=== PATIENT | male | born 1940 | race Caucasian/White ===

== ENCOUNTER 2024-02-26 14:30 | Outpatient (RCR) | payer MEDICARE, SELFPAY ==
[2024-02-19 14:12] VITALS: BP 154/60; PULSE 63; RESP 16; TEMP 35.9; BMI 28.4
--- NOTE | 2024-02-19 17:47 | PCM.WC.HP ---
History of Present Illness Date of Service: 02/19/24 Chief Complaint: LLE wounds History of Wound: Mr. Paola Boyer is an 83 y/o male who presents to the wound healing center today with left lower extremity wounds. He was referred by Nuvia Brooks. He is accompanied to his appointment today by his . He relays that he has been dealing with these left lower extremity wounds recurrently over the past few years. They will become very close to healing and then subsequently open back up. His reports that all really started with a lot of swelling and redness in his lower legs which progressively worsened to weeping before developing these focal wounds. He has been treated to this point at [facility] with Unna boots and all of the surrounding skin has much improved in appearance however the wounds remain. He has not had any prior venous imaging to his knowledge and no venous interventions. No history of peripheral arterial disease or arterial interventions. He is not diabetic. He is not currently smoking, he quit in 1964. He presents today in an automated wheelchair. His insurance unfortunately has a very high co-pay for debridements which will be kept in mind throughout his treatment. [facility] Home Medications cholecalciferol (vitamin D3) 50 mcg (2,000 unit) capsule 50 mcg PO DAILY 02/19/24 [History Last Taken Unknown] esomeprazole magnesium 20 mg capsule,delayed release (Nexium) 20 mg PO DAILY PRN GERD 02/19/24 [History Last Taken Unknown] ezetimibe 10 mg tablet (Zetia) 10 mg PO DAILY 02/19/24 [History Last Taken Unknown] furosemide 20 mg tablet (Lasix) 20 mg PO DAILY 02/19/24 [History Last Taken Unknown] hydrochlorothiazide 25 mg tablet 25 mg PO TID 02/19/24 [History Last Taken Unknown] hydrocodone-acetaminophen 5-325mg 5mg-325mg 1 tab PO DAILY PRN pain 02/19/24 [History Last Taken Unknown] losartan 100 mg tablet (Cozaar) 100 mg PO BID 02/19/24 [History Last Taken Unknown] Allergy/AdvReac Type Severity Reaction Status Date / Time No Known Allergies Allergy Verified 02/19/24 14:10 Social History Smoking Status: Former smoker Vital Signs Vital Signs Vital Signs: 02/19/24 14:12 Temperature 96.6 F L Temperature Source Temporal Pulse Rate 63 Respiratory Rate 16 Blood Pressure 154/60 H Blood Pressure Mean 91 Blood Pressure Source Monitor Blood Pressure Position Sitting Blood Pressure Location Right Arm Oxygen Delivery Method Room Air Weight Weight: 198 lb Body Mass Index (BMI) 28.4 Physical Exam Const alert, oriented x3 and no apparent distress General Appearance: cooperative and comfortable HEENT normocephalic, head/scalp atraumatic, hearing grossly normal bilaterally, external ears normal and external nose normal Eyes PERRL and EOMs intact bilaterally General Eye: normal appearance of both eyes Neck General: normal visual inspection and trachea midline Resp normal respiratory effort, normal air movement, no retractions and no use of accessory muscles Effort and Inspection: able to speak in complete sentences; Negative for labored, stridor or audible wheezes Cardio regular rate and regular rhythm Extremity Extremity Narrative: 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 Mild 1+ edema on exam today. No apparent bulging varicosities. No weeping or skin breakdown except for wounds as noted below. Easily palpable pedal pulses. Skin Wounds: wounds noted Wound Narrative: There are 2 ulcerations to the left lower leg. The inferolateral ulceration measures 1.3 x 1.7 x 0.4 cm with a granular and fibrinous base. The posterior ulceration measures 1 x 0.6 x 0.2 cm also with a granular and fibrinous base. No signs of infection. Neuro oriented x3, CN's II-XII intact bilaterally and moves all extremities Speech: speech normal Debridement Note Debridement Note Wound debrided: Left lateral lower leg Laterality: Left No debridement was completed: No debridement was completed today Post-Debridement Measurements and Additional Note: Post-Debridement Measurements/Treatment - Nurse 1 - General Ulcer Assessment Start: 02/19/24 14:07 Freq: Status: Active Protocol: WC.LOWEXT Activity Type Activity Date Activity User E-sign Co-sign Detail Recorded Client Recorded Date Recorded By Document 02/19/24 14:12 [facility] Desktop 02/19/24 14:31 [facility] 02/19/24 14:12 - Today's Visit Information Type of service Initial Visit Arrival Mode Wheelchair Transfer Assistance None Accompanied by Patient Identification Verified (Name & Yes ) Patient Requires Transmission-Based No Precautions Height and Weight Height 5 ft 10 in Weight 198 lb Weight in Pounds 198.0 lbs Weight Measurement Method Estimated by Patient Body Mass Index (BMI) 28.4 BMI Classification Overweight BSA - Maria Elena 2.08 Vital Signs Temperature (97.8 F-99.1 F) 96.6 F L Temperature Source Temporal Pulse Rate (60-100) 63 Pulse Location Monitor Respiratory Rate (12-18) 16 Respiratory rate source Observation Oxygen Delivery Method Room Air Blood Pressure (90/60-120/80) 154/60 H Blood Pressure Mean 91 Source Monitor Position Sitting Blood Pressure Location Right Arm History Since Last Visit- (Skip if this is Patient's initial visit) Left Footwear Regular Shoe Right Footwear Regular Shoe Pain Scale: 0-10 Numeric Is Patient Pain Free? Yes Lower Extremity Assessment/ Foot Assessment/ Toe Nail Assessment Right -Posterior Tibial Palpable No -Posterior Tibial Doppler Inaudible -Dorsalis Pedis Palpable No -Dorsalis Pedis Doppler Inaudible -Extremity Color Hyperpigmented -Hair Growth on Legs No -Hair Growth on Toes No -Temperature of Extremity Cool -Other Deformity No -Prior Foot Ulcer No -Charcot Joint No -Prior Amputation No -Thick Yes -Discolored Yes -Deformed No -Improper Length & Hygeine No Left -Posterior Tibial Palpable No -Posterior Tibial Doppler Inaudible -Dorsalis Pedis Palpable No -Dorsalis Pedis Doppler Monophasic -Extremity Color Hyperpigmented -Hair Growth on Legs No -Hair Growth on Toes No -Temperature of Extremity Cool -Other Deformity No -Prior Foot Ulcer No -Charcot Joint No -Prior Amputation No -Thick Yes -Discolored Yes -Deformed No -Improper Length & Hygeine No Communication Assessment Preferred 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 Required No Able to Read Yes Able to Write Yes Communication Tools None Right Hearing Abillity Normal Left Hearing Abillity Normal Visual Assistive Devices Glasses Teaching Assessment Preferences Verbal,Written, Audio/Visual, Demonstration Barriers to Learning None Readiness To Learn Excellent Willingness to Engage in Self Management High Activies Readiness to Engage in Self Management High Activities Anxiety Level Calm Cooperation Cooperative Perception Coherent Interest in Health Problem Asks Questions Education Importance Acknowledges Need Does Patient Smoke tobacco or other No substances Smoking Status Former smoker Is Patient Diabetic No Functional Assessment Recent Decline in Ability to Perform Denies Any Declines 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 Cultural/Christian Needs that may affect No Treatment Plan Teaching: Wound Center *Wound/Skin Impairment -Person Taught Patient, Significant Other -Teaching Method Discussion -Response to teaching Verbalize understanding Skin Care -Person Taught Patient, Significant Other -Teaching Method Discussion -Response to teaching Verbalize understanding *Welcome to the Wound Center -Person Taught Patient, Significant Other -Teaching Method Discussion -Response to teaching Verbalize understanding Welcome to the Wound Care Center English SORIANO - Nurse 1 - General Ulcer Measurement Start: 02/19/24 14:07 Freq: Status: Active Protocol: Activity Type Activity Date Activity User E-sign Co-sign Detail Recorded Client Recorded Date Recorded By Document 02/19/24 14:12 [facility] Desktop 02/19/24 14:31 [facility] 02/19/24 14:12 Wound Center Nurse 1 #2- L LOWER POST LE -Combined with other wound No -Current Size (cm) - Length 0.3 -Current Size (cm) - Width 0.5 -Current Size (cm) - Depth 0.1 -Total Square Cm 0.15 -Date of Last Picture (Recall this 02/19/24 field) -Photo Taken Yes -Tunneling No -Undermining/Tunneling No -Circular Undermining No -Exudate Amt Medium -Exudate Type Serosanguineous -Wound Margin Distinct, Outline Attached -Granulation Amt Small (1-33%) -Granulation Quality Red -Slough/Fibrin Yes -Necrosis Amt Large (67-100%) -Necrotic Tissue Type Adherent Slough -Texture (Darling-wound Skin Appearance) Assessed, Scarring -Moisture (Darling-wound Skin Appearance) Assessed -Color (Darling-wound Skin Appearance) Assessed -Temperature (Darling-wound Skin No Abnormality Appearance) (Pt Warm) -Tenderness on Palpation (Darling-wound No Skin Appearance) -Ulcer Cleansing Soap and Water -Foul Odor after Cleansing No -Anesthetic Used 4% Lidocaine Solution #1- L LAT LE -Combined with other wound No -Current Size (cm) - Length 1.1 -Current Size (cm) - Width 1.8 -Current Size (cm) - Depth 0.3 -Total Square Cm 1.98 -Date of Last Picture (Recall this 02/19/24 field) -Photo Taken Yes -Epithelialization None Present -Tunneling No -Undermining/Tunneling No -Circular Undermining No -Exudate Amt Medium -Exudate Type Serosanguineous -Wound Margin Distinct, Outline Attached -Granulation Amt Small (1-33%) -Granulation Quality Red -Slough/Fibrin Yes -Necrosis Amt Medium (34-66%) -Necrotic Tissue Type Adherent Slough -Texture (Darling-wound Skin Appearance) Assessed, Scarring -Moisture (Darling-wound Skin Appearance) Assessed -Color (Darling-wound Skin Appearance) Assessed -Temperature (Darling-wound Skin No Abnormality Appearance) (Pt Warm) -Tenderness on Palpation (Darling-wound No Skin Appearance) -Ulcer Cleansing Soap and Water -Foul Odor after Cleansing No -Anesthetic Used 4% Lidocaine Solution Lower Limb Edema Present Yes Right Calf (cm) 44 Right Ankle (cm) 24.5 Left Calf (cm) 46.5 Left Ankle (cm) 24.7 CHRISTIE - Nurse 2 - General Ulcer CM Notes Start: 02/19/24 14:07 Freq: Status: Active Protocol: Activity Type Activity Date Activity User E-sign Co-sign Detail Recorded Client Recorded Date Recorded By Document 02/19/24 15:06 Desktop 02/19/24 15:16 GM 02/19/24 15:06 Wound Center Nurse 2 #2- L LOWER POST LE -Time 15:11 -Correct Patient Yes -Correct Side, Site, Position Yes -Post Debridement (cm) - Length 1 -Post Debridement (cm) - Width 0.6 -Post Debridement (cm) - Depth 0.2 -Total Square (Post) (cm) 0.6 -Wound/Ulcer Outcome Not Healed -Ulcer Cleansing Rinsed/ Irrigated with Saline -Foul Odor after Cleansing No -Bioengineered Tissue No -Bleeding Controlled with NA #1- L LAT LE -Time 15:12 -Correct Patient Yes -Correct Side, Site, Position Yes -Post Debridement (cm) - Length 1.3 -Post Debridement (cm) - Width 1.7 -Post Debridement (cm) - Depth 0.4 -Total Square (Post) (cm) 2.21 -Wound/Ulcer Outcome Not Healed -Foul Odor after Cleansing No Pain Scale: 0-10 Numeric Is Patient Pain Free? Yes CHRISTIE - Nurse 3 - General Ulcer D/C NN Start: 02/19/24 14:07 Freq: Status: Active Protocol: Activity Type Activity Date Activity User E-sign Co-sign Detail Recorded Client Recorded Date Recorded By Document 02/19/24 15:32 KW Desktop 02/19/24 16:00 KW 02/19/24 15:32 Wound Care Center Nurse 3 #2- L LOWER POST LE -Primary Dressing Applied Aquacel AG 4x4 -Primary Dressing Covered/Secured with Dry Gauze & Roll Gauze, Secured with Tape -Aquacel AG 4x4 1 #1- L LAT LE -Primary Dressing Applied Optilok 6.5x10 -Optilok 6.5x10 1 Left -Tubular Bandage Double Layer -Size of Tubigrip Used Size E -Size E ($) 2 Pain Scale: 0-10 Numeric Is Patient Pain Free? 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 They are instructed to apply nickel thick layer of Santyl to each ulceration. Will apply Aquacel over this and then cover with a superabsorbent dressing or dry gauze wrap. Dressings are to be changed daily or more often as needed to keep clean and dry. With dressing changes, wash the area with antibacterial soap and water and pat to dry. Given daily dressing changes, will switch from Unna boots to medium strength double Tubigrip's for compression. The appearance of the wounds and lower legs is consistent with venous insufficiency. Will obtain a reflux study to further evaluate. Given the recurrent and chronic nature of his wounds, if reflux is identified he may benefit from venous ablation and/or evaluation for central venous compression. He may also ultimately benefit from pneumatic compression devices. There are no signs and symptoms of infection on exam today. He is instructed to elevate his legs at all resting times, preferably at or above the level of the heart. He is advised to perform ankle flexion exercises. We will continue to apply Eucerin cream or other moisturizing lotion to the rest of the lower legs to support skin integrity. He will return to the wound healing center in 1 week. They are advised to contact us if they do not receive their wound care supplies in a timely fashion.
--- NOTE | 2024-02-23 13:39 | WC ---
3.21.24 LT LAT LE
[2024-02-26 14:33] VITALS: BP 154/67; PULSE 64; RESP 16; TEMP 36.1; BMI 28.4
--- NOTE | 2024-02-26 17:20 | PCM.WC.PN ---
History of Present Illness Date of Service: 02/26/24 Chief Complaint: LLE wounds History of Wound: Mr. Paola Boyer is an 83 y/o male who presents to the wound healing center today with left lower extremity wounds. He was referred by Nuvia Brooks. He is accompanied to his appointment today by his . He relays that he has been dealing with these left lower extremity wounds recurrently over the past few years. They will become very close to healing and then subsequently open back up. His reports that all really started with a lot of swelling and redness in his lower legs which progressively worsened to weeping before developing these focal wounds. He has been treated to this point at [facility] with Unna boots and all of the surrounding skin has much improved in appearance however the wounds remain. He has not had any prior venous imaging to his knowledge and no venous interventions. No history of peripheral arterial disease or arterial interventions. He is not diabetic. He is not currently smoking, he quit in 1964. He presents today in an automated wheelchair. His insurance unfortunately has a very high co-pay for debridements which will be kept in mind throughout his treatment. Subjective Subjective He has had increased redness and pain at the inferior wound. No N/V, F/C. He was able to obtain the Santyl. They have been performing dressing changes as instructed. Doing well with the Tubigrips for compression. Objective Data Objective Data Vital Signs: Vital Signs Temp Pulse Resp BP O2 Del Method 96.9 F L 64 16 154/67 H Room Air 02/26/24 14:33 02/26/24 14:33 02/26/24 14:33 02/26/24 14:33 02/26/24 14:33 Oxygen Delivery Method Room Air Weight: 198 lb Body Mass Index (BMI) 28.4 Charges/Coding Visit Charges Office Visits / Consults: 16448 OV L3 Est 20min Procedures Integumentary 111xxx-113xx: 15488 Faviola subq tissue 20 sq cm/< Physical Exam Const alert, oriented x3 and no apparent distress General Appearance: cooperative and comfortable HEENT normocephalic, head/scalp atraumatic, hearing grossly normal bilaterally, external ears normal and external nose normal Eyes General Eye: normal appearance of both eyes Resp normal respiratory effort Effort and Inspection: able to speak in complete sentences; Negative for labored, stridor or audible wheezes Extremity Extremity Narrative: 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 Mild 1+ edema on exam today. No apparent bulging varicosities. No weeping or skin breakdown except for wounds as noted below. Easily palpable pedal pulses. Skin Wounds: wounds noted Wound Narrative: There are 2 ulcerations to the left lower leg. The inferolateral ulceration measures 1.1 x 1.8 x 0.4 cm with a granular and fibrinous base. The posterior ulceration measures 0.9 x 0.5 x 0.1 cm also with a granular and fibrinous base. No signs of infection. Neuro oriented x3, CN's II-XII intact bilaterally and moves all extremities Speech: speech normal Debridement Note Debridement Note Wound debrided: Left lateral lower leg Laterality: Left No debridement was completed: No debridement was completed today Post-Debridement Measurements and Additional Note: Post-Debridement Measurements/Treatment - Nurse 1 - General Ulcer Assessment Start: 02/19/24 14:07 Freq: Status: Active Protocol: DUSTIN Activity Type Activity Date Activity User E-sign Co-sign Detail Recorded Client Recorded Date Recorded By Document 02/19/24 14:12 [employer] Desktop 02/19/24 14:31 [employer] Document 02/26/24 14:33 [employer] Desktop 02/26/24 14:49 [employer] 02/19/24 02/26/24 14:12 14:33 - Today's Visit Information Type of service Initial Visit Follow-up Visit (Physician/DEDICATED [employer]IVER ) Arrival Mode Wheelchair Wheelchair Transfer Assistance None Other Transfer Assist (Other) 2 Accompanied by Patient Identification Verified (Name & Yes Yes ) Patient Requires Transmission-Based No No Precautions Height and Weight Height 5 ft 10 in Weight 198 lb Weight in Pounds 198.0 lbs Weight Measurement Method Estimated by Patient Body Mass Index (BMI) 28.4 28.4 BMI Classification Overweight Overweight BSA - Maria Elena 2.08 Vital Signs Temperature (97.8 F-99.1 F) 96.6 F L 96.9 F L Temperature Source Temporal Temporal Pulse Rate (60-100) 63 64 Pulse Location Monitor Monitor Respiratory Rate (12-18) 16 16 Respiratory rate source Observation Observation Oxygen Delivery Method Room Air Room Air Blood Pressure (90/60-120/80) 154/60 H 154/67 H Blood Pressure Mean (mm Hg) 91 96 Source Monitor Monitor Position Sitting Sitting Blood Pressure Location Right Arm Right Arm History Since Last Visit- (Skip if this is Patient's initial visit) Have you changed medications since your No last visit? Any new allergies or adverse reactions No Had a fall/change in ADL's that may No increase risk of falls Signs or symptoms of abuse and/or No neglect since last visit Have you been in the hospital since your No last visit? Has dressing in place as prescribed Yes Has compression in place as prescribed Yes Has offloadiing in place as prescribed N/A Experienced any changes in pain level or No management Left Footwear Regular Shoe Regular Shoe Right Footwear Regular Shoe Regular Shoe Pain Scale: 0-10 Numeric Is Patient Pain Free? Yes Yes Lower Extremity Assessment/ Foot Assessment/ Toe Nail Assessment Right -Posterior Tibial Palpable No -Posterior Tibial Doppler Inaudible -Dorsalis Pedis Palpable No -Dorsalis Pedis Doppler Inaudible -Extremity Color Hyperpigmented -Hair Growth on Legs No -Hair Growth on Toes No -Temperature of Extremity Cool -Other Deformity No -Prior Foot Ulcer No -Charcot Joint No -Prior Amputation No -Thick Yes -Discolored Yes -Deformed No -Improper Length & Hygeine No Left -Posterior Tibial Palpable No -Posterior Tibial Doppler Inaudible -Dorsalis Pedis Palpable No -Dorsalis Pedis Doppler Monophasic -Extremity Color Hyperpigmented -Hair Growth on Legs No -Hair Growth on Toes No -Temperature of Extremity Cool -Other Deformity No -Prior Foot Ulcer No -Charcot Joint No -Prior Amputation No -Thick Yes -Discolored Yes -Deformed No -Improper Length & Hygeine No Communication Assessment Preferred language [place] [employer] Required No Able to Read Yes Able to Write Yes Communication Tools None Right Hearing Abillity Normal Left Hearing Abillity Normal Visual Assistive Devices Glasses Teaching Assessment Preferences Verbal,Written, Audio/Visual, Demonstration Barriers to Learning None Readiness To Learn Excellent Willingness to Engage in Self Management High Activies Readiness to Engage in Self Management High Activities Anxiety Level Calm Cooperation Cooperative Perception Coherent Interest in Health Problem Asks Questions Education Importance Acknowledges Need Does Patient Smoke tobacco or other No substances Smoking Status Former smoker Is Patient Diabetic No Functional Assessment Recent Decline in Ability to Perform Denies Any Declines Culture/Mandaen/Supply Chain Generalist Cultural/Mandaen Needs that may affect No Treatment Plan Teaching: Wound Center *Wound/Skin Impairment -Person Taught Patient, Significant Other -Teaching Method Discussion -Response to teaching Verbalize understanding Skin Care -Person Taught Patient, Significant Other -Teaching Method Discussion -Response to teaching Verbalize understanding *Welcome to the Wound Center -Person Taught Patient, Significant Other -Teaching Method Discussion -Response to teaching Verbalize understanding Welcome to the Wound Care Center English SORIANO - Nurse 1 - General Ulcer Measurement Start: 02/19/24 14:07 Freq: Status: Active Protocol: Activity Type Activity Date Activity User E-sign Co-sign Detail Recorded Client Recorded Date Recorded By Document 02/19/24 14:12 [facility] Desktop 02/19/24 14:31 [facility] Document 02/26/24 14:33 BM Desktop 02/26/24 14:49 F 02/19/24 02/26/24 14:12 14:33 Wound Center Nurse 1 #2- L LOWER POST LE -Combined with other wound No No -Current Size (cm) - Length 0.3 1 -Current Size (cm) - Width 0.5 0.7 -Current Size (cm) - Depth 0.1 0.2 -Total Square Cm 0.15 0.7 -Date of Last Picture (Recall this 02/19/24 02/26/24 field) -Photo Taken Yes Yes -Epithelialization None Present -Tunneling No No -Undermining/Tunneling No No -Circular Undermining No No -Exudate Amt Medium Medium -Exudate Type Serosanguineous Serosanguineous -Wound Margin Distinct, Distinct, Outline Outline Attached Attached -Granulation Amt Small (1-33%) Medium (34-66%) -Granulation Quality Red Red -Slough/Fibrin Yes Yes -Necrosis Amt Large (67-100%) Medium (34-66%) -Necrotic Tissue Type Adherent Slough Adherent Slough -Texture (Darling-wound Skin Appearance) Assessed, Assessed, Scarring Scarring -Moisture (Darling-wound Skin Appearance) Assessed Assessed, Maceration -Color (Darling-wound Skin Appearance) Assessed Erythema -Temperature (Darling-wound Skin No Abnormality No Abnormality Appearance) (Pt Warm) (Pt Warm) -Tenderness on Palpation (Darling-wound No No Skin Appearance) -Ulcer Cleansing Soap and Water Soap and Water -Foul Odor after Cleansing No No -Anesthetic Used 4% Lidocaine 5% Lidocaine Solution Gel #1- L LAT LE -Combined with other wound No No -Current Size (cm) - Length 1.1 1 -Current Size (cm) - Width 1.8 1.8 -Current Size (cm) - Depth 0.3 0.3 -Total Square Cm 1.98 1.8 -Date of Last Picture (Recall this 02/19/24 02/26/24 field) -Photo Taken Yes Yes -Epithelialization None Present None Present -Tunneling No No -Undermining/Tunneling No No -Circular Undermining No No -Exudate Amt Medium Medium -Exudate Type Serosanguineous Serosanguineous -Wound Margin Distinct, Distinct, Outline Outline Attached Attached -Granulation Amt Small (1-33%) None Present (0 %) -Granulation Quality Red -Slough/Fibrin Yes Yes -Necrosis Amt Medium (34-66%) Large (67-100%) -Necrotic Tissue Type Adherent Slough Adherent Slough -Texture (Darling-wound Skin Appearance) Assessed, Assessed Scarring -Moisture (Darling-wound Skin Appearance) Assessed Assessed, Maceration -Color (Darling-wound Skin Appearance) Assessed Assessed, Erythema -Temperature (Darling-wound Skin No Abnormality No Abnormality Appearance) (Pt Warm) (Pt Warm) -Tenderness on Palpation (Darling-wound No No Skin Appearance) -Ulcer Cleansing Soap and Water Soap and Water -Foul Odor after Cleansing No No -Anesthetic Used 4% Lidocaine 5% Lidocaine Solution Gel Lower Limb Edema Present Yes Yes Right Calf (cm) 44 Right Ankle (cm) 24.5 Left Calf (cm) 46.5 42 Left Ankle (cm) 24.7 25.2 WC - Nurse 2 - General Ulcer CM Notes Start: 02/19/24 14:07 Freq: Status: Active Protocol: Activity Type Activity Date Activity User E-sign Co-sign Detail Recorded Client Recorded Date Recorded By Document 02/19/24 15:06 GM Desktop 02/19/24 15:16 GM Document 02/26/24 15:40 Desktop 02/26/24 15:48 GM 02/19/24 02/26/24 15:06 15:40 Wound Center Nurse 2 #2- L LOWER POST LE -Time 15:11 15:41 -Correct Patient Yes Yes -Correct Side, Site, Position Yes Yes -Type of Procedure Debridement -Clinical Debridement Subcutaneous -Tissue Removed Subcutaneous -Post Debridement (cm) - Length 1 0.9 -Post Debridement (cm) - Width 0.6 0.5 -Post Debridement (cm) - Depth 0.2 0.1 -Total Square (Post) (cm) 0.6 0.45 -Area of Debridement (cm) - Length 0.9 -Area of Debridement (cm) - Width 0.5 -Total Square (Area) (cm) 0.45 -Tunneling No -Undermining/Tunneling No -Circular Undermining No -Wound/Ulcer Outcome Not Healed -Ulcer Cleansing Rinsed/ Rinsed/ Irrigated with Irrigated with Saline Saline -Foul Odor after Cleansing No Yes, Due to Product Use -Bioengineered Tissue No No -Bleeding Controlled with NA Pressure -Treatment Response Procedure Tolerated Well -Debridement - Subq, 20sq cm No #1- L LAT LE -Time 15:12 15:41 -Correct Patient Yes Yes -Correct Side, Site, Position Yes Yes -Correct Procedure Yes -Procedure Performed Yes -Type of Procedure Debridement -Clinical Debridement Subcutaneous -Tissue Removed Subcutaneous -Post Debridement (cm) - Length 1.3 1.1 -Post Debridement (cm) - Width 1.7 1.8 -Post Debridement (cm) - Depth 0.4 0.4 -Total Square (Post) (cm) 2.21 1.98 -Area of Debridement (cm) - Length 1.1 -Area of Debridement (cm) - Width 1.8 -Total Square (Area) (cm) 1.98 -Tunneling No -Undermining/Tunneling No -Circular Undermining No -Wound/Ulcer Outcome Not Healed Not Healed -Ulcer Cleansing Rinsed/ Irrigated with Saline -Foul Odor after Cleansing No No -Bleeding Controlled with Pressure -Treatment Response Procedure Tolerated Well -Debridement - Subq, 1st 20sq cm Yes Pain Scale: 0-10 Numeric Is Patient Pain Free? Yes Yes WC - Nurse 3 - General Ulcer D/C NN Start: 02/19/24 14:07 Freq: Status: Active Protocol: Activity Type Activity Date Activity User E-sign Co-sign Detail Recorded Client Recorded Date Recorded By Document 02/19/24 15:32 KW Desktop 02/19/24 16:00 KW Document 02/26/24 15:58 CP Desktop 02/26/24 16:07 CP 02/19/24 02/26/24 15:32 15:58 Wound Care Center Nurse 3 #2- L LOWER POST LE -Ulcer Cleansing Rinsed/ Irrigated with Saline -Foul Odor after Cleansing No -Primary Dressing Applied Aquacel AG 4x4 Aquacel AG 4x4 -Other Dressing santyl -Primary Dressing Covered/Secured with Dry Gauze & Dry Gauze & Roll Gauze, Roll Gauze, Secured with Secured with Tape Tape -Aquacel AG 4x4 1 1 -Optilok 6.5x10 1 #1- L LAT LE -Ulcer Cleansing Rinsed/ Irrigated with Saline -Foul Odor after Cleansing No -Primary Dressing Applied Optilok 6.5x10 -Primary Dressing Covered/Secured with Dry Gauze & Roll Gauze, Secured with Tape -Other Covering santyl and aquacel ag applied -Optilok 6.5x10 1 Left -Tubular Bandage Double Layer -Size of Tubigrip Used Size E -Size D ($) 2 -Size E ($) 2 Treatment Response Procedure Tolerated Well Pain Scale: 0-10 Numeric Is Patient Pain Free? Yes Yes WC - Visit Discharge Discharge Condition Stable Stable Ambulatory Status Wheelchair Wheelchair Transportation Private Auto Private Auto Medication Reconcilliation completed & No No provided to patient/care provider Clinical Summary of Care Provided Yes Yes Notes: pt uses a scooter Additional Wound Wound debrided: Left posterior lower leg Laterality: Left Type of Debridement: Excisional debridement Anesthesia Used: 5% Lidocaine Gel Depth: Down to and including healthy tissue Percentage of wound debrided: 100 Instrument Used: 5mm curette Severity: Limited To Skin Breakdown Bleeding Controlled with: Pressure Patient tolerated procedure: Patient tolerated procedure well Assessment/Plan Assessment/Plan (1) 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 They are instructed to apply nickel thick layer of Santyl to each ulceration. Will apply Aquacel over this and then cover with a superabsorbent dressing or dry gauze wrap. Dressings are to be changed daily or more often as needed to keep clean and dry. With dressing changes, wash the area with antibacterial soap and water and pat to dry. Continue Tubigrips for compression. He is scheduled for venous reflux study next . Due to increased redness and pain, wound cultures were obtained today. Will start empiric therapy with doxycycline and adjust as needed per C&S. He is instructed to elevate his legs at all resting times, preferably at or above the level of the heart. He is advised to perform ankle flexion exercises. We will continue to apply Eucerin cream or other moisturizing lotion to the rest of the lower legs to support skin integrity. He will return to the wound healing center in 1 week.
--- NOTE | 2024-03-05 11:31 | WC ---
3.28.24 LT LAT LEG
== END 2024-02-29 23:59 | disposition home or self-care (01) ==
LOC: WC 14:30
PROVIDERS: PCP Family Medicine; Referring Provider Dermatology; Visit Provider Physician Assistant
DX: L97.922 Non-pressure chronic ulcer of unspecified part of left lower leg with fat layer exposed (principal); Z87.891 Personal history of nicotine dependence; R60.0 Localized edema; M79.3 Panniculitis, unspecified
CPT/HCPCS: 11042; 87070; 87075; 87077; 87186; 87205; 99203; G0463

== ENCOUNTER 2024-03-25 14:30 | Outpatient (RCR) | payer MEDICARE, SELFPAY ==
[2024-03-01 00:31] VITALS: BP 154/67; PULSE 64; RESP 16; TEMP 36.1; BMI 28.4
--- NOTE | 2024-03-04 13:03 | VDLE_ITS ---
Reason For Study: LLE Wound RIGHT LEFT CFV is compressible, spontaneous, phasic, CFV is compressible, spontaneous, phasic, competent and demonstrates normal competent, and demonstrates normal augmentation. augmentation. FV is compressible, spontaneous, phasic, FV is compressible, spontaneous, phasic, competent and demonstrates normal competent and demonstrates normal augmentation. augmentation. POP V is compressible, spontaneous, phasic, POP V is compressible, spontaneous, phasic, competent and demonstrates normal competent and demonstrates normal augmentation. augmentation. T/P Trunk is compressible. T/P Trunk is compressible. PTV is compressible. PTV is compressible. RT PerV is compressible. LT PerV is compressible. SFJ is competent and measures 0.74 cm. SFJ is competent and measures 0.60 cm. GSV proximal thigh measures 0.34 x 0.37 cm. GSV proximal thigh measures 0.25 x 0.27 cm. GSV at knee measures 0.22 x 0.28 cm. GSV at knee measures 0.25 x 0.28 cm. GSV above knee is competent. GSV above knee is competent. GSV below knee is INCOMPETENT for greater GSV below knee is INCOMPETENT for greater than 0.5 seconds. than 0.5 seconds. SSV proximal calf is competent and measures SSV proximal calf is competent and measures 0.20 x 0.22 cm. 0.21 x 0.23 cm. Procedure This is a venous duplex using B-mode, color flow and spectral Doppler. Exam performed in department. The exam was diagnostic. VL/Venous Duplex US - Alfredo Extrem Interpretation Summary Deep veins of the bilateral lower extremities are patent and compressible segme ntally. There is no evidence of bilateral lower extremity deep vein thrombosis. The bilateral great saphenous veins appear patent and compressible segmentally. Positive for relfux in the right great saphenous vein below the knee. Positive for relfux in the left great saphenous vein below the knee. Ordering Physician: Swetha Dahl Referring Physician: Reid Fontanez Performed By: Cody Funes RVT
[2024-03-11 14:27] VITALS: BP 146/60; PULSE 77; RESP 18; TEMP 36.7; BMI 28.4
--- NOTE | 2024-03-11 17:09 | PCM.WC.PN ---
History of Present Illness Date of Service: 03/11/24 Chief Complaint: LLE wounds History of Wound: Mr. Paola Boyer is an 83 y/o male who presents to the wound healing center today with left lower extremity wounds. He was referred by Nuvia Brooks. He is accompanied to his appointment today by his . He relays that he has been dealing with these left lower extremity wounds recurrently over the past few years. They will become very close to healing and then subsequently open back up. His reports that all really started with a lot of swelling and redness in his lower legs which progressively worsened to weeping before developing these focal wounds. He has been treated to this point at [facility] with Unna boots and all of the surrounding skin has much improved in appearance however the wounds remain. He has not had any prior venous imaging to his knowledge and no venous interventions. No history of peripheral arterial disease or arterial interventions. He is not diabetic. He is not currently smoking, he quit in 1964. He presents today in an automated wheelchair. His insurance unfortunately has a very high co-pay for debridements which will be kept in mind throughout his treatment. Subjective Subjective Patient is doing well overall. He has been taking doxycycline as prescribed without issue. His has noticed the wounds seem to be decreasing in size. He does still have a significant amount of erythema in the L calf/angel and around the wound, some of this is reportedly chronic. There is still increased warmth around the inferior wound. He denies any N/V, F/C, increased drainage from the wounds. Objective Data Objective Data Vital Signs: Vital Signs Temp Pulse Resp BP O2 Del Method 98.0 F 77 18 146/60 H Room Air 03/11/24 14:27 03/11/24 14:27 03/11/24 14:27 03/11/24 14:27 03/11/24 14:27 Oxygen Delivery Method Room Air Weight: 198 lb Body Mass Index (BMI) 28.4 Charges/Coding Visit Charges Office Visits / Consults: 92587 OV L3 Est 20min Physical Exam Const alert, oriented x3 and no apparent distress General Appearance: cooperative and comfortable HEENT normocephalic, head/scalp atraumatic, hearing grossly normal bilaterally, external ears normal and external nose normal Eyes General Eye: normal appearance of both eyes Resp normal respiratory effort Effort and Inspection: able to speak in complete sentences; Negative for labored, stridor or audible wheezes Extremity Extremity Narrative: 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 Mild 1+ edema on exam today. No apparent bulging varicosities. No weeping or skin breakdown except for wounds as noted below. Easily palpable pedal pulses. Skin Wounds: wounds noted Wound Narrative: There are 2 ulcerations to the left lower leg. The inferolateral ulceration measures 1.1 x 1.8 x 0.4 cm with a granular and fibrinous base. There some warmth and erythema around this wound. The posterior ulceration measures 0.9 x 0.5 x 0.1 cm also with a granular and fibrinous base. Neuro oriented x3, CN's II-XII intact bilaterally and moves all extremities Speech: speech normal Debridement Note Debridement Note Wound debrided: Left lateral lower leg Laterality: Left No debridement was completed: No debridement was completed today Post-Debridement Measurements and Additional Note: Post-Debridement Measurements/Treatment - Nurse 1 - General Ulcer Assessment Start: 03/11/24 14:27 Freq: Status: Active Protocol: DUSTIN Activity Type Activity Date Activity User E-sign Co-sign Detail Recorded Client Recorded Date Recorded By Document 03/11/24 14:27 KW Desktop 03/11/24 14:45 KW 03/11/24 14:27 - Today's Visit Information Type of service Follow-up Visit (Physician/TUGGER OPERATOR ) Arrival Mode Other Arrival Mode (Other) scooter Transfer Assistance Transfer Board Transfer Assist (Other) Accompanied by Patient Identification Verified (Name & Yes ) Height and Weight Body Mass Index (BMI) 28.4 BMI Classification Overweight Vital Signs Temperature (97.8 F-99.1 F) 98.0 F Temperature Source Temporal Pulse Rate (60-100) 77 Pulse Location Monitor Respiratory Rate (12-18) 18 Respiratory rate source Observation Oxygen Delivery Method Room Air Blood Pressure (90/60-120/80) 146/60 H Blood Pressure Mean (mm Hg) 88 Source Monitor Position Right Lateral Blood Pressure Location Left Arm History Since Last Visit- (Skip if this is Patient's initial visit) Have you changed medications since your No last visit? Any new allergies or adverse reactions No Had a fall/change in ADL's that may No increase risk of falls Signs or symptoms of abuse and/or No neglect since last visit Have you been in the hospital since your No last visit? Has dressing in place as prescribed Yes Has compression in place as prescribed Yes Has offloadiing in place as prescribed N/A Experienced any changes in pain level or No management Left Footwear Regular Shoe Right Footwear Regular Shoe Pain Scale: 0-10 Numeric Is Patient Pain Free? Yes WC - Nurse 1 - General Ulcer Measurement Start: 03/11/24 14:27 Freq: Status: Active Protocol: Activity Type Activity Date Activity User E-sign Co-sign Detail Recorded Client Recorded Date Recorded By Document 03/11/24 14:27 KW Desktop 03/11/24 14:45 KW 03/11/24 14:27 Wound Center Nurse 1 #2- L LOWER POST LE -Current Size (cm) - Length 0.4 -Current Size (cm) - Width 0.3 -Current Size (cm) - Depth 0.1 -Total Square Cm 0.12 -Tunneling No -Undermining/Tunneling No -Circular Undermining No -Exudate Amt Medium -Exudate Type Serosanguineous -Wound Margin Distinct, Outline Attached -Granulation Amt Small (1-33%) -Granulation Quality Clover -Necrosis Amt Large (67-100%) -Necrotic Tissue Type Adherent Slough -Texture (Darling-wound Skin Appearance) Assessed -Moisture (Darling-wound Skin Appearance) Assessed -Color (Darling-wound Skin Appearance) Assessed -Temperature (Darling-wound Skin No Abnormality Appearance) (Pt Warm) -Tenderness on Palpation (Darling-wound No Skin Appearance) -Ulcer Cleansing Rinsed/ Irrigated with Saline -Foul Odor after Cleansing No -Anesthetic Used 5% Lidocaine Gel #1- L LAT LE -Current Size (cm) - Length 1 -Current Size (cm) - Width 1.9 -Current Size (cm) - Depth 0.2 -Total Square Cm 1.9 -Epithelialization None Present -Tunneling No -Undermining/Tunneling No -Circular Undermining No -Exudate Amt Medium -Exudate Type Serosanguineous -Wound Margin Distinct, Outline Attached -Granulation Amt Large (67-100%) -Granulation Quality Red -Necrosis Amt Small (1-33%) -Necrotic Tissue Type Adherent Slough -Texture (Darling-wound Skin Appearance) Assessed, Scarring -Moisture (Darling-wound Skin Appearance) Assessed -Color (Darling-wound Skin Appearance) Assessed, Erythema -Temperature (Darling-wound Skin No Abnormality Appearance) (Pt Warm) -Ulcer Cleansing Rinsed/ Irrigated with Saline -Foul Odor after Cleansing No -Anesthetic Used 5% Lidocaine Gel Left Calf (cm) 43 Left Ankle (cm) 26.5 WC - Nurse 2 - General Ulcer CM Notes Start: 03/11/24 14:27 Freq: Status: Active Protocol: Activity Type Activity Date Activity User E-sign Co-sign Detail Recorded Client Recorded Date Recorded By Document 03/11/24 15:08 Desktop 03/11/24 15:14 03/11/24 15:08 Wound Center Nurse 2 #2- L LOWER POST LE -Time 15:08 -Correct Patient Yes -Correct Side, Site, Position Yes -Procedure Performed No -Post Debridement (cm) - Length 10.3 -Post Debridement (cm) - Width 0.3 -Post Debridement (cm) - Depth 0.1 -Total Square (Post) (cm) 3.09 -Wound/Ulcer Outcome Not Healed -Ulcer Cleansing Not Cleansed #1- L LAT LE -Time 15:08 -Correct Patient Yes -Correct Side, Site, Position Yes -Procedure Performed No -Post Debridement (cm) - Length 1.0 -Post Debridement (cm) - Width 1.1 -Post Debridement (cm) - Depth 0.5 -Total Square (Post) (cm) 1.10 Pain Scale: 0-10 Numeric Is Patient Pain Free? Yes - Nurse 3 - General Ulcer D/C NN Start: 03/11/24 14:27 Freq: Status: Active Protocol: Activity Type Activity Date Activity User E-sign Co-sign Detail Recorded Client Recorded Date Recorded By Document 03/11/24 15:25 DL Desktop 03/11/24 15:28 DL 03/11/24 15:25 Wound Care Center Nurse 3 #2- L LOWER POST LE -Foul Odor after Cleansing No -Other Dressing santyl -Other Covering bandaid #1- L LAT LE -Ulcer Cleansing Rinsed/ Irrigated with Saline -Foul Odor after Cleansing No -Primary Dressing Applied Optilok 6.5x10 -Other Dressing aquacel ag -Primary Dressing Covered/Secured with Dry Gauze & Roll Gauze, Secured with Tape -Optilok 6.5x10 1 ines -Other double tubi D Treatment Response Procedure Tolerated Well Pain Scale: 0-10 Numeric Is Patient Pain Free? 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 Will plan to continue to utilize Santyl for chemical debridement. They are instructed to apply nickel thick layer of Santyl to each ulceration. Will apply Aquacel over this and then cover with a superabsorbent dressing or dry gauze wrap. Dressings are to be changed daily or more often as needed to keep clean and dry. With dressing changes, wash the area with antibacterial soap and water and pat to dry. Continue Tubigrips for compression. 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 However, he still has lingering redness and warmth so will switch to Bactrim x 10 additional days. He is instructed to elevate his legs at all resting times, preferably at or above the level of the heart. He is advised to perform ankle flexion exercises. We will continue to apply Eucerin cream or other moisturizing lotion to the rest of the lower legs to support skin integrity. He will return to the wound healing center in 1 week.
[2024-03-18 14:35] VITALS: BP 118/66; PULSE 95; RESP 16; TEMP 36.6; BMI 28.4
--- NOTE | 2024-03-18 16:45 | PCM.WC.PN ---
History of Present Illness Date of Service: 03/18/24 Chief Complaint: LLE wounds History of Wound: Mr. Paola Boyer is an 83 y/o male who presents to the wound healing center today with left lower extremity wounds. He was referred by Nuvia Brooks. He is accompanied to his appointment today by his . He relays that he has been dealing with these left lower extremity wounds recurrently over the past few years. They will become very close to healing and then subsequently open back up. His reports that all really started with a lot of swelling and redness in his lower legs which progressively worsened to weeping before developing these focal wounds. He has been treated to this point at [facility] with Unna boots and all of the surrounding skin has much improved in appearance however the wounds remain. He has not had any prior venous imaging to his knowledge and no venous interventions. No history of peripheral arterial disease or arterial interventions. He is not diabetic. He is not currently smoking, he quit in 1964. He presents today in an automated wheelchair. His insurance unfortunately has a very high co-pay for debridements which will be kept in mind throughout his treatment. Subjective Subjective He is tolerating the Bactrim without adverse effects. He and his feel that his leg is looking less erythematous and it is less painful at baseline. His feels that the wounds are improving in size. Objective Data Objective Data Vital Signs: Vital Signs Temp Pulse Resp BP O2 Del Method 97.8 F 95 16 118/66 Room Air 03/18/24 14:35 03/18/24 14:35 03/18/24 14:35 03/18/24 14:35 03/18/24 14:35 Oxygen Delivery Method Room Air Weight: 198 lb Body Mass Index (BMI) 28.4 Charges/Coding Procedures Integumentary 111xxx-113xx: 16724 Faviola subq tissue 20 sq cm/< Physical Exam Const alert, oriented x3 and no apparent distress General Appearance: cooperative and comfortable HEENT normocephalic, head/scalp atraumatic, hearing grossly normal bilaterally, external ears normal and external nose normal Eyes General Eye: normal appearance of both eyes Resp normal respiratory effort Effort and Inspection: able to speak in complete sentences; Negative for labored, stridor or audible wheezes Extremity Extremity Narrative: 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 Mild 1+ edema on exam today. No apparent bulging varicosities. No weeping or skin breakdown except for wounds as noted below. Easily palpable pedal pulses. Skin Wounds: wounds noted Wound Narrative: There are 2 ulcerations to the left lower leg. The inferolateral ulceration measures 0.7 x 1.5 x 0.5 cm with a granular and fibrinous base. The posterior ulceration measures 1.0 x 0.7 but is now very superficial. Neuro oriented x3, CN's II-XII intact bilaterally and moves all extremities Speech: speech normal Debridement Note Debridement Note Wound debrided: Left lateral lower leg Laterality: Left No debridement was completed: No debridement was completed today Post-Debridement Measurements and Additional Note: Post-Debridement Measurements/Treatment WC - Nurse 1 - General Ulcer Assessment Start: 03/11/24 14:27 Freq: Status: Active Protocol: [email or web address] Activity Type Activity Date Activity User E-sign Co-sign Detail Recorded Client Recorded Date Recorded By Document 03/11/24 14:27 [email or web address] 03/11/24 14:45 [employer] Document 03/18/24 14:35 [employer] Desktop 03/18/24 14:47 [employer] 03/11/24 03/18/24 14:27 14:35 - Today's Visit Information Type of service Follow-up Visit Follow-up Visit (Physician/OFFICE SERVICES ASSISTANT (Physician/OFFICE SERVICES ASSISTANT ) ) Arrival Mode Other Wheelchair Arrival Mode (Other) scooter Transfer Assistance Transfer Board None Transfer Assist (Other) Accompanied by Patient Identification Verified (Name & Yes Yes ) Patient Requires Transmission-Based No Precautions Height and Weight Body Mass Index (BMI) 28.4 28.4 BMI Classification Overweight Overweight Vital Signs Temperature (97.8 F-99.1 F) 98.0 F 97.8 F Temperature Source Temporal Temporal Pulse Rate (60-100) 77 95 Pulse Location Monitor Monitor Respiratory Rate (12-18) 18 16 Respiratory rate source Observation Observation Oxygen Delivery Method Room Air Room Air Blood Pressure (90/60-120/80) 146/60 H 118/66 Blood Pressure Mean (mm Hg) 88 83 Source Monitor Monitor Position Right Lateral Sitting Blood Pressure Location Left Arm Left Forearm History Since Last Visit- (Skip if this is Patient's initial visit) Have you changed medications since your No No last visit? Any new allergies or adverse reactions No No Had a fall/change in ADL's that may No No increase risk of falls Signs or symptoms of abuse and/or No No neglect since last visit Have you been in the hospital since your No No last visit? Has dressing in place as prescribed Yes Yes Has compression in place as prescribed Yes Yes Has offloadiing in place as prescribed N/A N/A Experienced any changes in pain level or No No management Left Footwear Regular Shoe Regular Shoe Right Footwear Regular Shoe Regular Shoe Pain Scale: 0-10 Numeric Is Patient Pain Free? Yes Yes WC - Nurse 1 - General Ulcer Measurement Start: 03/11/24 14:27 Freq: Status: Active Protocol: Activity Type Activity Date Activity User E-sign Co-sign Detail Recorded Client Recorded Date Recorded By Document 03/11/24 14:27 KW Desktop 03/11/24 14:45 KW Document 03/18/24 14:35 BMF Desktop 03/18/24 14:47 BMF 03/11/24 03/18/24 14:27 14:35 Wound Center Nurse 1 #2- L LOWER POST LE -Combined with other wound No -Current Size (cm) - Length 0.4 1.2 -Current Size (cm) - Width 0.3 0.2 -Current Size (cm) - Depth 0.1 0.1 -Total Square Cm 0.12 0.24 -Epithelialization None Present -Tunneling No No -Undermining/Tunneling No No -Circular Undermining No No -Exudate Amt Medium Medium -Exudate Type Serosanguineous Serosanguineous -Wound Margin Distinct, Thickened Outline Attached -Granulation Amt Small (1-33%) Small (1-33%) -Granulation Quality White Signal White Signal -Slough/Fibrin Yes -Necrosis Amt Large (67-100%) Large (67-100%) -Necrotic Tissue Type Adherent Slough Adherent Slough -Texture (Darling-wound Skin Appearance) Assessed Assessed, Scarring -Moisture (Darling-wound Skin Appearance) Assessed Assessed,Dry/ Scaly -Color (Darling-wound Skin Appearance) Assessed Assessed -Temperature (Darling-wound Skin No Abnormality No Abnormality Appearance) (Pt Warm) (Pt Warm) -Tenderness on Palpation (Darling-wound No No Skin Appearance) -Ulcer Cleansing Rinsed/ Rinsed/ Irrigated with Irrigated with Saline Saline -Foul Odor after Cleansing No No -Anesthetic Used 5% Lidocaine 5% Lidocaine Gel Gel #1- L LAT LE -Combined with other wound No -Current Size (cm) - Length 1 0.8 -Current Size (cm) - Width 1.9 1.4 -Current Size (cm) - Depth 0.2 0.3 -Total Square Cm 1.9 1.12 -Epithelialization None Present Small 1-33% -Tunneling No No -Undermining/Tunneling No No -Circular Undermining No No -Exudate Amt Medium Medium -Exudate Type Serosanguineous Serosanguineous -Wound Margin Distinct, Flat & Intact Outline Attached -Granulation Amt Large (67-100%) Large (67-100%) -Granulation Quality Red Red -Slough/Fibrin Yes -Necrosis Amt Small (1-33%) Small (1-33%) -Necrotic Tissue Type Adherent Slough Adherent Slough -Texture (Darling-wound Skin Appearance) Assessed, Assessed, Scarring Scarring -Moisture (Darling-wound Skin Appearance) Assessed Assessed,Dry/ Scaly -Color (Darling-wound Skin Appearance) Assessed, Assessed Erythema -Temperature (Darling-wound Skin No Abnormality No Abnormality Appearance) (Pt Warm) (Pt Warm) -Tenderness on Palpation (Darling-wound No Skin Appearance) -Ulcer Cleansing Rinsed/ Rinsed/ Irrigated with Irrigated with Saline Saline -Foul Odor after Cleansing No No -Anesthetic Used 5% Lidocaine 5% Lidocaine Gel Gel Lower Limb Edema Present Yes Left Calf (cm) 43 41 Left Ankle (cm) 26.5 25.6 WC - Nurse 2 - General Ulcer CM Notes Start: 03/11/24 14:27 Freq: Status: Active Protocol: Activity Type Activity Date Activity User E-sign Co-sign Detail Recorded Client Recorded Date Recorded By Document 03/11/24 15:08 Desktop 03/11/24 15:14 Document 03/18/24 14:53 Desktop 03/18/24 15:06 03/11/24 03/18/24 15:08 14:53 Wound Center Nurse 2 #2- L LOWER POST LE -Time 15:08 14:55 -Correct Patient Yes Yes -Correct Side, Site, Position Yes Yes -Correct Procedure No -Procedure Performed No -Post Debridement (cm) - Length 10.3 1.0 -Post Debridement (cm) - Width 0.3 0.7 -Post Debridement (cm) - Depth 0.1 0.1 -Total Square (Post) (cm) 3.09 0.70 -Tunneling No -Undermining/Tunneling No -Circular Undermining No -Wound/Ulcer Outcome Not Healed Not Healed -Ulcer Cleansing Not Cleansed Rinsed/ Irrigated with Saline -Foul Odor after Cleansing No -Bioengineered Tissue No -Bleeding Controlled with NA #1- L LAT LE -Time 15:08 14:55 -Correct Patient Yes Yes -Correct Side, Site, Position Yes Yes -Correct Procedure Yes -Procedure Performed No Yes -Type of Procedure Debridement -Clinical Debridement Subcutaneous -Tissue Removed Subcutaneous -Post Debridement (cm) - Length 1.0 0.7 -Post Debridement (cm) - Width 1.1 1.5 -Post Debridement (cm) - Depth 0.5 0.6 -Total Square (Post) (cm) 1.10 1.05 -Area of Debridement (cm) - Length 0.7 -Area of Debridement (cm) - Width 1.5 -Total Square (Area) (cm) 1.05 -Tunneling No -Undermining/Tunneling No -Circular Undermining No -Wound/Ulcer Outcome Not Healed -Ulcer Cleansing Rinsed/ Irrigated with Saline -Foul Odor after Cleansing No -Bleeding Controlled with Pressure -Treatment Response Procedure Tolerated Well -Debridement - Subq, 1st 20sq cm Yes Pain Scale: 0-10 Numeric Is Patient Pain Free? Yes Yes WC - Nurse 3 - General Ulcer D/C NN Start: 03/11/24 14:27 Freq: Status: Active Protocol: Activity Type Activity Date Activity User E-sign Co-sign Detail Recorded Client Recorded Date Recorded By Document 03/11/24 15:25 DL Desktop 03/11/24 15:28 DL Document 03/18/24 15:18 BM Desktop 03/18/24 15:19 BMF 03/11/24 03/18/24 15:25 15:18 Wound Care Center Nurse 3 #2- L LOWER POST LE -Ulcer Cleansing Rinsed/ Irrigated with Saline -Foul Odor after Cleansing No No -Primary Dressing Applied Aquacel AG 4x4, Mepilex Border -Other Dressing santyl -Other Covering bandaid -Aquacel AG 4x4 1 -Mepilex Border 1 #1- L LAT LE -Ulcer Cleansing Rinsed/ Rinsed/ Irrigated with Irrigated with Saline Saline -Foul Odor after Cleansing No No -Primary Dressing Applied Optilok 6.5x10 Mepilex Border -Other Dressing aquacel ag santyl -Primary Dressing Covered/Secured with Dry Gauze & Roll Gauze, Secured with Tape -Mepilex Border 1 -Optilok 6.5x10 1 ines -Tubular Bandage Double Layer -Size of Tubigrip Used Size D -Size D ($) 2 -Other double tubi D Treatment Response Procedure Procedure Tolerated Well Tolerated Well Pain Scale: 0-10 Numeric Is Patient Pain Free? 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 Will plan to continue to utilize Santyl for chemical debridement for the left inferolateral wound. Apply nickel-thick layer of Santyl to the wound bed and cover with a foam border or dry gauze dressing. For the posterior wound, will apply Aquacel Ag followed by dry gauze or foam-border dressing. Both dressings are to be changed daily or more often as needed to keep clean and dry. With dressing changes, wash the area with antibacterial soap and water and pat to dry. Continue Tubigrips for compression. 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 Will schedule him in the vascular office to meet with Dr. Charlton regarding potential ablation. Wound culture grew MRSA which was susceptible to doxycycline. However, he still has lingering redness and warmth so will switch to Bactrim x 10 additional days. He is instructed to elevate his legs at all resting times, preferably at or above the level of the heart. He is advised to perform ankle flexion exercises. We will continue to apply Eucerin cream or other moisturizing lotion to the rest of the lower legs to support skin integrity. He will return to the wound healing center in 1 week.
[2024-03-25 14:59] VITALS: BP 128/53; PULSE 67; RESP 18; TEMP 36; BMI 28.4
--- NOTE | 2024-03-25 16:01 | WC ---
MEASURE RLE FOR CIRCAID- CALF 43.5, ANKLE 24.8, LENGTH 44 MEASURE LLE FOR CIRCAID CALF 44.1, RAVI 25.5, LENGTH 43
--- NOTE | 2024-03-25 16:23 | PCM.WC.PN ---
History of Present Illness Date of Service: 03/25/24 Chief Complaint: LLE wounds History of Wound: Mr. Paola Boyer is an 83 y/o male who presents to the wound healing center today with left lower extremity wounds. He was referred by Nuvia Brooks. He is accompanied to his appointment today by his . He relays that he has been dealing with these left lower extremity wounds recurrently over the past few years. They will become very close to healing and then subsequently open back up. His reports that all really started with a lot of swelling and redness in his lower legs which progressively worsened to weeping before developing these focal wounds. He has been treated to this point at [facility] with Unna boots and all of the surrounding skin has much improved in appearance however the wounds remain. He has not had any prior venous imaging to his knowledge and no venous interventions. No history of peripheral arterial disease or arterial interventions. He is not diabetic. He is not currently smoking, he quit in 1964. He presents today in an automated wheelchair. His insurance unfortunately has a very high co-pay for debridements which will be kept in mind throughout his treatment. Subjective Subjective He is doing well this week. reports dressing changes have been going well, she has noted improvement in the size of both the L lateral leg wounds. There is a new small superficially open area on the L anterior angel noted on exam today. Objective Data Objective Data Vital Signs: Vital Signs Temp Pulse Resp BP O2 Del Method 96.8 F L 67 18 128/53 H Room Air 03/25/24 14:59 03/25/24 14:59 03/25/24 14:59 03/25/24 14:59 03/25/24 14:59 Oxygen Delivery Method Room Air Weight: 198 lb Body Mass Index (BMI) 28.4 Charges/Coding Visit Charges Office Visits / Consults: 70163 OV L3 Est 20min Physical Exam Const alert, oriented x3 and no apparent distress General Appearance: cooperative and comfortable HEENT normocephalic, head/scalp atraumatic, hearing grossly normal bilaterally, external ears normal and external nose normal Eyes General Eye: normal appearance of both eyes Resp normal respiratory effort Effort and Inspection: able to speak in complete sentences; Negative for labored, stridor or audible wheezes Extremity Extremity Narrative: 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 Mild 1+ edema on exam today. No apparent bulging varicosities. No weeping or skin breakdown except for wounds as noted below. Easily palpable pedal pulses. Skin Wounds: wounds noted Wound Narrative: There are now 3 ulcerations to the left lower leg. The inferolateral ulceration has a granular and fibrinous base. The posterior ulceration remains very superficial. There is a new ulceration to the L anterior calf which is superficial in nature with no significant slough and measures 0.5 x 0.7 x 0.1 cm. Neuro oriented x3, CN's II-XII intact bilaterally and moves all extremities Speech: speech normal Debridement Note Debridement Note Wound debrided: Left lateral lower leg Laterality: Left No debridement was completed: No debridement was completed today Post-Debridement Measurements and Additional Note: Post-Debridement Measurements/Treatment - Nurse 1 - General Ulcer Assessment Start: 03/11/24 14:27 Freq: Status: Active Protocol: WC.[email or web address] Activity Type Activity Date Activity User E-sign Co-sign Detail Recorded Client Recorded Date Recorded By Document 03/11/24 14:27 KW Desktop 03/11/24 14:45 KW Document 03/18/24 14:35 BMF Desktop 03/18/24 14:47 BMF Document 03/25/24 14:59 KW Desktop 03/25/24 15:06 KW 03/11/24 03/18/24 03/25/24 14:27 14:35 14:59 - Today's Visit Information Type of service Follow-up Visit Follow-up Visit Follow-up Visit (Physician/INSOLE AND OUTSOLE SPLITTER (Physician/INSOLE AND OUTSOLE SPLITTER (Physician/INSOLE AND OUTSOLE SPLITTER ) ) ) Arrival Mode Other Wheelchair Other Arrival Mode (Other) scooter POWER SCOOTER Transfer Assistance Transfer Board None Transfer Assist (Other) Accompanied by Patient Identification Verified (Name & Yes Yes Yes ) Patient Requires Transmission-Based No Precautions Height and Weight Body Mass Index (BMI) 28.4 28.4 28.4 BMI Classification Overweight Overweight Overweight Vital Signs Temperature (97.8 F-99.1 F) 98.0 F 97.8 F 96.8 F L Temperature Source Temporal Temporal Temporal Pulse Rate (60-100) 77 95 67 Pulse Location Monitor Monitor Monitor Respiratory Rate (12-18) 18 16 18 Respiratory rate source Observation Observation Observation Oxygen Delivery Method Room Air Room Air Room Air Blood Pressure (90/60-120/80) 146/60 H 118/66 128/53 H Blood Pressure Mean (mm Hg) 88 83 78 Source Monitor Monitor Monitor Position Right Lateral Sitting Sitting Blood Pressure Location Left Arm Left Forearm Left Arm History Since Last Visit- (Skip if this is Patient's initial visit) Have you changed medications since your No No No last visit? Any new allergies or adverse reactions No No No Had a fall/change in ADL's that may No No No increase risk of falls Signs or symptoms of abuse and/or No No No neglect since last visit Have you been in the hospital since your No No No last visit? Has dressing in place as prescribed Yes Yes Yes Has compression in place as prescribed Yes Yes Yes Has offloadiing in place as prescribed N/A N/A N/A Experienced any changes in pain level or No No No management Left Footwear Regular Shoe Regular Shoe Regular Shoe Right Footwear Regular Shoe Regular Shoe Regular Shoe Pain Scale: 0-10 Numeric Is Patient Pain Free? Yes Yes Yes WC - Nurse 1 - General Ulcer Measurement Start: 03/11/24 14:27 Freq: Status: Active Protocol: Activity Type Activity Date Activity User E-sign Co-sign Detail Recorded Client Recorded Date Recorded By Document 03/11/24 14:27 KW Desktop 03/11/24 14:45 KW Document 03/18/24 14:35 [facility] Desktop 03/18/24 14:47 BMF Document 03/25/24 14:59 KW Desktop 03/25/24 15:06 KW 03/11/24 03/18/24 03/25/24 14:27 14:35 14:59 Wound Center Nurse 1 #2- L LOWER POST LE -Combined with other wound No -Current Size (cm) - Length 0.4 1.2 1.4 -Current Size (cm) - Width 0.3 0.2 1.9 -Current Size (cm) - Depth 0.1 0.1 0.1 -Total Square Cm 0.12 0.24 2.66 -Epithelialization None Present -Tunneling No No -Undermining/Tunneling No No -Circular Undermining No No -Exudate Amt Medium Medium -Exudate Type Serosanguineous Serosanguineous -Wound Margin Distinct, Thickened Outline Attached -Granulation Amt Small (1-33%) Small (1-33%) Large (67-100%) -Granulation Quality [place] Red -Slough/Fibrin Yes -Necrosis Amt Large (67-100%) Large (67-100%) -Necrotic Tissue Type Adherent Slough Adherent Slough -Texture (Darling-wound Skin Appearance) Assessed Assessed, Assessed Scarring -Moisture (Darling-wound Skin Appearance) Assessed Assessed,Dry/ Assessed,Dry/ Scaly Scaly -Color (Darling-wound Skin Appearance) Assessed Assessed Assessed -Temperature (Darling-wound Skin No Abnormality No Abnormality No Abnormality Appearance) (Pt Warm) (Pt Warm) (Pt Warm) -Tenderness on Palpation (Darling-wound No No No Skin Appearance) -Ulcer Cleansing Rinsed/ Rinsed/ Rinsed/ Irrigated with Irrigated with Irrigated with Saline Saline Saline -Foul Odor after Cleansing No No -Anesthetic Used 5% Lidocaine 5% Lidocaine Gel Gel #1- L LAT LE -Combined with other wound No -Current Size (cm) - Length 1 0.8 1.4 -Current Size (cm) - Width 1.9 1.4 2.5 -Current Size (cm) - Depth 0.2 0.3 0.4 -Total Square Cm 1.9 1.12 3.50 -Epithelialization None Present Small 1-33% -Tunneling No No -Undermining/Tunneling No No -Circular Undermining No No -Exudate Amt Medium Medium Small -Exudate Type Serosanguineous Serosanguineous Serosanguineous -Wound Margin Distinct, Flat & Intact Outline Attached -Granulation Amt Large (67-100%) Large (67-100%) Medium (34-66%) -Granulation Quality Red Red [place] -Slough/Fibrin Yes -Necrosis Amt Small (1-33%) Small (1-33%) Medium (34-66%) -Necrotic Tissue Type Adherent Slough Adherent Slough Adherent Slough -Texture (Darling-wound Skin Appearance) Assessed, Assessed, Assessed Scarring Scarring -Moisture (Darling-wound Skin Appearance) Assessed Assessed,Dry/ Assessed,Dry/ Scaly Scaly -Color (Darling-wound Skin Appearance) Assessed, Assessed Assessed Erythema -Temperature (Darling-wound Skin No Abnormality No Abnormality No Abnormality Appearance) (Pt Warm) (Pt Warm) (Pt Warm) -Tenderness on Palpation (Darling-wound No No Skin Appearance) -Ulcer Cleansing Rinsed/ Rinsed/ Rinsed/ Irrigated with Irrigated with Irrigated with Saline Saline Saline -Foul Odor after Cleansing No No No -Anesthetic Used 5% Lidocaine 5% Lidocaine Gel Gel Lower Limb Edema Present Yes Left Calf (cm) 43 41 Left Ankle (cm) 26.5 25.6 WC - Nurse 2 - General Ulcer CM Notes Start: 03/11/24 14:27 Freq: Status: Active Protocol: Activity Type Activity Date Activity User E-sign Co-sign Detail Recorded Client Recorded Date Recorded By Document 03/11/24 15:08 GM Desktop 03/11/24 15:14 GM Document 03/18/24 14:53 GM Desktop 03/18/24 15:06 GM Document 03/25/24 15:34 [employer] Desktop 03/25/24 15:45 GM 03/11/24 03/18/24 03/25/24 15:08 14:53 15:34 Wound Center Nurse 2 #3 Anterior ankle/angel -Time 15:44 -Correct Patient Yes -Correct Side, Site, Position Yes -Post Debridement (cm) - Length 0.5 -Post Debridement (cm) - Width 0.7 -Post Debridement (cm) - Depth 0.1 -Total Square (Post) (cm) 0.35 -Tunneling No -Undermining/Tunneling No -Circular Undermining No -Wound/Ulcer Outcome Not Healed #2- L LOWER POST LE -Time 15: 14:55 15:42 -Correct Patient Yes Yes Yes -Correct Side, Site, Position Yes Yes Yes -Correct Procedure No No -Procedure Performed No No -Post Debridement (cm) - Length 10.3 1.0 1.5 -Post Debridement (cm) - Width 0.3 0.7 1.9 -Post Debridement (cm) - Depth 0.1 0.1 0.1 -Total Square (Post) (cm) 3.09 0.70 2.85 -Tunneling No -Undermining/Tunneling No -Circular Undermining No -Wound/Ulcer Outcome Not Healed Not Healed Not Healed -Ulcer Cleansing Not Cleansed Rinsed/ Irrigated with Saline -Foul Odor after Cleansing No -Bioengineered Tissue No -Bleeding Controlled with NA #1- L LAT LE -Time 15: 14:55 15:43 -Correct Patient Yes Yes Yes -Correct Side, Site, Position Yes Yes Yes -Correct Procedure Yes No -Procedure Performed No Yes No -Type of Procedure Debridement -Clinical Debridement Subcutaneous -Tissue Removed Subcutaneous -Post Debridement (cm) - Length 1.0 0.7 1.4 -Post Debridement (cm) - Width 1.1 1.5 2.0 -Post Debridement (cm) - Depth 0.5 0.6 0.5 -Total Square (Post) (cm) 1.10 1.05 2.80 -Area of Debridement (cm) - Length 0.7 -Area of Debridement (cm) - Width 1.5 -Total Square (Area) (cm) 1.05 -Tunneling No -Undermining/Tunneling No -Circular Undermining No -Wound/Ulcer Outcome Not Healed -Ulcer Cleansing Rinsed/ Irrigated with Saline -Foul Odor after Cleansing No -Bleeding Controlled with Pressure -Treatment Response Procedure Tolerated Well -Debridement - Subq, 1st 20sq cm Yes Pain Scale: 0-10 Numeric Is Patient Pain Free? Yes Yes Yes - Nurse 3 - General Ulcer D/C NN Start: 03/11/24 14:27 Freq: Status: Active Protocol: Activity Type Activity Date Activity User E-sign Co-sign Detail Recorded Client Recorded Date Recorded By Document 03/11/24 15:25 DL Desktop 03/11/24 15:28 DL Document 03/18/24 15:18 [facility] Desktop 03/18/24 15:19 BM Document 03/25/24 15:59 [facility] Desktop 03/25/24 16:00 [facility] 03/11/24 03/18/24 03/25/24 15:25 15:18 15:59 Wound Care Center Nurse 3 #3 Anterior ankle/angel -Ulcer Cleansing Rinsed/ Irrigated with Saline -Foul Odor after Cleansing No -Primary Dressing Applied Aquacel AG 4x4, Mepilex Border, NonAdherent Contact Layer -Aquacel AG 4x4 1 -Mepilex Border 1 #2- L LOWER POST LE -Ulcer Cleansing Rinsed/ Rinsed/ Irrigated with Irrigated with Saline Saline -Foul Odor after Cleansing No No No -Primary Dressing Applied Aquacel AG 4x4, Aquacel AG 4x4, Mepilex Border Mepilex Border, NonAdherent Contact Layer -Other Dressing santyl -Other Covering bandaid -Aquacel AG 4x4 1 0 -Mepilex Border 1 1 #1- L LAT LE -Ulcer Cleansing Rinsed/ Rinsed/ Rinsed/ Irrigated with Irrigated with Irrigated with Saline Saline Saline -Foul Odor after Cleansing No No No -Primary Dressing Applied Optilok 6.5x10 Mepilex Border Mepilex Border -Other Dressing aquacel ag santyl HYDROGEL -Primary Dressing Covered/Secured with Dry Gauze & Roll Gauze, Secured with Tape -Mepilex Border 1 0 -Optilok 6.5x10 1 Left -Tubular Bandage Double Layer -Size of Tubigrip Used Size D -Size D ($) 2 ines -Tubular Bandage Double Layer -Size of Tubigrip Used Size D -Size D ($) 2 -Other double tubi D Treatment Response Procedure Procedure Procedure Tolerated Well Tolerated Well Tolerated Well Pain Scale: 0-10 Numeric Is Patient Pain Free? Yes Yes Yes WC - Visit Discharge Discharge Condition Stable Stable Stable Ambulatory Status Wheelchair Wheelchair Wheelchair Transportation Private Auto Private Auto Private Auto Accompanied by family Additional Wound Wound debrided: Left posterior lower leg Laterality: Left Assessment/Plan Assessment/Plan (1) Chronic ulcer of left lower extremity with fat layer exposed: CODE(S): L97.922 - Non-pressure chronic ulcer of unspecified part of left lower leg with fat layer exposed (2) Lipodermatosclerosis of both lower extremities: CODE(S): M79.3 - Panniculitis, unspecified (3) Bilateral lower extremity edema: CODE(S): R60.0 - Localized edema PLAN: Plan Will plan to continue to utilize Santyl for chemical debridement for the left inferolateral wound. Apply nickel-thick layer of Santyl to the wound bed and cover with a foam border or dry gauze dressing. For the posterior wound, will apply Aquacel Ag followed by dry gauze or foam-border dressing. Both dressings are to be changed daily or more often as needed to keep clean and dry. With dressing changes, wash the area with antibacterial soap and water and pat to dry. Continue Tubigrips for compression. 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 Will schedule him in the vascular office to meet with Dr. Charlton regarding potential ablation. Wound culture grew MRSA which was susceptible to doxycycline. However, he still has lingering redness and warmth so will switch to Bactrim x 10 additional days. He is instructed to elevate his legs at all resting times, preferably at or above the level of the heart. He is advised to perform ankle flexion exercises. We will continue to apply Eucerin cream or other moisturizing lotion to the rest of the lower legs to support skin integrity. He will return to the wound healing center in 1 week.
== END 2024-03-30 23:59 ==
LOC: WC 14:30
PROVIDERS: PCP Family Medicine; Referring Provider Dermatology; Visit Provider Physician Assistant
DX: L97.822 Non-pressure chronic ulcer of other part of left lower leg with fat layer exposed (principal); R60.0 Localized edema; M79.3 Panniculitis, unspecified; Z87.891 Personal history of nicotine dependence
CPT/HCPCS: 11042; 93970; 99213; G0463

== ENCOUNTER 2024-04-29 14:45 | Outpatient (RCR) | payer MEDICARE, SELFPAY ==
[2024-03-31 00:44] VITALS: BP 128/53; PULSE 67; RESP 18; TEMP 36; BMI 28.4
[2024-04-01 14:39] VITALS: BP 145/57; PULSE 62; RESP 18; TEMP 36; BMI 28.4
--- NOTE | 2024-04-02 08:13 | PN.PCM_ITS ---
History of Present Illness Date of Service: 04/01/24 Chief Complaint: LLE wounds History of Wound: Mr. Paola Boyer is an 83 y/o male who presents to the wound healing center today with left lower extremity wounds. He was referred by Nuvia Brooks. He is accompanied to his appointment today by his . He relays that he has been dealing with these left lower extremity wounds recurrently over the past few years. They will become very close to healing and then subsequently open back up. His reports that all really started with a lot of swelling and redness in his lower legs which progressively worsened to weeping before developing these focal wounds. He has been treated to this point at [facility] with Unna boots and all of the surrounding skin has much improved in appearance however the wounds remain. He has not had any prior venous imaging to his knowledge and no venous interventions. No history of peripheral arterial disease or arterial interventions. He is not diabetic. He is not currently smoking, he quit in 1964. He presents today in an automated wheelchair. His insurance unfortunately has a very high co-pay for debridements which will be kept in mind throughout his treatment. Subjective Subjective The lateral LLE wounds seem to be improving per patient's . Unfortunately, he has a new wound to the anterior LLE which was revealed when some dry skin peeled away. He has been wearing tubigrips consistently. No new signs/symptoms of infection. He does have an appointment to see Dr. Charlton soon. Objective Data Objective Data Vital Signs: Vital Signs Temp Pulse Resp BP O2 Del Method 96.8 F L 62 18 145/57 H Room Air 04/01/24 14:39 04/01/24 14:39 04/01/24 14:39 04/01/24 14:39 04/01/24 14:39 Oxygen Delivery Method Room Air Weight: 198 lb Body Mass Index (BMI) 28.4 Charges/Coding Visit Charges Office Visits / Consults: 87205 OV L3 Est 20min Physical Exam Const alert, oriented x3 and no apparent distress General Appearance: cooperative and comfortable HEENT normocephalic, head/scalp atraumatic, hearing grossly normal bilaterally, exter nal ears normal and external nose normal Eyes General Eye: normal appearance of both eyes Resp normal respiratory effort Effort and Inspection: able to speak in complete sentences; Negative for labored, stridor or audible wheezes Extremity Extremity Narrative: 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 Mild 1+ edema on exam today. No apparent bulging varicosities. No weeping or skin breakdown except for wounds as noted below. Easily palpable pedal pulses. Skin Wounds: wounds noted Wound Narrative: There are now 3 ulcerations to the left lower leg. The inferolateral ulceration has a granular and fibrinous base. The posterior ulceration remains very superficial. There is a new ulceration to the L anterior calf which is superficial in nature with no significant slough and is significantly enlarged from last week. 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 of service 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 ) Arrival Mode Other Arrival Mode (Other) SCOOTER Accompanied by Patient Identification Verified (Name & Yes ) Height and Weight Body Mass Index (BMI) 28.4 BMI Classification Overweight Vital Signs Temperature (97.8 F-99.1 F) 96.8 F L Temperature Source Temporal Pulse Rate (60-100) 62 Pulse Location Monitor Respiratory Rate (12-18) 18 Respiratory rate source Observation Oxygen Delivery Method Room Air Blood Pressure (90/60-120/80) 145/57 H Blood Pressure Mean (mm Hg) 86 Source Monitor Position Sitting Blood Pressure Location Left Arm History Since Last Visit- (Skip if this is Patient's initial visit) Have you changed medications since your No last visit? Any new allergies or adverse reactions No Had a fall/change in ADL's that may No increase risk of falls Signs or symptoms of abuse and/or No neglect since last visit Have you been in the hospital since your No last visit? Has dressing in place as prescribed Yes Has compression in place as prescribed Yes Has offloadiing in place as prescribed N/A Experienced any changes in pain level or No management Left Footwear Regular Shoe Right Footwear Regular Shoe Pain Scale: 0-10 Numeric Is Patient Pain Free? Yes WC - Nurse 1 - General Ulcer Measurement Start: 04/01/24 14:39 Freq: Status: Active Protocol: Activity Type Activity Date Activity User E-sign Co-sign Detail Recorded Client Recorded Date Recorded By Document 04/01/24 14:39 KW Desktop 04/01/24 14:45 KW 04/01/24 14:39 Wound Center Nurse 1 #3 LT MED ANGEL -Current Size (cm) - Length 3.3 -Current Size (cm) - Width 2.8 -Current Size (cm) - Depth 0.1 -Total Square Cm 9.24 -Exudate Amt Medium -Exudate Type Serosanguineous -Wound Margin Distinct, Outline Attached -Granulation Amt Large (67-100%) -Granulation Quality Red -Moisture (Darling-wound Skin Appearance) Maceration -Color (Darling-wound Skin Appearance) Assessed, Erythema -Temperature (Darling-wound Skin No Abnormality Appearance) (Pt Warm) -Tenderness on Palpation (Darling-wound No Skin Appearance) -Ulcer Cleansing Rinsed/ Irrigated with Saline -Anesthetic Used 5% Lidocaine Gel #2- L LOWER POST LE -Current Size (cm) - Length 1.5 -Current Size (cm) - Width 1.8 -Current Size (cm) - Depth 0.1 -Total Square Cm 2.70 -Granulation Amt Large (67-100%) -Granulation Quality Red -Texture (Darling-wound Skin Appearance) Assessed -Moisture (Darling-wound Skin Appearance) Assessed -Color (Darling-wound Skin Appearance) Assessed -Temperature (Darling-wound Skin No Abnormality Appearance) (Pt Warm) -Tenderness on Palpation (Darling-wound No Skin Appearance) -Ulcer Cleansing Rinsed/ Irrigated with Saline -Foul Odor after Cleansing No -Anesthetic Used 5% Lidocaine Gel #1- L LAT LE -Current Size (cm) - Length 2 -Current Size (cm) - Width 2.2 -Current Size (cm) - Depth 0.4 -Total Square Cm 4.4 -Exudate Amt Medium -Exudate Type Serosanguineous -Wound Margin Distinct, Outline Attached -Granulation Amt Large (67-100%) -Granulation Quality Red -Texture (Darling-wound Skin Appearance) Assessed -Moisture (Darling-wound Skin Appearance) Assessed, Maceration -Color (Darling-wound Skin Appearance) Assessed -Temperature (Darling-wound Skin No Abnormality Appearance) (Pt Warm) -Ulcer Cleansing Rinsed/ Irrigated with Saline -Foul Odor after Cleansing No -Anesthetic Used 5% Lidocaine Gel Left Calf (cm) 45 Left Ankle (cm) 27.1 WC - Nurse 2 - General Ulcer CM Notes Start: 04/01/24 14:39 Freq: Status: Active Protocol: Activity Type Activity Date Activity User E-sign Co-sign Detail Recorded Client Recorded Date Recorded By Document 04/01/24 15:22 Desktop 04/01/24 15:27 04/01/24 15:22 Wound Center Nurse 2 #4 Left medial leg -Time 15:26 -Correct Patient Yes -Correct Side, Site, Position Yes -Post Debridement (cm) - Length 0.3 -Post Debridement (cm) - Width 0.5 -Post Debridement (cm) - Depth 0.1 -Total Square (Post) (cm) 0.15 -Tunneling No -Undermining/Tunneling No -Circular Undermining No -Wound/Ulcer Outcome Not Healed -Ulcer Cleansing Rinsed/ Irrigated with Saline #3 LT MED ANGEL -Time 15:23 -Correct Patient Yes -Correct Side, Site, Position Yes -Post Debridement (cm) - Length 2.5 -Post Debridement (cm) - Width 3.0 -Post Debridement (cm) - Depth 0.1 -Total Square (Post) (cm) 7.50 -Tunneling No -Undermining/Tunneling No -Circular Undermining No -Wound/Ulcer Outcome Not Healed #2- L LOWER POST LE -Time 15:23 -Correct Patient Yes -Correct Side, Site, Position Yes -Post Debridement (cm) - Length 1.5 -Post Debridement (cm) - Width 1.9 -Post Debridement (cm) - Depth 0.1 -Total Square (Post) (cm) 2.85 -Tunneling No -Undermining/Tunneling No -Circular Undermining No -Wound/Ulcer Outcome Not Healed -Ulcer Cleansing Rinsed/ Irrigated with Saline -Foul Odor after Cleansing No #1- L LAT LE -Time 15:25 -Correct Patient Yes -Correct Side, Site, Position Yes -Post Debridement (cm) - Length 1.0 -Post Debridement (cm) - Width 1.5 -Post Debridement (cm) - Depth 0.5 -Total Square (Post) (cm) 1.50 -Tunneling No -Undermining/Tunneling No -Circular Undermining No -Wound/Ulcer Outcome Not Healed Pain Scale: 0-10 Numeric Is Patient Pain Free? Yes - Nurse 3 - General Ulcer D/C NN Start: 04/01/24 14:39 Freq: Status: Active Protocol: Activity Type Activity Date Activity User E-sign Co-sign Detail Recorded Client Recorded Date Recorded By Document 04/01/24 15:35 KW Desktop 04/01/24 15:39 KW 04/01/24 15:35 Wound Care Center Nurse 3 #4 Left medial leg -Primary Dressing Applied Fibracol Plus 4x4,Mepilex Border -Other Dressing OWN SANTYL -Fibracol Plus 4x4 1 -Mepilex Border 1 #3 LT MED ANGEL -Primary Dressing Applied Mepilex Border -Mepilex Border 1 #2- L LOWER POST LE -Primary Dressing Applied Mepilex Border -Mepilex Border 1 #1- L LAT LE -Primary Dressing Applied Fibracol Plus 4x4,Mepilex Border -Fibracol Plus 4x4 1 -Mepilex Border 1 Left -Tubular Bandage Double Layer -Size of Tubigrip Used Size D -Size D ($) 2 Pain Scale: 0-10 Numeric Is Patient Pain Free? 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 Apply nickel-thick layer of Santyl to the wound bed and cover with a foam border or dry gauze dressing. For the posterior and anterior angel wounds, will apply Fibracol followed by dry gauze or foam-border dressing. Both dressings are to be changed daily or more often as needed to keep clean and dry. With dressing changes, wash the area with antibacterial soap and water and pat to dry. Continue Tubigrips for compression. 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 He is schedule to see Dr. Charlton soon. He is instructed to elevate his legs at all resting times, preferably at or above the level of the heart. He is advised to perform ankle flexion exercises. We will continue to apply Eucerin cream or other moisturizing lotion to the rest of the lower legs to support skin integrity. He will return to the wound healing center in 1 week.
[2024-04-15 14:29] VITALS: BP 149/74; PULSE 66; RESP 16; TEMP 36.6; BMI 28.4
--- NOTE | 2024-04-15 16:58 | PCM.WC.PN ---
History of Present Illness Date of Service: 04/15/24 Chief Complaint: LLE wounds History of Wound: Mr. Paola Boyer is an 83 y/o male who presents to the wound healing center today with left lower extremity wounds. He was referred by Nuvia Brooks. He is accompanied to his appointment today by his . He relays that he has been dealing with these left lower extremity wounds recurrently over the past few years. They will become very close to healing and then subsequently open back up. His reports that all really started with a lot of swelling and redness in his lower legs which progressively worsened to weeping before developing these focal wounds. He has been treated to this point at [facility] with Unna boots and all of the surrounding skin has much improved in appearance however the wounds remain. He has not had any prior venous imaging to his knowledge and no venous interventions. No history of peripheral arterial disease or arterial interventions. He is not diabetic. He is not currently smoking, he quit in 1964. He presents today in an automated wheelchair. His insurance unfortunately has a very high co-pay for debridements which will be kept in mind throughout his treatment. Subjective Subjective He feels that his wounds have been improving overall. He shares that unfortunately, his had to be admitted to the hospital here following a syncopal episode and then transferred to [place] for pacemaker placement. Fortunately, he reports she seems to be doing well and will hopefully be home soon. She is the one who performs his wound care so his dressings have not been changed in the last couple of days. Since his last visit here, he did have an appointment with Dr. Charlton. Venous ablation was recommended and he is scheduled for this in May. Objective Data Objective Data Vital Signs: Vital Signs Temp Pulse Resp BP O2 Del Method 97.9 F 66 16 149/74 H Room Air 04/15/24 14:29 04/15/24 14:29 04/15/24 14:29 04/15/24 14:29 04/15/24 14:29 Oxygen Delivery Method Room Air Weight: 198 lb Body Mass Index (BMI) 28.4 Charges/Coding Visit Charges Office Visits / Consults: [id number] OV L3 Est 20min Physical Exam Const alert, oriented x3 and no apparent distress General Appearance: cooperative and comfortable HEENT normocephalic, head/scalp atraumatic, hearing grossly normal bilaterally, external ears normal and external nose normal Eyes General Eye: normal appearance of both eyes Resp normal respiratory effort Effort and Inspection: able to speak in complete sentences; Negative for labored, stridor or audible wheezes Extremity Extremity Narrative: 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 Mild 1+ edema on exam today. No apparent bulging varicosities. No weeping or skin breakdown except for wounds as noted below. Easily palpable pedal pulses. Skin Wounds: wounds noted Wound Narrative: There are now 4 ulcerations to the left lower leg. The inferolateral ulceration has a granular and fibrinous base and depth of approximately 0.3cm, this portion appears to be decreasing in size; however, around this wound there is now very superficial skin breakdown forming a cluster so overall size is increased this week. The posterior ulceration remains very superficial but now with increased size.. The ulceration to the L anterior calf is superficial in nature with no significant slough and is improved in size from last week. There is also a small, superficial ulceration to the L medial angel near the ankle with pink base and no significant slough. Neuro oriented x3, CN's II-XII intact bilaterally and moves all extremities Speech: speech normal Debridement Note Debridement Note No debridement was completed: No debridement was completed today Post-Debridement Measurements and Additional Note: Post-Debridement Measurements/Treatment - Nurse 1 - General Ulcer Assessment Start: 04/01/24 14:39 Freq: Status: Active Protocol: .LOWEXT Activity Type Activity Date Activity User E-sign Co-sign Detail Recorded Client Recorded Date Recorded By Document 04/01/24 14:39 KW Desktop 04/01/24 14:45 KW Document 04/15/24 14:29 BM [id number] 04/15/24 14:38 BMF 04/01/24 04/15/24 14:39 14:29 - Today's Visit Information Type of service Follow-up Visit Follow-up Visit (Physician/FARM SPECIALIST (Physician/FARM SPECIALIST ) ) Arrival Mode Other Wheelchair Arrival Mode (Other) SCOOTER Transfer Assistance None Accompanied by Patient Identification Verified (Name & Yes Yes ) Patient Requires Transmission-Based No Precautions Height and Weight Body Mass Index (BMI) 28.4 28.4 BMI Classification Overweight Overweight Vital Signs Temperature (97.8 F-99.1 F) 96.8 F L 97.9 F Temperature Source Temporal Temporal Pulse Rate (60-100) 62 66 Pulse Location Monitor Monitor Respiratory Rate (12-18) 18 16 Respiratory rate source Observation Observation Oxygen Delivery Method Room Air Room Air Blood Pressure (90/60-120/80) 145/57 H 149/74 H Blood Pressure Mean (mm Hg) 86 99 Source Monitor Monitor Position Sitting Sitting Blood Pressure Location Left Arm Right Arm History Since Last Visit- (Skip if this is Patient's initial visit) Have you changed medications since your No No last visit? Any new allergies or adverse reactions No No Had a fall/change in ADL's that may No No increase risk of falls Signs or symptoms of abuse and/or No No neglect since last visit Have you been in the hospital since your No No last visit? Has dressing in place as prescribed Yes Yes Has compression in place as prescribed Yes Yes Has offloadiing in place as prescribed N/A N/A Experienced any changes in pain level or No No management Left Footwear Regular Shoe Regular Shoe Right Footwear Regular Shoe Regular Shoe Pain Scale: 0-10 Numeric Is Patient Pain Free? Yes Yes WC - Nurse 1 - General Ulcer Measurement Start: 04/01/24 14:39 Freq: Status: Active Protocol: Activity Type Activity Date Activity User E-sign Co-sign Detail Recorded Client Recorded Date Recorded By Document 04/01/24 14:39 KW Desktop 04/01/24 14:45 KW Document 04/15/24 14:29 [facility] [id number] 04/15/24 14:38 BMF 04/01/24 04/15/24 14:39 14:29 Wound Center Nurse 1 #4 Left medial leg -Current Size (cm) - Length 0.1 -Current Size (cm) - Width 0.1 -Current Size (cm) - Depth 0.1 -Total Square Cm 0.01 -Wound Margin Distinct, Outline Attached -Texture (Darling-wound Skin Appearance) Assessed -Moisture (Darling-wound Skin Appearance) Assessed -Color (Darling-wound Skin Appearance) Assessed -Anesthetic Used 5% Lidocaine Gel -Wound Comment(s) SCABBED #3 LT MED ANGEL -Current Size (cm) - Length 3.3 1.2 -Current Size (cm) - Width 2.8 1.1 -Current Size (cm) - Depth 0.1 0.1 -Total Square Cm 9.24 1.32 -Exudate Amt Medium Small -Exudate Type Serosanguineous Serosanguineous -Wound Margin Distinct, Distinct, Outline Outline Attached Attached -Granulation Amt Large (67-100%) Large (67-100%) -Granulation Quality Red Red -Texture (Darling-wound Skin Appearance) Assessed -Moisture (Darling-wound Skin Appearance) Maceration Assessed -Color (Darling-wound Skin Appearance) Assessed, Assessed Erythema -Temperature (Darling-wound Skin No Abnormality No Abnormality Appearance) (Pt Warm) (Pt Warm) -Tenderness on Palpation (Darling-wound No No Skin Appearance) -Ulcer Cleansing Rinsed/ Rinsed/ Irrigated with Irrigated with Saline Saline -Foul Odor after Cleansing No -Anesthetic Used 5% Lidocaine 5% Lidocaine Gel Gel #2- L LOWER POST LE -Current Size (cm) - Length 1.5 2 -Current Size (cm) - Width 1.8 4 -Current Size (cm) - Depth 0.1 0.1 -Total Square Cm 2.70 8 -Exudate Amt Small -Exudate Type Serosanguineous -Wound Margin Distinct, Outline Attached -Granulation Amt Large (67-100%) Large (67-100%) -Granulation Quality Red Red -Texture (Darling-wound Skin Appearance) Assessed -Moisture (Darling-wound Skin Appearance) Assessed -Color (Darling-wound Skin Appearance) Assessed -Temperature (Darling-wound Skin No Abnormality Appearance) (Pt Warm) -Tenderness on Palpation (Darling-wound No Skin Appearance) -Ulcer Cleansing Rinsed/ Irrigated with Saline -Foul Odor after Cleansing No -Anesthetic Used 5% Lidocaine 5% Lidocaine Gel Gel #1- L LAT LE -Current Size (cm) - Length 2 0.6 -Current Size (cm) - Width 2.2 1.2 -Current Size (cm) - Depth 0.4 0.3 -Total Square Cm 4.4 0.72 -Exudate Amt Medium -Exudate Type Serosanguineous -Wound Margin Distinct, Outline Attached -Granulation Amt Large (67-100%) -Granulation Quality Red -Texture (Darling-wound Skin Appearance) Assessed Assessed -Moisture (Darling-wound Skin Appearance) Assessed, Assessed, Maceration Maceration -Color (Darling-wound Skin Appearance) Assessed Assessed, Erythema -Temperature (Darling-wound Skin No Abnormality Appearance) (Pt Warm) -Tenderness on Palpation (Darling-wound No Skin Appearance) -Ulcer Cleansing Rinsed/ Rinsed/ Irrigated with Irrigated with Saline Saline -Foul Odor after Cleansing No -Anesthetic Used 5% Lidocaine 5% Lidocaine Gel Gel Left Calf (cm) 45 45 Left Ankle (cm) 27.1 25.2 WC - Nurse 2 - General Ulcer CM Notes Start: 04/01/24 14:39 Freq: Status: Active Protocol: Activity Type Activity Date Activity User E-sign Co-sign Detail Recorded Client Recorded Date Recorded By Document 04/01/24 15:22 Desktop 04/01/24 15:27 GM Document 04/15/24 15:21 [id number] 04/15/24 15:28 04/01/24 04/15/24 15:22 15:21 Wound Center Nurse 2 #4 Left medial leg -Time 15: 15:25 -Correct Patient Yes Yes -Correct Side, Site, Position Yes Yes -Post Debridement (cm) - Length 0.3 -Post Debridement (cm) - Width 0.5 -Post Debridement (cm) - Depth 0.1 -Total Square (Post) (cm) 0.15 -Tunneling No -Undermining/Tunneling No -Circular Undermining No -Wound/Ulcer Outcome Not Healed Not Healed -Ulcer Cleansing Rinsed/ Irrigated with Saline -Wound Comment(s) 1.0 x 0.5 x 0.1 #3 LT MED ANGEL -Time 15:23 15:26 -Correct Patient Yes Yes -Correct Side, Site, Position Yes Yes -Post Debridement (cm) - Length 2.5 -Post Debridement (cm) - Width 3.0 -Post Debridement (cm) - Depth 0.1 -Total Square (Post) (cm) 7.50 -Tunneling No -Undermining/Tunneling No -Circular Undermining No -Wound/Ulcer Outcome Not Healed Not Healed -Wound Comment(s) 1.6x0.9x0.1 #2- L LOWER POST LE -Time 15:23 15:27 -Correct Patient Yes Yes -Correct Side, Site, Position Yes Yes -Post Debridement (cm) - Length 1.5 -Post Debridement (cm) - Width 1.9 -Post Debridement (cm) - Depth 0.1 -Total Square (Post) (cm) 2.85 -Tunneling No -Undermining/Tunneling No -Circular Undermining No -Wound/Ulcer Outcome Not Healed Not Healed -Ulcer Cleansing Rinsed/ Irrigated with Saline -Foul Odor after Cleansing No -Wound Comment(s) 2.5x2.9x0.1 #1- L LAT LE -Time 15:25 15:27 -Correct Patient Yes Yes -Correct Side, Site, Position Yes Yes -Post Debridement (cm) - Length 1.0 -Post Debridement (cm) - Width 1.5 -Post Debridement (cm) - Depth 0.5 -Total Square (Post) (cm) 1.50 -Tunneling No -Undermining/Tunneling No -Circular Undermining No -Wound/Ulcer Outcome Not Healed Not Healed -Wound Comment(s) 3.6 x 3.4 x 0.3 Pain Scale: 0-10 Numeric Is Patient Pain Free? Yes Yes WC - Nurse 3 - General Ulcer D/C NN Start: 04/01/24 14:39 Freq: Status: Active Protocol: Activity Type Activity Date Activity User E-sign Co-sign Detail Recorded Client Recorded Date Recorded By Document 04/01/24 15:35 KW Desktop 04/01/24 15:39 KW Document 04/15/24 15:34 KW [id number] 04/15/24 15:36 KW 04/01/24 04/15/24 15:35 15:34 Wound Care Center Nurse 3 #4 Left medial leg -Primary Dressing Applied Fibracol Plus Fibracol Plus 4x4,Mepilex 4x4 Border -Other Dressing OWN SANTYL -Primary Dressing Covered/Secured with Dry Gauze & Roll Gauze, Secured with Tape -Fibracol Plus 4x4 1 1 -Mepilex Border 1 #3 LT MED ANGEL -Primary Dressing Applied Mepilex Border -Primary Dressing Covered/Secured with Dry Gauze -Mepilex Border 1 #2- L LOWER POST LE -Primary Dressing Applied Mepilex Border -Primary Dressing Covered/Secured with Dry Gauze -Mepilex Border 1 #1- L LAT LE -Primary Dressing Applied Fibracol Plus Fibracol Plus 4x4,Mepilex 4x4 Border -Primary Dressing Covered/Secured with Dry Gauze -Fibracol Plus 4x4 1 1 -Mepilex Border 1 Left -Tubular Bandage Double Layer Single Layer -Size of Tubigrip Used Size D Size D -Size D ($) 2 1 -Other [facility] Pain Scale: 0-10 Numeric Is Patient Pain Free? 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 Today, will apply Fibracol to all wound beds followed by dry dressing with ABD and Kerlix. Change dressings daily or more often as needed if they become soaked/soiled. With dressing changes, wash the area with antibacterial soap and water and pat to dry. Given his 's recent hospitalization, he may have difficulty keeping up with the wound care on his own. He is instructed to let us know if this is the case so we can arrange nurse visits or potentially [facility]. Continue Tubigrips for compression. He is scheduled for venous ablation in May. He is instructed to elevate his legs at all resting times, preferably at or above the level of the heart. He is advised to perform ankle flexion exercises. We will continue to apply Eucerin cream or other moisturizing lotion to the rest of the lower legs to support skin integrity. He will return to the wound healing center in 1 week.
[2024-04-22 14:58] VITALS: BP 137/80; PULSE 69; RESP 18; TEMP 35.9; BMI 28.4
--- NOTE | 2024-04-22 16:52 | PN.PCM_ITS ---
History of Present Illness Date of Service: 04/22/24 Chief Complaint: LLE wounds History of Wound: Mr. Paola Boyer is an 83 y/o male who presents to the wound healing center today with left lower extremity wounds. He was referred by Nuvia Brooks. He is accompanied to his appointment today by his . He relays that he has been dealing with these left lower extremity wounds recurrently over the past few years. They will become very close to healing and then subsequently open back up. His reports that all really started with a lot of swelling and redness in his lower legs which progressively worsened to weeping before developing these focal wounds. He has been treated to this point at [facility] with Unna boots and all of the surrounding skin has much improved in appearance however the wounds remain. He has not had any prior venous imaging to his knowledge and no venous interventions. No history of peripheral arterial disease or arterial interventions. He is not diabetic. He is not currently smoking, he quit in 1964. He presents today in an automated wheelchair. His insurance unfortunately has a very high co-pay for debridements which will be kept in mind throughout his treatment. Darian Guevara presents today to the wound center accompanied by his . She is doing much better following a medical event last week which I was very pleased to hear. She has been able to continue to assist with his dressing changes which is also great. They report no signs/symptoms concerning for infection. His feels that they continue to improve. His medial/anterior wounds appear ep ithelialized this week. Objective Data Objective Data Vital Signs: Vital Signs Temp Pulse Resp BP O2 Del Method 96.7 F L 69 18 137/80 H Room Air 04/22/24 14:58 04/22/24 14:58 04/22/24 14:58 04/22/24 14:58 04/22/24 14:58 Oxygen Delivery Method Room Air Weight: 198 lb Body Mass Index (BMI) 28.4 Charges/Coding Visit Charges Office Visits / Consults: 96585 OV L3 Est 20min Physical Exam Const alert, oriented x3 and no apparent distress General Appearance: cooperative and comfortable HEENT normocephalic, head/scalp atraumatic, hearing grossly normal bilaterally, external ears normal and external nose normal Eyes General Eye: normal appearance of both eyes Resp normal respiratory effort Effort and Inspection: able to speak in complete sentences; Negative for labored, stridor or audible wheezes Extremity Extremity Narrative: Bilateral 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 Mild 1+ edema on exam today. No apparent bulging varicosities. No weeping or skin breakdown except for wounds as noted below. Easily palpable pedal pulses. Skin Wounds: wounds noted Wound Narrative: There are now 4 ulcerations to the left lower leg. The inferolateral ulceration has a granular and fibrinous base and depth of approximately 0.3cm, this portion appears to be decreasing in size; however, around this wound there is now very superficial skin breakdown forming a cluster so overall size remains increased. The posterior ulceration remains very superficial and stable in size. The anterior/medial ulcerations are epithelialized this week. Neuro oriented x3, CN's II-XII intact bilaterally and moves all extremities Speech: speech normal Debridement Note Debridement Note No debridement was completed: No debridement was completed today Post-Debridement Measurements and Additional Note: Post-Debridement Measurements/Treatment - Nurse 1 - General Ulcer Assessment Start: 04/01/24 14:39 Freq: Status: Active Protocol: [email or web address] Activity Type Activity Date Activity User E-sign Co-sign Detail Recorded Client Recorded Date Recorded By Document 04/01/24 14:39 KW Desktop 04/01/24 14:45 KW Document 04/15/24 14:29 [facility] [id number] 04/15/24 14:38 BM Document 04/22/24 14:58 KW wound center 04/22/24 15:06 KW 04/01/24 04/15/24 04/22/24 14:39 14:29 14:58 - Today's Visit Information Type of service Follow-up Visit Follow-up Visit Follow-up Visit (Physician/RN ADMISSION (Physician/RN ADMISSION (Physician/RN ADMISSION ) ) ) Arrival Mode Other Wheelchair Other Arrival Mode (Other) SCOOTER SCOOTER Transfer Assistance None Accompanied by Patient Identification Verified (Name & Yes Yes Yes ) Patient Requires Transmission-Based No Precautions Height and Weight Body Mass Index (BMI) 28.4 28.4 28.4 BMI Classification Overweight Overweight Overweight Vital Signs Temperature (97.8 F-99.1 F) 96.8 F L 97.9 F 96.7 F L Temperature Source Temporal Temporal Temporal Pulse Rate (60-100) 62 66 69 Pulse Location Monitor Monitor Monitor Respiratory Rate (12-18) 18 16 18 Respiratory rate source Observation Observation Observation Oxygen Delivery Method Room Air Room Air Room Air Blood Pressure (90/60-120/80) 145/57 H 149/74 H 137/80 H Blood Pressure Mean (mm Hg) 86 99 99 Source Monitor Monitor Monitor Position Sitting Sitting Semi-Fowlers Blood Pressure Location Left Arm Right Arm Left Arm History Since Last Visit- (Skip if this is Patient's initial visit) Have you changed medications since your No No No last visit? Any new allergies or adverse reactions No No No Had a fall/change in ADL's that may No No No increase risk of falls Signs or symptoms of abuse and/or No No No neglect since last visit Have you been in the hospital since your No No No last visit? Has dressing in place as prescribed Yes Yes Yes Has compression in place as prescribed Yes Yes Yes Has offloadiing in place as prescribed N/A N/A N/A Experienced any changes in pain level or No No No management Left Footwear Regular Shoe Regular Shoe Regular Shoe Right Footwear Regular Shoe Regular Shoe Regular Shoe Pain Scale: 0-10 Numeric Is Patient Pain Free? Yes Yes Yes WC - Nurse 1 - General Ulcer Measurement Start: 04/01/24 14:39 Freq: Status: Active Protocol: Activity Type Activity Date Activity User E-sign Co-sign Detail Recorded Client Recorded Date Recorded By Document 04/01/24 14:39 KW Desktop 04/01/24 14:45 KW Document 04/15/24 14:29 [facility] [id number] 04/15/24 14:38 [facility] Document 04/22/24 14:58 KW wound center 04/22/24 15:06 KW 04/01/24 04/15/24 04/22/24 14:39 14:29 14:58 Wound Center Nurse 1 #4 Left medial leg -Current Size (cm) - Length 0.1 0.1 -Current Size (cm) - Width 0.1 0.1 -Current Size (cm) - Depth 0.1 0.1 -Total Square Cm 0.01 0.01 -Wound Margin Distinct, Outline Attached -Texture (Darling-wound Skin Appearance) Assessed Assessed -Moisture (Darlign-wound Skin Appearance) Assessed Assessed,Dry/ Scaly -Color (Darling-wound Skin Appearance) Assessed Assessed -Ulcer Cleansing Rinsed/ Irrigated with Saline -Anesthetic Used 5% Lidocaine Gel -Wound Comment(s) SCABBED #3 LT MED LO -Current Size (cm) - Length 3.3 1.2 0.1 -Current Size (cm) - Width 2.8 1.1 0.1 -Current Size (cm) - Depth 0.1 0.1 0.1 -Total Square Cm 9.24 1.32 0.01 -Exudate Amt Medium Small -Exudate Type Serosanguineous Serosanguineous -Wound Margin Distinct, Distinct, Outline Outline Attached Attached -Granulation Amt Large (67-100%) Large (67-100%) -Granulation Quality Red Red -Texture (Darling-wound Skin Appearance) Assessed Assessed -Moisture (Darling-wound Skin Appearance) Maceration Assessed Assessed,Dry/ Scaly -Color (Darling-wound Skin Appearance) Assessed, Assessed Assessed Erythema -Temperature (Darling-wound Skin No Abnormality No Abnormality Appearance) (Pt Warm) (Pt Warm) -Tenderness on Palpation (Darling-wound No No Skin Appearance) -Ulcer Cleansing Rinsed/ Rinsed/ Irrigated with Irrigated with Saline Saline -Foul Odor after Cleansing No -Anesthetic Used 5% Lidocaine 5% Lidocaine Gel Gel #2- L LOWER POST LE -Current Size (cm) - Length 1.5 2 2.4 -Current Size (cm) - Width 1.8 4 3.1 -Current Size (cm) - Depth 0.1 0.1 -Total Square Cm 2.70 8 7.44 -Exudate Amt Small Medium -Exudate Type Serosanguineous Serosanguineous -Wound Margin Distinct, Distinct, Outline Outline Attached Attached -Granulation Amt Large (67-100%) Large (67-100%) Medium (34-66%) -Granulation Quality Red Red Red -Necrosis Amt Medium (34-66%) -Necrotic Tissue Type Adherent Slough -Texture (Darling-wound Skin Appearance) Assessed Assessed -Moisture (Darling-wound Skin Appearance) Assessed Assessed -Color (Darling-wound Skin Appearance) Assessed Assessed, Erythema -Temperature (Darling-wound Skin No Abnormality No Abnormality Appearance) (Pt Warm) (Pt Warm) -Tenderness on Palpation (Darling-wound No No Skin Appearance) -Ulcer Cleansing Rinsed/ Rinsed/ Irrigated with Irrigated with Saline Saline -Foul Odor after Cleansing No No -Anesthetic Used 5% Lidocaine 5% Lidocaine 5% Lidocaine Gel Gel Gel #1- L LAT LE -Current Size (cm) - Length 2 0.6 4.2 -Current Size (cm) - Width 2.2 1.2 3.5 -Current Size (cm) - Depth 0.4 0.3 0.4 -Total Square Cm 4.4 0.72 14.70 -Exudate Amt Medium Medium -Exudate Type Serosanguineous Serosanguineous -Wound Margin Distinct, Distinct, Outline Outline Attached Attached -Granulation Amt Large (67-100%) Medium (34-66%) -Granulation Quality Red Red -Necrosis Amt Medium (34-66%) -Necrotic Tissue Type Adherent Slough -Texture (Darling-wound Skin Appearance) Assessed Assessed Assessed -Moisture (Darling-wound Skin Appearance) Assessed, Assessed, Assessed Maceration Maceration -Color (Darling-wound Skin Appearance) Assessed Assessed, Assessed, Erythema Erythema -Temperature (Darling-wound Skin No Abnormality No Abnormality Appearance) (Pt Warm) (Pt Warm) -Tenderness on Palpation (Darling-wound No No Skin Appearance) -Ulcer Cleansing Rinsed/ Rinsed/ Rinsed/ Irrigated with Irrigated with Irrigated with Saline Saline Saline -Foul Odor after Cleansing No -Anesthetic Used 5% Lidocaine 5% Lidocaine 5% Lidocaine Gel Gel Gel Left Calf (cm) 45 45 44.5 Left Ankle (cm) 27.1 25.2 25.6 WC - Nurse 2 - General Ulcer CM Notes Start: 04/01/24 14:39 Freq: Status: Active Protocol: Activity Type Activity Date Activity User E-sign Co-sign Detail Recorded Client Recorded Date Recorded By Document 04/01/24 15:22 Desktop 04/01/24 15:27 Document 04/15/24 15:21 [id number] 04/15/24 15:28 Document 04/22/24 15:56 wound center 04/22/24 16:02 04/01/24 04/15/24 04/22/24 15:22 15:21 15:56 Wound Center Nurse 2 #4 Left medial leg -Time 15:26 15:25 16:00 -Correct Patient Yes Yes Yes -Correct Side, Site, Position Yes Yes Yes -Post Debridement (cm) - Length 0.3 -Post Debridement (cm) - Width 0.5 -Post Debridement (cm) - Depth 0.1 -Total Square (Post) (cm) 0.15 -Tunneling No -Undermining/Tunneling No -Circular Undermining No -Wound/Ulcer Outcome Not Healed Not Healed Healed- Epithelialized -Ulcer Cleansing Rinsed/ Irrigated with Saline -Wound Comment(s) 1.0 x 0.5 x 0.1 #3 LT MED LO -Time : 15: 16:01 -Correct Patient Yes Yes Yes -Correct Side, Site, Position Yes Yes Yes -Post Debridement (cm) - Length 2.5 -Post Debridement (cm) - Width 3.0 -Post Debridement (cm) - Depth 0.1 -Total Square (Post) (cm) 7.50 -Tunneling No -Undermining/Tunneling No -Circular Undermining No -Wound/Ulcer Outcome Not Healed Not Healed Healed- Epithelialized -Wound Comment(s) 1.6x0.9x0.1 #2- L LOWER POST LE -Time 15: 16:01 -Correct Patient Yes Yes Yes -Correct Side, Site, Position Yes Yes Yes -Post Debridement (cm) - Length 1.5 -Post Debridement (cm) - Width 1.9 -Post Debridement (cm) - Depth 0.1 -Total Square (Post) (cm) 2.85 -Tunneling No -Undermining/Tunneling No -Circular Undermining No -Wound/Ulcer Outcome Not Healed Not Healed Not Healed -Ulcer Cleansing Rinsed/ Irrigated with Saline -Foul Odor after Cleansing No -Wound Comment(s) 2.5x2.9x0.1 3.0 3.2 0.1 #1- L LAT LE -Time 15: 16:01 -Correct Patient Yes Yes Yes -Correct Side, Site, Position Yes Yes Yes -Correct Procedure Yes -Post Debridement (cm) - Length 1.0 -Post Debridement (cm) - Width 1.5 -Post Debridement (cm) - Depth 0.5 -Total Square (Post) (cm) 1.50 -Tunneling No -Undermining/Tunneling No -Circular Undermining No -Wound/Ulcer Outcome Not Healed Not Healed Not Healed -Debridement - Subq, 1st 20sq cm No -Wound Comment(s) 3.6 x 3.4 x 0.3 4.4 3.4 0.4 Pain Scale: 0-10 Numeric Is Patient Pain Free? Yes Yes Yes WC - Nurse 3 - General Ulcer D/C NN Start: 04/01/24 14:39 Freq: Status: Active Protocol: Activity Type Activity Date Activity User E-sign Co-sign Detail Recorded Client Recorded Date Recorded By Document 04/01/24 15:35 KW Desktop 04/01/24 15:39 KW Document 04/15/24 15:34 KW [id number] 04/15/24 15:36 KW Document 04/22/24 16:09 BMF 1606-2-10 04/22/24 16:11 BMF Edit Result 04/22/24 16:09 BMF (1) 1606-2-10 04/22/24 16:13 BMF (1) #2- L LOWER POST LE - Primary Dressing Applied => Fibracol Plus 4x4 - Fibracol Plus 4x4 => 1 04/01/24 04/15/24 04/22/24 15:35 15:34 16:09 Wound Care Center Nurse 3 #4 Left medial leg -Primary Dressing Applied Fibracol Plus Fibracol Plus 4x4,Mepilex 4x4 Border -Other Dressing OWN SANTYL -Primary Dressing Covered/Secured with Dry Gauze & Roll Gauze, Secured with Tape -Fibracol Plus 4x4 1 1 -Mepilex Border 1 #3 LT MED LO -Primary Dressing Applied Mepilex Border -Primary Dressing Covered/Secured with Dry Gauze -Mepilex Border 1 #2- L LOWER POST LE -Ulcer Cleansing Rinsed/ Irrigated with Saline -Foul Odor after Cleansing No -Primary Dressing Applied Mepilex Border Fibracol Plus 4x4 -Other Dressing FIBRACOL -Primary Dressing Covered/Secured with Dry Gauze Dry Gauze & Roll Gauze, Secured with Tape -Other Covering ABD; DRSG PER KW SASH ASSEMBLER -Fibracol Plus 4x4 1 -Mepilex Border 1 #1- L LAT LE -Ulcer Cleansing Rinsed/ Irrigated with Saline -Foul Odor after Cleansing No -Primary Dressing Applied Fibracol Plus Fibracol Plus 4x4,Mepilex 4x4 Border -Other Dressing FIBRACOL -Primary Dressing Covered/Secured with Dry Gauze Dry Gauze & Roll Gauze, Secured with Tape -Other Covering DRSG PER KW SASH ASSEMBLER -Fibracol Plus 4x4 1 1 -Mepilex Border 1 BLE -Tubular Bandage Single Layer -Size of Tubigrip Used Size D -Size D ($) 2 -Other NEW HCS BRAND Left -Tubular Bandage Double Layer Single Layer -Size of Tubigrip Used Size D Size D -Size D ($) 2 1 -Other hcs Treatment Response Procedure Tolerated Well Pain Scale: 0-10 Numeric Is Patient Pain Free? 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 Change dressings twice daily or more often as needed if they become soaked/soiled. With dressing changes, wash the area with antibacterial soap and water and pat to dry. Continue Tubigrips for compression. He is instructed to elevate his legs at all resting times, preferably at or above the level of the heart. He is advised to perform ankle flexion exercises. We will continue to apply Eucerin cream or other moisturizing lotion to the rest of the lower legs to support skin integrity. He is scheduled for venous ablation in May. He will return to the wound healing center in 1 week.
[2024-04-29 14:57] VITALS: BP 147/66; PULSE 62; RESP 16; TEMP 35.9; BMI 28.4
--- NOTE | 2024-04-29 17:03 | PCM.WC.PN ---
History of Present Illness Date of Service: 04/29/24 Chief Complaint: LLE wounds History of Wound: Mr. Paola Boyer is an 83 y/o male who presents to the wound healing center today with left lower extremity wounds. He was referred by Nuvia Brooks. He is accompanied to his appointment today by his . He relays that he has been dealing with these left lower extremity wounds recurrently over the past few years. They will become very close to healing and then subsequently open back up. His reports that all really started with a lot of swelling and redness in his lower legs which progressively worsened to weeping before developing these focal wounds. He has been treated to this point at [facility] with Unna boots and all of the surrounding skin has much improved in appearance however the wounds remain. He has not had any prior venous imaging to his knowledge and no venous interventions. No history of peripheral arterial disease or arterial interventions. He is not diabetic. He is not currently smoking, he quit in 1964. He presents today in an automated wheelchair. His insurance unfortunately has a very high co-pay for debridements which will be kept in mind throughout his treatment. Subjective Subjective His has been having trouble applying the tubigrips for compression with her own recent surgery and restrictions. The wounds are now primarily very superficial skin breakdown. Objective Data Objective Data Vital Signs: Vital Signs Temp Pulse Resp BP O2 Del Method 96.7 F L 62 16 147/66 H Room Air 04/29/24 14:57 04/29/24 14:57 04/29/24 14:57 04/29/24 14:57 04/29/24 14:57 Oxygen Delivery Method Room Air Weight: 198 lb Body Mass Index (BMI) 28.4 Charges/Coding Visit Charges Office Visits / Consults: 64500 OV L3 Est 20min Physical Exam Const alert, oriented x3 and no apparent distress General Appearance: cooperative and comfortable HEENT normocephalic, head/scalp atraumatic, hearing grossly normal bilaterally, external ears normal and external nose normal Eyes General Eye: normal appearance of both eyes Resp normal respiratory effort Effort and Inspection: able to speak in complete sentences; Negative for labored, stridor or audible wheezes Extremity Extremity Narrative: 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 Mild 1+ edema on exam today. No apparent bulging varicosities. No weeping or skin breakdown except for wounds as noted below. Easily palpable pedal pulses. Skin Wounds: wounds noted Wound Narrative: At present, there are two remaining open areas on the RLE. The inferolateral ulceration has a granular and fibrinous base and depth of approximately 0.3cm, this portion appears to be decreasing in size; however, around this wound there is very superficial skin breakdown forming a cluster so overall size remains increased. The posterior ulceration remains very superficial and stable in size. Neuro oriented x3, CN's II-XII intact bilaterally and moves all extremities Speech: speech normal Debridement Note Debridement Note No debridement was completed: No debridement was completed today Post-Debridement Measurements and Additional Note: Post-Debridement Measurements/Treatment - Nurse 1 - General Ulcer Assessment Start: 04/01/24 14:39 Freq: Status: Active Protocol: [email or web address] Activity Type Activity Date Activity User E-sign Co-sign Detail Recorded Client Recorded Date Recorded By Document 04/01/24 14:39 KW Desktop 04/01/24 14:45 KW Document 04/15/24 14:29 BMF [id number] 04/15/24 14:38 BMF Document 04/22/24 14:58 KW wound center 04/22/24 15:06 KW Document 04/29/24 14:57 KW wound center 04/29/24 15:11 KW 04/01/24 04/15/24 04/22/24 14:39 14:29 14:58 - Today's Visit Information Type of service Follow-up Visit Follow-up Visit Follow-up Visit (Physician/STARTING SHEET TANK OPERATOR (Physician/STARTING SHEET TANK OPERATOR (Physician/STARTING SHEET TANK OPERATOR ) ) ) Arrival Mode Other Wheelchair Other Arrival Mode (Other) SCOOTER SCOOTER Transfer Assistance None Accompanied by Patient Identification Verified (Name & Yes Yes Yes ) Patient Requires Transmission-Based No Precautions Height and Weight Body Mass Index (BMI) 28.4 28.4 28.4 BMI Classification Overweight Overweight Overweight Vital Signs Temperature (97.8 F-99.1 F) 96.8 F L 97.9 F 96.7 F L Temperature Source Temporal Temporal Temporal Pulse Rate (60-100) 62 66 69 Pulse Location Monitor Monitor Monitor Respiratory Rate (12-18) 18 16 18 Respiratory rate source Observation Observation Observation Oxygen Delivery Method Room Air Room Air Room Air Blood Pressure (90/60-120/80) 145/57 H 149/74 H 137/80 H Blood Pressure Mean (mm Hg) 86 99 99 Source Monitor Monitor Monitor Position Sitting Sitting Semi-Fowlers Blood Pressure Location Left Arm Right Arm Left Arm History Since Last Visit- (Skip if this is Patient's initial visit) Have you changed medications since your No No No last visit? Any new allergies or adverse reactions No No No Had a fall/change in ADL's that may No No No increase risk of falls Signs or symptoms of abuse and/or No No No neglect since last visit Have you been in the hospital since your No No No last visit? Has dressing in place as prescribed Yes Yes Yes Has compression in place as prescribed Yes Yes Yes Has offloadiing in place as prescribed N/A N/A N/A Experienced any changes in pain level or No No No management Left Footwear Regular Shoe Regular Shoe Regular Shoe Right Footwear Regular Shoe Regular Shoe Regular Shoe Pain Scale: 0-10 Numeric Is Patient Pain Free? Yes Yes Yes 04/29/24 14:57 WC - Today's Visit Information Type of service Follow-up Visit (Physician/STARTING SHEET TANK OPERATOR ) Arrival Mode Other Arrival Mode (Other) SCOOTER Transfer Assistance Accompanied by Patient Identification Verified (Name & Yes ) Patient Requires Transmission-Based Precautions Height and Weight Body Mass Index (BMI) 28.4 BMI Classification Overweight Vital Signs Temperature (97.8 F-99.1 F) 96.7 F L Temperature Source Temporal Pulse Rate (60-100) 62 Pulse Location Monitor Respiratory Rate (12-18) 16 Respiratory rate source Observation Oxygen Delivery Method Room Air Blood Pressure (90/60-120/80) 147/66 H Blood Pressure Mean (mm Hg) 93 Source Monitor Position Sitting Blood Pressure Location Left Arm History Since Last Visit- (Skip if this is Patient's initial visit) Have you changed medications since your No last visit? Any new allergies or adverse reactions No Had a fall/change in ADL's that may No increase risk of falls Signs or symptoms of abuse and/or No neglect since last visit Have you been in the hospital since your No last visit? Has dressing in place as prescribed Yes Has compression in place as prescribed Yes Has offloadiing in place as prescribed Yes Experienced any changes in pain level or No management Left Footwear Regular Shoe Right Footwear Regular Shoe Pain Scale: 0-10 Numeric Is Patient Pain Free? Yes WC - Nurse 1 - General Ulcer Measurement Start: 04/01/24 14:39 Freq: Status: Active Protocol: Activity Type Activity Date Activity User E-sign Co-sign Detail Recorded Client Recorded Date Recorded By Document 04/01/24 14:39 KW Desktop 04/01/24 14:45 KW Document 04/15/24 14:29 BMF [email or web address] 04/15/24 14:38 BMF Document 04/22/24 14:58 KW wound center 04/22/24 15:06 KW Document 04/29/24 14:57 KW wound center 04/29/24 15:11 KW 04/01/24 04/15/24 04/22/24 14:39 14:29 14:58 Wound Center Nurse 1 #4 Left medial leg -Current Size (cm) - Length 0.1 0.1 -Current Size (cm) - Width 0.1 0.1 -Current Size (cm) - Depth 0.1 0.1 -Total Square Cm 0.01 0.01 -Wound Margin Distinct, Outline Attached -Texture (Darling-wound Skin Appearance) Assessed Assessed -Moisture (Darling-wound Skin Appearance) Assessed Assessed,Dry/ Scaly -Color (Darling-wound Skin Appearance) Assessed Assessed -Ulcer Cleansing Rinsed/ Irrigated with Saline -Anesthetic Used 5% Lidocaine Gel -Wound Comment(s) SCABBED #3 LT MED LO -Current Size (cm) - Length 3.3 1.2 0.1 -Current Size (cm) - Width 2.8 1.1 0.1 -Current Size (cm) - Depth 0.1 0.1 0.1 -Total Square Cm 9.24 1.32 0.01 -Exudate Amt Medium Small -Exudate Type Serosanguineous Serosanguineous -Wound Margin Distinct, Distinct, Outline Outline Attached Attached -Granulation Amt Large (67-100%) Large (67-100%) -Granulation Quality Red Red -Texture (Darling-wound Skin Appearance) Assessed Assessed -Moisture (Darling-wound Skin Appearance) Maceration Assessed Assessed,Dry/ Scaly -Color (Darling-wound Skin Appearance) Assessed, Assessed Assessed Erythema -Temperature (Darling-wound Skin No Abnormality No Abnormality Appearance) (Pt Warm) (Pt Warm) -Tenderness on Palpation (Darling-wound No No Skin Appearance) -Ulcer Cleansing Rinsed/ Rinsed/ Irrigated with Irrigated with Saline Saline -Foul Odor after Cleansing No -Anesthetic Used 5% Lidocaine 5% Lidocaine Gel Gel #2- L LOWER POST LE -Current Size (cm) - Length 1.5 2 2.4 -Current Size (cm) - Width 1.8 4 3.1 -Current Size (cm) - Depth 0.1 0.1 -Total Square Cm 2.70 8 7.44 -Exudate Amt Small Medium -Exudate Type Serosanguineous Serosanguineous -Wound Margin Distinct, Distinct, Outline Outline Attached Attached -Granulation Amt Large (67-100%) Large (67-100%) Medium (34-66%) -Granulation Quality Red Red Red -Necrosis Amt Medium (34-66%) -Necrotic Tissue Type Adherent Slough -Texture (Darling-wound Skin Appearance) Assessed Assessed -Moisture (Darling-wound Skin Appearance) Assessed Assessed -Color (Darling-wound Skin Appearance) Assessed Assessed, Erythema -Temperature (Darling-wound Skin No Abnormality No Abnormality Appearance) (Pt Warm) (Pt Warm) -Tenderness on Palpation (Darling-wound No No Skin Appearance) -Ulcer Cleansing Rinsed/ Rinsed/ Irrigated with Irrigated with Saline Saline -Foul Odor after Cleansing No No -Anesthetic Used 5% Lidocaine 5% Lidocaine 5% Lidocaine Gel Gel Gel #1- L LAT LE -Current Size (cm) - Length 2 0.6 4.2 -Current Size (cm) - Width 2.2 1.2 3.5 -Current Size (cm) - Depth 0.4 0.3 0.4 -Total Square Cm 4.4 0.72 14.70 -Exudate Amt Medium Medium -Exudate Type Serosanguineous Serosanguineous -Wound Margin Distinct, Distinct, Outline Outline Attached Attached -Granulation Amt Large (67-100%) Medium (34-66%) -Granulation Quality Red Red -Necrosis Amt Medium (34-66%) -Necrotic Tissue Type Adherent Slough -Texture (Darling-wound Skin Appearance) Assessed Assessed Assessed -Moisture (Darling-wound Skin Appearance) Assessed, Assessed, Assessed Maceration Maceration -Color (Darling-wound Skin Appearance) Assessed Assessed, Assessed, Erythema Erythema -Temperature (Darling-wound Skin No Abnormality No Abnormality Appearance) (Pt Warm) (Pt Warm) -Tenderness on Palpation (Darling-wound No No Skin Appearance) -Ulcer Cleansing Rinsed/ Rinsed/ Rinsed/ Irrigated with Irrigated with Irrigated with Saline Saline Saline -Foul Odor after Cleansing No -Anesthetic Used 5% Lidocaine 5% Lidocaine 5% Lidocaine Gel Gel Gel Left Calf (cm) 45 45 44.5 Left Ankle (cm) 27.1 25.2 25.6 04/29/24 14:57 Wound Center Nurse 1 #4 Left medial leg -Current Size (cm) - Length -Current Size (cm) - Width -Current Size (cm) - Depth -Total Square Cm -Wound Margin -Texture (Darling-wound Skin Appearance) -Moisture (Darling-wound Skin Appearance) -Color (Darling-wound Skin Appearance) -Ulcer Cleansing -Anesthetic Used -Wound Comment(s) #3 LT MED LO -Current Size (cm) - Length -Current Size (cm) - Width -Current Size (cm) - Depth -Total Square Cm -Exudate Amt -Exudate Type -Wound Margin -Granulation Amt -Granulation Quality -Texture (Darling-wound Skin Appearance) -Moisture (Darling-wound Skin Appearance) -Color (Darling-wound Skin Appearance) -Temperature (Darling-wound Skin Appearance) -Tenderness on Palpation (Darling-wound Skin Appearance) -Ulcer Cleansing -Foul Odor after Cleansing -Anesthetic Used #2- L LOWER POST LE -Current Size (cm) - Length 4.2 -Current Size (cm) - Width 4 -Current Size (cm) - Depth 0.3 -Total Square Cm 16.8 -Exudate Amt Medium -Exudate Type Serosanguineous -Wound Margin Distinct, Outline Attached -Granulation Amt Large (67-100%) -Granulation Quality Red -Necrosis Amt Small (1-33%) -Necrotic Tissue Type Adherent Slough -Texture (Darling-wound Skin Appearance) Assessed -Moisture (Darling-wound Skin Appearance) Assessed -Color (Darling-wound Skin Appearance) Assessed, Erythema -Temperature (Darling-wound Skin No Abnormality Appearance) (Pt Warm) -Tenderness on Palpation (Darling-wound Skin Appearance) -Ulcer Cleansing Soap and Water -Foul Odor after Cleansing No -Anesthetic Used 5% Lidocaine Gel #1- L LAT LE -Current Size (cm) - Length 3.3 -Current Size (cm) - Width 3.3 -Current Size (cm) - Depth 0.1 -Total Square Cm 10.89 -Exudate Amt Medium -Exudate Type Serosanguineous -Wound Margin Distinct, Outline Attached -Granulation Amt Large (67-100%) -Granulation Quality Red -Necrosis Amt Small (1-33%) -Necrotic Tissue Type Adherent Slough -Texture (Darling-wound Skin Appearance) Assessed -Moisture (Darling-wound Skin Appearance) Assessed -Color (Darling-wound Skin Appearance) Assessed, Erythema -Temperature (Darling-wound Skin No Abnormality Appearance) (Pt Warm) -Tenderness on Palpation (Darling-wound No Skin Appearance) -Ulcer Cleansing Soap and Water -Foul Odor after Cleansing No -Anesthetic Used 5% Lidocaine Gel Left Calf (cm) 41 Left Ankle (cm) 26 WC - Nurse 2 - General Ulcer CM Notes Start: 04/01/24 14:39 Freq: Status: Active Protocol: Activity Type Activity Date Activity User E-sign Co-sign Detail Recorded Client Recorded Date Recorded By Document 04/01/24 15:22 Desktop 04/01/24 15:27 Document 04/15/24 15:21 [id number] 04/15/24 15:28 Document 04/22/24 15:56 wound center 04/22/24 16:02 Document 04/29/24 15:22 [facility] 04/29/24 15:28 04/01/24 04/15/24 04/22/24 15:22 15:21 15:56 Wound Center Nurse 2 #4 Left medial leg -Time 15:26 15:25 16:00 -Correct Patient Yes Yes Yes -Correct Side, Site, Position Yes Yes Yes -Post Debridement (cm) - Length 0.3 -Post Debridement (cm) - Width 0.5 -Post Debridement (cm) - Depth 0.1 -Total Square (Post) (cm) 0.15 -Tunneling No -Undermining/Tunneling No -Circular Undermining No -Wound/Ulcer Outcome Not Healed Not Healed Healed- Epithelialized -Ulcer Cleansing Rinsed/ Irrigated with Saline -Wound Comment(s) 1.0 x 0.5 x 0.1 #3 LT MED LO -Time 15:23 15:26 16:01 -Correct Patient Yes Yes Yes -Correct Side, Site, Position Yes Yes Yes -Post Debridement (cm) - Length 2.5 -Post Debridement (cm) - Width 3.0 -Post Debridement (cm) - Depth 0.1 -Total Square (Post) (cm) 7.50 -Tunneling No -Undermining/Tunneling No -Circular Undermining No -Wound/Ulcer Outcome Not Healed Not Healed Healed- Epithelialized -Wound Comment(s) 1.6x0.9x0.1 #2- L LOWER POST LE -Time 15: 15: 16:01 -Correct Patient Yes Yes Yes -Correct Side, Site, Position Yes Yes Yes -Post Debridement (cm) - Length 1.5 -Post Debridement (cm) - Width 1.9 -Post Debridement (cm) - Depth 0.1 -Total Square (Post) (cm) 2.85 -Tunneling No -Undermining/Tunneling No -Circular Undermining No -Wound/Ulcer Outcome Not Healed Not Healed Not Healed -Ulcer Cleansing Rinsed/ Irrigated with Saline -Foul Odor after Cleansing No -Wound Comment(s) 2.5x2.9x0.1 3.0 3.2 0.1 #1- L LAT LE -Time : 15: 16:01 -Correct Patient Yes Yes Yes -Correct Side, Site, Position Yes Yes Yes -Correct Procedure Yes -Post Debridement (cm) - Length 1.0 -Post Debridement (cm) - Width 1.5 -Post Debridement (cm) - Depth 0.5 -Total Square (Post) (cm) 1.50 -Tunneling No -Undermining/Tunneling No -Circular Undermining No -Wound/Ulcer Outcome Not Healed Not Healed Not Healed -Debridement - Subq, 1st 20sq cm No -Wound Comment(s) 3.6 x 3.4 x 0.3 4.4 3.4 0.4 Pain Scale: 0-10 Numeric Is Patient Pain Free? Yes Yes Yes 04/29/24 15:22 Wound Center Nurse 2 #4 Left medial leg -Time -Correct Patient -Correct Side, Site, Position -Post Debridement (cm) - Length -Post Debridement (cm) - Width -Post Debridement (cm) - Depth -Total Square (Post) (cm) -Tunneling -Undermining/Tunneling -Circular Undermining -Wound/Ulcer Outcome -Ulcer Cleansing -Wound Comment(s) #3 LT MED LO -Time -Correct Patient -Correct Side, Site, Position -Post Debridement (cm) - Length -Post Debridement (cm) - Width -Post Debridement (cm) - Depth -Total Square (Post) (cm) -Tunneling -Undermining/Tunneling -Circular Undermining -Wound/Ulcer Outcome -Wound Comment(s) #2- L LOWER POST LE -Time 15:27 -Correct Patient Yes -Correct Side, Site, Position Yes -Post Debridement (cm) - Length -Post Debridement (cm) - Width -Post Debridement (cm) - Depth -Total Square (Post) (cm) -Tunneling -Undermining/Tunneling -Circular Undermining -Wound/Ulcer Outcome -Ulcer Cleansing -Foul Odor after Cleansing -Wound Comment(s) 3.9x3.6x0.1 #1- L LAT LE -Time 15:27 -Correct Patient Yes -Correct Side, Site, Position Yes -Correct Procedure -Post Debridement (cm) - Length -Post Debridement (cm) - Width -Post Debridement (cm) - Depth -Total Square (Post) (cm) -Tunneling -Undermining/Tunneling -Circular Undermining -Wound/Ulcer Outcome Not Healed -Debridement - Subq, 1st 20sq cm -Wound Comment(s) 4.5x4.0x0.3 Pain Scale: 0-10 Numeric Is Patient Pain Free? Yes WC - Nurse 3 - General Ulcer D/C NN Start: 04/01/24 14:39 Freq: Status: Active Protocol: Activity Type Activity Date Activity User E-sign Co-sign Detail Recorded Client Recorded Date Recorded By Document 04/01/24 15:35 KW Desktop 04/01/24 15:39 KW Document 04/15/24 15:34 KW [id number] 04/15/24 15:36 KW Document 04/22/24 16:09 BMF 1606-2-10 04/22/24 16:11 BMF Edit Result 04/22/24 16:09 BMF (1) 1606-2-10 04/22/24 16:13 BMF Document 04/29/24 15:34 KW wound center 04/29/24 15:37 KW (1) #2- L LOWER POST LE - Primary Dressing Applied => Fibracol Plus 4x4 - Fibracol Plus 4x4 => 1 04/01/24 04/15/2424 15:35 15:34 16:09 Wound Care Center Nurse 3 #4 Left medial leg -Primary Dressing Applied Fibracol Plus Fibracol Plus 4x4,Mepilex 4x4 Border -Other Dressing OWN SANTYL -Primary Dressing Covered/Secured with Dry Gauze & Roll Gauze, Secured with Tape -Fibracol Plus 4x4 1 1 -Mepilex Border 1 #3 LT MED LO -Primary Dressing Applied Mepilex Border -Primary Dressing Covered/Secured with Dry Gauze -Mepilex Border 1 #2- L LOWER POST LE -Ulcer Cleansing Rinsed/ Irrigated with Saline -Foul Odor after Cleansing No -Primary Dressing Applied Mepilex Border Fibracol Plus 4x4 -Other Dressing FIBRACOL -Primary Dressing Covered/Secured with Dry Gauze Dry Gauze & Roll Gauze, Secured with Tape -Other Covering ABD; DRSG PER KW OPTO MECHANICAL TECHNICIAN -Fibracol Plus 4x4 1 -Mepilex Border 1 -Optilok 6.5x10 #1- L LAT LE -Ulcer Cleansing Rinsed/ Irrigated with Saline -Foul Odor after Cleansing No -Primary Dressing Applied Fibracol Plus Fibracol Plus 4x4,Mepilex 4x4 Border -Other Dressing FIBRACOL -Primary Dressing Covered/Secured with Dry Gauze Dry Gauze & Roll Gauze, Secured with Tape -Other Covering DRSG PER KW OPTO MECHANICAL TECHNICIAN -Fibracol Plus 4x4 1 1 -Mepilex Border 1 -Optilok 6.5x10 BLE -Tubular Bandage Single Layer -Size of Tubigrip Used Size D -Size D ($) 2 -Other NEW HCS BRAND Left -Multi-Layered Wrap Application -Tubular Bandage Double Layer Single Layer -Size of Tubigrip Used Size D Size D -Size D ($) 2 1 -Other hcs Treatment Response Procedure Tolerated Well Pain Scale: 0-10 Numeric Is Patient Pain Free? Yes Yes Yes WC - Visit Discharge Discharge Condition Stable Stable Stable Ambulatory Status Wheelchair Wheelchair Transportation Private Auto Private Auto Private Auto Accompanied by Medication Reconcilliation completed & No No provided to patient/care provider Clinical Summary of Care Provided Yes Yes Notes: 04/29/24 15:34 Wound Care Center Nurse 3 #4 Left medial leg -Primary Dressing Applied -Other Dressing -Primary Dressing Covered/Secured with -Fibracol Plus 4x4 -Mepilex Border #3 LT MED LO -Primary Dressing Applied -Primary Dressing Covered/Secured with -Mepilex Border #2- L LOWER POST LE -Ulcer Cleansing -Foul Odor after Cleansing No -Primary Dressing Applied Optilok 6.5x10 -Other Dressing fibracol -Primary Dressing Covered/Secured with -Other Covering -Fibracol Plus 4x4 -Mepilex Border -Optilok 6.5x10 1 #1- L LAT LE -Ulcer Cleansing -Foul Odor after Cleansing -Primary Dressing Applied Optilok 6.5x10 -Other Dressing fibracol -Primary Dressing Covered/Secured with -Other Covering -Fibracol Plus 4x4 -Mepilex Border -Optilok 6.5x10 1 BLE -Tubular Bandage -Size of Tubigrip Used -Size D ($) -Other Left -Multi-Layered Wrap Application Multi-Layer Comp - Left ($) -Tubular Bandage -Size of Tubigrip Used -Size D ($) -Other Treatment Response Procedure Tolerated Well Pain Scale: 0-10 Numeric Is Patient Pain Free? 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 Will plan to try to leave in place all week, if it becomes soaked through or gets soiled they can return for a nurse visit or simply apply fibracol and dry dressings as prior until next appt with me in 1 week. If the Unna boot is remove, try to apply tubigrips for compression if able to do so safely. He is instructed to elevate his legs at all resting times, preferably at or above the level of the heart. He is advised to perform ankle flexion exercises. We will continue to apply Eucerin cream or other moisturizing lotion to the rest of the lower legs to support skin integrity. He is scheduled for venous ablation in May. He will return to the wound healing center in 1 week.
== END 2024-04-30 23:59 | disposition home or self-care (01) ==
LOC: WC 14:45
PROVIDERS: PCP Family Medicine; Referring Provider Dermatology; Visit Provider Physician Assistant
DX: L97.922 Non-pressure chronic ulcer of unspecified part of left lower leg with fat layer exposed (principal); M79.3 Panniculitis, unspecified; R60.0 Localized edema; Z87.891 Personal history of nicotine dependence
CPT/HCPCS: 29581; 99213; G0463

== ENCOUNTER 2024-05-27 14:45 | Outpatient (RCR) | payer MEDICARE, SELFPAY ==
[2024-05-01 01:03] VITALS: BP 128/53; PULSE 67; RESP 18; TEMP 36; BMI 28.4
[2024-05-06 14:40] VITALS: BP 160/66; PULSE 54; RESP 18; TEMP 36.5; BMI 28.4
--- NOTE | 2024-05-06 18:00 | PCM.WC.PN ---
History of Present Illness Date of Service: 05/06/24 Chief Complaint: LLE wounds History of Wound: Mr. Paola Boyer is an 83 y/o male who presents to the wound healing center today with left lower extremity wounds. He was referred by Nuvia Brooks. He is accompanied to his appointment today by his . He relays that he has been dealing with these left lower extremity wounds recurrently over the past few years. They will become very close to healing and then subsequently open back up. His reports that all really started with a lot of swelling and redness in his lower legs which progressively worsened to weeping before developing these focal wounds. He has been treated to this point at [facility] with Unna boots and all of the surrounding skin has much improved in appearance however the wounds remain. He has not had any prior venous imaging to his knowledge and no venous interventions. No history of peripheral arterial disease or arterial interventions. He is not diabetic. He is not currently smoking, he quit in 1964. He presents today in an automated wheelchair. His insurance unfortunately has a very high co-pay for debridements which will be kept in mind throughout his treatment. Subjective Subjective We did 3M wraps last week. While his edema is under good control with this, the superficial skin breakdown has unfortunately enlarged. They did not notice drainage soaking through the bandages. No surrounding erythema. There is weeping from these areas. No signs/symptoms of infection. Objective Data Objective Data Vital Signs: Vital Signs Temp Pulse Resp BP O2 Del Method 97.7 F L 54 L 18 160/66 H Room Air 05/06/24 14:40 05/06/24 14:40 05/06/24 14:40 05/06/24 14:40 05/06/24 14:40 Oxygen Delivery Method Room Air Weight: 198 lb Body Mass Index (BMI) 28.4 Charges/Coding Visit Charges Office Visits / Consults: 98725 OV L3 Est 20min Physical Exam Const alert, oriented x3 and no apparent distress General Appearance: cooperative and comfortable HEENT normocephalic, head/scalp atraumatic, hearing grossly normal bilaterally, external ears normal and external nose normal Eyes General Eye: normal appearance of both eyes Resp normal respiratory effort Effort and Inspection: able to speak in complete sentences; Negative for labored, stridor or audible wheezes Extremity Extremity Narrative: 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 Trace edema on exam today. No apparent bulging varicosities. No weeping or skin breakdown except for wounds as noted below. Easily palpable pedal pulses. Skin Wounds: wounds noted Wound Narrative: At present, there are two remaining open areas on the RLE. The inferolateral ulceration has a granular and fibrinous base and depth of approximately 0.3cm, this portion continues to decrease in size; however, around this wound there is very superficial skin breakdown which is enlarged this week. The posterior ulceration remains very superficial and has enlarged this week. There is weeping noted from both of these areas. Neuro oriented x3, CN's II-XII intact bilaterally and moves all extremities Speech: speech normal Debridement Note Debridement Note No debridement was completed: No debridement was completed today Post-Debridement Measurements and Additional Note: Post-Debridement Measurements/Treatment WC - Nurse 1 - General Ulcer Assessment Start: 05/06/24 14:40 Freq: Status: Active Protocol: .RAY Activity Type Activity Date Activity User E-sign Co-sign Detail Recorded Client Recorded Date Recorded By Document 05/06/24 14:40 wound center 05/06/24 14:53 KW 05/06/24 14:40 - Today's Visit Information Type of service Follow-up Visit (Physician/UTILITIES GROUND WORKER ) Arrival Mode Other Arrival Mode (Other) SCOOTER Accompanied by Patient Identification Verified (Name & Yes ) Height and Weight Body Mass Index (BMI) 28.4 BMI Classification Overweight Vital Signs Temperature (97.8 F-99.1 F) 97.7 F L Temperature Source Temporal Pulse Rate (60-100) 54 L Pulse Location Monitor Respiratory Rate (12-18) 18 Respiratory rate source Observation Oxygen Delivery Method Room Air Blood Pressure (90/60-120/80) 160/66 H Blood Pressure Mean (mm Hg) 97 Source Monitor Position Sitting Blood Pressure Location Left Forearm History Since Last Visit- (Skip if this is Patient's initial visit) Have you changed medications since your No last visit? Any new allergies or adverse reactions No Had a fall/change in ADL's that may No increase risk of falls Signs or symptoms of abuse and/or No neglect since last visit Have you been in the hospital since your No last visit? Has dressing in place as prescribed Yes Has compression in place as prescribed Yes Has offloadiing in place as prescribed N/A Experienced any changes in pain level or No management Left Footwear Regular Shoe Right Footwear Regular Shoe Pain Scale: 0-10 Numeric Is Patient Pain Free? Yes WC - Nurse 1 - General Ulcer Measurement Start: 05/06/24 14:40 Freq: Status: Active Protocol: Activity Type Activity Date Activity User E-sign Co-sign Detail Recorded Client Recorded Date Recorded By Document 05/06/24 14:40 wound center 05/06/24 14:53 05/06/24 14:40 Wound Center Nurse 1 #2- L LOWER POST LE -Current Size (cm) - Length 6 -Current Size (cm) - Width 4.5 -Current Size (cm) - Depth 0.2 -Total Square Cm 27.0 -Exudate Amt Medium -Exudate Type Serosanguineous -Wound Margin Distinct, Outline Attached -Granulation Amt Large (67-100%) -Granulation Quality Red -Necrosis Amt Small (1-33%) -Necrotic Tissue Type Adherent Slough -Texture (Darling-wound Skin Appearance) Assessed -Moisture (Darling-wound Skin Appearance) Assessed -Color (Darling-wound Skin Appearance) Assessed, Erythema -Temperature (Darling-wound Skin No Abnormality Appearance) (Pt Warm) -Tenderness on Palpation (Darling-wound No Skin Appearance) -Ulcer Cleansing Soap and Water -Foul Odor after Cleansing No -Anesthetic Used 5% Lidocaine Gel #1- L LAT LE -Current Size (cm) - Length 4 -Current Size (cm) - Width 4 -Current Size (cm) - Depth 0.1 -Total Square Cm 16 -Exudate Amt Medium -Exudate Type Serosanguineous -Wound Margin Distinct, Outline Attached -Granulation Amt Large (67-100%) -Granulation Quality Red -Texture (Darling-wound Skin Appearance) Assessed -Moisture (Darling-wound Skin Appearance) Assessed -Color (Darling-wound Skin Appearance) Assessed -Temperature (Darling-wound Skin No Abnormality Appearance) (Pt Warm) -Tenderness on Palpation (Darling-wound No Skin Appearance) -Ulcer Cleansing Soap and Water -Foul Odor after Cleansing No -Anesthetic Used 5% Lidocaine Gel Left Calf (cm) 40 Left Ankle (cm) 25.3 CHRISTIE - Nurse 3 - General Ulcer D/C NN Start: 05/06/24 14:40 Freq: Status: Active Protocol: Activity Type Activity Date Activity User E-sign Co-sign Detail Recorded Client Recorded Date Recorded By Document 05/06/24 15:42 KW wound center 05/06/24 15:43 05/06/24 15:42 Wound Care Center Nurse 3 #2- L LOWER POST LE -Primary Dressing Applied Aquacel Extra -Primary Dressing Covered/Secured with Dry Gauze -Aquacel Extra 1 #1- L LAT LE -Primary Dressing Covered/Secured with Dry Gauze Left -Multi-Layered Wrap Application Unna Boot - Left ($) Pain Scale: 0-10 Numeric Is Patient Pain Free? 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 Will plan for him to come in shelter through the week to have the dressings changed. As his is still recovering, she is unable to manage daily or twice daily dressing changes so I do think this is still the best option at this time. He is instructed to elevate his legs at all resting times, preferably at or above the level of the heart. He is advised to perform ankle flexion exercises. We will continue to apply Eucerin cream or other moisturizing lotion to the rest of the lower legs to support skin integrity. He is scheduled for venous ablation in May. He will return to the wound healing center in 1 week.
[2024-05-11 15:47] VITALS: BP 155/75; PULSE 58; RESP 18; TEMP 36.1; BMI 28.4
[2024-05-13 14:44] VITALS: BP 137/51; PULSE 68; RESP 18; TEMP 36.3; BMI 28.4
--- NOTE | 2024-05-14 16:39 | PCM.WC.PN ---
History of Present Illness Date of Service: 05/13/24 Chief Complaint: LLE wounds History of Wound: Mr. Paola Boyer is an 83 y/o male who presents to the wound healing center today with left lower extremity wounds. He was referred by Nuvia Brooks. He is accompanied to his appointment today by his . He relays that he has been dealing with these left lower extremity wounds recurrently over the past few years. They will become very close to healing and then subsequently open back up. His reports that all really started with a lot of swelling and redness in his lower legs which progressively worsened to weeping before developing these focal wounds. He has been treated to this point at [facility] with Unna boots and all of the surrounding skin has much improved in appearance however the wounds remain. He has not had any prior venous imaging to his knowledge and no venous interventions. No history of peripheral arterial disease or arterial interventions. He is not diabetic. He is not currently smoking, he quit in 1964. He presents today in an automated wheelchair. His insurance unfortunately has a very high co-pay for debridements which will be kept in mind throughout his treatment. Subjective Subjective We did Unna boots this past week. He has tolerated them well. They did not notice drainage soaking through the boots between changes. The initial deeper wound is significantly smaller, but the superficial cluster around it remains stable in size. However, no worsening this week. He denies any increasing redness, swelling, discomfort. He denies any N/V, F/C. Objective Data Objective Data Vital Signs: Vital Signs Temp Pulse Resp BP O2 Del Method 97.4 F L 68 18 137/51 H Room Air 05/13/24 14:44 05/13/24 14:44 05/13/24 14:44 05/13/24 14:44 05/13/24 14:44 Oxygen Delivery Method Room Air Weight: 198 lb Body Mass Index (BMI) 28.4 Charges/Coding Visit Charges Office Visits / Consults: 99246 OV L3 Est 20min Physical Exam Const alert, oriented x3 and no apparent distress General Appearance: cooperative and comfortable HEENT normocephalic, head/scalp atraumatic, hearing grossly normal bilaterally, external ears normal and external nose normal Eyes General Eye: normal appearance of both eyes Resp normal respiratory effort Effort and Inspection: able to speak in complete sentences; Negative for labored, stridor or audible wheezes Extremity Extremity Narrative: 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 Trace edema on exam today. No apparent bulging varicosities. No weeping or skin breakdown except for wounds as noted below. Easily palpable pedal pulses. Skin Wounds: wounds noted Wound Narrative: At present, there are two remaining open areas on the RLE. The inferolateral ulceration has a granular and fibrinous base and depth of approximately 0.3cm, this portion continues to decrease in size; however, around this wound there is very superficial skin breakdown which is stable in size this week. The posterior ulceration remains very superficial limited to skin breakdown and is stable in size this week this week. There is weeping noted from both of these areas. Neuro oriented x3, CN's II-XII intact bilaterally and moves all extremities Speech: speech normal Debridement Note Debridement Note No debridement was completed: No debridement was completed today Post-Debridement Measurements and Additional Note: Post-Debridement Measurements/Treatment - Nurse 1 - General Ulcer Assessment Start: 05/06/24 14:40 Freq: Status: Active Protocol: [email or web address] Activity Type Activity Date Activity User E-sign Co-sign Detail Recorded Client Recorded Date Recorded By Document 05/06/24 14:40 KW wound center 05/06/24 14:53 KW Document 05/11/24 15:47 RB wound 05/11/24 15:49 RB Document 05/13/24 14:44 KW g 05/13/24 14:50 KW 05/06/24 05/11/24 05/13/24 14:40 15:47 14:44 - Today's Visit Information Type of service Follow-up Visit Nurse-only Follow-up Visit (Physician/PAINTER AND BODY WORK Visit (Physician/PAINTER AND BODY WORK ) ) Arrival Mode Other Wheelchair Other Arrival Mode (Other) SCOOTER scooter Transfer Assistance None Accompanied by Patient Identification Verified (Name & Yes Yes Yes ) Patient Requires Transmission-Based No Precautions Height and Weight Body Mass Index (BMI) 28.4 28.4 28.4 BMI Classification Overweight Overweight Overweight Vital Signs Temperature (97.8 F-99.1 F) 97.7 F L 96.9 F L 97.4 F L Temperature Source Temporal Temporal Temporal Pulse Rate (60-100) 54 L 58 L 68 Pulse Location Monitor Monitor Monitor Respiratory Rate (12-18) 18 18 18 Respiratory rate source Observation Observation Observation Oxygen Delivery Method Room Air Room Air Blood Pressure (90/60-120/80) 160/66 H 155/75 H 137/51 H Blood Pressure Mean (mm Hg) 97 101 79 Source Monitor Monitor Monitor Position Sitting Sitting Sitting Blood Pressure Location Left Forearm Left Arm Left Arm History Since Last Visit- (Skip if this is Patient's initial visit) Have you changed medications since your No No No last visit? Any new allergies or adverse reactions No No No Had a fall/change in ADL's that may No No No increase risk of falls Signs or symptoms of abuse and/or No No No neglect since last visit Have you been in the hospital since your No No No last visit? Has dressing in place as prescribed Yes Yes Yes Has compression in place as prescribed Yes Yes Yes Has offloadiing in place as prescribed N/A No N/A Experienced any changes in pain level or No No No management Left Footwear Regular Shoe Regular Shoe Right Footwear Regular Shoe Regular Shoe Pain Scale: 0-10 Numeric Is Patient Pain Free? Yes Yes Yes WC - Nurse 1 - General Ulcer Measurement Start: 05/06/24 14:40 Freq: Status: Active Protocol: Activity Type Activity Date Activity User E-sign Co-sign Detail Recorded Client Recorded Date Recorded By Document 05/06/24 14:40 KW wound center 05/06/24 14:53 KW Document 05/11/24 15:47 RB wound 05/11/24 15:49 RB Document 05/13/24 14:44 KW g 05/13/24 14:50 KW 05/06/24 05/11/24 05/13/24 14:40 15:47 14:44 Wound Center Nurse 1 #2- L LOWER POST LE -Current Size (cm) - Length 6 4.2 -Current Size (cm) - Width 4.5 4.9 -Current Size (cm) - Depth 0.2 0.1 -Total Square Cm 27.0 20.58 -Exudate Amt Medium Small -Exudate Type Serosanguineous Serosanguineous -Wound Margin Distinct, Distinct, Outline Outline Attached Attached -Granulation Amt Large (67-100%) Large (67-100%) -Granulation Quality Red Red -Necrosis Amt Small (1-33%) Small (1-33%) -Necrotic Tissue Type Adherent Slough Adherent Slough -Texture (Darling-wound Skin Appearance) Assessed Assessed -Moisture (Darling-wound Skin Appearance) Assessed Assessed -Color (Darling-wound Skin Appearance) Assessed, Assessed Erythema -Temperature (Darling-wound Skin No Abnormality Appearance) (Pt Warm) -Tenderness on Palpation (Darling-wound No Skin Appearance) -Ulcer Cleansing Soap and Water Soap and Water -Foul Odor after Cleansing No -Anesthetic Used 5% Lidocaine 5% Lidocaine Gel Gel #1- L LAT LE -Current Size (cm) - Length 4 6 -Current Size (cm) - Width 4 5 -Current Size (cm) - Depth 0.1 0.2 -Total Square Cm 16 30 -Exudate Amt Medium Small -Exudate Type Serosanguineous Serosanguineous -Wound Margin Distinct, Distinct, Outline Outline Attached Attached -Granulation Amt Large (67-100%) Large (67-100%) -Granulation Quality Red Red -Necrosis Amt Medium (34-66%) -Necrotic Tissue Type Adherent Slough -Texture (Darling-wound Skin Appearance) Assessed Assessed -Moisture (Darling-wound Skin Appearance) Assessed Assessed -Color (Darling-wound Skin Appearance) Assessed Assessed -Temperature (Darling-wound Skin No Abnormality Appearance) (Pt Warm) -Tenderness on Palpation (Darling-wound No Skin Appearance) -Ulcer Cleansing Soap and Water Soap and Water -Foul Odor after Cleansing No No -Anesthetic Used 5% Lidocaine 5% Lidocaine Gel Gel Lower Limb Edema Present Yes Left Calf (cm) 40 41.2 42.1 Left Ankle (cm) 25.3 25 25.7 WC - Nurse 2 - General Ulcer CM Notes Start: 05/06/24 14:40 Freq: Status: Active Protocol: Activity Type Activity Date Activity User E-sign Co-sign Detail Recorded Client Recorded Date Recorded By Document 05/13/24 15:15 GM 05/13/24 15:18 GM 05/13/24 15:15 Wound Center Nurse 2 #2- L LOWER POST LE -Time 15:15 -Correct Patient Yes -Correct Side, Site, Position Yes -Wound/Ulcer Outcome Not Healed -Wound Comment(s) no debridement 5.4 x 4.2 x 0.1 cm #1- L LAT LE -Time 15:17 -Correct Patient Yes -Correct Side, Site, Position Yes -Wound/Ulcer Outcome Not Healed -Wound Comment(s) No debridement measurements 6.5 x 4.6 x 0.1 with a deepest part 0.3 x 0.4 x 0.3 Pain Scale: 0-10 Numeric Is Patient Pain Free? Yes - Nurse 3 - General Ulcer D/C NN Start: 05/06/24 14:40 Freq: Status: Active Protocol: Activity Type Activity Date Activity User E-sign Co-sign Detail Recorded Client Recorded Date Recorded By Document 05/06/24 15:42 KW wound center 05/06/24 15:43 KW Document 05/11/24 15:47 RB wound 05/11/24 15:49 RB Document 05/13/24 15:25 [facility] 05/13/24 15:28 BMF 05/06/24 05/11/24 05/13/24 15:42 15:47 15:25 Wound Care Center Nurse 3 #2- L LOWER POST LE -Ulcer Cleansing Rinsed/ Irrigated with Saline -Foul Odor after Cleansing No -Primary Dressing Applied Aquacel Extra Aquacel Extra Aquacel Extra -Other Dressing ABD DRSG PER KW PEG DRIVER -Primary Dressing Covered/Secured with Dry Gauze -Aquacel Extra 1 1 0 #1- L LAT LE -Ulcer Cleansing Rinsed/ Irrigated with Saline -Foul Odor after Cleansing No -Primary Dressing Applied Aquacel Extra -Other Dressing aqua extra DRSG PER KW PEG DRIVER -Primary Dressing Covered/Secured with Dry Gauze -Aquacel Extra 1 Left -Multi-Layered Wrap Application Unna Boot - Unna Boot - Unna Boot - Left ($) Left ($) Left ($) Treatment Response Procedure Procedure Tolerated Well Tolerated Well Vital Signs Temperature (97.8 F-99.1 F) 96.9 F L Temperature Source Temporal Pulse Rate (60-100) 58 L Pulse Location Monitor Respiratory Rate (12-18) 18 Respiratory rate source Observation Blood Pressure (90/60-120/80) 155/75 H Blood Pressure Mean (mm Hg) 101 Source Monitor Position Sitting Blood Pressure Location Left Arm Pain Scale: 0-10 Numeric Is Patient Pain Free? 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 Will plan for him to come in care home through the week to have the dressings changed. As his is still recovering, she is unable to manage daily or twice daily dressing changes so I do think this is still the best option at this time. He is instructed to elevate his legs at all resting times, preferably at or above the level of the heart. He is advised to perform ankle flexion exercises. He is scheduled for venous ablation in May. He will return to the wound healing center in 1 week.
[2024-05-17 14:04] VITALS: BP 114/53; PULSE 59; RESP 18; TEMP 36.2; BMI 28.4
[2024-05-20 14:50] VITALS: BP 120/72; PULSE 97; RESP 16; TEMP 35.6; BMI 28.4
--- NOTE | 2024-05-20 15:41 | PN.PCM_ITS ---
History of Present Illness Date of Service: 05/20/24 Chief Complaint: LLE wounds History of Wound: Mr. Paola Boyer is an 83 y/o male who presents to the wound healing center today with left lower extremity wounds. He was referred by Nuvia Brooks. He is accompanied to his appointment today by his . He relays that he has been dealing with these left lower extremity wounds recurrently over the past few years. They will become very close to healing and then subsequently open back up. His reports that all really started with a lot of swelling and redness in his lower legs which progressively worsened to weeping before developing these focal wounds. He has been treated to this point at [facility] with Unna boots and all of the surrounding skin has much improved in appearance however the wounds remain. He has not had any prior venous imaging to his knowledge and no venous interventions. No history of peripheral arterial disease or arterial interventions. He is not diabetic. He is not currently smoking, he quit in 1964. He presents today in an automated wheelchair. His insurance unfortunately has a very high co-pay for debridements which will be kept in mind throughout his treatment. Subjective Subjective Patient is feeling well this week. Still doing well with Unna boots as far as keeping them clean and dry. No new concerns. Objective Data Objective Data Vital Signs: Vital Signs Temp Pulse Resp BP O2 Del Method 96.1 F L 97 16 120/72 Room Air 05/20/24 14:50 05/20/24 14:50 05/20/24 14:50 05/20/24 14:50 05/20/24 14:50 Oxygen Delivery Method Room Air Weight: 198 lb Body Mass Index (BMI) 28.4 Charges/Coding Visit Charges Office Visits / Consults: 34175 OV L3 Est 20min Physical Exam Const alert, oriented x3 and no apparent distress General Appearance: cooperative and comfortable HEENT normocephalic, head/scalp atraumatic, hearing grossly normal bilaterally, external ears normal and external nose normal Eyes General Eye: normal appearance of both eyes Resp normal respiratory effort Effort and Inspection: able to speak in complete sentences; Negative for labored, stridor or audible wheezes Extremity Extremity Narrative: 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 Trace edema on exam today. No apparent bulging varicosities. No weeping or skin breakdown except for wounds as noted below. Easily palpable pedal pulses. Skin Wounds: wounds noted Wound Narrative: At present, there are two remaining open areas on the RLE which have coalesced into a cluster which is very superficial with associated weeping. At the inferolateral aspect there is a deeper area to 0.3cm which has been improving in size and depth. Neuro oriented x3, CN's II-XII intact bilaterally and moves all extremities Speech: speech normal Debridement Note Debridement Note No debridement was completed: No debridement was completed today Post-Debridement Measurements and Additional Note: Post-Debridement Measurements/Treatment - Nurse 1 - General Ulcer Assessment Start: 05/06/24 14:40 Freq: Status: Active Protocol: .[employer] Activity Type Activity Date Activity User E-sign Co-sign Detail Recorded Client Recorded Date Recorded By Document 05/06/24 14:40 KW wound center 05/06/24 14:53 KW Document 05/11/24 15:47 RB wound 05/11/24 15:49 RB Document 05/13/24 14:44 KW g 05/13/24 14:50 KW Document 05/17/24 14:04 DL [email or web address] 05/17/24 14:17 DL Document 05/20/24 14:50 BMF 05/20/24 15:04 BMF 05/06/24 05/11/24 05/13/24 14:40 15:47 14:44 - Today's Visit Information Type of service Follow-up Visit Nurse-only Follow-up Visit (Physician/AIRCRAFT ELECTRONICS TECHNICAL OFFICER Visit (Physician/AIRCRAFT ELECTRONICS TECHNICAL OFFICER ) ) Arrival Mode Other Wheelchair Other Arrival Mode (Other) SCOOTER scooter Transfer Assistance None Accompanied by Patient Identification Verified (Name & Yes Yes Yes ) Patient Requires Transmission-Based No Precautions Height and Weight Body Mass Index (BMI) 28.4 28.4 28.4 BMI Classification Overweight Overweight Overweight Vital Signs Temperature (97.8 F-99.1 F) 97.7 F L 96.9 F L 97.4 F L Temperature Source Temporal Temporal Temporal Pulse Rate (60-100) 54 L 58 L 68 Pulse Location Monitor Monitor Monitor Respiratory Rate (12-18) 18 18 18 Respiratory rate source Observation Observation Observation Oxygen Delivery Method Room Air Room Air Blood Pressure (90/60-120/80) 160/66 H 155/75 H 137/51 H Blood Pressure Mean (mm Hg) 97 101 79 Source Monitor Monitor Monitor Position Sitting Sitting Sitting Blood Pressure Location Left Forearm Left Arm Left Arm History Since Last Visit- (Skip if this is Patient's initial visit) Have you changed medications since your No No No last visit? Any new allergies or adverse reactions No No No Had a fall/change in ADL's that may No No No increase risk of falls Signs or symptoms of abuse and/or No No No neglect since last visit Have you been in the hospital since your No No No last visit? Has dressing in place as prescribed Yes Yes Yes Has compression in place as prescribed Yes Yes Yes Has offloadiing in place as prescribed N/A No N/A Experienced any changes in pain level or No No No management Left Footwear Regular Shoe Regular Shoe Right Footwear Regular Shoe Regular Shoe Pain Scale: 0-10 Numeric Is Patient Pain Free? Yes Yes Yes 05/17/24 05/20/24 14:04 14:50 WC - Today's Visit Information Type of service Nurse-only Follow-up Visit Visit (Physician/AIRCRAFT ELECTRONICS TECHNICAL OFFICER ) Arrival Mode Wheelchair Wheelchair Arrival Mode (Other) Transfer Assistance None None Accompanied by Patient Identification Verified (Name & Yes Yes ) Patient Requires Transmission-Based No No Precautions Height and Weight Body Mass Index (BMI) 28.4 28.4 BMI Classification Overweight Overweight Vital Signs Temperature (97.8 F-99.1 F) 97.2 F L 96.1 F L Temperature Source Temporal Temporal Pulse Rate (60-100) 59 L 97 Pulse Location Monitor Monitor Respiratory Rate (12-18) 18 16 Respiratory rate source Observation Observation Oxygen Delivery Method Room Air Blood Pressure (90/60-120/80) 114/53 L 120/72 Blood Pressure Mean (mm Hg) 73 88 Source Monitor Monitor Position Sitting Blood Pressure Location Left Arm History Since Last Visit- (Skip if this is Patient's initial visit) Have you changed medications since your No No last visit? Any new allergies or adverse reactions No No Had a fall/change in ADL's that may No No increase risk of falls Signs or symptoms of abuse and/or No No neglect since last visit Have you been in the hospital since your No No last visit? Has dressing in place as prescribed Yes Yes Has compression in place as prescribed Yes Yes Has offloadiing in place as prescribed Yes N/A Experienced any changes in pain level or No No management Left Footwear Regular Shoe Regular Shoe Right Footwear Regular Shoe Regular Shoe Pain Scale: 0-10 Numeric Is Patient Pain Free? Yes Yes WC - Nurse 1 - General Ulcer Measurement Start: 05/06/24 14:40 Freq: Status: Active Protocol: Activity Type Activity Date Activity User E-sign Co-sign Detail Recorded Client Recorded Date Recorded By Document 05/06/24 14:40 KW wound center 05/06/24 14:53 KW Document 05/11/24 15:47 RB wound 05/11/24 15:49 RB Document 05/13/24 14:44 KW g 05/13/24 14:50 KW Document 05/20/24 14:50 BM 05/20/24 15:04 BMF 05/06/24 05/11/24 05/13/24 14:40 15:47 14:44 Wound Center Nurse 1 #2- L LOWER POST LE -Combined with other wound -Combined with (Name of Wound-Exactly as it is documented) -Current Size (cm) - Length 6 4.2 -Current Size (cm) - Width 4.5 4.9 -Current Size (cm) - Depth 0.2 0.1 -Total Square Cm 27.0 20.58 -Exudate Amt Medium Small -Exudate Type Serosanguineous Serosanguineous -Wound Margin Distinct, Distinct, Outline Outline Attached Attached -Granulation Amt Large (67-100%) Large (67-100%) -Granulation Quality Red Red -Necrosis Amt Small (1-33%) Small (1-33%) -Necrotic Tissue Type Adherent Slough Adherent Slough -Texture (Darling-wound Skin Appearance) Assessed Assessed -Moisture (Darling-wound Skin Appearance) Assessed Assessed -Color (Darling-wound Skin Appearance) Assessed, Assessed Erythema -Temperature (Darling-wound Skin No Abnormality Appearance) (Pt Warm) -Tenderness on Palpation (Darilng-wound No Skin Appearance) -Ulcer Cleansing Soap and Water Soap and Water -Foul Odor after Cleansing No -Anesthetic Used 5% Lidocaine 5% Lidocaine Gel Gel #1- L LAT LE/ POST -Combined with other wound -Combined with (Name of Wound-Exactly as it is documented) -Current Size (cm) - Length 4 6 -Current Size (cm) - Width 4 5 -Current Size (cm) - Depth 0.1 0.2 -Total Square Cm 16 30 -Photo Taken -Exudate Amt Medium Small -Exudate Type Serosanguineous Serosanguineous -Wound Margin Distinct, Distinct, Outline Outline Attached Attached -Granulation Amt Large (67-100%) Large (67-100%) -Granulation Quality Red Red -Necrosis Amt Medium (34-66%) -Necrotic Tissue Type Adherent Slough -Structure Exposed -Texture (Darling-wound Skin Appearance) Assessed Assessed -Moisture (Darling-wound Skin Appearance) Assessed Assessed -Color (Darling-wound Skin Appearance) Assessed Assessed -Temperature (Darling-wound Skin No Abnormality Appearance) (Pt Warm) -Tenderness on Palpation (Darling-wound No Skin Appearance) -Ulcer Cleansing Soap and Water Soap and Water -Foul Odor after Cleansing No No -Anesthetic Used 5% Lidocaine 5% Lidocaine Gel Gel Lower Limb Edema Present Yes Left Calf (cm) 40 41.2 42.1 Left Ankle (cm) 25.3 25 25.7 05/20/24 14:50 Wound Center Nurse 1 #2- L LOWER POST LE -Combined with other wound Yes -Combined with (Name of Wound-Exactly #1 l LAT LE as it is documented) -Current Size (cm) - Length -Current Size (cm) - Width -Current Size (cm) - Depth -Total Square Cm -Exudate Amt -Exudate Type -Wound Margin -Granulation Amt -Granulation Quality -Necrosis Amt -Necrotic Tissue Type -Texture (Darling-wound Skin Appearance) -Moisture (Darling-wound Skin Appearance) -Color (Darling-wound Skin Appearance) -Temperature (Darling-wound Skin Appearance) -Tenderness on Palpation (Darling-wound Skin Appearance) -Ulcer Cleansing -Foul Odor after Cleansing -Anesthetic Used #1- L LAT LE/ POST -Combined with other wound Yes -Combined with (Name of Wound-Exactly #2 as it is documented) -Current Size (cm) - Length 12 -Current Size (cm) - Width 6.5 -Current Size (cm) - Depth 0.4 -Total Square Cm 78.0 -Photo Taken Yes -Exudate Amt Medium -Exudate Type Serosanguineous -Wound Margin Distinct, Outline Attached -Granulation Amt Large (67-100%) -Granulation Quality Red -Necrosis Amt Small (1-33%) -Necrotic Tissue Type Adherent Slough -Structure Exposed N/A -Texture (Darling-wound Skin Appearance) Scarring -Moisture (Darling-wound Skin Appearance) Maceration -Color (Darling-wound Skin Appearance) Erythema, Hemosiderin Staining -Temperature (Darling-wound Skin No Abnormality Appearance) (Pt Warm) -Tenderness on Palpation (Darling-wound No Skin Appearance) -Ulcer Cleansing Soap and Water -Foul Odor after Cleansing No -Anesthetic Used 4% Lidocaine Solution Lower Limb Edema Present Left Calf (cm) 42.1 Left Ankle (cm) 25.5 WC - Nurse 2 - General Ulcer CM Notes Start: 05/06/24 14:40 Freq: Status: Active Protocol: Activity Type Activity Date Activity User E-sign Co-sign Detail Recorded Client Recorded Date Recorded By Document 05/13/24 15:15 GM 05/13/24 15:18 Document 05/20/24 15:20 [facility] 05/20/24 15:22 05/13/24 05/20/24 15:15 15:20 Wound Center Nurse 2 #2- L LOWER POST LE -Time 15:15 -Correct Patient Yes -Correct Side, Site, Position Yes -Wound/Ulcer Outcome Not Healed -Wound Comment(s) no debridement 5.4 x 4.2 x 0.1 cm #1- L LAT LE/ POST -Time 15:17 -Correct Patient Yes -Correct Side, Site, Position Yes -Wound/Ulcer Outcome Not Healed -Wound Comment(s) No debridement measurements 6.5 x 4.6 x 0.1 with a deepest part 0.3 x 0.4 x 0.3 #5 Left lower leg cluster -Time 15:21 -Correct Patient Yes -Correct Side, Site, Position Yes -Wound/Ulcer Outcome Not Healed -Wound Comment(s) measures 11x6. 5x 0.3 - in the center Pain Scale: 0-10 Numeric Is Patient Pain Free? Yes Yes - Nurse 3 - General Ulcer D/C NN Start: 05/06/24 14:40 Freq: Status: Active Protocol: Activity Type Activity Date Activity User E-sign Co-sign Detail Recorded Client Recorded Date Recorded By Document 05/06/24 15:42 KW wound center 05/06/24 15:43 KW Document 05/11/24 15:47 RB wound 05/11/24 15:49 RB Document 05/13/24 15:25 [facility] 05/13/24 15:28 BMF Document 05/17/24 14:04 DL [email or web address] 05/17/24 14:17 DL Document 05/20/24 15:36 KW ; 05/20/24 15:38 KW 05/06/24 05/11/24 05/13/24 15:42 15:47 15:25 Wound Care Center Nurse 3 #2- L LOWER POST LE -Ulcer Cleansing Rinsed/ Irrigated with Saline -Foul Odor after Cleansing No -Primary Dressing Applied Aquacel Extra Aquacel Extra Aquacel Extra -Other Dressing ABD DRSG PER KW ADMINISTRATIVE SUPPORT SPECIALIST -Primary Dressing Covered/Secured with Dry Gauze -Aquacel Extra 1 1 0 #1- L LAT LE/ POST -Ulcer Cleansing Rinsed/ Irrigated with Saline -Foul Odor after Cleansing No -Primary Dressing Applied Aquacel Extra -Other Dressing aqua extra DRSG PER KW ADMINISTRATIVE SUPPORT SPECIALIST -Primary Dressing Covered/Secured with Dry Gauze -Aquacel Extra 1 #5 Left lower leg cluster -Ulcer Cleansing -Primary Dressing Applied -Other Dressing -Primary Dressing Covered/Secured with -Optilok 6.5x10 Right -Tubular Bandage -Size of Tubigrip Used -Size D ($) Left -Multi-Layered Wrap Application Unna Boot - Unna Boot - Unna Boot - Left ($) Left ($) Left ($) Treatment Response Procedure Procedure Tolerated Well Tolerated Well Vital Signs Temperature (97.8 F-99.1 F) 96.9 F L Temperature Source Temporal Pulse Rate (60-100) 58 L Pulse Location Monitor Respiratory Rate (12-18) 18 Respiratory rate source Observation Blood Pressure (90/60-120/80) 155/75 H Blood Pressure Mean (mm Hg) 101 Source Monitor Position Sitting Blood Pressure Location Left Arm Pain Scale: 0-10 Numeric Is Patient Pain Free? Yes Yes Yes WC - Visit Discharge Discharge Condition Stable Stable Stable Ambulatory Status Wheelchair Wheelchair Transportation Private Auto Private Auto Private Auto Accompanied by Medication Reconcilliation completed & No No provided to patient/care provider Clinical Summary of Care Provided Yes Yes 05/17/24 05/20/24 14:04 15:36 Wound Care Center Nurse 3 #2- L LOWER POST LE -Ulcer Cleansing Soap and Water -Foul Odor after Cleansing -Primary Dressing Applied Aquacel Extra -Other Dressing -Primary Dressing Covered/Secured with -Aquacel Extra 1 #1- L LAT LE/ POST -Ulcer Cleansing Soap and Water -Foul Odor after Cleansing No -Primary Dressing Applied Aquacel Extra -Other Dressing -Primary Dressing Covered/Secured with -Aquacel Extra 0 #5 Left lower leg cluster -Ulcer Cleansing Rinsed/ Irrigated with Saline -Primary Dressing Applied Optilok 6.5x10 -Other Dressing PT OWN AQUACEL EXTRA AND CREAM -Primary Dressing Covered/Secured with Dry Gauze & Roll Gauze, Secured with Tape -Optilok 6.5x10 1 Right -Tubular Bandage Double Layer -Size of Tubigrip Used Size D -Size D ($) 2 Left -Multi-Layered Wrap Application Unna Boot - Unna Boot - Left ($) Left ($) Treatment Response Procedure Tolerated Well Vital Signs Temperature (97.8 F-99.1 F) 97.2 F L Temperature Source Temporal Pulse Rate (60-100) 59 L Pulse Location Monitor Respiratory Rate (12-18) 18 Respiratory rate source Observation Blood Pressure (90/60-120/80) 114/53 L Blood Pressure Mean (mm Hg) 73 Source Monitor Position Blood Pressure Location Pain Scale: 0-10 Numeric Is Patient Pain Free? 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 Will plan for him to come in long term through the week to have the dressings changed. Tubigrip for compress of the RLE. He is instructed to elevate his legs at all resting times, preferably at or above the level of the heart. He is advised to perform ankle flexion exercises. He is scheduled for venous ablation in May. He will return to the wound healing center in 1 week.
--- NOTE | 2024-05-24 10:32 | WC ---
PHOTO 05/20/2024 LEFT LATERAL LE
[2024-05-24 14:23] VITALS: BP 137/58; PULSE 94; RESP 18; TEMP 36.8; BMI 28.4
[2024-05-27 15:10] VITALS: BP 120/60; PULSE 66; RESP 18; TEMP 36.2; BMI 28.4
--- NOTE | 2024-05-27 16:30 | PN.PCM_ITS ---
History of Present Illness Date of Service: 05/27/24 Chief Complaint: LLE wounds History of Wound: Mr. Paola Boyer is an 83 y/o male who presents to the wound healing center today with left lower extremity wounds. He was referred by Nuvia Brooks. He is accompanied to his appointment today by his . He relays that he has been dealing with these left lower extremity wounds recurrently over the past few years. They will become very close to healing and then subsequently open back up. His reports that all really started with a lot of swelling and redness in his lower legs which progressively worsened to weeping before developing these focal wounds. He has been treated to this point at [facility] with Unna boots and all of the surrounding skin has much improved in appearance however the wounds remain. He has not had any prior venous imaging to his knowledge and no venous interventions. No history of peripheral arterial disease or arterial interventions. He is not diabetic. He is not currently smoking, he quit in 1964. He presents today in an automated wheelchair. His insurance unfortunately has a very high co-pay for debridements which will be kept in mind throughout his treatment. Subjective Subjective Patient returns to wound care center accompanied by his . He has been doing well over this past week. They do not have any new concerns regarding the wound. He denies any new N/V, F/C, new or worsened drainage or foul odor from the wound site. He continues to tolerate Unna boots well and is keeping it clean and dry throughout the week. Objective Data Objective Data Vital Signs: Vital Signs Temp Pulse Resp BP O2 Del Method 97.2 F L 66 18 120/60 Room Air 05/27/24 15:10 05/27/24 15:10 05/27/24 15:10 05/27/24 15:10 05/24/24 14:23 Oxygen Delivery Method Room Air Weight: 198 lb Body Mass Index (BMI) 28.4 Charges/Coding Visit Charges Office Visits / Consults: 57700 OV L3 Est 20min Physical Exam Const alert, oriented x3 and no apparent distress General Appearance: cooperative and comfortable HEENT normocephalic, head/scalp atraumatic, hearing grossly normal bilaterally, external ears normal and external nose normal Eyes General Eye: normal appearance of both eyes Resp normal respiratory effort Effort and Inspection: able to speak in complete sentences; Negative for labored, stridor or audible wheezes Extremity Extremity Narrative: 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 Trace edema on exam today. No apparent bulging varicosities. No weeping or skin breakdown except for wounds as noted below. Easily palpable pedal pulses. Skin Wounds: wounds noted Wound Narrative: At present, there are two remaining open areas on the RLE which have coalesced into a cluster which is very superficial with associated weeping and stable in size this week. At the inferolateral aspect there has been a deeper area which is significantly decreased in size and with depth improved to 0.2 cm. Neuro oriented x3, CN's II-XII intact bilaterally and moves all extremities Speech: speech normal Debridement Note Debridement Note No debridement was completed: No debridement was completed today Post-Debridement Measurements and Additional Note: Post-Debridement Measurements/Treatment - Nurse 1 - General Ulcer Assessment Start: 05/06/24 14:40 Freq: Status: Active Protocol: [facility] Activity Type Activity Date Activity User E-sign Co-sign Detail Recorded Client Recorded Date Recorded By Document 05/06/24 14:40 KW wound center 05/06/24 14:53 KW Document 05/11/24 15:47 RB wound 05/11/24 15:49 RB Document 05/13/24 14:44 KW g 05/13/24 14:50 KW Document 05/17/24 14:04 DL [email or web address] 05/17/24 14:17 DL Document 05/20/24 14:50 [facility] 05/20/24 15:04 BMF Document 05/24/24 14:23 KW k 05/24/24 14:43 KW Document 05/27/24 15:10 DL [email or web address] 05/27/24 15:21 DL 05/06/24 05/11/24 05/13/24 14:40 15:47 14:44 - Today's Visit Information Type of service Follow-up Visit Nurse-only Follow-up Visit (Physician/ESCORT CAR DRIVER Visit (Physician/ESCORT CAR DRIVER ) ) Arrival Mode Other Wheelchair Other Arrival Mode (Other) SCOOTER scooter Transfer Assistance None Accompanied by Patient Identification Verified (Name & Yes Yes Yes ) Patient Requires Transmission-Based No Precautions Height and Weight Body Mass Index (BMI) 28.4 28.4 28.4 BMI Classification Overweight Overweight Overweight Vital Signs Temperature (97.8 F-99.1 F) 97.7 F L 96.9 F L 97.4 F L Temperature Source Temporal Temporal Temporal Pulse Rate (60-100) 54 L 58 L 68 Pulse Location Monitor Monitor Monitor Respiratory Rate (12-18) 18 18 18 Respiratory rate source Observation Observation Observation Oxygen Delivery Method Room Air Room Air Blood Pressure (90/60-120/80) 160/66 H 155/75 H 137/51 H Blood Pressure Mean (mm Hg) 97 101 79 Source Monitor Monitor Monitor Position Sitting Sitting Sitting Blood Pressure Location Left Forearm Left Arm Left Arm History Since Last Visit- (Skip if this is Patient's initial visit) Have you changed medications since your No No No last visit? Any new allergies or adverse reactions No No No Had a fall/change in ADL's that may No No No increase risk of falls Signs or symptoms of abuse and/or No No No neglect since last visit Have you been in the hospital since your No No No last visit? Has dressing in place as prescribed Yes Yes Yes Has compression in place as prescribed Yes Yes Yes Has offloadiing in place as prescribed N/A No N/A Experienced any changes in pain level or No No No management Left Footwear Regular Shoe Regular Shoe Right Footwear Regular Shoe Regular Shoe Pain Scale: 0-10 Numeric Is Patient Pain Free? Yes Yes Yes 05/17/24 05/20/24 05/24/24 14:04 14:50 14:23 WC - Today's Visit Information Type of service Nurse-only Follow-up Visit Nurse-only Visit (Physician/ESCORT CAR DRIVER Visit ) Arrival Mode Wheelchair Wheelchair Other Arrival Mode (Other) SCOOTER Transfer Assistance None None Accompanied by Patient Identification Verified (Name & Yes Yes Yes ) Patient Requires Transmission-Based No No Precautions Height and Weight Body Mass Index (BMI) 28.4 28.4 28.4 BMI Classification Overweight Overweight Overweight Vital Signs Temperature (97.8 F-99.1 F) 97.2 F L 96.1 F L 98.3 F Temperature Source Temporal Temporal Temporal Pulse Rate (60-100) 59 L 97 94 Pulse Location Monitor Monitor Monitor Respiratory Rate (12-18) 18 16 18 Respiratory rate source Observation Observation Observation Oxygen Delivery Method Room Air Room Air Blood Pressure (90/60-120/80) 114/53 L 120/72 137/58 H Blood Pressure Mean (mm Hg) 73 88 84 Source Monitor Monitor Monitor Position Sitting Sitting Blood Pressure Location Left Arm Left Arm History Since Last Visit- (Skip if this is Patient's initial visit) Have you changed medications since your No No No last visit? Any new allergies or adverse reactions No No No Had a fall/change in ADL's that may No No No increase risk of falls Signs or symptoms of abuse and/or No No No neglect since last visit Have you been in the hospital since your No No No last visit? Has dressing in place as prescribed Yes Yes Yes Has compression in place as prescribed Yes Yes Yes Has offloadiing in place as prescribed Yes N/A N/A Experienced any changes in pain level or No No No management Left Footwear Regular Shoe Regular Shoe Regular Shoe Right Footwear Regular Shoe Regular Shoe Regular Shoe Pain Scale: 0-10 Numeric Is Patient Pain Free? Yes Yes Yes 05/27/24 15:10 WC - Today's Visit Information Type of service Follow-up Visit (Physician/ESCORT CAR DRIVER ) Arrival Mode Wheelchair Arrival Mode (Other) Transfer Assistance None Accompanied by Patient Identification Verified (Name & Yes ) Patient Requires Transmission-Based No Precautions Height and Weight Body Mass Index (BMI) 28.4 BMI Classification Overweight Vital Signs Temperature (97.8 F-99.1 F) 97.2 F L Temperature Source Temporal Pulse Rate (60-100) 66 Pulse Location Monitor Respiratory Rate (12-18) 18 Respiratory rate source Observation Oxygen Delivery Method Blood Pressure (90/60-120/80) 120/60 Blood Pressure Mean (mm Hg) 80 Source Monitor Position Blood Pressure Location History Since Last Visit- (Skip if this is Patient's initial visit) Have you changed medications since your No last visit? Any new allergies or adverse reactions No Had a fall/change in ADL's that may No increase risk of falls Signs or symptoms of abuse and/or No neglect since last visit Have you been in the hospital since your No last visit? Has dressing in place as prescribed Yes Has compression in place as prescribed Yes Has offloadiing in place as prescribed N/A Experienced any changes in pain level or No management Left Footwear Right Footwear Pain Scale: 0-10 Numeric Is Patient Pain Free? Yes - Nurse 1 - General Ulcer Measurement Start: 05/06/24 14:40 Freq: Status: Active Protocol: Activity Type Activity Date Activity User E-sign Co-sign Detail Recorded Client Recorded Date Recorded By Document 05/06/24 14:40 KW wound center 05/06/24 14:53 KW Document 05/11/24 15:47 RB wound 05/11/24 15:49 RB Document 05/13/24 14:44 KW g 05/13/24 14:50 KW Document 05/20/24 14:50 [facility] 05/20/24 15:04 BMF Document 05/27/24 15:10 DL [email or web address] 05/27/24 15:21 DL 05/06/24 05/11/24 05/13/24 14:40 15:47 14:44 Wound Center Nurse 1 #2- L LOWER POST LE -Combined with other wound -Combined with (Name of Wound-Exactly as it is documented) -Current Size (cm) - Length 6 4.2 -Current Size (cm) - Width 4.5 4.9 -Current Size (cm) - Depth 0.2 0.1 -Total Square Cm 27.0 20.58 -Exudate Amt Medium Small -Exudate Type Serosanguineous Serosanguineous -Wound Margin Distinct, Distinct, Outline Outline Attached Attached -Granulation Amt Large (67-100%) Large (67-100%) -Granulation Quality Red Red -Necrosis Amt Small (1-33%) Small (1-33%) -Necrotic Tissue Type Adherent Slough Adherent Slough -Texture (Dalring-wound Skin Appearance) Assessed Assessed -Moisture (Darling-wound Skin Appearance) Assessed Assessed -Color (Darling-wound Skin Appearance) Assessed, Assessed Erythema -Temperature (Darling-wound Skin No Abnormality Appearance) (Pt Warm) -Tenderness on Palpation (Darling-wound No Skin Appearance) -Ulcer Cleansing Soap and Water Soap and Water -Foul Odor after Cleansing No -Anesthetic Used 5% Lidocaine 5% Lidocaine Gel Gel #1- L LAT LE/ POST -Combined with other wound -Combined with (Name of Wound-Exactly as it is documented) -Current Size (cm) - Length 4 6 -Current Size (cm) - Width 4 5 -Current Size (cm) - Depth 0.1 0.2 -Total Square Cm 16 30 -Photo Taken -Exudate Amt Medium Small -Exudate Type Serosanguineous Serosanguineous -Wound Margin Distinct, Distinct, Outline Outline Attached Attached -Granulation Amt Large (67-100%) Large (67-100%) -Granulation Quality Red Red -Necrosis Amt Medium (34-66%) -Necrotic Tissue Type Adherent Slough -Structure Exposed -Texture (Darling-wound Skin Appearance) Assessed Assessed -Moisture (Darling-wound Skin Appearance) Assessed Assessed -Color (Darling-wound Skin Appearance) Assessed Assessed -Temperature (Darling-wound Skin No Abnormality Appearance) (Pt Warm) -Tenderness on Palpation (Darling-wound No Skin Appearance) -Ulcer Cleansing Soap and Water Soap and Water -Foul Odor after Cleansing No No -Anesthetic Used 5% Lidocaine 5% Lidocaine Gel Gel #5 Left lower leg cluster -Current Size (cm) - Length -Current Size (cm) - Width -Current Size (cm) - Depth -Total Square Cm -Exudate Amt -Exudate Type -Wound Margin -Granulation Amt -Granulation Quality -Necrosis Amt -Necrotic Tissue Type -Structure Exposed -Texture (Darling-wound Skin Appearance) -Moisture (Darling-wound Skin Appearance) -Color (Darling-wound Skin Appearance) -Temperature (Darling-wound Skin Appearance) -Ulcer Cleansing -Foul Odor after Cleansing -Anesthetic Used Lower Limb Edema Present Yes Left Calf (cm) 40 41.2 42.1 Left Ankle (cm) 25.3 25 25.7 05/20/24 05/27/24 14:50 15:10 Wound Center Nurse 1 #2- L LOWER POST LE -Combined with other wound Yes -Combined with (Name of Wound-Exactly #1 l LAT LE as it is documented) -Current Size (cm) - Length -Current Size (cm) - Width -Current Size (cm) - Depth -Total Square Cm -Exudate Amt -Exudate Type -Wound Margin -Granulation Amt -Granulation Quality -Necrosis Amt -Necrotic Tissue Type -Texture (Darling-wound Skin Appearance) -Moisture (Darling-wound Skin Appearance) -Color (Darling-wound Skin Appearance) -Temperature (Darling-wound Skin Appearance) -Tenderness on Palpation (Darling-wound Skin Appearance) -Ulcer Cleansing -Foul Odor after Cleansing -Anesthetic Used #1- L LAT LE/ POST -Combined with other wound Yes -Combined with (Name of Wound-Exactly #2 as it is documented) -Current Size (cm) - Length 12 -Current Size (cm) - Width 6.5 -Current Size (cm) - Depth 0.4 -Total Square Cm 78.0 -Photo Taken Yes -Exudate Amt Medium -Exudate Type Serosanguineous -Wound Margin Distinct, Outline Attached -Granulation Amt Large (67-100%) -Granulation Quality Red -Necrosis Amt Small (1-33%) -Necrotic Tissue Type Adherent Slough -Structure Exposed N/A -Texture (Darling-wound Skin Appearance) Scarring -Moisture (Darling-wound Skin Appearance) Maceration -Color (Darling-wound Skin Appearance) Erythema, Hemosiderin Staining -Temperature (Darling-wound Skin No Abnormality Appearance) (Pt Warm) -Tenderness on Palpation (Darling-wound No Skin Appearance) -Ulcer Cleansing Soap and Water -Foul Odor after Cleansing No -Anesthetic Used 4% Lidocaine Solution #5 Left lower leg cluster -Current Size (cm) - Length 11 -Current Size (cm) - Width 5 -Current Size (cm) - Depth 0.2 -Total Square Cm 55 -Exudate Amt Small -Exudate Type Serosanguineous -Wound Margin Distinct, Outline Attached -Granulation Amt Large (67-100%) -Granulation Quality Red -Necrosis Amt Small (1-33%) -Necrotic Tissue Type Adherent Slough -Structure Exposed N/A -Texture (Darling-wound Skin Appearance) Scarring -Moisture (Darling-wound Skin Appearance) Dry/Scaly -Color (Darling-wound Skin Appearance) Hemosiderin Staining -Temperature (Darling-wound Skin No Abnormality Appearance) (Pt Warm) -Ulcer Cleansing Soap and Water -Foul Odor after Cleansing No -Anesthetic Used 5% Lidocaine Gel Lower Limb Edema Present Left Calf (cm) 42.1 42.5 Left Ankle (cm) 25.5 25 WC - Nurse 2 - General Ulcer CM Notes Start: 05/06/24 14:40 Freq: Status: Active Protocol: Activity Type Activity Date Activity User E-sign Co-sign Detail Recorded Client Recorded Date Recorded By Document 05/13/24 15:15 GM 05/13/24 15:18 GM Document 05/20/24 15:20 GM 05/20/24 15:22 GM Document 05/27/24 15:25 GM wc 05/27/24 15:32 GM 05/13/24 05/20/24 05/27/24 15:15 15:20 15:25 Wound Center Nurse 2 #2- L LOWER POST LE -Time 15:15 -Correct Patient Yes -Correct Side, Site, Position Yes -Wound/Ulcer Outcome Not Healed -Wound Comment(s) no debridement 5.4 x 4.2 x 0.1 cm #1- L LAT LE/ POST -Time 15:17 -Correct Patient Yes -Correct Side, Site, Position Yes -Wound/Ulcer Outcome Not Healed -Wound Comment(s) No debridement measurements 6.5 x 4.6 x 0.1 with a deepest part 0.3 x 0.4 x 0.3 #5 Left lower leg cluster -Time 15:21 15:31 -Correct Patient Yes Yes -Correct Side, Site, Position Yes Yes -Wound/Ulcer Outcome Not Healed Not Healed -Wound Comment(s) measures 11x6. measures 5x 13.5 x 5.2 x 0. 0.3 - in the 2 cm center Pain Scale: 0-10 Numeric Is Patient Pain Free? Yes Yes Yes - Nurse 3 - General Ulcer D/C NN Start: 05/06/24 14:40 Freq: Status: Active Protocol: Activity Type Activity Date Activity User E-sign Co-sign Detail Recorded Client Recorded Date Recorded By Document 05/06/24 15:42 KW wound center 05/06/24 15:43 KW Document 05/11/24 15:47 RB wound 05/11/24 15:49 RB Document 05/13/24 15:25 [facility] 05/13/24 15:28 [facility] Document 05/17/24 14:04 DL [email or web address] 05/17/24 14:17 DL Document 05/20/24 15:36 KW ; 05/20/24 15:38 KW Document 05/24/24 14:23 KW k 05/24/24 14:43 KW Document 05/27/24 15:47 KW l 05/27/24 15:49 KW 05/06/24 05/11/24 05/13/24 15:42 15:47 15:25 Wound Care Center Nurse 3 #2- L LOWER POST LE -Ulcer Cleansing Rinsed/ Irrigated with Saline -Foul Odor after Cleansing No -Primary Dressing Applied Aquacel Extra Aquacel Extra Aquacel Extra -Other Dressing ABD DRSG PER KW [employer] PROJECT MANAGER -Primary Dressing Covered/Secured with Dry Gauze -Aquacel Extra 1 1 0 #1- L LAT LE/ POST -Ulcer Cleansing Rinsed/ Irrigated with Saline -Foul Odor after Cleansing No -Primary Dressing Applied Aquacel Extra -Other Dressing aqua extra DRSG PER KW TECHNOLOGY PROJECT MANAGER -Primary Dressing Covered/Secured with Dry Gauze -Aquacel Extra 1 #5 Left lower leg cluster -Ulcer Cleansing -Primary Dressing Applied -Other Dressing -Primary Dressing Covered/Secured with -Aquacel Extra -Optilok 6.5x10 -Optilok 8x12 Right -Tubular Bandage -Size of Tubigrip Used -Size D ($) Left -Multi-Layered Wrap Application Unna Boot - Unna Boot - Unna Boot - Left ($) Left ($) Left ($) Treatment Response Procedure Procedure Tolerated Well Tolerated Well Vital Signs Temperature (97.8 F-99.1 F) 96.9 F L Temperature Source Temporal Pulse Rate (60-100) 58 L Pulse Location Monitor Respiratory Rate (12-18) 18 Respiratory rate source Observation Oxygen Delivery Method Blood Pressure (90/60-120/80) 155/75 H Blood Pressure Mean (mm Hg) 101 Source Monitor Position Sitting Blood Pressure Location Left Arm Pain Scale: 0-10 Numeric Is Patient Pain Free? Yes Yes Yes WC - Visit Discharge Discharge Condition Stable Stable Stable Ambulatory Status Wheelchair Wheelchair Transportation Private Auto Private Auto Private Auto Accompanied by Medication Reconcilliation completed & No No provided to patient/care provider Clinical Summary of Care Provided Yes Yes 05/17/24 05/20/24 05/24/24 14:04 15:36 14:23 Wound Care Center Nurse 3 #2- L LOWER POST LE -Ulcer Cleansing Soap and Water -Foul Odor after Cleansing -Primary Dressing Applied Aquacel Extra -Other Dressing -Primary Dressing Covered/Secured with -Aquacel Extra 1 #1- L LAT LE/ POST -Ulcer Cleansing Soap and Water -Foul Odor after Cleansing No -Primary Dressing Applied Aquacel Extra -Other Dressing -Primary Dressing Covered/Secured with -Aquacel Extra 0 #5 Left lower leg cluster -Ulcer Cleansing Rinsed/ Irrigated with Saline -Primary Dressing Applied Optilok 6.5x10 Aquacel Extra, Optilok 6.5x10 -Other Dressing PT OWN AQUACEL CREAM EXTRA AND CREAM -Primary Dressing Covered/Secured with Dry Gauze & Dry Gauze & Roll Gauze, Roll Gauze, Secured with Secured with Tape Tape -Aquacel Extra 1 -Optilok 6.5x10 1 1 -Optilok 8x12 Right -Tubular Bandage Double Layer -Size of Tubigrip Used Size D -Size D ($) 2 Left -Multi-Layered Wrap Application Unna Boot - Unna Boot - Unna Boot - Left ($) Left ($) Left ($) Treatment Response Procedure Tolerated Well Vital Signs Temperature (97.8 F-99.1 F) 97.2 F L 98.3 F Temperature Source Temporal Temporal Pulse Rate (60-100) 59 L 94 Pulse Location Monitor Monitor Respiratory Rate (12-18) 18 18 Respiratory rate source Observation Observation Oxygen Delivery Method Room Air Blood Pressure (90/60-120/80) 114/53 L 137/58 H Blood Pressure Mean (mm Hg) 73 84 Source Monitor Monitor Position Sitting Blood Pressure Location Left Arm Pain Scale: 0-10 Numeric Is Patient Pain Free? Yes Yes Yes WC - Visit Discharge Discharge Condition Stable Stable Stable Ambulatory Status Wheelchair Transportation Private Auto Private Auto Private Auto Accompanied by Medication Reconcilliation completed & No No provided to patient/care provider Clinical Summary of Care Provided Yes Yes 05/27/24 15:47 Wound Care Center Nurse 3 #2- L LOWER POST LE -Ulcer Cleansing -Foul Odor after Cleansing -Primary Dressing Applied -Other Dressing -Primary Dressing Covered/Secured with -Aquacel Extra #1- L LAT LE/ POST -Ulcer Cleansing -Foul Odor after Cleansing -Primary Dressing Applied -Other Dressing -Primary Dressing Covered/Secured with -Aquacel Extra #5 Left lower leg cluster -Ulcer Cleansing -Primary Dressing Applied Aquacel Extra, Optilok 8x12 -Other Dressing -Primary Dressing Covered/Secured with Dry Gauze & Roll Gauze, Secured with Tape -Aquacel Extra 1 -Optilok 6.5x10 -Optilok 8x12 1 Right -Tubular Bandage -Size of Tubigrip Used -Size D ($) Left -Multi-Layered Wrap Application Multi-Layer Comp - Left ($) Treatment Response Vital Signs Temperature (97.8 F-99.1 F) Temperature Source Pulse Rate (60-100) Pulse Location Respiratory Rate (12-18) Respiratory rate source Oxygen Delivery Method Blood Pressure (90/60-120/80) Blood Pressure Mean (mm Hg) Source Position Blood Pressure Location Pain Scale: 0-10 Numeric Is Patient Pain Free? 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 High strength tubigrip for compression of the RLE. He is instructed to elevate his legs at all resting times, preferably at or above the level of the heart. He is advised to perform ankle flexion exercises. He has upcoming LLE venous ablation on 06/10. With upcoming holiday next 06/03 and then he venous ablation on 06/10, I will see him back on 06/17. In the meantime, he will return for 2 nurse visits per week for dressing changes. He will call or return sooner as needed.
== END 2024-05-30 23:59 | disposition home or self-care (01) ==
LOC: WC 14:45
PROVIDERS: PCP Family Medicine; Referring Provider Dermatology; Visit Provider Physician Assistant
DX: L97.822 Non-pressure chronic ulcer of other part of left lower leg with fat layer exposed (principal); R60.0 Localized edema; M79.3 Panniculitis, unspecified
CPT/HCPCS: 29580; 29581; 99213; G0463

== ENCOUNTER 2024-06-10 11:37 | Day surgery (SDC) | payer MEDICARE, SELFPAY ==
[2024-06-10 12:22] LABS: Hematocrit 38.7 % (40-54); Hemoglobin 12.5 g/dL (13.0-16.5); Mean Corp Hgb Conc 32.3 g/dL (32-36); Mean Corpuscular Hgb 28.3 pg (27.0-32.0); Mean Corpuscular Volume 87.6 fL (80-94); Platelet Count 224 K/mm3 (150-450); RBC Distribution Width CV 14.4 % (11.6-14.6); RBC Distribution Width SD 45.9 fl (35.1-43.9); Red Blood Count 4.42 M/mm3 (4.6-6.2); White Blood Count 10.8 K/mm3 (4.4-11.0)
[2024-06-10 12:34] LABS: Anion Gap 6 (5-15); BUN 16 mg/dL (7-18); BUN/Creat Ratio 36.7 RATIO (10-20); Calcium,Total 9.8 mg/dL (8.5-10.1); Chloride 106 mmol/L (98-107); Creatinine, Serum 0.44 mg/dL (0.70-1.30); EST Glomerular Filtration Rate 198 mL/min (>60); Est Glom Filt Rate - Afr Amer 240 mL/min (>60); Glucose 113 mg/dL (74-106); Potassium 3.8 mmol/L (3.5-5.1); Sodium Level 139 mmol/L (136-145)
--- NOTE | 2024-06-10 15:43 | PCM.OPRPT ---
Report of Operation Date of Procedure: 06/10/24 Pre-Operative Diagnosis: Venous insufficiency with ulceration of the distal calf Post-Operative Diagnosis: Same Surgery/Procedure Performed:: Chemical ablation of the left great saphenous vein from the ankle to knee Surgeon: Harish Charlton Type of Anesthesia: Local and Sedation,Conscious Description of Procedure: HPI: Patient is an 83-year-old male with venous insufficiency left lower extremity with refractory skin ulcerations that have not resolved with adequate local care and compression. He had venous duplex studies which revealed reflux in the great saphenous vein below the knee. Given the location he is felt appropriate for chemical ablation. Description of procedure: Upon obtaining form consent and verification correct patient procedure site patient taken to the [facility] where he was positioned prepped and draped in you sterile fashion. Timeout was performed, sedation administered Versed and fentanyl. Great saphenous vein was assessed with ultrasound and found to be patent and continuous from ankle to saphenofemoral junction. The valves from knee to saphenofemoral junction were confirmed to be intact with no significant reflux, and there was in fact significant reflux in the below the knee great saphenous vein. Skin overlying the great saphenous vein at the medial malleolus was anesthetized 1% lidocaine the vessel accessed in retrograde fashion under ultrasound guidance with a micropuncture needle and wire. This exchanged for the 7 [place] ablation sheath which was advanced without difficulty. Through the ablation sheath the starter wire was advanced under ultrasound guidance traversing the great saphenous vein to the [id number] segment. Next the glue delivery guide was advanced over the wire and positioned at the knee. The glue delivery catheter was then primed per interventional radiology tech's instructions and advanced via the guide and positioned at the superior aspect of the intended treatment zone. Glue adhesive was then infused along the great saphenous vein per interventional radiology tech's instruction down to just above the access site. The glue delivery guide and catheter then withdrawn followed by the sheath removal and manual pressure until hemostasis was obtained. Dry sterile dressing was then applied followed by compression wrap to above the knee. Patient was then taken recovery room with anticipated discharge home.
== END 2024-06-10 15:16 | disposition home or self-care (01) ==
PROVIDERS: PCP Family Medicine; Referring Provider Surgery Trauma Surgery; Visit Provider Surgery Trauma Surgery
DX: L97.222 Non-pressure chronic ulcer of left calf with fat layer exposed (principal); L97.919 Non-pressure chronic ulcer of unspecified part of right lower leg with unspecified severity; M79.3 Panniculitis, unspecified; R60.0 Localized edema; Z87.891 Personal history of nicotine dependence; I87.2 Venous insufficiency (chronic) (peripheral)
CPT/HCPCS: 36415; 36482; 80048; 85027; 99152; 99153; C1894

== ENCOUNTER 2024-06-14 13:05 | Outpatient (CLI) | payer MEDICARE, SELFPAY ==
--- NOTE | 2024-06-14 13:08 | VDLE_ITS ---
Reason For Study: HX LT GSV Ablation RIGHT LEFT CFV is compressible, spontaneous, phasic, LT GSV is DILATED and NONCOMPRESSIBLE with competent and demonstrates normal intraluminal echoes from ankle to mid thigh. augmentation. Finding is consistent with recent chemical Procedure ablation procedure. Mid to prox thigh appears This is a venous duplex using B-mode, color patent and compressible. flow and spectral Doppler. CFV is compressible, spontaneous, phasic, Exam performed in department. competent, and demonstrates normal The exam was diagnostic. augmentation. FV is compressible, spontaneous, phasic, competent and demonstrates normal augmentation. POP V is compressible, spontaneous, phasic, competent and demonstrates normal augmentation. T/P Trunk is compressible. PTV is compressible. LT PerV is compressible. VL/Venous Duplex US, Unilateral Interpretation Summary Left great saphenous vein occluded from ankle to mid thigh consistent with rece nt ablation. Deep veins of the left lower extremity are patent and compressible segmentally. There is no evidence of left lower extremity deep vein thrombosis. Ordering Physician: Swetha Dahl Referring Physician: Fernie Hoang Performed By: Cody Funes, RVT
== END 2024-06-14 23:59 | disposition home or self-care (01) ==
LOC: CVS 13:06
PROVIDERS: PCP Family Medicine; Referring Provider Physician Assistant; Visit Provider Physician Assistant
DX: I87.2 Venous insufficiency (chronic) (peripheral) (principal); L98.499 Non-pressure chronic ulcer of skin of other sites with unspecified severity; M79.89 Other specified soft tissue disorders
CPT/HCPCS: 93971

== ENCOUNTER 2024-06-24 14:30 | Outpatient (RCR) | payer MEDICARE, SELFPAY ==
[2024-05-31 00:36] VITALS: BP 128/53; PULSE 67; RESP 18; TEMP 36; BMI 28.4
[2024-06-09 08:22] VITALS: BMI 28.3
[2024-06-17 14:54] VITALS: BP 132/68; PULSE 68; RESP 14; TEMP 36.8; BMI 28.3
--- NOTE | 2024-06-17 18:31 | PN.PCM_ITS ---
History of Present Illness Date of Service: 06/17/24 Chief Complaint: LLE wounds History of Wound: Mr. Paola Boyer is an 83 y/o male who presents to the wound healing center today with left lower extremity wounds. He was referred by Nuvia Brooks. He is accompanied to his appointment today by his . He relays that he has been dealing with these left lower extremity wounds recurrently over the past few years. They will become very close to healing and then subsequently open back up. His reports that all really started with a lot of swelling and redness in his lower legs which progressively worsened to weeping before developing these focal wounds. He has been treated to this point at [facility] with Unna boots and all of the surrounding skin has much improved in appearance however the wounds remain. He has not had any prior venous imaging to his knowledge and no venous interventions. No history of peripheral arterial disease or arterial interventions. He is not diabetic. He is not currently smoking, he quit in 1964. He presents today in an automated wheelchair. His insurance unfortunately has a very high co-pay for debridements which will be kept in mind throughout his treatment. Subjective Subjective Patient returns to wound care center accompanied by his . They do not have any new concerns regarding the wound. He denies any new N/V, F/C, new or worsened drainage or foul odor from the wound site. He had LLE venous ablation last week. Objective Data Objective Data Vital Signs: Vital Signs Temp Pulse Resp BP 98.2 F 68 14 132/68 H 06/17/24 14:54 06/17/24 14:54 06/17/24 14:54 06/17/24 14:54 Weight: 198 lb Body Mass Index (BMI) 28.3 Physical Exam Const alert, oriented x3 and no apparent distress General Appearance: cooperative and comfortable HEENT normocephalic, head/scalp atraumatic, hearing grossly normal bilaterally, external ears normal and external nose normal Eyes General Eye: normal appearance of both eyes Resp normal respiratory effort Effort and Inspection: able to speak in complete sentences; Negative for labored, stridor or audible wheezes Extremity Extremity Narrative: 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 Trace edema on exam today. No apparent bulging varicosities. No weeping or skin breakdown except for wounds as noted below. Easily palpable pedal pulses. Skin Wounds: wounds noted Wound Narrative: L posterior calf wound cluster is very superficial, limited to skin breakdown. There is significant adherent dried drainage. There is no surrounding erythema, warmth, focal edema. He also had a small superficial skin tear on the L anterior angel. Neuro oriented x3, CN's II-XII intact bilaterally and moves all extremities Speech: speech normal Debridement Note Debridement Note Wound debrided: L posterior calf Laterality: Left Type of Debridement: Selective debridement Depth: - (limited to skin breakdown) Percentage of wound debrided: 80 Instrument Used: - (forceps and scissors) Tissue Removed: Adherent drainage, large loosely adhere dried skin flakes Severity: Limited To Skin Breakdown Amount of bleeding with debridement: None Patient tolerated procedure: Patient tolerated procedure well Post-Debridement Measurements and Additional Note: Post-Debridement Measurements/Treatment WC - Nurse 1 - General Ulcer Assessment Start: 06/17/24 14:54 Freq: Status: Active Protocol: [email or web address] Activity Type Activity Date Activity User E-sign Co-sign Detail Recorded Client Recorded Date Recorded By Document 06/17/24 14:54 ML [email or web address] 06/17/24 14:56 ML 06/17/24 14:54 WC - Today's Visit Information Type of service Follow-up Visit (Physician/[employer] ASSEMBLER ) Arrival Mode Wheelchair Patient Identification Verified (Name & Yes ) Patient Requires Transmission-Based No Precautions Height and Weight Body Mass Index (BMI) 28.3 BMI Classification Overweight Vital Signs Temperature (97.8 F-99.1 F) 98.2 F Temperature Source Temporal Pulse Rate (60-100) 68 Pulse Location Monitor Respiratory Rate (12-18) 14 Respiratory rate source Ausculation Blood Pressure (90/60-120/80) 132/68 H Blood Pressure Mean (mm Hg) 89 Source Monitor Position Sitting Blood Pressure Location Left Arm History Since Last Visit- (Skip if this is Patient's initial visit) Have you changed medications since your No last visit? Any new allergies or adverse reactions No Had a fall/change in ADL's that may No increase risk of falls Have you been in the hospital since your No last visit? Has dressing in place as prescribed Yes Has compression in place as prescribed Yes Has offloadiing in place as prescribed N/A Experienced any changes in pain level or No management Left Footwear Regular Shoe Right Footwear Regular Shoe Pain Scale: 0-10 Numeric Is Patient Pain Free? Yes - Nurse 1 - General Ulcer Measurement Start: 06/17/24 14:54 Freq: Status: Active Protocol: Activity Type Activity Date Activity User E-sign Co-sign Detail Recorded Client Recorded Date Recorded By Document 06/17/24 14:54 ML [email or web address] 06/17/24 14:56 ML 06/17/24 14:54 Wound Center Nurse 1 #5 Left lower leg cluster -Current Size (cm) - Length 15 -Current Size (cm) - Width 6 -Current Size (cm) - Depth 0.2 -Total Square Cm 90 -Exudate Amt Medium -Exudate Type Serosanguineous -Wound Margin Distinct, Outline Attached -Granulation Amt Medium (34-66%) -Slough/Fibrin Yes -Necrosis Amt Medium (34-66%) -Temperature (Darling-wound Skin No Abnormality Appearance) (Pt Warm) -Tenderness on Palpation (Darling-wound No Skin Appearance) -Ulcer Cleansing Soap and Water -Foul Odor after Cleansing No -Anesthetic Used 5% Lidocaine Gel - Nurse 2 - General Ulcer CM Notes Start: 06/17/24 14:54 Freq: Status: Active Protocol: Activity Type Activity Date Activity User E-sign Co-sign Detail Recorded Client Recorded Date Recorded By Document 06/17/24 15:19 GM 06/17/24 15:23 GM 06/17/24 15:19 Wound Center Nurse 2 #6 Left Anterior -Time 15:22 -Correct Patient Yes -Correct Side, Site, Position Yes -Wound/Ulcer Outcome Not Healed -Wound Comment(s) measures 1.0 x 0.6 x 0.1 #5 Left lower leg cluster -Time 15:20 -Correct Patient Yes -Correct Side, Site, Position Yes -Correct Procedure Yes -Procedure Performed Yes -Type of Procedure Debridement -Clinical Debridement Epidermis / Dermis -Tissue Removed Epidermis -Post Debridement (cm) - Length 9.0 -Post Debridement (cm) - Width 5.0 -Post Debridement (cm) - Depth 0.1 -Total Square (Post) (cm) 45.00 -Area of Debridement (cm) - Length 9.0 -Area of Debridement (cm) - Width 5.0 -Total Square (Area) (cm) 45.00 -Tunneling No -Undermining/Tunneling No -Circular Undermining No -Wound/Ulcer Outcome Not Healed -Ulcer Cleansing Rinsed/ Irrigated with Saline -Foul Odor after Cleansing No -Bioengineered Tissue No -Bleeding Controlled with Pressure -Treatment Response Procedure Tolerated Well -Debridement - Open, 1st 20sq cm Yes -Debridement, Open, ea addt'l 20sq cm 2 or part thereof Pain Scale: 0-10 Numeric Is Patient Pain Free? Yes WC - Nurse 3 - General Ulcer D/C NN Start: 06/17/24 14:54 Freq: Status: Active Protocol: Activity Type Activity Date Activity User E-sign Co-sign Detail Recorded Client Recorded Date Recorded By Document 06/17/24 15:31 KW f 06/17/24 15:38 KW 06/17/24 15:31 Wound Care Center Nurse 3 #6 Left Anterior -Primary Dressing Applied Aquacel Extra, Optilok 8x12 -Primary Dressing Covered/Secured with Dry Gauze -Aquacel Extra 1 -Optilok 8x12 1 Left -Multi-Layered Wrap Application Unna Boot - Left ($) Pain Scale: 0-10 Numeric Is Patient Pain Free? 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 He now has [facility] so his dressings will be changed twice weekly by [facility] and once weekly at his appointment here. High strength tubigrip for compression of the RLE. He is instructed to elevate his legs at all resting times, preferably at or above the level of the heart. He is advised to perform ankle flexion exercises. He is s/p successful LLE saphenous vein ablation. He will return in 1 week or sooner as needed.
--- NOTE | 2024-06-18 11:41 | WC ---
PHOTO 06/17/24 ALLAN
--- NOTE | 2024-06-18 11:42 | WC ---
PHOTO 06/17/24 ELIS LEMUS
[2024-06-24 14:42] VITALS: BP 120/54; PULSE 60; RESP 16; TEMP 36.3; BMI 28.3
--- NOTE | 2024-06-24 16:26 | PCM.WC.PN ---
History of Present Illness Date of Service: 06/24/24 Chief Complaint: LLE wounds History of Wound: Mr. Paola Boyer is an 83 y/o male who presents to the wound healing center today with left lower extremity wounds. He was referred by Nuvia Brooks. He is accompanied to his appointment today by his . He relays that he has been dealing with these left lower extremity wounds recurrently over the past few years. They will become very close to healing and then subsequently open back up. His reports that all really started with a lot of swelling and redness in his lower legs which progressively worsened to weeping before developing these focal wounds. He has been treated to this point at [facility] with Unna boots and all of the surrounding skin has much improved in appearance however the wounds remain. He has not had any prior venous imaging to his knowledge and no venous interventions. No history of peripheral arterial disease or arterial interventions. He is not diabetic. He is not currently smoking, he quit in 1964. He presents today in an automated wheelchair. His insurance unfortunately has a very high co-pay for debridements which will be kept in mind throughout his treatment. Subjective Subjective He is doing well this week. They have no concerns or complaints today. Objective Data Objective Data Vital Signs: Vital Signs Temp Pulse Resp BP O2 Del Method 97.3 F L 60 16 120/54 L Room Air 06/24/24 14:42 06/24/24 14:42 06/24/24 14:42 06/24/24 14:42 06/24/24 14:42 Oxygen Delivery Method Room Air Weight: 198 lb Body Mass Index (BMI) 28.3 Charges/Coding Visit Charges Office Visits / Consults: 14925 OV L3 Est 20min Physical Exam Const alert, oriented x3 and no apparent distress General Appearance: cooperative and comfortable HEENT normocephalic, head/scalp atraumatic, hearing grossly normal bilaterally, external ears normal and external nose normal Eyes General Eye: normal appearance of both eyes Resp normal respiratory effort Effort and Inspection: able to speak in complete sentences; Negative for labored, stridor or audible wheezes Extremity Extremity Narrative: 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 Trace edema on exam today. No apparent bulging varicosities. No weeping or skin breakdown except for wounds as noted below. Easily palpable pedal pulses. Skin Wounds: wounds noted Wound Narrative: L posterior calf wound cluster is very superficial, limited to skin breakdown. No significant slough or dried drainage this week. There is no surrounding erythema, warmth, focal edema. Small superficial skin tear on the L anterior calf is healed this week. Neuro oriented x3, CN's II-XII intact bilaterally and moves all extremities Speech: speech normal Debridement Note Debridement Note No debridement was completed: No debridement was completed today Post-Debridement Measurements and Additional Note: Post-Debridement Measurements/Treatment - Nurse 1 - General Ulcer Assessment Start: 06/17/24 14:54 Freq: Status: Active Protocol: [email or web address] Activity Type Activity Date Activity User E-sign Co-sign Detail Recorded Client Recorded Date Recorded By Document 06/17/24 14:54 ML 10..25.7 06/17/24 14:56 ML Document 06/24/24 14:42 CP 06/24/24 15:06 CP 06/17/24 06/24/24 14:54 14:42 - Today's Visit Information Type of service Follow-up Visit Follow-up Visit (Physician/MOBILE BATTERY TECHNICIAN (Physician/MOBILE BATTERY TECHNICIAN ) ) Arrival Mode Wheelchair Wheelchair Patient Identification Verified (Name & Yes Yes ) Patient Requires Transmission-Based No No Precautions Height and Weight Body Mass Index (BMI) 28.3 28.3 BMI Classification Overweight Overweight Vital Signs Temperature (97.8 F-99.1 F) 98.2 F 97.3 F L Temperature Source Temporal Temporal Pulse Rate (60-100) 68 60 Pulse Location Monitor Monitor Respiratory Rate (12-18) 14 16 Respiratory rate source Ausculation Observation Oxygen Delivery Method Room Air Blood Pressure (90/60-120/80) 132/68 H 120/54 L Blood Pressure Mean (mm Hg) 89 76 Source Monitor Monitor Position Sitting Sitting Blood Pressure Location Left Arm Left Arm History Since Last Visit- (Skip if this is Patient's initial visit) Have you changed medications since your No No last visit? Any new allergies or adverse reactions No No Had a fall/change in ADL's that may No No increase risk of falls Signs or symptoms of abuse and/or No neglect since last visit Have you been in the hospital since your No No last visit? Has dressing in place as prescribed Yes Yes Has compression in place as prescribed Yes Yes Has offloadiing in place as prescribed N/A Experienced any changes in pain level or No management Left Footwear Regular Shoe Right Footwear Regular Shoe Pain Scale: 0-10 Numeric Is Patient Pain Free? Yes Yes WC - Nurse 1 - General Ulcer Measurement Start: 06/17/24 14:54 Freq: Status: Active Protocol: Activity Type Activity Date Activity User E-sign Co-sign Detail Recorded Client Recorded Date Recorded By Document 06/17/24 14:54 ML ...7 06/17/24 14:56 ML Document 06/24/24 14:42 CP 06/24/24 15:06 CP 06/17/24 06/24/24 14:54 14:42 Wound Center Nurse 1 #6 Left Anterior -Current Size (cm) - Length 0.5 -Current Size (cm) - Width 0.5 -Current Size (cm) - Depth 0.1 -Total Square Cm 0.25 -Date of Last Picture (Recall this 06/24/24 field) -Photo Taken Yes -Tunneling No -Undermining/Tunneling No -Exudate Type Serous -Wound Margin Flat & Intact -Granulation Amt Large (67-100%) -Granulation Quality [place] -Slough/Fibrin Yes -Necrosis Amt Medium (34-66%) -Necrotic Tissue Type Adherent Slough -Structure Exposed N/A -Texture (Darling-wound Skin Appearance) Excoriation -Moisture (Darling-wound Skin Appearance) Maceration -Color (Darling-wound Skin Appearance) Erythema -Temperature (Darling-wound Skin No Abnormality Appearance) (Pt Warm) -Tenderness on Palpation (Darling-wound No Skin Appearance) -Ulcer Cleansing Soap and Water -Foul Odor after Cleansing No -Anesthetic Used 4% Lidocaine Solution #5 Left lower leg cluster -Current Size (cm) - Length 15 13.5 -Current Size (cm) - Width 6 4.8 -Current Size (cm) - Depth 0.2 0.1 -Total Square Cm 90 64.80 -Date of Last Picture (Recall this 06/24/24 field) -Photo Taken Yes -Exudate Amt Medium Large -Exudate Type Serosanguineous Serous -Wound Margin Distinct, Indistinct, Non Outline -Visible Attached -Granulation Amt Medium (34-66%) Large (67-100%) -Granulation Quality [place] -Slough/Fibrin Yes -Necrosis Amt Medium (34-66%) Small (1-33%) -Necrotic Tissue Type Adherent Slough -Texture (Darling-wound Skin Appearance) Excoriation -Moisture (Darling-wound Skin Appearance) No Abnormality -Color (Darling-wound Skin Appearance) Rubor -Temperature (Darling-wound Skin No Abnormality No Abnormality Appearance) (Pt Warm) (Pt Warm) -Tenderness on Palpation (Darling-wound No No Skin Appearance) -Ulcer Cleansing Soap and Water Soap and Water -Foul Odor after Cleansing No -Anesthetic Used 5% Lidocaine 4% Lidocaine Gel Solution Left Calf (cm) 40 Left Ankle (cm) 25.8 WC - Nurse 2 - General Ulcer CM Notes Start: 06/17/24 14:54 Freq: Status: Active Protocol: Activity Type Activity Date Activity User E-sign Co-sign Detail Recorded Client Recorded Date Recorded By Document 06/17/24 15:19 GM 06/17/24 15:23 Document 06/24/24 15:10 [facility] [email or web address] 06/24/24 15:16 [facility] 06/17/24 06/24/24 15:19 15:10 Wound Center Nurse 2 #6 Left Anterior -Time 15:22 -Correct Patient Yes -Correct Side, Site, Position Yes -Post Debridement (cm) - Length 0 -Post Debridement (cm) - Width 0 -Post Debridement (cm) - Depth 0 -Total Square (Post) (cm) 0 -Area of Debridement (cm) - Length 0 -Area of Debridement (cm) - Width 0 -Total Square (Area) (cm) 0 -Wound/Ulcer Outcome Not Healed Healed- Epithelialized -Wound Comment(s) measures 1.0 x 0.6 x 0.1 #5 Left lower leg cluster -Time 15:20 15:12 -Correct Patient Yes -Correct Side, Site, Position Yes -Correct Procedure Yes -Procedure Performed Yes -Type of Procedure Debridement -Clinical Debridement Epidermis / Dermis -Tissue Removed Epidermis -Post Debridement (cm) - Length 9.0 11 -Post Debridement (cm) - Width 5.0 3.6 -Post Debridement (cm) - Depth 0.1 0.1 -Total Square (Post) (cm) 45.00 39.6 -Area of Debridement (cm) - Length 9.0 11 -Area of Debridement (cm) - Width 5.0 3.6 -Total Square (Area) (cm) 45.00 39.6 -Tunneling No -Undermining/Tunneling No -Circular Undermining No -Wound/Ulcer Outcome Not Healed -Ulcer Cleansing Rinsed/ Irrigated with Saline -Foul Odor after Cleansing No -Bioengineered Tissue No -Bleeding Controlled with Pressure NA -Treatment Response Procedure Tolerated Well -Debridement - Open, 1st 20sq cm Yes -Debridement, Open, ea addt'l 20sq cm 2 or part thereof Pain Scale: 0-10 Numeric Is Patient Pain Free? Yes Yes WC - Nurse 3 - General Ulcer D/C NN Start: 06/17/24 14:54 Freq: Status: Active Protocol: Activity Type Activity Date Activity User E-sign Co-sign Detail Recorded Client Recorded Date Recorded By Document 06/17/24 15:31 KW f 06/17/24 15:38 KW 06/17/24 15:31 Wound Care Center Nurse 3 #6 Left Anterior -Primary Dressing Applied Aquacel Extra, Optilok 8x12 -Primary Dressing Covered/Secured with Dry Gauze -Aquacel Extra 1 -Optilok 8x12 1 Left -Multi-Layered Wrap Application Unna Boot - Left ($) Pain Scale: 0-10 Numeric Is Patient Pain Free? 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 Continue high strength tubigrip for compression of the RLE. He is instructed to elevate his legs at all resting times, preferably at or above the level of the heart. He is advised to perform ankle flexion exercises. He is s/p successful LLE saphenous vein ablation. He will return in 1 week or sooner as needed.
--- NOTE | 2024-07-01 11:44 | WC ---
PHOTO 06/24/24
--- NOTE | 2024-07-01 11:45 | WC ---
PHOTO LEFT ANTERIOR 06/24/24
== END 2024-06-30 23:59 | disposition home or self-care (01) ==
LOC: WC 14:30
PROVIDERS: PCP Family Medicine; Referring Provider Dermatology; Visit Provider Physician Assistant
DX: L97.922 Non-pressure chronic ulcer of unspecified part of left lower leg with fat layer exposed (principal); M79.3 Panniculitis, unspecified; R60.0 Localized edema; Z87.891 Personal history of nicotine dependence
CPT/HCPCS: 29580; 97597; 97598; 99213; G0463

== ENCOUNTER 2024-07-29 14:45 | Outpatient (RCR) | payer MEDICARE, SELFPAY ==
[2024-07-01 00:44] VITALS: BP 128/53; PULSE 67; RESP 18; TEMP 36; BMI 28.4
[2024-07-01 14:46] VITALS: BP 132/84; PULSE 63; RESP 18; TEMP 35.6; BMI 28.4
--- NOTE | 2024-07-01 17:55 | PCM.WC.PN ---
History of Present Illness Date of Service: 07/01/24 Chief Complaint: LLE wounds History of Wound: Mr. Paola Boyer is an 83 y/o male who presents to the wound healing center today with left lower extremity wounds. He was referred by Nuvia Brooks. He is accompanied to his appointment today by his . He relays that he has been dealing with these left lower extremity wounds recurrently over the past few years. They will become very close to healing and then subsequently open back up. His reports that all really started with a lot of swelling and redness in his lower legs which progressively worsened to weeping before developing these focal wounds. He has been treated to this point at [facility] with Unna boots and all of the surrounding skin has much improved in appearance however the wounds remain. He has not had any prior venous imaging to his knowledge and no venous interventions. No history of peripheral arterial disease or arterial interventions. He is not diabetic. He is not currently smoking, he quit in 1964. He presents today in an automated wheelchair. His insurance unfortunately has a very high co-pay for debridements which will be kept in mind throughout his treatment. Subjective Subjective Mr. Boyer returns to the wound healing center today for follow-up of his left lower leg wound and lower extremity edema. He reports no significant changes over the past week. Continues to have home health care change dressings twice a week and as once weekly at his appointments. Objective Data Objective Data Vital Signs: Vital Signs Temp Pulse Resp BP O2 Del Method 96.0 F L 63 18 132/84 H Room Air 07/01/24 14:46 07/01/24 14:46 07/01/24 14:46 07/01/24 14:46 07/01/24 14:46 Oxygen Delivery Method Room Air Weight: 198 lb Body Mass Index (BMI) 28.4 Charges/Coding Visit Charges Office Visits / Consults: 59969 OV L3 Est 20min Physical Exam Const alert, oriented x3 and no apparent distress General Appearance: cooperative and comfortable HEENT normocephalic, head/scalp atraumatic, hearing grossly normal bilaterally, external ears normal and external nose normal Eyes General Eye: normal appearance of both eyes Resp normal respiratory effort Effort and Inspection: able to speak in complete sentences; Negative for labored, stridor or audible wheezes Extremity Extremity Narrative: 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 Trace edema on exam today. No apparent bulging varicosities. No weeping or skin breakdown except for wounds as noted below. Easily palpable pedal pulses. Skin Wounds: wounds noted Wound Narrative: L posterior calf wound cluster is very superficial, limited to skin breakdown. No significant slough or dried drainage this week. There is no surrounding erythema, warmth, focal edema. Neuro oriented x3, CN's II-XII intact bilaterally and moves all extremities Speech: speech normal Debridement Note Debridement Note No debridement was completed: No debridement was completed today Post-Debridement Measurements and Additional Note: Post-Debridement Measurements/Treatment WC - Nurse 1 - General Ulcer Assessment Start: 07/01/24 14:45 Freq: Status: Active Protocol: DUSTIN Activity Type Activity Date Activity User E-sign Co-sign Detail Recorded Client Recorded Date Recorded By Document 07/01/24 14:46 KW [facility] 07/01/24 15:05 KW 07/01/24 14:46 WC - Today's Visit Information Type of service Follow-up Visit (Physician/TC OPERATOR ) Arrival Mode Other Arrival Mode (Other) SCOOTER Accompanied by Patient Identification Verified (Name & Yes ) Height and Weight Body Mass Index (BMI) 28.4 BMI Classification Overweight Vital Signs Temperature (97.8 F-99.1 F) 96.0 F L Temperature Source Temporal Pulse Rate (60-100) 63 Pulse Location Monitor Respiratory Rate (12-18) 18 Respiratory rate source Observation Oxygen Delivery Method Room Air Blood Pressure (90/60-120/80) 132/84 H Blood Pressure Mean (mm Hg) 100 Source Monitor Position Sitting Blood Pressure Location Left Arm History Since Last Visit- (Skip if this is Patient's initial visit) Have you changed medications since your No last visit? Any new allergies or adverse reactions No Had a fall/change in ADL's that may No increase risk of falls Signs or symptoms of abuse and/or No neglect since last visit Have you been in the hospital since your No last visit? Has dressing in place as prescribed Yes Has compression in place as prescribed Yes Has offloadiing in place as prescribed N/A Experienced any changes in pain level or No management Left Footwear Regular Shoe Right Footwear Regular Shoe Pain Scale: 0-10 Numeric Is Patient Pain Free? Yes - Nurse 1 - General Ulcer Measurement Start: 07/01/24 14:45 Freq: Status: Active Protocol: Activity Type Activity Date Activity User E-sign Co-sign Detail Recorded Client Recorded Date Recorded By Document 07/01/24 14:46 KW [facility] 07/01/24 15:05 07/01/24 14:46 Wound Center Nurse 1 #5 Left lower leg cluster -Current Size (cm) - Length 9 -Current Size (cm) - Width 5.8 -Current Size (cm) - Depth 0.1 -Total Square Cm 52.2 -Date of Last Picture (Recall this 07/01/24 field) -Exudate Amt Medium -Exudate Type Serosanguineous -Wound Margin Distinct, Outline Attached -Granulation Amt Large (67-100%) -Granulation Quality Red -Texture (Darling-wound Skin Appearance) Assessed -Moisture (Darling-wound Skin Appearance) Assessed -Color (Darling-wound Skin Appearance) Assessed, Erythema -Temperature (Darling-wound Skin No Abnormality Appearance) (Pt Warm) -Tenderness on Palpation (Darling-wound No Skin Appearance) -Ulcer Cleansing Soap and Water -Foul Odor after Cleansing No -Anesthetic Used 5% Lidocaine Gel Left Calf (cm) 43.5 Left Ankle (cm) 27 WC - Nurse 2 - General Ulcer CM Notes Start: 07/01/24 14:45 Freq: Status: Active Protocol: Activity Type Activity Date Activity User E-sign Co-sign Detail Recorded Client Recorded Date Recorded By Document 07/01/24 15:18 BM [id number] 07/01/24 15:24 [facility] 07/01/24 15:18 Wound Center Nurse 2 #5 Left lower leg cluster -Time 15:18 -Post Debridement (cm) - Length 9.5 -Post Debridement (cm) - Width 5.5 -Post Debridement (cm) - Depth 0.1 -Total Square (Post) (cm) 52.25 -Area of Debridement (cm) - Length 9.5 -Area of Debridement (cm) - Width 5.5 -Total Square (Area) (cm) 52.25 -Tunneling No -Undermining/Tunneling No -Circular Undermining No -Wound/Ulcer Outcome Not Healed -Ulcer Cleansing Rinsed/ Irrigated with Saline -Foul Odor after Cleansing No -Bioengineered Tissue No -Bleeding Controlled with Pressure -Treatment Response Procedure Tolerated Well Pain Scale: 0-10 Numeric Is Patient Pain Free? Yes WC - Nurse 3 - General Ulcer D/C NN Start: 07/01/24 14:45 Freq: Status: Active Protocol: Activity Type Activity Date Activity User E-sign Co-sign Detail Recorded Client Recorded Date Recorded By Document 07/01/24 15:34 KW dhf 07/01/24 15:34 KW 07/01/24 15:34 Wound Care Center Nurse 3 Left -Multi-Layered Wrap Application Unna Boot - Left ($) Pain Scale: 0-10 Numeric Is Patient Pain Free? 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 Continue high strength tubigrip for compression of the RLE. He reports history today of prior fungal skin infection so given persistence of this wound will prescribe him clotrimazole cream to see if it makes any improvement. He is instructed to apply the cream to the area of the wound with dressing changes. I also did obtain wound cultures to see if there is any active infection contributing to wound persistence. He is instructed to elevate his legs at all resting times, preferably at or above the level of the heart. He is advised to perform ankle flexion exercises. He is s/p successful LLE saphenous vein ablation. He will return in 1 week or sooner as needed.
--- NOTE | 2024-07-02 09:57 | WC ---
PHOTO 07/01/24 ALLAN
[2024-07-08 14:53] VITALS: BP 126/64; PULSE 82; RESP 18; TEMP 36.4; BMI 28.4
--- NOTE | 2024-07-08 16:07 | PN.PCM_ITS ---
History of Present Illness Date of Service: 07/08/24 Chief Complaint: LLE wounds History of Wound: Mr. Paola Boyer is an 83 y/o male who presents to the wound healing center today with left lower extremity wounds. He was referred by Nuvia Brooks. He is accompanied to his appointment today by his . He relays that he has been dealing with these left lower extremity wounds recurrently over the past few years. They will become very close to healing and then subsequently open back up. His reports that all really started with a lot of swelling and redness in his lower legs which progressively worsened to weeping before developing these focal wounds. He has been treated to this point at [facility] with Unna boots and all of the surrounding skin has much improved in appearance however the wounds remain. He has not had any prior venous imaging to his knowledge and no venous interventions. No history of peripheral arterial disease or arterial interventions. He is not diabetic. He is not currently smoking, he quit in 1964. He presents today in an automated wheelchair. His insurance unfortunately has a very high co-pay for debridements which will be kept in mind throughout his treatment. Subjective Subjective Mr. Boyer returns to the wound healing center today for follow-up of his left lower leg wound and lower extremity edema. He reports no significant changes over the past week. Continues to have home health care change dressings twice a week and as once weekly at his appointments. Objective Data Objective Data Vital Signs: Vital Signs Temp Pulse Resp BP O2 Del Method 97.5 F L 82 18 126/64 H Room Air 07/08/24 14:53 07/08/24 14:53 07/08/24 14:53 07/08/24 14:53 07/08/24 14:53 Oxygen Delivery Method Room Air Weight: 198 lb Body Mass Index (BMI) 28.4 Lab / Micro Data Micro: Microbiology 07/01/24 15:20 Wound - Other Gram Stain - Final 07/01/24 15:20 Wound - Other Wound Culture - Final Staphylococcus cohnii urealyti Staphylococcus epidermidis Corynebacterium otitidis 07/01/24 15:20 Wound - Other Anaerobic Culture - Final No anaerobic bacteria isolated. Charges/Coding Visit Charges Office Visits / Consults: 88506 OV L3 Est 20min Physical Exam Const alert, oriented x3 and no apparent distress General Appearance: cooperative and comfortable HEENT normocephalic, head/scalp atraumatic, hearing grossly normal bilaterally, external ears normal and external nose normal Eyes General Eye: normal appearance of both eyes Resp normal respiratory effort Effort and Inspection: able to speak in complete sentences; Negative for labored , stridor or audible wheezes Extremity Extremity Narrative: Bilateral lower extremities with hemosiderin deposition and lipodermatoscleros is. Trace edema on exam today. No apparent bulging varicosities. No weeping or skin breakdown except for wounds as noted below. Easily palpable pedal pulses. Skin Wounds: wounds noted Wound Narrative: L posterior calf wound cluster is very superficial, limited to skin breakdown. No significant slough or dried drainage this week. There is no surrounding erythema, warmth, focal edema. Neuro oriented x3, CN's II-XII intact bilaterally and moves all extremities Speech: speech normal Debridement Note Debridement Note No debridement was completed: No debridement was completed today Post-Debridement Measurements and Additional Note: Post-Debridement Measurements/Treatment - Nurse 1 - General Ulcer Assessment Start: 07/01/24 14:45 Freq: Status: Active Protocol: DUSTIN Activity Type Activity Date Activity User E-sign Co-sign Detail Recorded Client Recorded Date Recorded By Document 07/01/24 14:46 KW dhf 07/01/24 15:05 KW Document 07/08/24 14:53 KW [facility] 07/08/24 15:01 KW 07/01/24 07/08/24 14:46 14:53 - Today's Visit Information Type of service Follow-up Visit Follow-up Visit (Physician/CIGARETTE CARTON SEALER (Physician/CIGARETTE CARTON SEALER ) ) Arrival Mode Other Other Arrival Mode (Other) SCOOTER SCOOTER Accompanied by Patient Identification Verified (Name & Yes Yes ) Height and Weight Body Mass Index (BMI) 28.4 28.4 BMI Classification Overweight Overweight Vital Signs Temperature (97.8 F-99.1 F) 96.0 F L 97.5 F L Temperature Source Temporal Temporal Pulse Rate (60-100) 63 82 Pulse Location Monitor Monitor Respiratory Rate (12-18) 18 18 Respiratory rate source Observation Observation Oxygen Delivery Method Room Air Room Air Blood Pressure (90/60-120/80) 132/84 H 126/64 H Blood Pressure Mean (mm Hg) 100 84 Source Monitor Monitor Position Sitting Semi-Fowlers Blood Pressure Location Left Arm Left Arm History Since Last Visit- (Skip if this is Patient's initial visit) Have you changed medications since your No No last visit? Any new allergies or adverse reactions No No Had a fall/change in ADL's that may No No increase risk of falls Signs or symptoms of abuse and/or No No neglect since last visit Have you been in the hospital since your No No last visit? Has dressing in place as prescribed Yes Yes Has compression in place as prescribed Yes Yes Has offloadiing in place as prescribed N/A N/A Experienced any changes in pain level or No No management Left Footwear Regular Shoe Regular Shoe Right Footwear Regular Shoe Regular Shoe Pain Scale: 0-10 Numeric Is Patient Pain Free? Yes Yes WC - Nurse 1 - General Ulcer Measurement Start: 07/01/24 14:45 Freq: Status: Active Protocol: Activity Type Activity Date Activity User E-sign Co-sign Detail Recorded Client Recorded Date Recorded By Document 07/01/24 14:46 KW dhf 07/01/24 15:05 KW Document 07/08/24 14:53 KW xfh 07/08/24 15:01 KW 07/01/24 07/08/24 14:46 14:53 Wound Center Nurse 1 #5 Left lower leg cluster -Current Size (cm) - Length 9 0.1 -Current Size (cm) - Width 5.8 0.1 -Current Size (cm) - Depth 0.1 0.1 -Total Square Cm 52.2 0.01 -Date of Last Picture (Recall this 07/01/24 field) -Photo Taken No -Epithelialization Medium 34-66% -Tunneling No -Undermining/Tunneling No -Exudate Amt Medium Medium -Exudate Type Serosanguineous Serous -Wound Margin Distinct, Distinct, Outline Outline Attached Attached -Granulation Amt Large (67-100%) Medium (34-66%) -Granulation Quality Red [place] -Texture (Darling-wound Skin Appearance) Assessed Assessed -Moisture (Darling-wound Skin Appearance) Assessed Assessed -Color (Darling-wound Skin Appearance) Assessed, Assessed Erythema -Temperature (Darling-wound Skin No Abnormality Appearance) (Pt Warm) -Tenderness on Palpation (Darling-wound No Skin Appearance) -Ulcer Cleansing Soap and Water Soap and Water -Foul Odor after Cleansing No No -Anesthetic Used 5% Lidocaine 5% Lidocaine Gel Gel Lower Limb Edema Present No Left Calf (cm) 43.5 41.5 Left Ankle (cm) 27 26.5 - Nurse 2 - General Ulcer CM Notes Start: 07/01/24 14:45 Freq: Status: Active Protocol: Activity Type Activity Date Activity User E-sign Co-sign Detail Recorded Client Recorded Date Recorded By Document 07/01/24 15:18 [facility] [id number] 07/01/24 15:24 [facility] Document 07/08/24 15:06 [facility] 07/08/24 15:20 07/01/24 07/08/24 15:18 15:06 Wound Center Nurse 2 #5 Left lower leg cluster -Time 15:18 15:06 -Correct Patient Yes -Correct Side, Site, Position Yes -Post Debridement (cm) - Length 9.5 -Post Debridement (cm) - Width 5.5 -Post Debridement (cm) - Depth 0.1 -Total Square (Post) (cm) 52.25 -Area of Debridement (cm) - Length 9.5 -Area of Debridement (cm) - Width 5.5 -Total Square (Area) (cm) 52.25 -Tunneling No -Undermining/Tunneling No -Circular Undermining No -Wound/Ulcer Outcome Not Healed Not Healed -Ulcer Cleansing Rinsed/ Irrigated with Saline -Foul Odor after Cleansing No -Bioengineered Tissue No -Bleeding Controlled with Pressure -Treatment Response Procedure Tolerated Well Pain Scale: 0-10 Numeric Is Patient Pain Free? Yes Yes - Nurse 3 - General Ulcer D/C NN Start: 07/01/24 14:45 Freq: Status: Active Protocol: Activity Type Activity Date Activity User E-sign Co-sign Detail Recorded Client Recorded Date Recorded By Document 07/01/24 15:34 KW dhf 07/01/24 15:34 KW Document 07/08/24 15:31 KW xfh 07/08/24 15:34 KW 07/01/24 07/08/24 15:34 15:31 Wound Care Center Nurse 3 #5 Left lower leg cluster -Ulcer Cleansing Soap and Water -Foul Odor after Cleansing No -Other Dressing CLOTRIMAZOLE CRM -Primary Dressing Covered/Secured with Dry Gauze & Roll Gauze, Secured with Tape -Other Covering abd BLE -Tubular Bandage Single Layer -Size of Tubigrip Used Size F -Size F ($) 1 Left -Multi-Layered Wrap Application Unna Boot - Left ($) Treatment Response Procedure Tolerated Well Pain Scale: 0-10 Numeric Is Patient Pain Free? Yes Yes WC - Visit Discharge Discharge Condition Stable Stable Ambulatory Status Walker Wheelchair Transportation Private Auto Private Auto Medication Reconcilliation completed & No provided to patient/care provider Clinical Summary of Care Provided Yes Facility Type Home Health Orders Sent Yes Assessment/Plan Assessment/Plan (1) Chronic ulcer of left lower extremity with fat layer exposed: CODE(S): L97.922 - Non-pressure chronic ulcer of unspecified part of left lower leg with fat layer exposed PLAN: This is a posterior L calf ulceration limited to breakdown of the skin (2) Lipodermatosclerosis of both lower extremities: CODE(S): M79.3 - Panniculitis, unspecified (3) Bilateral lower extremity edema: CODE(S): R60.0 - Localized edema PLAN: Plan For wound care: Apply clotrimazole cream, wrap with gauze/Kerlix and ABD pad, then apply Tubigrip. Will plan for C to continue to change twice weekly, us once weekly, and his will try to change the other days as well if possible. Did also learn that patient has Circaids at home, I advise that they try to apply these and if they have difficulty then bring them to the next visit so we can help show them how to apply them. His wound cultures grew a few skin contaminants. If no improvement in the wound with clotrimazole and more frequent dressing changes then will consider treating with topical antibiotic. He is instructed to elevate his legs at all resting times, preferably at or above the level of the heart. He is advised to perform ankle flexion exercises. He is s/p successful LLE saphenous vein ablation. The wound center is relocating next week so I will not have clinic. He will return Friday next week for a nurse visit for dressing changes. He will return in 2 weeks to see me.
[2024-07-22 15:13] VITALS: BMI 28.4
--- NOTE | 2024-07-22 15:47 | PN.PCM_ITS ---
History of Present Illness Date of Service: 07/22/24 Chief Complaint: LLE wounds History of Wound: Mr. Paola Boyer is an 83 y/o male who presents to the wound healing center today with left lower extremity wounds. He was referred by Nuvia Brooks. He is accompanied to his appointment today by his . He relays that he has been dealing with these left lower extremity wounds recurrently over the past few years. They will become very close to healing and then subsequently open back up. His reports that all really started with a lot of swelling and redness in his lower legs which progressively worsened to weeping before developing these focal wounds. He has been treated to this point at [facility] with Unna boots and all of the surrounding skin has much improved in appearance however the wounds remain. He has not had any prior venous imaging to his knowledge and no venous interventions. No history of peripheral arterial disease or arterial interventions. He is not diabetic. He is not currently smoking, he quit in 1964. He presents today in an automated wheelchair. His insurance unfortunately has a very high co-pay for debridements which will be kept in mind throughout his treatment. Subjective Subjective He and his feel like the wound is improving in appearance. They feel like the clotrimazole cream is helping. Objective Data Objective Data Vital Signs: Vital Signs Temp Pulse Resp BP O2 Del Method 97.5 F L 82 18 126/64 H Room Air 07/08/24 14:53 07/08/24 14:53 07/08/24 14:53 07/08/24 14:53 07/08/24 14:53 Oxygen Delivery Method Room Air Weight: 198 lb Body Mass Index (BMI) 28.4 Lab / Micro Data Micro: Microbiology 07/01/24 15:20 Wound - Other Gram Stain - Final 07/01/24 15:20 Wound - Other Wound Culture - Final Staphylococcus cohnii urealyti Staphylococcus epidermidis Corynebacterium otitidis 07/01/24 15:20 Wound - Other Anaerobic Culture - Final No anaerobic bacteria isolated. Charges/Coding Visit Charges Office Visits / Consults: 01960 OV L3 Est 20min Physical Exam Const alert, oriented x3 and no apparent distress General Appearance: cooperative and comfortable HEENT normocephalic, head/scalp atraumatic, hearing grossly normal bilaterally, external ears normal and external nose normal Eyes General Eye: normal appearance of both eyes Resp normal respiratory effort Effort and Inspection: able to speak in complete sentences; Negative for labored, stridor or audible wheezes Extremity Extremity Narrative: 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 Trace edema on exam today. No apparent bulging varicosities. No weeping or skin breakdown except for wounds as noted below. Easily palpable pedal pulses. Skin Wounds: wounds noted Wound Narrative: L posterior calf wound cluster is very superficial, limited to skin breakdown. No significant slough or dried drainage this week. There is no surrounding erythema, warmth, focal edema. Neuro oriented x3, CN's II-XII intact bilaterally and moves all extremities Speech: speech normal Debridement Note Debridement Note No debridement was completed: No debridement was completed today Post-Debridement Measurements and Additional Note: Post-Debridement Measurements/Treatment - Nurse 1 - General Ulcer Assessment Start: 07/01/24 14:45 Freq: Status: Active Protocol: .[email or web address] Activity Type Activity Date Activity User E-sign Co-sign Detail Recorded Client Recorded Date Recorded By Document 07/01/24 14:46 KW dhf 07/01/24 15:05 KW Document 07/08/24 14:53 KW xfh 07/08/24 15:01 KW Document 07/22/24 15:13 KW [id number] 07/22/24 15:18 KW 07/01/24 07/08/24 07/22/24 14:46 14:53 15:13 - Today's Visit Information Type of service Follow-up Visit Follow-up Visit Follow-up Visit (Physician/USED 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 (Physician/USED 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 (Physician/USED 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 ) ) ) Arrival Mode Other Other Other Arrival Mode (Other) SCOOTER SCOOTER scooter Accompanied by Patient Identification Verified (Name & Yes Yes Yes ) Height and Weight Body Mass Index (BMI) 28.4 28.4 28.4 BMI Classification Overweight Overweight Overweight Vital Signs Temperature (97.8 F-99.1 F) 96.0 F L 97.5 F L Temperature Source Temporal Temporal Pulse Rate (60-100) 63 82 Pulse Location Monitor Monitor Respiratory Rate (12-18) 18 18 Respiratory rate source Observation Observation Oxygen Delivery Method Room Air Room Air Blood Pressure (90/60-120/80) 132/84 H 126/64 H Blood Pressure Mean (mm Hg) 100 84 Source Monitor Monitor Position Sitting Semi-Fowlers Blood Pressure Location Left Arm Left Arm History Since Last Visit- (Skip if this is Patient's initial visit) Have you changed medications since your No No No last visit? Any new allergies or adverse reactions No No No Had a fall/change in ADL's that may No No No increase risk of falls Signs or symptoms of abuse and/or No No No neglect since last visit Have you been in the hospital since your No No No last visit? Has dressing in place as prescribed Yes Yes Yes Has compression in place as prescribed Yes Yes Yes Has offloadiing in place as prescribed N/A N/A N/A Experienced any changes in pain level or No No No management Left Footwear Regular Shoe Regular Shoe Regular Shoe Right Footwear Regular Shoe Regular Shoe Regular Shoe Pain Scale: 0-10 Numeric Is Patient Pain Free? Yes Yes Yes WC - Nurse 1 - General Ulcer Measurement Start: 07/01/24 14:45 Freq: Status: Active Protocol: Activity Type Activity Date Activity User E-sign Co-sign Detail Recorded Client Recorded Date Recorded By Document 07/01/24 14:46 KW dhf 07/01/24 15:05 KW Document 07/08/24 14:53 KW xfh 07/08/24 15:01 KW Document 07/22/24 15:13 KW [id number] 07/22/24 15:18 KW 07/01/24 07/08/24 07/22/24 14:46 14:53 15:13 Wound Center Nurse 1 #5 Left lower leg cluster -Current Size (cm) - Length 9 0.1 0.7 -Current Size (cm) - Width 5.8 0.1 0.5 -Current Size (cm) - Depth 0.1 0.1 0.3 -Total Square Cm 52.2 0.01 0.35 -Date of Last Picture (Recall this 07/01/24 field) -Photo Taken No -Epithelialization Medium 34-66% -Tunneling No -Undermining/Tunneling No -Exudate Amt Medium Medium Small -Exudate Type Serosanguineous Serous Serosanguineous -Wound Margin Distinct, Distinct, Distinct, Outline Outline Outline Attached Attached Attached -Granulation Amt Large (67-100%) Medium (34-66%) Small (1-33%) -Granulation Quality Red [place] Red -Necrosis Amt Large (67-100%) -Necrotic Tissue Type Adherent Slough -Texture (Darling-wound Skin Appearance) Assessed Assessed Assessed -Moisture (Darling-wound Skin Appearance) Assessed Assessed Assessed -Color (Darling-wound Skin Appearance) Assessed, Assessed Assessed, Erythema Erythema -Temperature (Darling-wound Skin No Abnormality No Abnormality Appearance) (Pt Warm) (Pt Warm) -Tenderness on Palpation (Darling-wound No No Skin Appearance) -Ulcer Cleansing Soap and Water Soap and Water Soap and Water -Foul Odor after Cleansing No No No -Anesthetic Used 5% Lidocaine 5% Lidocaine 5% Lidocaine Gel Gel Gel Lower Limb Edema Present No Left Calf (cm) 43.5 41.5 42 Left Ankle (cm) 27 26.5 26.5 WC - Nurse 2 - General Ulcer CM Notes Start: 07/01/24 14:45 Freq: Status: Active Protocol: Activity Type Activity Date Activity User E-sign Co-sign Detail Recorded Client Recorded Date Recorded By Document 07/01/24 15:18 [facility] [id number] 07/01/24 15:24 BM Document 07/08/24 15:06 [facility] 07/08/24 15:20 Document 07/22/24 15:20 [id number] 07/22/24 15:26 07/01/24 07/08/24 07/22/24 15:18 15:06 15:20 Wound Center Nurse 2 #5 Left lower leg cluster -Time 15:18 15:06 15:20 -Correct Patient Yes Yes -Correct Side, Site, Position Yes Yes -Post Debridement (cm) - Length 9.5 -Post Debridement (cm) - Width 5.5 -Post Debridement (cm) - Depth 0.1 -Total Square (Post) (cm) 52.25 -Area of Debridement (cm) - Length 9.5 -Area of Debridement (cm) - Width 5.5 -Total Square (Area) (cm) 52.25 -Tunneling No No -Undermining/Tunneling No No -Circular Undermining No No -Wound/Ulcer Outcome Not Healed Not Healed Not Healed -Ulcer Cleansing Rinsed/ Irrigated with Saline -Foul Odor after Cleansing No -Bioengineered Tissue No -Bleeding Controlled with Pressure -Treatment Response Procedure Tolerated Well Pain Scale: 0-10 Numeric Is Patient Pain Free? Yes Yes Yes - Nurse 3 - General Ulcer D/C NN Start: 07/01/24 14:45 Freq: Status: Active Protocol: Activity Type Activity Date Activity User E-sign Co-sign Detail Recorded Client Recorded Date Recorded By Document 07/01/24 15:34 KW dhf 07/01/24 15:34 KW Document 07/08/24 15:31 KW [facility] 07/08/24 15:34 KW Document 07/22/24 15:39 [facility] [id number] 07/22/24 15:41 BM 07/01/24 07/08/24 07/22/24 15:34 15:31 15:39 Wound Care Center Nurse 3 #5 Left lower leg cluster -Ulcer Cleansing Soap and Water -Foul Odor after Cleansing No -Other Dressing CLOTRIMAZOLE clotrimazole; CRM abd -Primary Dressing Covered/Secured with Dry Gauze & Dry Gauze & Roll Gauze, Roll Gauze, Secured with Secured with Tape Tape -Other Covering abd BLE -Tubular Bandage Single Layer Single Layer -Size of Tubigrip Used Size F Size D -Size D ($) 2 -Size F ($) 1 Left -Multi-Layered Wrap Application Unna Boot - Left ($) Treatment Response Procedure Procedure Tolerated Well Tolerated Well Pain Scale: 0-10 Numeric Is Patient Pain Free? 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 For wound care: Apply clotrimazole cream, wrap with gauze/Kerlix and ABD pad, then apply Tubigrip. Will plan for HHC to continue to change twice weekly, us once weekly, and his will try to change the other days as well if possible. Patient was supposed to bring Circaids with him so we could show them how to use them but forgot, they will try to remember to bring them next week. His wound cultures grew a few skin contaminants. If no improvement in the wound with clotrimazole and more frequent dressing changes then will consider treating with topical antibiotic. He is instructed to elevate his legs at all resting times, preferably at or above the level of the heart. He is advised to perform ankle flexion exercises. He is s/p successful LLE saphenous vein ablation. He will return to see me in 1 week, sooner as needed.
[2024-07-29 15:00] VITALS: BP 140/54; PULSE 72; RESP 16; TEMP 36.4; BMI 28.4
--- NOTE | 2024-07-29 21:43 | PCM.WC.PN ---
History of Present Illness Date of Service: 07/29/24 Chief Complaint: LLE wounds History of Wound: Mr. Paola Boyer is an 83 y/o male who presents to the wound healing center today with left lower extremity wounds. He was referred by Nuvia Brooks. He is accompanied to his appointment today by his . He relays that he has been dealing with these left lower extremity wounds recurrently over the past few years. They will become very close to healing and then subsequently open back up. His reports that all really started with a lot of swelling and redness in his lower legs which progressively worsened to weeping before developing these focal wounds. He has been treated to this point at [facility] with Unna boots and all of the surrounding skin has much improved in appearance however the wounds remain. He has not had any prior venous imaging to his knowledge and no venous interventions. No history of peripheral arterial disease or arterial interventions. He is not diabetic. He is not currently smoking, he quit in 1964. He presents today in an automated wheelchair. His insurance unfortunately has a very high co-pay for debridements which will be kept in mind throughout his treatment. Subjective Subjective L medial wound looks much improved this week. They have continued to use clotrimazole as instructed and this has seemed to help a lot. Unfortunately, he now has a cluster of wounds on his L medial lower leg without clear provocation. Objective Data Objective Data Vital Signs: Vital Signs Temp Pulse Resp BP O2 Del Method 97.5 F L 72 16 140/54 H Room Air 07/29/24 15:00 07/29/24 15:00 07/29/24 15:00 07/29/24 15:00 07/29/24 15:00 Oxygen Delivery Method Room Air Weight: 198 lb Body Mass Index (BMI) 28.4 Lab / Micro Data Micro: Microbiology 07/01/24 15:20 Wound - Other Gram Stain - Final 07/01/24 15:20 Wound - Other Wound Culture - Final Staphylococcus cohnii urealyti Staphylococcus epidermidis Corynebacterium otitidis 07/01/24 15:20 Wound - Other Anaerobic Culture - Final No anaerobic bacteria isolated. 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 Trace edema on exam today. No apparent bulging varicosities. No weeping or skin breakdown except for wounds as noted below. Easily palpable pedal pulses. Skin Wounds: wounds noted Wound Narrative: L posterior/lateral calf wound cluster is much improved, a few small superficial open areas remain. Now with L medial calf wound cluster limited to superficial skin breakdown with minimal slough. No significant surrounding erythema. Serous drainage. Neuro oriented x3, CN's II-XII intact bilaterally and moves all extremities Speech: speech normal Debridement Note Debridement Note No debridement was completed: No debridement was completed today Post-Debridement Measurements and Additional Note: Post-Debridement Measurements/Treatment - Nurse 1 - General Ulcer Assessment Start: 07/01/24 14:45 Freq: Status: Active Protocol: DUSTIN Activity Type Activity Date Activity User E-sign Co-sign Detail Recorded Client Recorded Date Recorded By Document 07/01/24 14:46 KW f 07/01/24 15:05 KW Document 07/08/24 14:53 KW [facility] 07/08/24 15:01 KW Document 07/22/24 15:13 KW [id number] 07/22/24 15:18 KW Document 07/29/24 15:00 BM [id number] 07/29/24 15:15 BM 07/01/24 07/08/24 07/22/24 14:46 14:53 15:13 - Today's Visit Information Type of service Follow-up Visit Follow-up Visit Follow-up Visit (Physician/PLANNING INTERN (Physician/PLANNING INTERN (Physician/PLANNING INTERN ) ) ) Arrival Mode Other Other Other Arrival Mode (Other) SCOOTER SCOOTER scooter Transfer Assistance Accompanied by Patient Identification Verified (Name & Yes Yes Yes ) Patient Requires Transmission-Based Precautions Height and Weight Body Mass Index (BMI) 28.4 28.4 28.4 BMI Classification Overweight Overweight Overweight Vital Signs Temperature (97.8 F-99.1 F) 96.0 F L 97.5 F L Temperature Source Temporal Temporal Pulse Rate (60-100) 63 82 Pulse Location Monitor Monitor Respiratory Rate (12-18) 18 18 Respiratory rate source Observation Observation Oxygen Delivery Method Room Air Room Air Blood Pressure (90/60-120/80) 132/84 H 126/64 H Blood Pressure Mean (mm Hg) 100 84 Source Monitor Monitor Position Sitting Semi-Fowlers Blood Pressure Location Left Arm Left Arm History Since Last Visit- (Skip if this is Patient's initial visit) Have you changed medications since your No No No last visit? Any new allergies or adverse reactions No No No Had a fall/change in ADL's that may No No No increase risk of falls Signs or symptoms of abuse and/or No No No neglect since last visit Have you been in the hospital since your No No No last visit? Has dressing in place as prescribed Yes Yes Yes Has compression in place as prescribed Yes Yes Yes Has offloadiing in place as prescribed N/A N/A N/A Experienced any changes in pain level or No No No management Left Footwear Regular Shoe Regular Shoe Regular Shoe Right Footwear Regular Shoe Regular Shoe Regular Shoe Pain Scale: 0-10 Numeric Is Patient Pain Free? Yes Yes Yes 07/29/24 15:00 WC - Today's Visit Information Type of service Follow-up Visit (Physician/PLANNING INTERN ) Arrival Mode Wheelchair Arrival Mode (Other) Transfer Assistance None Accompanied by Patient Identification Verified (Name & Yes ) Patient Requires Transmission-Based No Precautions Height and Weight Body Mass Index (BMI) 28.4 BMI Classification Overweight Vital Signs Temperature (97.8 F-99.1 F) 97.5 F L Temperature Source Temporal Pulse Rate (60-100) 72 Pulse Location Monitor Respiratory Rate (12-18) 16 Respiratory rate source Observation Oxygen Delivery Method Room Air Blood Pressure (90/60-120/80) 140/54 H Blood Pressure Mean (mm Hg) 82 Source Monitor Position Sitting Blood Pressure Location Left Arm History Since Last Visit- (Skip if this is Patient's initial visit) Have you changed medications since your No last visit? Any new allergies or adverse reactions No Had a fall/change in ADL's that may No increase risk of falls Signs or symptoms of abuse and/or No neglect since last visit Have you been in the hospital since your No last visit? Has dressing in place as prescribed Yes Has compression in place as prescribed Yes Has offloadiing in place as prescribed N/A Experienced any changes in pain level or No management Left Footwear Regular Shoe Right Footwear Regular Shoe Pain Scale: 0-10 Numeric Is Patient Pain Free? Yes WC - Nurse 1 - General Ulcer Measurement Start: 07/01/24 14:45 Freq: Status: Active Protocol: Activity Type Activity Date Activity User E-sign Co-sign Detail Recorded Client Recorded Date Recorded By Document 07/01/24 14:46 KW dhf 07/01/24 15:05 KW Document 07/08/24 14:53 KW [facility] 07/08/24 15:01 KW Document 07/22/24 15:13 KW [id number] 07/22/24 15:18 KW Document 07/29/24 15:00 BMF [id number] 07/29/24 15:15 BMF 07/01/24 07/08/24 07/22/24 14:46 14:53 15:13 Wound Center Nurse 1 #5 Left lower leg cluster -Combined with other wound -Current Size (cm) - Length 9 0.1 0.7 -Current Size (cm) - Width 5.8 0.1 0.5 -Current Size (cm) - Depth 0.1 0.1 0.3 -Total Square Cm 52.2 0.01 0.35 -Date of Last Picture (Recall this 07/01/24 field) -Photo Taken No -Epithelialization Medium 34-66% -Tunneling No -Undermining/Tunneling No -Exudate Amt Medium Medium Small -Exudate Type Serosanguineous Serous Serosanguineous -Wound Margin Distinct, Distinct, Distinct, Outline Outline Outline Attached Attached Attached -Granulation Amt Large (67-100%) Medium (34-66%) Small (1-33%) -Granulation Quality [place] Red -Necrosis Amt Large (67-100%) -Necrotic Tissue Type Adherent Slough -Texture (Darling-wound Skin Appearance) Assessed Assessed Assessed -Moisture (Darling-wound Skin Appearance) Assessed Assessed Assessed -Color (Darling-wound Skin Appearance) Assessed, Assessed Assessed, Erythema Erythema -Temperature (Darling-wound Skin No Abnormality No Abnormality Appearance) (Pt Warm) (Pt Warm) -Tenderness on Palpation (Darling-wound No No Skin Appearance) -Ulcer Cleansing Soap and Water Soap and Water Soap and Water -Foul Odor after Cleansing No No No -Anesthetic Used 5% Lidocaine 5% Lidocaine 5% Lidocaine Gel Gel Gel Lower Limb Edema Present No Left Calf (cm) 43.5 41.5 42 Left Ankle (cm) 27 26.5 26.5 07/29/24 15:00 Wound Center Nurse 1 #5 Left lower leg cluster -Combined with other wound No -Current Size (cm) - Length 0.1 -Current Size (cm) - Width 0.1 -Current Size (cm) - Depth 0.1 -Total Square Cm 0.01 -Date of Last Picture (Recall this 07/29/24 field) -Photo Taken Yes -Epithelialization Large 67-100% -Tunneling -Undermining/Tunneling -Exudate Amt -Exudate Type -Wound Margin -Granulation Amt -Granulation Quality -Necrosis Amt -Necrotic Tissue Type -Texture (Darling-wound Skin Appearance) Assessed, Scarring -Moisture (Darling-wound Skin Appearance) Assessed,Dry/ Scaly -Color (Darling-wound Skin Appearance) Assessed -Temperature (Darling-wound Skin No Abnormality Appearance) (Pt Warm) -Tenderness on Palpation (Darling-wound No Skin Appearance) -Ulcer Cleansing Soap and Water -Foul Odor after Cleansing No -Anesthetic Used Lower Limb Edema Present Left Calf (cm) 42.1 Left Ankle (cm) 26.2 - Nurse 2 - General Ulcer CM Notes Start: 07/01/24 14:45 Freq: Status: Active Protocol: Activity Type Activity Date Activity User E-sign Co-sign Detail Recorded Client Recorded Date Recorded By Document 07/01/24 15:18 [facility] [id number] 07/01/24 15:24 [facility] Document 07/08/24 15:06 [facility] 07/08/24 15:20 Document 07/22/24 15:20 [id number] 07/22/24 15:26 Document 07/29/24 15:42 [id number] 07/29/24 15:47 07/01/24 07/08/24 07/22/24 15:18 15:06 15:20 Wound Center Nurse 2 #7 L Medial leg -Time -Correct Patient -Correct Side, Site, Position -Wound/Ulcer Outcome -Wound Comment(s) #5 Left lower leg cluster -Time 15:18 15:06 15:20 -Correct Patient Yes Yes -Correct Side, Site, Position Yes Yes -Post Debridement (cm) - Length 9.5 -Post Debridement (cm) - Width 5.5 -Post Debridement (cm) - Depth 0.1 -Total Square (Post) (cm) 52.25 -Area of Debridement (cm) - Length 9.5 -Area of Debridement (cm) - Width 5.5 -Total Square (Area) (cm) 52.25 -Tunneling No No -Undermining/Tunneling No No -Circular Undermining No No -Wound/Ulcer Outcome Not Healed Not Healed Not Healed -Ulcer Cleansing Rinsed/ Irrigated with Saline -Foul Odor after Cleansing No -Bioengineered Tissue No -Bleeding Controlled with Pressure -Treatment Response Procedure Tolerated Well -Wound Comment(s) Pain Scale: 0-10 Numeric Is Patient Pain Free? Yes Yes Yes 07/29/24 15:42 Wound Center Nurse 2 #7 L Medial leg -Time 15:47 -Correct Patient Yes -Correct Side, Site, Position Yes -Wound/Ulcer Outcome Not Healed -Wound Comment(s) 15x4x0.1 #5 Left lower leg cluster -Time 15:44 -Correct Patient Yes -Correct Side, Site, Position Yes -Post Debridement (cm) - Length -Post Debridement (cm) - Width -Post Debridement (cm) - Depth -Total Square (Post) (cm) -Area of Debridement (cm) - Length -Area of Debridement (cm) - Width -Total Square (Area) (cm) -Tunneling -Undermining/Tunneling -Circular Undermining -Wound/Ulcer Outcome Not Healed -Ulcer Cleansing -Foul Odor after Cleansing -Bioengineered Tissue -Bleeding Controlled with -Treatment Response -Wound Comment(s) 4.5x3.0x0.1 Pain Scale: 0-10 Numeric Is Patient Pain Free? Yes - Nurse 3 - General Ulcer D/C NN Start: 07/01/24 14:45 Freq: Status: Active Protocol: Activity Type Activity Date Activity User E-sign Co-sign Detail Recorded Client Recorded Date Recorded By Document 07/01/24 15:34 KW f 07/01/24 15:34 KW Document 07/08/24 15:31 [facility] 07/08/24 15:34 KW Document 07/22/24 15:39 [facility] [id number] 07/22/24 15:41 BMF Document 07/29/24 16:09 [facility] [id number] 07/29/24 16:11 BM 07/01/24 07/08/24 07/22/24 15:34 15:31 15:39 Wound Care Center Nurse 3 #7 L Medial leg -Ulcer Cleansing -Foul Odor after Cleansing -Other Dressing -Primary Dressing Covered/Secured with -Other Covering -Fibracol Plus 4x4 #5 Left lower leg cluster -Ulcer Cleansing Soap and Water -Foul Odor after Cleansing No -Other Dressing CLOTRIMAZOLE clotrimazole; CRM abd -Primary Dressing Covered/Secured with Dry Gauze & Dry Gauze & Roll Gauze, Roll Gauze, Secured with Secured with Tape Tape -Other Covering abd BLE -Tubular Bandage Single Layer Single Layer -Size of Tubigrip Used Size F Size D -Size D ($) 2 -Size F ($) 1 -Other Left -Multi-Layered Wrap Application Unna Boot - Left ($) Treatment Response Procedure Procedure Tolerated Well Tolerated Well Pain Scale: 0-10 Numeric Is Patient Pain Free? Yes Yes Yes WC - Visit Discharge Discharge Condition Stable Stable Stable Ambulatory Status Walker Wheelchair Wheelchair Transportation Private Auto Private Auto Private Auto Accompanied by Medication Reconcilliation completed & No provided to patient/care provider Clinical Summary of Care Provided Yes Facility Type Home Health Orders Sent Yes 07/29/24 16:09 Wound Care Center Nurse 3 #7 L Medial leg -Ulcer Cleansing Rinsed/ Irrigated with Saline -Foul Odor after Cleansing No -Other Dressing per kw beater dumper -Primary Dressing Covered/Secured with Dry Gauze & Roll Gauze, Secured with Tape -Other Covering aquacel xtra -Fibracol Plus 4x4 0 #5 Left lower leg cluster -Ulcer Cleansing -Foul Odor after Cleansing -Other Dressing clotrimazole cream; per kw beater dumper -Primary Dressing Covered/Secured with Dry Gauze & Roll Gauze, Secured with Tape -Other Covering BLE -Tubular Bandage -Size of Tubigrip Used -Size D ($) -Size F ($) -Other pt and instructed on circaid application per kw beater dumper Left -Multi-Layered Wrap Application Treatment Response Procedure Tolerated Well Pain Scale: 0-10 Numeric Is Patient Pain Free? 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 Unfortunately, now with medial calf cluster. For wound care: Apply clotrimazole cream, wrap with gauze/Kerlix and ABD pad, then apply Tubigrip. Will plan for C to continue to change twice weekly, us once weekly, and his will try to change the other days as well if possible. He did bring the circaids with him this week. Will plan to proceed with Circaids for compression. He is instructed to elevate his legs at all resting times, preferably at or above the level of the heart. He is advised to perform ankle flexion exercises. He is s/p successful LLE saphenous vein ablation. He will return to see me in 1 week, sooner as needed.
--- NOTE | 2024-08-04 09:15 | WC ---
PHOTO 07/29/24 ALLAN SWANSON
--- NOTE | 2024-08-04 09:16 | WC ---
PHOTO 07/29/24 LLE LEG CLUSTER
== END 2024-07-31 23:59 | disposition home or self-care (01) ==
LOC: WC 14:45
PROVIDERS: PCP Family Medicine; Referring Provider Dermatology; Visit Provider Physician Assistant
DX: L97.922 Non-pressure chronic ulcer of unspecified part of left lower leg with fat layer exposed (principal); M79.3 Panniculitis, unspecified; R60.0 Localized edema; Z87.891 Personal history of nicotine dependence
CPT/HCPCS: 29580; 87070; 87075; 87077; 87186; 87205; 99213; G0463

== ENCOUNTER 2024-08-30 15:15 | Outpatient (RCR) | payer MEDICARE, SELFPAY ==
[2024-08-01 00:50] VITALS: BP 128/53; PULSE 67; RESP 18; TEMP 36; BMI 28.4
[2024-08-05 14:52] VITALS: BP 128/58; PULSE 64; RESP 18; TEMP 36.1; BMI 28.4
[2024-08-19 14:59] VITALS: BP 132/60; PULSE 64; RESP 16; TEMP 36.6; BMI 28.4
[2024-08-23 15:45] VITALS: BP 143/76; PULSE 62; RESP 18; TEMP 36.2; BMI 28.4
[2024-08-26 15:07] VITALS: BP 138/59; PULSE 64; RESP 16; TEMP 36.1; BMI 28.4
[2024-08-30 16:13] VITALS: BP 117/56; PULSE 67; RESP 18; TEMP 36.2; BMI 28.4
== END 2024-08-30 23:59 | disposition home or self-care (01) ==
LOC: WC 15:15
PROVIDERS: PCP Family Medicine; Referring Provider Dermatology; Visit Provider Physician Assistant
DX: L97.922 Non-pressure chronic ulcer of unspecified part of left lower leg with fat layer exposed (principal); M79.3 Panniculitis, unspecified; R60.0 Localized edema
CPT/HCPCS: 99213; G0463

== ENCOUNTER 2024-09-30 14:30 | Outpatient (RCR) | payer MEDICARE, SELFPAY ==
[2024-08-31 00:21] VITALS: BP 128/53; PULSE 67; RESP 18; TEMP 36; BMI 28.4
[2024-09-02 15:07] VITALS: BP 138/66; RESP 18; TEMP 35.9; BMI 28.4
--- NOTE | 2024-09-02 16:11 | PN.PCM_ITS ---
History of Present Illness Date of Service: 09/02/24 Chief Complaint: LLE wounds History of Wound: Mr. Paola Boyer is an 83 y/o male who presents to the wound healing center today with left lower extremity wounds. He was referred by Nuvia Brooks. He is accompanied to his appointment today by his . He relays that he has been dealing with these left lower extremity wounds recurrently over the past few years. They will become very close to healing and then subsequently open back up. His reports that all really started with a lot of swelling and redness in his lower legs which progressively worsened to weeping before developing these focal wounds. He has been treated to this point at [facility] with Unna boots and all of the surrounding skin has much improved in appearance however the wounds remain. He has not had any prior venous imaging to his knowledge and no venous interventions. No history of peripheral arterial disease or arterial interventions. He is not diabetic. He is not currently smoking, he quit in 1964. He presents today in an automated wheelchair. His insurance unfortunately has a very high co-pay for debridements which will be kept in mind throughout his treatment. Subjective Subjective His wounds seem to have improved this week with lotrisone, especially laterally. Medial cluster still enlarged but less erythematous. His rash seems to continue to improve. Objective Data Objective Data Vital Signs: Vital Signs Temp Pulse Resp BP O2 Del Method 96.6 F L 67 18 138/66 H Room Air 09/02/24 15:07 08/31/24 00:21 09/02/24 15:07 09/02/24 15:07 09/02/24 15:07 Oxygen Delivery Method Room Air Weight: 198 lb Body Mass Index (BMI) 28.4 Charges/Coding Visit Charges Office Visits / Consults: 16643 OV L3 Est 20min Physical Exam Const alert, oriented x3 and no apparent distress General Appearance: cooperative and comfortable HEENT normocephalic, hearing grossly normal bilaterally, external ears normal and external nose normal Eyes General Eye: normal appearance of both eyes Resp normal respiratory effort Effort and Inspection: able to speak in complete sentences; Negative for labored, stridor or audible wheezes Extremity Extremity Narrative: 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 Trace edema on exam today. No apparent bulging v aricosities. No weeping or skin breakdown except for wounds as noted below. Easily palpable pedal pulses. Skin Wounds: wounds noted Wound Narrative: L posterior/lateral calf wound cluster with much smaller area of superficial skin breakdown remaining distally, significant proximal portion is epitheli alized this week. L medial calf wound cluster limited to superficial skin breakdown with minimal slough. No significant surrounding erythema. Serous drainage. Erythematous maculopapular rash primarily around the upper half of his right lower leg stopping at the knee continues to improve. Overall skin flaking proximally is improved as well. Neuro oriented x3, CN's II-XII intact bilaterally and moves all extremities Speech: speech normal Debridement Note Debridement Note No debridement was completed: No debridement was completed today Post-Debridement Measurements and Additional Note: Post-Debridement Measurements/Treatment WC - Nurse 1 - General Ulcer Assessment Start: 09/02/24 15:07 Freq: Status: Active Protocol: WC.[email or web address] Activity Type Activity Date Activity User E-sign Co-sign Detail Recorded Client Recorded Date Recorded By Document 09/02/24 15:07 KW po' 09/02/24 15:25 KW 09/02/24 15:07 WC - Today's Visit Information Type of service Follow-up Visit (Physician/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 ) Arrival Mode Other Arrival Mode (Other) scooter Patient Identification Verified (Name & Yes ) Height and Weight Body Mass Index (BMI) 28.4 BMI Classification Overweight Vital Signs Temperature (97.8 F-99.1 F) 96.6 F L Temperature Source Temporal Pulse Location Monitor Respiratory Rate (12-18) 18 Respiratory rate source Observation Oxygen Delivery Method Room Air Blood Pressure (90/60-120/80) 138/66 H Blood Pressure Mean (mm Hg) 90 Source Monitor Position Semi-Fowlers Blood Pressure Location Left Forearm History Since Last Visit- (Skip if this is Patient's initial visit) Have you changed medications since your No last visit? Any new allergies or adverse reactions No Had a fall/change in ADL's that may No increase risk of falls Signs or symptoms of abuse and/or No neglect since last visit Have you been in the hospital since your No last visit? Has dressing in place as prescribed Yes Has compression in place as prescribed Yes Has offloadiing in place as prescribed N/A Experienced any changes in pain level or No management Left Footwear Regular Shoe Right Footwear Regular Shoe Pain Scale: 0-10 Numeric Is Patient Pain Free? Yes WC - Nurse 1 - General Ulcer Measurement Start: 09/02/24 15:07 Freq: Status: Active Protocol: Activity Type Activity Date Activity User E-sign Co-sign Detail Recorded Client Recorded Date Recorded By Document 09/02/24 15:07 KW po' 09/02/24 15:25 KW 09/02/24 15:07 Wound Center Nurse 1 #7 L Medial leg cluster -Granulation Amt Large (67-100%) -Granulation Quality Red -Texture (Darling-wound Skin Appearance) Assessed -Moisture (Darling-wound Skin Appearance) Assessed -Color (Darling-wound Skin Appearance) Assessed, Erythema -Temperature (Darling-wound Skin No Abnormality Appearance) (Pt Warm) -Tenderness on Palpation (Darling-wound No Skin Appearance) -Ulcer Cleansing Soap and Water -Foul Odor after Cleansing No #5 Left lower lateral leg cluster -Exudate Amt Medium -Exudate Type Serosanguineous -Wound Margin Distinct, Outline Attached -Granulation Amt Large (67-100%) -Granulation Quality Red -Texture (Darling-wound Skin Appearance) Assessed -Moisture (Darling-wound Skin Appearance) Assessed -Color (Darling-wound Skin Appearance) Assessed, Erythema -Temperature (Darling-wound Skin No Abnormality Appearance) (Pt Warm) -Tenderness on Palpation (Darling-wound No Skin Appearance) -Ulcer Cleansing Soap and Water CHRISTIE - Nurse 2 - General Ulcer CM Notes Start: 09/02/24 15:07 Freq: Status: Active Protocol: Activity Type Activity Date Activity User E-sign Co-sign Detail Recorded Client Recorded Date Recorded By Document 09/02/24 15:30 [id number] 09/02/24 15:33 GM 09/02/24 15:30 Wound Center Nurse 2 #7 L Medial leg cluster -Time 15:31 -Correct Patient Yes -Correct Side, Site, Position Yes -Wound/Ulcer Outcome Not Healed -Wound Comment(s) Not debrided 17 11 0.1 #5 Left lower lateral leg cluster -Time 15:31 -Correct Patient Yes -Correct Side, Site, Position Yes -Wound/Ulcer Outcome Not Healed -Wound Comment(s) Not debrided 3.0 3.0 0.1 Pain Scale: 0-10 Numeric Is Patient Pain Free? Yes CHRISTIE - Nurse 3 - General Ulcer D/C NN Start: 09/02/24 15:07 Freq: Status: Active Protocol: Activity Type Activity Date Activity User E-sign Co-sign Detail Recorded Client Recorded Date Recorded By Document 09/02/24 15:52 KW [id number] 09/02/24 15:56 KW 09/02/24 15:52 Wound Care Center Nurse 3 #7 L Medial leg cluster -Primary Dressing Applied Fibracol Plus 4x4 -Other Dressing amlactin and lotrisone topicals -Primary Dressing Covered/Secured with Dry Gauze & Roll Gauze, Secured with Tape -Fibracol Plus 4x4 1 #5 Left lower lateral leg cluster -Other Dressing amlatin and lotrisone, fibracol -Primary Dressing Covered/Secured with Dry Gauze & Roll Gauze, Secured with Tape Left -Tubular Bandage Single Layer -Size of Tubigrip Used Size E -Size E ($) 1 Pain Scale: 0-10 Numeric Is Patient Pain Free? 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 For wound care, apply Lotrisone cream to the open areas then apply Fibracol plus, wrap with gauze/Kerlix, then apply Tubigrip for compression. Will plan for [facility] to continue to change twice weekly on Tuesdays and Fridays and then will have him present here for a nurse visit on Friday and to see me on . I think that part of his rash and persistent issues having difficulty with moisture control with less frequent dressing changes, unfortunately have limited ability for increased frequency and changes. Daily antihistamine seems to have helped with the rash, continue this for now. He forgot to bring CircAid's again today, advised to please try to remember to bring these next week. His states today that he really is not very good at elevating his legs. We discussed importance of leg elevation and managing his edema therefore overall drainage. He is instructed to elevate his legs at all resting times, preferably at or above the level of the heart. He is advised to perform ankle flexion exercises. He is s/p successful LLE saphenous vein ablation. I am out next week. Will have him return for nurse visit 09/06, 09/08, 09/14. Return to see me in 2 weeks.
[2024-09-08 16:09] VITALS: BP 141/81; PULSE 59; RESP 16; TEMP 35.9; BMI 28.4
[2024-09-13 14:57] VITALS: BP 147/60; PULSE 62; RESP 18; TEMP 36.2; BMI 28.4
[2024-09-16 15:13] VITALS: BP 109/62; PULSE 64; RESP 18; TEMP 36.2; BMI 28.4
--- NOTE | 2024-09-16 18:37 | PCM.WC.PN ---
History of Present Illness Date of Service: 09/16/24 Chief Complaint: LLE wounds History of Wound: Mr. Paola Boyer is an 83 y/o male who presents to the wound healing center today with left lower extremity wounds. He was referred by Nuvia Brooks. He is accompanied to his appointment today by his . He relays that he has been dealing with these left lower extremity wounds recurrently over the past few years. They will become very close to healing and then subsequently open back up. His reports that all really started with a lot of swelling and redness in his lower legs which progressively worsened to weeping before developing these focal wounds. He has been treated to this point at [facility] with Unna boots and all of the surrounding skin has much improved in appearance however the wounds remain. He has not had any prior venous imaging to his knowledge and no venous interventions. No history of peripheral arterial disease or arterial interventions. He is not diabetic. He is not currently smoking, he quit in 1964. He presents today in an automated wheelchair. His insurance unfortunately has a very high co-pay for debridements which will be kept in mind throughout his treatment. Subjective Subjective Mr. Boyer is doing well this week overall. They feel that the wounds appear to be improving. No new concerns or complaints. Objective Data Objective Data Vital Signs: Vital Signs Temp Pulse Resp BP O2 Del Method 97.2 F L 64 18 109/62 Room Air 09/16/24 15:13 09/16/24 15:13 09/16/24 15:13 09/16/24 15:13 09/16/24 15:13 Oxygen Delivery Method Room Air Weight: 198 lb Body Mass Index (BMI) 28.4 Charges/Coding Visit Charges Office Visits / Consults: 10098 OV L3 Est 20min Physical Exam Const alert, oriented x3 and no apparent distress General Appearance: cooperative and comfortable HEENT normocephalic, hearing grossly normal bilaterally, external ears normal and external nose normal Eyes General Eye: normal appearance of both eyes Resp normal respiratory effort Effort and Inspection: able to speak in complete sentences; Negative for labored, stridor or audible wheezes Extremity Extremity Narrative: 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 Trace edema on exam today. No apparent bulging varicosities. No weeping or skin breakdown except for wounds as noted below. Easily palpable pedal pulses. Skin Wounds: wounds noted Wound Narrative: L posterior/lateral calf wound cluster improved in size, remains very superficial. L medial calf wound cluster limited to superficial skin breakdown with minimal slough. No significant surrounding erythema. Serous drainage. Neuro oriented x3, CN's II-XII intact bilaterally and moves all extremities Speech: speech normal Debridement Note Debridement Note No debridement was completed: No debridement was completed today Post-Debridement Measurements and Additional Note: Post-Debridement Measurements/Treatment - Nurse 1 - General Ulcer Assessment Start: 09/02/24 15:07 Freq: Status: Active Protocol: .[facility] Activity Type Activity Date Activity User E-sign Co-sign Detail Recorded Client Recorded Date Recorded By Document 09/02/24 15:07 KW po' 09/02/24 15:25 KW Document 09/08/24 16:09 [facility] [id number] 09/08/24 16:11 [facility] Document 09/13/24 14:57 KW [id number] 09/13/24 15:17 KW Document 09/16/24 15:13 KW [id number] 09/16/24 15:28 KW 09/02/24 09/08/24 09/13/24 15:07 16:09 14:57 - Today's Visit Information Type of service Follow-up Visit Nurse-only Nurse-only (Physician/SHIFT FOREMAN Visit Visit ) Arrival Mode Other Wheelchair Other Arrival Mode (Other) scooter scooter Transfer Assistance None Accompanied by Patient Identification Verified (Name & Yes Yes Yes ) Height and Weight Body Mass Index (BMI) 28.4 28.4 28.4 BMI Classification Overweight Overweight Overweight Vital Signs Temperature (97.8 F-99.1 F) 96.6 F L 96.7 F L 97.1 F L Temperature Source Temporal Temporal Temporal Pulse Rate (60-100) 59 L 62 Pulse Location Monitor Monitor Monitor Respiratory Rate (12-18) 18 16 18 Respiratory rate source Observation Observation Observation Oxygen Delivery Method Room Air Room Air Room Air Blood Pressure (90/60-120/80) 138/66 H 141/81 H 147/60 H Blood Pressure Mean (mm Hg) 90 101 89 Source Monitor Monitor Monitor Position Semi-Fowlers Sitting Sitting Blood Pressure Location Left Forearm Left Forearm Left Forearm History Since Last Visit- (Skip if this is Patient's initial visit) Have you changed medications since your No No No last visit? Any new allergies or adverse reactions No No No Had a fall/change in ADL's that may No No No increase risk of falls Signs or symptoms of abuse and/or No No No neglect since last visit Have you been in the hospital since your No No No last visit? Has dressing in place as prescribed Yes Yes Yes Has compression in place as prescribed Yes Yes Yes Has offloadiing in place as prescribed N/A N/A N/A Experienced any changes in pain level or No No No management Left Footwear Regular Shoe Regular Shoe Regular Shoe Right Footwear Regular Shoe Regular Shoe Regular Shoe Pain Scale: 0-10 Numeric Is Patient Pain Free? Yes Yes Yes 09/16/24 15:13 WC - Today's Visit Information Type of service Follow-up Visit (Physician/SHIFT FOREMAN ) Arrival Mode Ambulatory Arrival Mode (Other) Transfer Assistance Accompanied by Patient Identification Verified (Name & Yes ) Height and Weight Body Mass Index (BMI) 28.4 BMI Classification Overweight Vital Signs Temperature (97.8 F-99.1 F) 97.2 F L Temperature Source Temporal Pulse Rate (60-100) 64 Pulse Location Monitor Respiratory Rate (12-18) 18 Respiratory rate source Observation Oxygen Delivery Method Room Air Blood Pressure (90/60-120/80) 109/62 Blood Pressure Mean (mm Hg) 77 Source Monitor Position Sitting Blood Pressure Location Left Arm History Since Last Visit- (Skip if this is Patient's initial visit) Have you changed medications since your No last visit? Any new allergies or adverse reactions No Had a fall/change in ADL's that may No increase risk of falls Signs or symptoms of abuse and/or No neglect since last visit Have you been in the hospital since your No last visit? Has dressing in place as prescribed Yes Has compression in place as prescribed Yes Has offloadiing in place as prescribed N/A Experienced any changes in pain level or No management Left Footwear Regular Shoe Right Footwear Regular Shoe Pain Scale: 0-10 Numeric Is Patient Pain Free? Yes - Nurse 1 - General Ulcer Measurement Start: 09/02/24 15:07 Freq: Status: Active Protocol: Activity Type Activity Date Activity User E-sign Co-sign Detail Recorded Client Recorded Date Recorded By Document 09/02/24 15:07 KW po' 09/02/24 15:25 KW Document 09/16/24 15:13 KW [id number] 09/16/24 15:28 KW 09/02/24 09/16/24 15:07 15:13 Wound Center Nurse 1 #7 L Medial leg cluster -Current Size (cm) - Length 15.3 -Current Size (cm) - Width 3.9 -Current Size (cm) - Depth 0.1 -Total Square Cm 59.67 -Exudate Amt None Present -Wound Margin Distinct, Outline Attached -Granulation Amt Large (67-100%) Large (67-100%) -Granulation Quality Red Red -Texture (Darling-wound Skin Appearance) Assessed Assessed -Moisture (Darling-wound Skin Appearance) Assessed Assessed,Dry/ Scaly -Color (Darling-wound Skin Appearance) Assessed, Assessed, Erythema Erythema -Temperature (Darling-wound Skin No Abnormality No Abnormality Appearance) (Pt Warm) (Pt Warm) -Tenderness on Palpation (Darling-wound No No Skin Appearance) -Ulcer Cleansing Soap and Water Soap and Water -Foul Odor after Cleansing No No -Anesthetic Used 4% Lidocaine Solution #5 Left lower lateral leg cluster -Exudate Amt Medium -Exudate Type Serosanguineous -Wound Margin Distinct, Outline Attached -Granulation Amt Large (67-100%) -Granulation Quality Red -Texture (Darling-wound Skin Appearance) Assessed -Moisture (Darling-wound Skin Appearance) Assessed -Color (Darling-wound Skin Appearance) Assessed, Erythema -Temperature (Darling-wound Skin No Abnormality Appearance) (Pt Warm) -Tenderness on Palpation (Darling-wound No Skin Appearance) -Ulcer Cleansing Soap and Water Left Calf (cm) 43 Left Ankle (cm) 27 WC - Nurse 2 - General Ulcer CM Notes Start: 09/02/24 15:07 Freq: Status: Active Protocol: Activity Type Activity Date Activity User E-sign Co-sign Detail Recorded Client Recorded Date Recorded By Document 09/02/24 15:30 [id number] 09/02/24 15:33 Document 09/16/24 15:48 [id number] 09/16/24 15:50 GM 09/02/24 09/16/24 15:30 15:48 Wound Center Nurse 2 #7 L Medial leg cluster -Time 15:31 15:49 -Correct Patient Yes Yes -Correct Side, Site, Position Yes Yes -Wound/Ulcer Outcome Not Healed Not Healed -Wound Comment(s) Not debrided no debridement, 17 measures 15.2x4 11 .0x0.1 0.1 #5 Left lower lateral leg cluster -Time 15:31 15:49 -Correct Patient Yes Yes -Correct Side, Site, Position Yes Yes -Wound/Ulcer Outcome Not Healed Not Healed -Wound Comment(s) Not debrided No debridement 3.0 measures 6.5x6. 3.0 0x0.1 0.1 Pain Scale: 0-10 Numeric Is Patient Pain Free? Yes Yes WC - Nurse 3 - General Ulcer D/C NN Start: 09/02/24 15:07 Freq: Status: Active Protocol: Activity Type Activity Date Activity User E-sign Co-sign Detail Recorded Client Recorded Date Recorded By Document 09/02/24 15:52 [id number] 09/02/24 15:56 KW Document 09/08/24 16:09 [facility] [id number] 09/08/24 16:11 BM Document 09/13/24 14:57 KW [id number] 09/13/24 15:17 KW Document 09/16/24 16:08 [facility] [id number] 09/16/24 16:09 BMF 09/02/24 09/08/24 09/13/24 15:52 16:09 14:57 Wound Care Center Nurse 3 #7 L Medial leg cluster -Ulcer Cleansing Soap and Water Soap and Water -Foul Odor after Cleansing -Primary Dressing Applied Fibracol Plus Fibracol Plus 4x4 4x4 -Other Dressing amlactin and applied cream amlactin cream lotrisone per order, then along with topicals fibracol lotrisone topical and fibrocol -Primary Dressing Covered/Secured with Dry Gauze & Dry Gauze & Dry Gauze & Roll Gauze, Roll Gauze, Roll Gauze, Secured with Secured with Secured with Tape Tape Tape -Other Covering abd -Fibracol Plus 4x4 1 1 #5 Left lower lateral leg cluster -Ulcer Cleansing Soap and Water -Foul Odor after Cleansing -Primary Dressing Applied -Other Dressing amlatin and applied lac same as above lotrisone, hydrin cream fibracol per order. no open wound today -Primary Dressing Covered/Secured with Dry Gauze & Dry Gauze & Roll Gauze, Roll Gauze, Secured with Secured with Tape Tape -Other Covering abd -Fibracol Plus 4x4 Left -Tubular Bandage Single Layer Single Layer Single Layer -Size of Tubigrip Used Size E Size E Size E -Size E ($) 1 1 1 Treatment Response Procedure Tolerated Well Vital Signs Temperature (97.8 F-99.1 F) 96.7 F L 97.1 F L Temperature Source Temporal Temporal Pulse Rate (60-100) 59 L 62 Pulse Location Monitor Monitor Respiratory Rate (12-18) 16 18 Respiratory rate source Observation Observation Oxygen Delivery Method Room Air Room Air Blood Pressure (90/60-120/80) 141/81 H 147/60 H Blood Pressure Mean (mm Hg) 101 89 Source Monitor Monitor Position Sitting Sitting Blood Pressure Location Left Forearm Left Forearm Pain Scale: 0-10 Numeric Is Patient Pain Free? Yes Yes Yes WC - Visit Discharge Discharge Condition Stable Ambulatory Status Wheelchair Transportation Private Auto Accompanied by 09/16/24 16:08 Wound Care Center Nurse 3 #7 L Medial leg cluster -Ulcer Cleansing Soap and Water -Foul Odor after Cleansing No -Primary Dressing Applied Fibracol Plus 4x4 -Other Dressing lac hydrin, clobetasol per order -Primary Dressing Covered/Secured with Dry Gauze & Roll Gauze, Secured with Tape -Other Covering abd -Fibracol Plus 4x4 1 #5 Left lower lateral leg cluster -Ulcer Cleansing Soap and Water -Foul Odor after Cleansing No -Primary Dressing Applied Fibracol Plus 4x4 -Other Dressing clobetasol, lac hydrin per order -Primary Dressing Covered/Secured with Dry Gauze & Roll Gauze, Secured with Tape -Other Covering abd -Fibracol Plus 4x4 0 Left -Tubular Bandage Single Layer -Size of Tubigrip Used Size E -Size E ($) 1 Treatment Response Procedure Tolerated Well Vital Signs Temperature (97.8 F-99.1 F) Temperature Source Pulse Rate (60-100) Pulse Location Respiratory Rate (12-18) Respiratory rate source Oxygen Delivery Method Blood Pressure (90/60-120/80) Blood Pressure Mean (mm Hg) Source Position Blood Pressure Location Pain Scale: 0-10 Numeric Is Patient Pain Free? 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 For wound care, apply Lotrisone cream to the open areas then apply Fibracol plus, wrap with gauze/Kerlix, then apply Tubigrip for compression. Will plan for [facility] to continue to change twice weekly on Tuesdays and Fridays and then will have him present here for a nurse visit on Friday and to see me on . I think that part of his rash and persistent issues having difficulty with moisture control with less frequent dressing changes, unfortunately have limited ability for increased frequency and changes. Daily antihistamine seems to have helped with the rash, continue this for now. His states today that he really is not very good at elevating his legs. We discussed importance of leg elevation and managing his edema therefore overall drainage. He is instructed to elevate his legs at all resting times, preferably at or above the level of the heart. He is advised to perform ankle flexion exercises. He is s/p successful LLE saphenous vein ablation. He will return to see me in 1 week.
[2024-09-20 15:28] VITALS: BP 141/70; PULSE 92; RESP 18; TEMP 36.4; BMI 28.4
[2024-09-27 13:18] VITALS: BP 134/63; PULSE 82; RESP 18; TEMP 36; BMI 28.4
[2024-09-30 14:33] VITALS: BP 160/65; PULSE 62; RESP 18; TEMP 35.7; BMI 28.4
--- NOTE | 2024-09-30 16:23 | PN.PCM_ITS ---
History of Present Illness Date of Service: 09/30/24 Chief Complaint: LLE wounds History of Wound: Mr. Paola Boyer is an 83 y/o male who presents to the wound healing center today with left lower extremity wounds. He was referred by Nuvia Brooks. He is accompanied to his appointment today by his . He relays that he has been dealing with these left lower extremity wounds recurrently over the past few years. They will become very close to healing and then subsequently open back up. His reports that all really started with a lot of swelling and redness in his lower legs which progressively worsened to weeping before developing these focal wounds. He has been treated to this point at [facility] with Unna boots and all of the surrounding skin has much improved in appearance however the wounds remain. He has not had any prior venous imaging to his knowledge and no venous interventions. No history of peripheral arterial disease or arterial interventions. He is not diabetic. He is not currently smoking, he quit in 1964. He presents today in an automated wheelchair. His insurance unfortunately has a very high co-pay for debridements which will be kept in mind throughout his treatment. Subjective Subjective Paola returns for management of his LLE wounds this week. He has a lot of dry skin, open areas are much smaller. Has been using the clobetasol/clotrimazole now for 3-4 weeks. Objective Data Objective Data Vital Signs: Vital Signs Temp Pulse Resp BP O2 Del Method 96.2 F L 62 18 160/65 H Room Air 09/30/24 14:33 09/30/24 14:33 09/30/24 14:33 09/30/24 14:33 09/30/24 14:33 Oxygen Delivery Method Room Air Weight: 198 lb Body Mass Index (BMI) 28.4 Charges/Coding Visit Charges Office Visits / Consults: 34988 OV L3 Est 20min Physical Exam Const alert, oriented x3 and no apparent distress General Appearance: cooperative and comfortable HEENT normocephalic, hearing grossly normal bilaterally, external ears normal and external nose normal Eyes General Eye: normal appearance of both eyes Resp normal respiratory effort Effort and Inspection: able to speak in complete sentences; Negative for labored, stridor or audible wheezes Extremity Extremity Narrative: 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 Trace edema on exam today. No apparent bulging varicosities. No weeping or skin breakdown except for wounds as noted below. Easily palpable pedal pulses. Skin Wounds: wounds noted Wound Narrative: L posterior/lateral calf wound cluster improved in size, remains very superficial. L medial calf wound cluster limited to superficial skin breakdown with minimal slough. No significant surrounding erythema. Serous drainage. Neuro oriented x3, CN's II-XII intact bilaterally and moves all extremities Speech: speech normal Debridement Note Debridement Note No debridement was completed: No debridement was completed today Post-Debridement Measurements and Additional Note: Post-Debridement Measurements/Treatment - Nurse 1 - General Ulcer Assessment Start: 09/02/24 15:07 Freq: Status: Active Protocol: .RAY Activity Type Activity Date Activity User E-sign Co-sign Detail Recorded Client Recorded Date Recorded By Document 09/02/24 15:07 KW po' 09/02/24 15:25 KW Document 09/08/24 16:09 BMF [id number] 09/08/24 16:11 BMF Document 09/13/24 14:57 KW [id number] 09/13/24 15:17 KW Document 09/16/24 15:13 KW [id number] 09/16/24 15:28 KW Document 09/20/24 15:28 KW [id number] 09/20/24 15:50 KW Document 09/27/24 13:18 DL [id number] 09/27/24 13:26 DL Document 09/30/24 14:33 KW [id number] 09/30/24 14:46 KW 09/02/24 09/08/24 09/13/24 15:07 16:09 14:57 - Today's Visit Information Type of service Follow-up Visit Nurse-only Nurse-only (Physician/AUTOMATION SOFTWARE ENGINEER Visit Visit ) Arrival Mode Other Wheelchair Other Arrival Mode (Other) scooter scooter Transfer Assistance None Accompanied by Patient Identification Verified (Name & Yes Yes Yes ) Patient Requires Transmission-Based Precautions Height and Weight Body Mass Index (BMI) 28.4 28.4 28.4 BMI Classification Overweight Overweight Overweight Vital Signs Temperature (97.8 F-99.1 F) 96.6 F L 96.7 F L 97.1 F L Temperature Source Temporal Temporal Temporal Pulse Rate (60-100) 59 L 62 Pulse Location Monitor Monitor Monitor Respiratory Rate (12-18) 18 16 18 Respiratory rate source Observation Observation Observation Oxygen Delivery Method Room Air Room Air Room Air Blood Pressure (90/60-120/80) 138/66 H 141/81 H 147/60 H Blood Pressure Mean (mm Hg) 90 101 89 Source Monitor Monitor Monitor Position Semi-Fowlers Sitting Sitting Blood Pressure Location Left Forearm Left Forearm Left Forearm History Since Last Visit- (Skip if this is Patient's initial visit) Have you changed medications since your No No No last visit? Any new allergies or adverse reactions No No No Had a fall/change in ADL's that may No No No increase risk of falls Signs or symptoms of abuse and/or No No No neglect since last visit Have you been in the hospital since your No No No last visit? Has dressing in place as prescribed Yes Yes Yes Has compression in place as prescribed Yes Yes Yes Has offloadiing in place as prescribed N/A N/A N/A Experienced any changes in pain level or No No No management Left Footwear Regular Shoe Regular Shoe Regular Shoe Right Footwear Regular Shoe Regular Shoe Regular Shoe Pain Scale: 0-10 Numeric Is Patient Pain Free? Yes Yes Yes 09/16/24 09/20/24 09/27/24 15:13 15:28 13:18 WC - Today's Visit Information Type of service Follow-up Visit Nurse-only Nurse-only (Physician/AUTOMATION SOFTWARE ENGINEER Visit Visit ) Arrival Mode Ambulatory Other Walker, Wheelchair Arrival Mode (Other) scooter Transfer Assistance None Accompanied by Patient Identification Verified (Name & Yes Yes Yes ) Patient Requires Transmission-Based No Precautions Height and Weight Body Mass Index (BMI) 28.4 28.4 28.4 BMI Classification Overweight Overweight Overweight Vital Signs Temperature (97.8 F-99.1 F) 97.2 F L 97.6 F L 96.8 F L Temperature Source Temporal Temporal Temporal Pulse Rate (60-100) 64 92 82 Pulse Location Monitor Monitor Monitor Respiratory Rate (12-18) 18 18 18 Respiratory rate source Observation Monitor Oxygen Delivery Method Room Air Room Air Blood Pressure (90/60-120/80) 109/62 141/70 H 134/63 H Blood Pressure Mean (mm Hg) 77 93 86 Source Monitor Monitor Monitor Position Sitting Sitting Blood Pressure Location Left Arm Left Forearm History Since Last Visit- (Skip if this is Patient's initial visit) Have you changed medications since your No No No last visit? Any new allergies or adverse reactions No No No Had a fall/change in ADL's that may No No No increase risk of falls Signs or symptoms of abuse and/or No No No neglect since last visit Have you been in the hospital since your No No No last visit? Has dressing in place as prescribed Yes Yes Yes Has compression in place as prescribed Yes Yes Yes Has offloadiing in place as prescribed N/A N/A Yes Experienced any changes in pain level or No No No management Left Footwear Regular Shoe Regular Shoe Right Footwear Regular Shoe Regular Shoe Pain Scale: 0-10 Numeric Is Patient Pain Free? Yes Yes Yes 09/30/24 14:33 WC - Today's Visit Information Type of service Follow-up Visit (Physician/AUTOMATION SOFTWARE ENGINEER ) Arrival Mode Other Arrival Mode (Other) scooter Transfer Assistance Accompanied by Patient Identification Verified (Name & Yes ) Patient Requires Transmission-Based Precautions Height and Weight Body Mass Index (BMI) 28.4 BMI Classification Overweight Vital Signs Temperature (97.8 F-99.1 F) 96.2 F L Temperature Source Temporal Pulse Rate (60-100) 62 Pulse Location Monitor Respiratory Rate (12-18) 18 Respiratory rate source Observation Oxygen Delivery Method Room Air Blood Pressure (90/60-120/80) 160/65 H Blood Pressure Mean (mm Hg) 96 Source Monitor Position Sitting Blood Pressure Location Right Forearm History Since Last Visit- (Skip if this is Patient's initial visit) Have you changed medications since your No last visit? Any new allergies or adverse reactions No Had a fall/change in ADL's that may No increase risk of falls Signs or symptoms of abuse and/or No neglect since last visit Have you been in the hospital since your No last visit? Has dressing in place as prescribed Yes Has compression in place as prescribed Yes Has offloadiing in place as prescribed N/A Experienced any changes in pain level or No management Left Footwear Regular Shoe Right Footwear Regular Shoe Pain Scale: 0-10 Numeric Is Patient Pain Free? Yes - Nurse 1 - General Ulcer Measurement Start: 09/02/24 15:07 Freq: Status: Active Protocol: Activity Type Activity Date Activity User E-sign Co-sign Detail Recorded Client Recorded Date Recorded By Document 09/02/24 15:07 KW po' 10/03/24 15:25 KW Document 09/16/24 15:13 KW [id number] 09/16/24 15:28 KW Document 09/27/24 13:18 DL [id number] 09/27/24 13:26 DL Document 09/30/24 14:33 KW [id number] 09/30/24 14:46 KW 09/02/24 09/16/24 09/27/24 15:07 15:13 13:18 Wound Center Nurse 1 #7 L Medial leg cluster -Current Size (cm) - Length 15.3 0.1 -Current Size (cm) - Width 3.9 0.1 -Current Size (cm) - Depth 0.1 0.1 -Total Square Cm 59.67 0.01 -Exudate Amt None Present Small -Exudate Type Serosanguineous -Wound Margin Distinct, Indistinct, Non Outline -Visible Attached -Granulation Amt Large (67-100%) Large (67-100%) Large (67-100%) -Granulation Quality Red Red [place] -Necrosis Amt Small (1-33%) -Necrotic Tissue Type Adherent Slough -Structure Exposed N/A -Texture (Darling-wound Skin Appearance) Assessed Assessed Excoriation, Scarring,Rash -Moisture (Darling-wound Skin Appearance) Assessed Assessed,Dry/ Dry/Scaly Scaly -Color (Darling-wound Skin Appearance) Assessed, Assessed, No Abnormality Erythema Erythema -Temperature (Darling-wound Skin No Abnormality No Abnormality No Abnormality Appearance) (Pt Warm) (Pt Warm) (Pt Warm) -Tenderness on Palpation (Darling-wound No No No Skin Appearance) -Ulcer Cleansing Soap and Water Soap and Water Soap and Water -Foul Odor after Cleansing No No No -Anesthetic Used 4% Lidocaine Solution -Wound Comment(s) Amlactin and lotrisome today #5 Left lower lateral leg cluster -Current Size (cm) - Length 0.1 -Current Size (cm) - Width 0.1 -Current Size (cm) - Depth 0.1 -Total Square Cm 0.01 -Exudate Amt Medium Small -Exudate Type Serosanguineous Serosanguineous -Wound Margin Distinct, Indistinct, Non Outline -Visible Attached -Granulation Amt Large (67-100%) Small (1-33%) -Granulation Quality Red [place] -Necrosis Amt Large (67-100%) -Necrotic Tissue Type Adherent Slough -Texture (Darling-wound Skin Appearance) Assessed Excoriation, Scarring,Rash -Moisture (Darling-wound Skin Appearance) Assessed Dry/Scaly -Color (Darling-wound Skin Appearance) Assessed, No Abnormality, Erythema Hemosiderin Staining -Temperature (Darling-wound Skin No Abnormality No Abnormality Appearance) (Pt Warm) (Pt Warm) -Tenderness on Palpation (Darling-wound No Skin Appearance) -Ulcer Cleansing Soap and Water Soap and Water -Foul Odor after Cleansing No Left Calf (cm) 43 44.4 Left Ankle (cm) 27 25.8 09/30/24 14:33 Wound Center Nurse 1 #7 L Medial leg cluster -Current Size (cm) - Length 0.1 -Current Size (cm) - Width 0.1 -Current Size (cm) - Depth 0.1 -Total Square Cm 0.01 -Exudate Amt None Present -Exudate Type -Wound Margin -Granulation Amt -Granulation Quality -Necrosis Amt -Necrotic Tissue Type -Structure Exposed -Texture (Darling-wound Skin Appearance) Assessed -Moisture (Darling-wound Skin Appearance) Assessed,Dry/ Scaly -Color (Darling-wound Skin Appearance) Assessed -Temperature (Darling-wound Skin No Abnormality Appearance) (Pt Warm) -Tenderness on Palpation (Darling-wound No Skin Appearance) -Ulcer Cleansing Soap and Water -Foul Odor after Cleansing No -Anesthetic Used -Wound Comment(s) #5 Left lower lateral leg cluster -Current Size (cm) - Length 0.1 -Current Size (cm) - Width 0.1 -Current Size (cm) - Depth 0.1 -Total Square Cm 0.01 -Exudate Amt -Exudate Type -Wound Margin -Granulation Amt -Granulation Quality -Necrosis Amt -Necrotic Tissue Type -Texture (Darling-wound Skin Appearance) Assessed -Moisture (Darling-wound Skin Appearance) Assessed,Dry/ Scaly -Color (Darling-wound Skin Appearance) Assessed -Temperature (Darling-wound Skin No Abnormality Appearance) (Pt Warm) -Tenderness on Palpation (Darling-wound No Skin Appearance) -Ulcer Cleansing Soap and Water -Foul Odor after Cleansing Left Calf (cm) 42.2 Left Ankle (cm) 26.5 WC - Nurse 2 - General Ulcer CM Notes Start: 09/02/24 15:07 Freq: Status: Active Protocol: Activity Type Activity Date Activity User E-sign Co-sign Detail Recorded Client Recorded Date Recorded By Document 09/02/24 15:30 GM [id number] 09/02/24 15:33 GM Document 09/16/24 15:48 GM [id number] 09/16/24 15:50 GM Document 09/30/24 15:08 GM [id number] 09/30/24 15:12 GM 09/02/24 09/16/24 09/30/24 15:30 15:48 15:08 Wound Center Nurse 2 #7 L Medial leg cluster -Time 15: 15:49 15:09 -Correct Patient Yes Yes Yes -Correct Side, Site, Position Yes Yes Yes -Wound/Ulcer Outcome Not Healed Not Healed -Wound Comment(s) Not debrided no debridement, 17 measures 15.2x4 11 .0x0.1 0.1 #5 Left lower lateral leg cluster -Time 15: 15:49 15:11 -Correct Patient Yes Yes Yes -Correct Side, Site, Position Yes Yes Yes -Post Debridement (cm) - Length 1.0 -Post Debridement (cm) - Width 0.5 -Post Debridement (cm) - Depth 0.1 -Total Square (Post) (cm) 0.50 -Wound/Ulcer Outcome Not Healed Not Healed Not Healed -Wound Comment(s) Not debrided No debridement 3.0 measures 6.5x6. 3.0 0x0.1 0.1 Pain Scale: 0-10 Numeric Is Patient Pain Free? Yes Yes Yes WC - Nurse 3 - General Ulcer D/C NN Start: 09/02/24 15:07 Freq: Status: Active Protocol: Activity Type Activity Date Activity User E-sign Co-sign Detail Recorded Client Recorded Date Recorded By Document 09/02/24 15:52 KW [id number] 09/02/24 15:56 KW Document 09/08/24 16:09 BMF [id number] 09/08/24 16:11 BM Document 09/13/24 14:57 KW [id number] 09/13/24 15:17 KW Document 09/16/24 16:08 BMF [id number] 09/16/24 16:09 BM Document 09/20/24 15:28 KW [id number] 09/20/24 15:50 KW Document 09/27/24 13:18 DL [id number] 09/27/24 13:26 DL Document 09/30/24 15:24 KW [id number] 09/30/24 15:26 KW 09/02/24 09/08/24 09/13/24 15:52 16:09 14:57 Wound Care Center Nurse 3 #7 L Medial leg cluster -Ulcer Cleansing Soap and Water Soap and Water -Foul Odor after Cleansing -Primary Dressing Applied Fibracol Plus Fibracol Plus 4x4 4x4 -Other Dressing amlactin and applied cream amlactin cream lotrisone per order, then along with topicals fibracol lotrisone topical and fibrocol -Primary Dressing Covered/Secured with Dry Gauze & Dry Gauze & Dry Gauze & Roll Gauze, Roll Gauze, Roll Gauze, Secured with Secured with Secured with Tape Tape Tape -Other Covering abd -Fibracol Plus 4x4 1 1 #5 Left lower lateral leg cluster -Ulcer Cleansing Soap and Water -Foul Odor after Cleansing -Primary Dressing Applied -Other Dressing amlatin and applied lac same as above lotrisone, hydrin cream fibracol per order. no open wound today -Primary Dressing Covered/Secured with Dry Gauze & Dry Gauze & Roll Gauze, Roll Gauze, Secured with Secured with Tape Tape -Other Covering abd -Fibracol Plus 4x4 BLE -Tubular Bandage -Size of Tubigrip Used -Size E ($) Left -Multi-Layered Wrap Application -Tubular Bandage Single Layer Single Layer Single Layer -Size of Tubigrip Used Size E Size E Size E -Size E ($) 1 1 1 Treatment Response Procedure Tolerated Well Vital Signs Temperature (97.8 F-99.1 F) 96.7 F L 97.1 F L Temperature Source Temporal Temporal Pulse Rate (60-100) 59 L 62 Pulse Location Monitor Monitor Respiratory Rate (12-18) 16 18 Respiratory rate source Observation Observation Oxygen Delivery Method Room Air Room Air Blood Pressure (90/60-120/80) 141/81 H 147/60 H Blood Pressure Mean (mm Hg) 101 89 Source Monitor Monitor Position Sitting Sitting Blood Pressure Location Left Forearm Left Forearm Pain Scale: 0-10 Numeric Is Patient Pain Free? Yes Yes Yes WC - Visit Discharge Discharge Condition Stable Ambulatory Status Wheelchair Transportation Private Auto Accompanied by Medication Reconcilliation completed & provided to patient/care provider Clinical Summary of Care Provided Facility Type Orders Sent 09/16/24 09/20/24 09/27/24 16:08 15:28 13:18 Wound Care Center Nurse 3 #7 L Medial leg cluster -Ulcer Cleansing Soap and Water Soap and Water Soap and Water -Foul Odor after Cleansing No No -Primary Dressing Applied Fibracol Plus 4x4 -Other Dressing lac hydrin, amlactin cream Lotrisome, clobetasol per and lotrisone amlactin order cream with pt fibrocol -Primary Dressing Covered/Secured with Dry Gauze & Dry Gauze & Dry Gauze & Roll Gauze, Roll Gauze, Roll Gauze, Secured with Secured with Secured with Tape Tape Tape -Other Covering abd ABD -Fibracol Plus 4x4 1 #5 Left lower lateral leg cluster -Ulcer Cleansing Soap and Water Soap and Water Soap and Water -Foul Odor after Cleansing No No -Primary Dressing Applied Fibracol Plus 4x4 -Other Dressing clobetasol, lac amlactin cream AMlactin, hydrin per with lotrisone lotrisome order cream and pt fibrocol -Primary Dressing Covered/Secured with Dry Gauze & Dry Gauze & Dry Gauze & Roll Gauze, Roll Gauze, Roll Gauze, Secured with Secured with Secured with Tape Tape Tape -Other Covering abd ABD -Fibracol Plus 4x4 0 BLE -Tubular Bandage Single Layer -Size of Tubigrip Used Size E -Size E ($) 1 Left -Multi-Layered Wrap Application -Tubular Bandage Single Layer Double Layer -Size of Tubigrip Used Size E Size E -Size E ($) 1 2 Treatment Response Procedure Procedure Tolerated Well Tolerated Well Vital Signs Temperature (97.8 F-99.1 F) 97.6 F L 96.8 F L Temperature Source Temporal Temporal Pulse Rate (60-100) 92 82 Pulse Location Monitor Monitor Respiratory Rate (12-18) 18 18 Respiratory rate source Monitor Oxygen Delivery Method Room Air Blood Pressure (90/60-120/80) 141/70 H 134/63 H Blood Pressure Mean (mm Hg) 93 86 Source Monitor Monitor Position Sitting Blood Pressure Location Left Forearm Pain Scale: 0-10 Numeric Is Patient Pain Free? Yes Yes Yes WC - Visit Discharge Discharge Condition Stable Stable Ambulatory Status Wheelchair Ambulatory, Walker Transportation Private Auto Private Auto Private Auto Accompanied by Medication Reconcilliation completed & No provided to patient/care provider Clinical Summary of Care Provided Yes Facility Type Home Health Orders Sent Yes 09/30/24 15:24 Wound Care Center Nurse 3 #7 L Medial leg cluster -Ulcer Cleansing -Foul Odor after Cleansing -Primary Dressing Applied Fibracol Plus 4x4 -Other Dressing -Primary Dressing Covered/Secured with Dry Gauze -Other Covering -Fibracol Plus 4x4 1 #5 Left lower lateral leg cluster -Ulcer Cleansing -Foul Odor after Cleansing -Primary Dressing Applied -Other Dressing fibracol -Primary Dressing Covered/Secured with Dry Gauze & Roll Gauze, Secured with Tape -Other Covering -Fibracol Plus 4x4 BLE -Tubular Bandage -Size of Tubigrip Used -Size E ($) Left -Multi-Layered Wrap Application Unna Boot - Left ($) -Tubular Bandage -Size of Tubigrip Used -Size E ($) Treatment Response Vital Signs Temperature (97.8 F-99.1 F) Temperature Source Pulse Rate (60-100) Pulse Location Respiratory Rate (12-18) Respiratory rate source Oxygen Delivery Method Blood Pressure (90/60-120/80) Blood Pressure Mean (mm Hg) Source Position Blood Pressure Location Pain Scale: 0-10 Numeric Is Patient Pain Free? 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 The open areas are significantly reduced in size and number. He has a lot of flaky skin. This week, will apply an Unna boot. He is instructed to keep it clean and dry. Will plan to change at least here on Friday with nurse visit and if possible HHC will also change one other time over the week. He will return to see me next . He is instructed to elevate his legs at all resting times, preferably at or above the level of the heart. He is advised to perform ankle flexion exercises. He is s/p successful LLE saphenous vein ablation.
== END 2024-09-30 23:59 | disposition home or self-care (01) ==
LOC: WC 14:30
PROVIDERS: PCP Family Medicine; Referring Provider Dermatology; Visit Provider Physician Assistant
DX: L97.922 Non-pressure chronic ulcer of unspecified part of left lower leg with fat layer exposed (principal); M79.3 Panniculitis, unspecified; R60.0 Localized edema; Z87.891 Personal history of nicotine dependence; Z99.3 Dependence on wheelchair
CPT/HCPCS: 29580; 99212; 99213; G0463

== ENCOUNTER 2024-10-21 14:45 | Outpatient (RCR) | payer MEDICARE, SELFPAY ==
[2024-10-01 00:38] VITALS: BP 128/53; PULSE 67; RESP 18; TEMP 36; BMI 28.4
[2024-10-04 15:27] VITALS: BP 125/47; PULSE 82; RESP 16; TEMP 36.2; BMI 28.4
[2024-10-07 15:03] VITALS: BP 144/72; PULSE 62; RESP 16; TEMP 36.4; BMI 28.4
--- NOTE | 2024-10-07 15:31 | PN.PCM_ITS ---
History of Present Illness Date of Service: 10/07/24 Chief Complaint: LLE wounds History of Wound: Mr. Paola Boyer is an 83 y/o male who presents to the wound healing center today with left lower extremity wounds. He was referred by Nuvia Brooks. He is accompanied to his appointment today by his . He relays that he has been dealing with these left lower extremity wounds recurrently over the past few years. They will become very close to healing and then subsequently open back up. His reports that all really started with a lot of swelling and redness in his lower legs which progressively worsened to weeping before developing these focal wounds. He has been treated to this point at [facility] with Unna boots and all of the surrounding skin has much improved in appearance however the wounds remain. He has not had any prior venous imaging to his knowledge and no venous interventions. No history of peripheral arterial disease or arterial interventions. He is not diabetic. He is not currently smoking, he quit in 1964. He presents today in an automated wheelchair. His insurance unfortunately has a very high co-pay for debridements which will be kept in mind throughout his treatment. Subjective Subjective Did well with Unna boots. Unfortunately when removed, did kind of peel away skin and a few spots. Right now, he has an open spot on his medial ankle and left calf which are very superficial with red wound base. No signs or symptoms of infection. Objective Data Objective Data Vital Signs: Vital Signs Temp Pulse Resp BP O2 Del Method 97.6 F L 62 16 144/72 H Room Air 10/07/24 15:03 10/07/24 15:03 10/07/24 15:03 10/07/24 15:03 10/07/24 15:03 Oxygen Delivery Method Room Air Weight: 198 lb Body Mass Index (BMI) 28.4 Charges/Coding Visit Charges Office Visits / Consults: 56989 OV L3 Est 20min Physical Exam Const alert, oriented x3 and no apparent distress General Appearance: cooperative and comfortable HEENT normocephalic, hearing grossly normal bilaterally, external ears normal and external nose normal Eyes General Eye: normal appearance of both eyes Resp normal respiratory effort Effort and Inspection: able to speak in complete sentences; Negative for labored, stridor or audible wheezes Extremity Extremity Narrative: 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 Trace edema on exam today. No apparent bulging varicosities. No weeping or skin breakdown except for wounds as noted below. Easily palpable pedal pulses. Skin Wounds: wounds noted Wound Narrative: L posterior/lateral calf wound cluster improved in size, remains very superficia l. L medial calf wound cluster limited to superficial skin breakdown with minimal slough. No significant surrounding erythema. Serous drainage. Neuro oriented x3, CN's II-XII intact bilaterally and moves all extremities Speech: speech normal Debridement Note Debridement Note No debridement was completed: No debridement was completed today Post-Debridement Measurements and Additional Note: Post-Debridement Measurements/Treatment - Nurse 1 - General Ulcer Assessment Start: 10/04/24 15:27 Freq: Status: Active Protocol: DUSTIN Activity Type Activity Date Activity User E-sign Co-sign Detail Recorded Client Recorded Date Recorded By Document 10/04/24 15:27 [facility] [id number] 10/04/24 15:32 [facility] Document 10/07/24 15:03 DL [id number] 10/07/24 15:12 DL 10/04/24 10/07/24 15:27 15:03 - Today's Visit Information Type of service Nurse-only Follow-up Visit Visit (Physician/CUSTOMER ADVISOR SPECIALIST ) Arrival Mode Wheelchair Wheelchair Transfer Assistance None None Accompanied by Patient Identification Verified (Name & Yes Yes ) Patient Requires Transmission-Based No No Precautions Height and Weight Body Mass Index (BMI) 28.4 28.4 BMI Classification Overweight Overweight Vital Signs Temperature (97.8 F-99.1 F) 97.2 F L 97.6 F L Temperature Source Temporal Temporal Pulse Rate (60-100) 82 62 Pulse Location Monitor Monitor Respiratory Rate (12-18) 16 16 Respiratory rate source Observation Observation Oxygen Delivery Method Room Air Room Air Blood Pressure (90/60-120/80) 125/47 H 144/72 H Blood Pressure Mean (mm Hg) 73 96 Source Monitor Monitor Position Sitting Sitting Blood Pressure Location Right Arm Left Arm History Since Last Visit- (Skip if this is Patient's initial visit) Have you changed medications since your No No last visit? Any new allergies or adverse reactions No No Had a fall/change in ADL's that may No No increase risk of falls Signs or symptoms of abuse and/or No No neglect since last visit Have you been in the hospital since your No No last visit? Has dressing in place as prescribed Yes Yes Has compression in place as prescribed Yes Yes Has offloadiing in place as prescribed N/A N/A Experienced any changes in pain level or No No management Left Footwear Regular Shoe Regular Shoe Right Footwear Regular Shoe Regular Shoe Pain Scale: 0-10 Numeric Is Patient Pain Free? Yes Yes WC - Nurse 1 - General Ulcer Measurement Start: 10/04/24 15:27 Freq: Status: Active Protocol: Activity Type Activity Date Activity User E-sign Co-sign Detail Recorded Client Recorded Date Recorded By Document 10/04/24 15:27 BMF [id number] 10/04/24 15:32 BMF Document 10/07/24 15:03 DL [id number] 10/07/24 15:12 DL 10/04/24 10/07/24 15:27 15:03 Wound Center Nurse 1 #7 L Medial leg cluster -Combined with other wound No -Current Size (cm) - Length 0.1 -Current Size (cm) - Width 0.1 -Current Size (cm) - Depth 0.1 -Total Square Cm 0.01 -Epithelialization Large 67-100% -Exudate Amt Small -Exudate Type Serosanguineous -Texture (Darling-wound Skin Appearance) Assessed, Scarring -Moisture (Darling-wound Skin Appearance) Assessed,Dry/ Scaly -Color (Darling-wound Skin Appearance) Assessed -Temperature (Darling-wound Skin No Abnormality Appearance) (Pt Warm) -Tenderness on Palpation (Darling-wound No Skin Appearance) -Ulcer Cleansing Soap and Water -Foul Odor after Cleansing No #5 Left lower lateral leg cluster -Combined with other wound No -Current Size (cm) - Length 0.1 -Current Size (cm) - Width 0.1 -Current Size (cm) - Depth 0.1 -Total Square Cm 0.01 -Epithelialization Large 67-100% -Tunneling No -Undermining/Tunneling No -Circular Undermining No -Texture (Darling-wound Skin Appearance) Assessed, Scarring -Moisture (Darling-wound Skin Appearance) Assessed,Dry/ Scaly -Color (Darling-wound Skin Appearance) Assessed -Temperature (Darling-wound Skin No Abnormality Appearance) (Pt Warm) -Tenderness on Palpation (Darling-wound No Skin Appearance) -Ulcer Cleansing Soap and Water -Foul Odor after Cleansing No Lower Limb Edema Present Yes Yes Left Calf (cm) 42.3 43.1 Left Ankle (cm) 27 26 WC - Nurse 2 - General Ulcer CM Notes Start: 10/04/24 15:27 Freq: Status: Active Protocol: Activity Type Activity Date Activity User E-sign Co-sign Detail Recorded Client Recorded Date Recorded By Document 10/07/24 15:25 [id number] 10/07/24 15:26 10/07/24 15:25 Wound Center Nurse 2 #7 L Medial leg cluster -Time 15:25 -Correct Patient Yes -Correct Side, Site, Position Yes -Wound/Ulcer Outcome Not Healed -Wound Comment(s) measures 7.0 4.2 0.1 #5 Left lower lateral leg cluster -Time 15:26 -Correct Patient Yes -Correct Side, Site, Position Yes -Wound/Ulcer Outcome Not Healed -Wound Comment(s) measures 4.0 4.0 0.1 Pain Scale: 0-10 Numeric Is Patient Pain Free? Yes - Nurse 3 - General Ulcer D/C NN Start: 10/04/24 15:27 Freq: Status: Active Protocol: Activity Type Activity Date Activity User E-sign Co-sign Detail Recorded Client Recorded Date Recorded By Document 10/04/24 15:27 [facility] [id number] 10/04/24 15:32 [facility] 10/04/24 15:27 Vital Signs Temperature (97.8 F-99.1 F) 97.2 F L Temperature Source Temporal Pulse Rate (60-100) 82 Pulse Location Monitor Respiratory Rate (12-18) 16 Respiratory rate source Observation Oxygen Delivery Method Room Air Blood Pressure (90/60-120/80) 125/47 H Blood Pressure Mean (mm Hg) 73 Source Monitor Position Sitting Blood Pressure Location Right Arm Pain Scale: 0-10 Numeric Is Patient Pain Free? 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 For wound care, will apply Fibracol followed by Adaptic to the open areas and then apply Unna boot. He does have home health reinstated so we will see if they can change these on Friday and then he will return to see me for dressing changes then. He is instructed to elevate his legs at all resting times, preferably at or above the level of the heart. He is advised to perform ankle flexion exercises. He is s/p successful LLE saphenous vein ablation.
[2024-10-14 15:06] VITALS: BP 167/76; PULSE 85; RESP 18; TEMP 36.2; BMI 28.4
--- NOTE | 2024-10-14 15:31 | PN.PCM_ITS ---
History of Present Illness Date of Service: 10/14/24 Chief Complaint: LLE wounds History of Wound: Mr. Paola Boyer is an 83 y/o male who presents to the wound healing center today with left lower extremity wounds. He was referred by Nuvia Brooks. He is accompanied to his appointment today by his . He relays that he has been dealing with these left lower extremity wounds recurrently over the past few years. They will become very close to healing and then subsequently open back up. His reports that all really started with a lot of swelling and redness in his lower legs which progressively worsened to weeping before developing these focal wounds. He has been treated to this point at [facility] with Unna boots and all of the surrounding skin has much improved in appearance however the wounds remain. He has not had any prior venous imaging to his knowledge and no venous interventions. No history of peripheral arterial disease or arterial interventions. He is not diabetic. He is not currently smoking, he quit in 1964. He presents today in an automated wheelchair. His insurance unfortunately has a very high co-pay for debridements which will be kept in mind throughout his treatment. Subjective Subjective Again with worsening superficial skin breakdown. No new erythema, warmth, foul odor, fevers, chills. Objective Data Objective Data Vital Signs: Vital Signs Temp Pulse Resp BP O2 Del Method 97.1 F L 85 18 167/76 H Room Air 10/14/24 15:06 10/14/24 15:06 10/14/24 15:06 10/14/24 15:06 10/07/24 15:03 Oxygen Delivery Method Room Air Weight: 198 lb Body Mass Index (BMI) 28.4 Charges/Coding Visit Charges Office Visits / Consults: 66252 OV L3 Est 20min Physical Exam Const alert, oriented x3 and no apparent distress General Appearance: cooperative and comfortable HEENT normocephalic, hearing grossly normal bilaterally, external ears normal and external nose normal Eyes General Eye: normal appearance of both eyes Resp normal respiratory effort Effort and Inspection: able to speak in complete sentences; Negative for labored, stridor or audible wheezes Extremity Extremity Narrative: 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 Trace edema on exam today. No apparent bulging varicosities. No weeping or skin breakdown except for wounds as noted below. Easily palpable pedal pulses. Skin Wounds: wounds noted Wound Narrative: L posterior/lateral calf wound cluster enlarged this week, red wound base. Significant maceration. L medial calf wound cluster enlarged this week, red wound base, significant maceration. No significant surrounding erythema. Serous drainage. Neuro oriented x3, CN's II-XII intact bilaterally and moves all extremities Speech: speech normal Debridement Note Debridement Note No debridement was completed: No debridement was completed today Post-Debridement Measurements and Additional Note: Post-Debridement Measurements/Treatment - Nurse 1 - General Ulcer Assessment Start: 10/04/24 15:27 Freq: Status: Active Protocol: [email or web address].RAY Activity Type Activity Date Activity User E-sign Co-sign Detail Recorded Client Recorded Date Recorded By Document 10/04/24 15:27 [facility] [id number] 10/04/24 15:32 BM Document 10/07/24 15:03 DL [id number] 10/07/24 15:12 DL Document 10/14/24 15:06 DL [id number] 10/14/24 15:12 DL 10/04/24 10/07/24 10/14/24 15:27 15:03 15:06 - Today's Visit Information Type of service Nurse-only Follow-up Visit Follow-up Visit Visit (Physician/OIL AND GAS EXPLORATION TECHNICIAN (Physician/OIL AND GAS EXPLORATION TECHNICIAN ) ) Arrival Mode Wheelchair Wheelchair Wheelchair Transfer Assistance None None None Accompanied by Patient Identification Verified (Name & Yes Yes Yes ) Patient Requires Transmission-Based No No No Precautions Height and Weight Body Mass Index (BMI) 28.4 28.4 28.4 BMI Classification Overweight Overweight Overweight Vital Signs Temperature (97.8 F-99.1 F) 97.2 F L 97.6 F L 97.1 F L Temperature Source Temporal Temporal Temporal Pulse Rate (60-100) 82 62 85 Pulse Location Monitor Monitor Monitor Respiratory Rate (12-18) 16 16 18 Respiratory rate source Observation Observation Observation Oxygen Delivery Method Room Air Room Air Blood Pressure (90/60-120/80) 125/47 H 144/72 H 167/76 H Blood Pressure Mean (mm Hg) 73 96 106 Source Monitor Monitor Monitor Position Sitting Sitting Blood Pressure Location Right Arm Left Arm History Since Last Visit- (Skip if this is Patient's initial visit) Have you changed medications since your No No No last visit? Any new allergies or adverse reactions No No No Had a fall/change in ADL's that may No No No increase risk of falls Signs or symptoms of abuse and/or No No No neglect since last visit Have you been in the hospital since your No No last visit? Has dressing in place as prescribed Yes Yes Yes Has compression in place as prescribed Yes Yes Yes Has offloadiing in place as prescribed N/A N/A Yes Experienced any changes in pain level or No No No management Left Footwear Regular Shoe Regular Shoe Right Footwear Regular Shoe Regular Shoe Pain Scale: 0-10 Numeric Is Patient Pain Free? Yes Yes Yes WC - Nurse 1 - General Ulcer Measurement Start: 10/04/24 15:27 Freq: Status: Active Protocol: Activity Type Activity Date Activity User E-sign Co-sign Detail Recorded Client Recorded Date Recorded By Document 10/04/24 15:27 BM [id number] 10/04/24 15:32 BMF Document 10/07/24 15:03 DL [id number] 10/07/24 15:12 DL Document 10/14/24 15:06 DL [id number] 10/14/24 15:12 DL 10/04/24 10/07/24 10/14/24 15:27 15:03 15:06 Wound Center Nurse 1 #7 L Medial leg cluster -Combined with other wound No -Current Size (cm) - Length 0.1 -Current Size (cm) - Width 0.1 -Current Size (cm) - Depth 0.1 -Total Square Cm 0.01 -Epithelialization Large 67-100% -Exudate Amt Small -Exudate Type Serosanguineous -Texture (Darling-wound Skin Appearance) Assessed, Scarring -Moisture (Darling-wound Skin Appearance) Assessed,Dry/ Scaly -Color (Darling-wound Skin Appearance) Assessed -Temperature (Darling-wound Skin No Abnormality Appearance) (Pt Warm) -Tenderness on Palpation (Darling-wound No Skin Appearance) -Ulcer Cleansing Soap and Water Soap and Water -Foul Odor after Cleansing No No -Anesthetic Used 5% Lidocaine Gel #5 Left lower lateral leg cluster -Combined with other wound No -Current Size (cm) - Length 0.1 0.1 -Current Size (cm) - Width 0.1 0.1 -Current Size (cm) - Depth 0.1 0.1 -Total Square Cm 0.01 0.01 -Epithelialization Large 67-100% -Tunneling No -Undermining/Tunneling No -Circular Undermining No -Exudate Amt None Present -Wound Margin Indistinct, Non -Visible -Granulation Amt Large (67-100%) -Granulation Quality [place] -Necrosis Amt None Present (0 %) -Structure Exposed N/A -Texture (Darling-wound Skin Appearance) Assessed, Excoriation Scarring -Moisture (Darling-wound Skin Appearance) Assessed,Dry/ Dry/Scaly Scaly -Color (Darling-wound Skin Appearance) Assessed Hemosiderin Staining -Temperature (Darling-wound Skin No Abnormality No Abnormality Appearance) (Pt Warm) (Pt Warm) -Tenderness on Palpation (Darling-wound No No Skin Appearance) -Ulcer Cleansing Soap and Water Soap and Water -Foul Odor after Cleansing No No -Anesthetic Used 4% Lidocaine Solution Lower Limb Edema Present Yes Yes Left Calf (cm) 42.3 43.1 Left Ankle (cm) 27 26 WC - Nurse 2 - General Ulcer CM Notes Start: 10/04/24 15:27 Freq: Status: Active Protocol: Activity Type Activity Date Activity User E-sign Co-sign Detail Recorded Client Recorded Date Recorded By Document 10/07/24 15:25 [id number] 10/07/24 15:26 Document 10/14/24 15:24 [id number] 10/14/24 15:26 10/07/24 10/14/24 15:25 15:24 Wound Center Nurse 2 #7 L Medial leg cluster -Time 15:25 15:24 -Correct Patient Yes Yes -Correct Side, Site, Position Yes Yes -Post Debridement (cm) - Length 15 -Post Debridement (cm) - Width 6.5 -Post Debridement (cm) - Depth 0.1 -Total Square (Post) (cm) 97.5 -Wound/Ulcer Outcome Not Healed Not Healed -Wound Comment(s) measures 7.0 4.2 0.1 #5 Left lower lateral leg cluster -Time 15:26 15:25 -Correct Patient Yes Yes -Correct Side, Site, Position Yes Yes -Post Debridement (cm) - Length 7.0 -Post Debridement (cm) - Width 5.0 -Post Debridement (cm) - Depth 0.1 -Total Square (Post) (cm) 35.00 -Wound/Ulcer Outcome Not Healed Not Healed -Wound Comment(s) measures 4.0 4.0 0.1 Pain Scale: 0-10 Numeric Is Patient Pain Free? Yes Yes WC - Nurse 3 - General Ulcer D/C NN Start: 10/04/24 15:27 Freq: Status: Active Protocol: Activity Type Activity Date Activity User E-sign Co-sign Detail Recorded Client Recorded Date Recorded By Document 10/04/24 15:27 BM [id number] 10/04/24 15:32 [facility] Document 10/07/24 15:40 [id number] 10/07/24 15:42 KW 10/04/24 10/07/24 15:27 15:40 Vital Signs Temperature (97.8 F-99.1 F) 97.2 F L Temperature Source Temporal Pulse Rate (60-100) 82 Pulse Location Monitor Respiratory Rate (12-18) 16 Respiratory rate source Observation Oxygen Delivery Method Room Air Blood Pressure (90/60-120/80) 125/47 H Blood Pressure Mean (mm Hg) 73 Source Monitor Position Sitting Blood Pressure Location Right Arm Pain Scale: 0-10 Numeric Is Patient Pain Free? Yes Yes Wound Care Center Nurse 3 #7 L Medial leg cluster -Ulcer Cleansing Rinsed/ Irrigated with Saline -Foul Odor after Cleansing No -Primary Dressing Applied NonAdherent Contact Layer -Other Dressing unna boot per fibracol kw table runner -Wound Comment(s) unna boot #5 Left lower lateral leg cluster -Ulcer Cleansing Rinsed/ Irrigated with Saline -Foul Odor after Cleansing No -Primary Dressing Applied NonAdherent Contact Layer -Other Dressing unna per kw table runner fibracol -Wound Comment(s) unna boot Left -Multi-Layered Wrap Application Unna Boot - Unna Boot - Left ($) Left ($) Treatment Response Procedure Procedure Tolerated Well Tolerated Well WC - Visit Discharge Discharge Condition Stable Stable Ambulatory Status Wheelchair Wheelchair Transportation Private Auto Private Auto Accompanied by Facility Type Home Health Assessment/Plan Assessment/Plan (1) 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 Return to fibracol to all open areas followed by dry dressing. Wash gently with antibacterial soap and water with dressing changes. Ideally, change daily or as often as the dressings become soaked/soiled; change as often as able to be supported with HHC. Can augment with nurse visits here as needed as well. Emphasized the importance of elevating his legs at all resting times, preferably at or above the level of the heart. He is advised to perform ankle flexion exercises. He is s/p successful LLE saphenous vein ablation. At this point, would like to consider Vasculera. Also consider alternative topicals such as iodosorb. Will look into the logistics of these products over this next week.
[2024-10-21 15:09] VITALS: BP 144/65; PULSE 59; RESP 18; TEMP 36.6; BMI 28.4
--- NOTE | 2024-10-21 17:48 | PN.PCM_ITS ---
History of Present Illness Date of Service: 10/21/24 Chief Complaint: LLE wounds History of Wound: Mr. Paola Boyer is an 83 y/o male who presents to the wound healing center today with left lower extremity wounds. He was referred by Nuvia Brooks. He is accompanied to his appointment today by his . He relays that he has been dealing with these left lower extremity wounds recurrently over the past few years. They will become very close to healing and then subsequently open back up. His reports that all really started with a lot of swelling and redness in his lower legs which progressively worsened to weeping before developing these focal wounds. He has been treated to this point at [facility] with Unna boots and all of the surrounding skin has much improved in appearance however the wounds remain. He has not had any prior venous imaging to his knowledge and no venous interventions. No history of peripheral arterial disease or arterial interventions. He is not diabetic. He is not currently smoking, he quit in 1964. He presents today in an automated wheelchair. His insurance unfortunately has a very high co-pay for debridements which will be kept in mind throughout his treatment. Subjective Subjective Has done well with dressing changes over the last week. Improvement in the superficial open areas that were present last week, but a couple new areas that have opened up. This is following his typical fluctuating pattern. No signs or symptoms of infection. He did start taking Diosmin supplement twice daily. Objective Data Objective Data Vital Signs: Vital Signs Temp Pulse Resp BP O2 Del Method 97.8 F 59 L 18 144/65 H Room Air 10/21/24 15:09 10/21/24 15:09 10/21/24 15:09 10/21/24 15:09 10/07/24 15:03 Oxygen Delivery Method Room Air Weight: 198 lb Body Mass Index (BMI) 28.4 Charges/Coding Visit Charges Office Visits / Consults: 36192 OV L3 Est 20min Physical Exam Const alert, oriented x3 and no apparent distress General Appearance: cooperative and comfortable HEENT normocephalic, hearing grossly normal bilaterally, external ears normal and external nose normal Eyes General Eye: normal appearance of both eyes Resp normal respiratory effort Effort and Inspection: able to speak in complete sentences; Negative for labored, stridor or audible wheezes Extremity Extremity Narrative: 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 Trace edema on exam today. No apparent bulging varicosities. No weeping or skin breakdown except for wounds as noted below. Easily palpable pedal pulses. Skin Wounds: wounds noted Wound Narrative: L lateral calf wound cluster improved this week, red wound base. Lessened maceration. L medial calf wound cluster improved this week, red wound base, less maceration. No significant surrounding erythema. Serous drainage. New left posterior calf cluster, red wound base, mild associated maceration. Left anterior angel cluster, red wound base, mild associated maceration Neuro oriented x3, CN's II-XII intact bilaterally and moves all extremities Speech: speech normal Debridement Note Debridement Note No debridement was completed: No debridement was completed today Post-Debridement Measurements and Additional Note: Post-Debridement Measurements/Treatment - Nurse 1 - General Ulcer Assessment Start: 10/04/24 15:27 Freq: Status: Active Protocol: [email or web address] Activity Type Activity Date Activity User E-sign Co-sign Detail Recorded Client Recorded Date Recorded By Document 10/04/24 15:27 F [id number] 10/04/24 15:32 BMF Document 10/07/24 15:03 DL [id number] 10/07/24 15:12 DL Document 10/14/24 15:06 DL [id number] 10/14/24 15:12 DL Document 10/21/24 15:09 DL [id number] 10/21/24 15:21 DL 10/04/24 10/07/24 10/14/24 15:27 15:03 15:06 - Today's Visit Information Type of service Nurse-only Follow-up Visit Follow-up Visit Visit (Physician/GEODETIC SURVEYOR TECHNOLOGIST (Physician/GEODETIC SURVEYOR TECHNOLOGIST ) ) Arrival Mode Wheelchair Wheelchair Wheelchair Transfer Assistance None None None Accompanied by Patient Identification Verified (Name & Yes Yes Yes ) Patient Requires Transmission-Based No No No Precautions Height and Weight Body Mass Index (BMI) 28.4 28.4 28.4 BMI Classification Overweight Overweight Overweight Vital Signs Temperature (97.8 F-99.1 F) 97.2 F L 97.6 F L 97.1 F L Temperature Source Temporal Temporal Temporal Pulse Rate (60-100) 82 62 85 Pulse Location Monitor Monitor Monitor Respiratory Rate (12-18) 16 16 18 Respiratory rate source Observation Observation Observation Oxygen Delivery Method Room Air Room Air Blood Pressure (90/60-120/80) 125/47 H 144/72 H 167/76 H Blood Pressure Mean (mm Hg) 73 96 106 Source Monitor Monitor Monitor Position Sitting Sitting Blood Pressure Location Right Arm Left Arm History Since Last Visit- (Skip if this is Patient's initial visit) Have you changed medications since your No No No last visit? Any new allergies or adverse reactions No No No Had a fall/change in ADL's that may No No No increase risk of falls Signs or symptoms of abuse and/or No No No neglect since last visit Have you been in the hospital since your No No last visit? Has dressing in place as prescribed Yes Yes Yes Has compression in place as prescribed Yes Yes Yes Has offloadiing in place as prescribed N/A N/A Yes Experienced any changes in pain level or No No No management Left Footwear Regular Shoe Regular Shoe Right Footwear Regular Shoe Regular Shoe Pain Scale: 0-10 Numeric Is Patient Pain Free? Yes Yes Yes 10/21/24 15:09 WC - Today's Visit Information Type of service Follow-up Visit (Physician/GEODETIC SURVEYOR TECHNOLOGIST ) Arrival Mode Wheelchair Transfer Assistance None Accompanied by Patient Identification Verified (Name & Yes ) Patient Requires Transmission-Based No Precautions Height and Weight Body Mass Index (BMI) 28.4 BMI Classification Overweight Vital Signs Temperature (97.8 F-99.1 F) 97.8 F Temperature Source Temporal Pulse Rate (60-100) 59 L Pulse Location Monitor Respiratory Rate (12-18) 18 Respiratory rate source Observation Oxygen Delivery Method Blood Pressure (90/60-120/80) 144/65 H Blood Pressure Mean (mm Hg) 91 Source Monitor Position Blood Pressure Location History Since Last Visit- (Skip if this is Patient's initial visit) Have you changed medications since your No last visit? Any new allergies or adverse reactions No Had a fall/change in ADL's that may No increase risk of falls Signs or symptoms of abuse and/or No neglect since last visit Have you been in the hospital since your No last visit? Has dressing in place as prescribed Yes Has compression in place as prescribed Yes Has offloadiing in place as prescribed Yes Experienced any changes in pain level or No management Left Footwear Right Footwear Pain Scale: 0-10 Numeric Is Patient Pain Free? Yes - Nurse 1 - General Ulcer Measurement Start: 10/04/24 15:27 Freq: Status: Active Protocol: Activity Type Activity Date Activity User E-sign Co-sign Detail Recorded Client Recorded Date Recorded By Document 10/04/24 15:27 [facility] [id number] 10/04/24 15:32 [facility] Document 10/07/24 15:03 DL [id number] 10/07/24 15:12 DL Document 10/14/24 15:06 DL [id number] 10/14/24 15:12 DL Document 10/21/24 15:09 DL [id number] 10/21/24 15:21 DL 10/04/24 10/07/24 10/14/24 15:27 15:03 15:06 Wound Center Nurse 1 #7 L Medial leg cluster -Combined with other wound No -Current Size (cm) - Length 0.1 -Current Size (cm) - Width 0.1 -Current Size (cm) - Depth 0.1 -Total Square Cm 0.01 -Epithelialization Large 67-100% -Exudate Amt Small -Exudate Type Serosanguineous -Wound Margin -Granulation Amt -Granulation Quality -Necrosis Amt -Structure Exposed -Texture (Darling-wound Skin Appearance) Assessed, Scarring -Moisture (Darling-wound Skin Appearance) Assessed,Dry/ Scaly -Color (Darling-wound Skin Appearance) Assessed -Temperature (Darling-wound Skin No Abnormality Appearance) (Pt Warm) -Tenderness on Palpation (Darling-wound No Skin Appearance) -Ulcer Cleansing Soap and Water Soap and Water -Foul Odor after Cleansing No No -Anesthetic Used 5% Lidocaine Gel #5 Left lower lateral leg cluster -Combined with other wound No -Current Size (cm) - Length 0.1 0.1 -Current Size (cm) - Width 0.1 0.1 -Current Size (cm) - Depth 0.1 0.1 -Total Square Cm 0.01 0.01 -Epithelialization Large 67-100% -Tunneling No -Undermining/Tunneling No -Circular Undermining No -Exudate Amt None Present -Wound Margin Indistinct, Non -Visible -Granulation Amt Large (67-100%) -Granulation Quality [place] -Necrosis Amt None Present (0 %) -Structure Exposed N/A -Texture (Darling-wound Skin Appearance) Assessed, Excoriation Scarring -Moisture (Darling-wound Skin Appearance) Assessed,Dry/ Dry/Scaly Scaly -Color (Darling-wound Skin Appearance) Assessed Hemosiderin Staining -Temperature (Darling-wound Skin No Abnormality No Abnormality Appearance) (Pt Warm) (Pt Warm) -Tenderness on Palpation (Darling-wound No No Skin Appearance) -Ulcer Cleansing Soap and Water Soap and Water -Foul Odor after Cleansing No No -Anesthetic Used 4% Lidocaine Solution Lower Limb Edema Present Yes Yes Left Calf (cm) 42.3 43.1 Left Ankle (cm) 27 26 10/21/24 15:09 Wound Center Nurse 1 #7 L Medial leg cluster -Combined with other wound -Current Size (cm) - Length 0.1 -Current Size (cm) - Width 0.1 -Current Size (cm) - Depth 0.1 -Total Square Cm 0.01 -Epithelialization -Exudate Amt None Present -Exudate Type -Wound Margin Indistinct, Non -Visible -Granulation Amt Large (67-100%) -Granulation Quality [place] -Necrosis Amt None Present (0 %) -Structure Exposed N/A -Texture (Darling-wound Skin Appearance) Scarring -Moisture (Darling-wound Skin Appearance) Dry/Scaly -Color (Darling-wound Skin Appearance) Hemosiderin Staining -Temperature (Darling-wound Skin No Abnormality Appearance) (Pt Warm) -Tenderness on Palpation (Darling-wound No Skin Appearance) -Ulcer Cleansing Soap and Water -Foul Odor after Cleansing No -Anesthetic Used 4% Lidocaine Solution #5 Left lower lateral leg cluster -Combined with other wound -Current Size (cm) - Length 0.1 -Current Size (cm) - Width 0.1 -Current Size (cm) - Depth 0.1 -Total Square Cm 0.01 -Epithelialization -Tunneling -Undermining/Tunneling -Circular Undermining -Exudate Amt None Present -Wound Margin Indistinct, Non -Visible -Granulation Amt Large (67-100%) -Granulation Quality [place] -Necrosis Amt None Present (0 %) -Structure Exposed N/A -Texture (Darling-wound Skin Appearance) Scarring -Moisture (Darling-wound Skin Appearance) Dry/Scaly -Color (Darling-wound Skin Appearance) Hemosiderin Staining -Temperature (Darling-wound Skin No Abnormality Appearance) (Pt Warm) -Tenderness on Palpation (Darling-wound No Skin Appearance) -Ulcer Cleansing Soap and Water -Foul Odor after Cleansing No -Anesthetic Used 5% Lidocaine Gel Lower Limb Edema Present Left Calf (cm) 46.2 Left Ankle (cm) 27.3 WC - Nurse 2 - General Ulcer CM Notes Start: 10/04/24 15:27 Freq: Status: Active Protocol: Activity Type Activity Date Activity User E-sign Co-sign Detail Recorded Client Recorded Date Recorded By Document 10/07/24 15:25 [id number] 10/07/24 15:26 Document 10/14/24 15:24 [id number] 10/14/24 15:26 Document 10/21/24 15:51 [id number] 10/21/24 15:56 10/07/24 10/14/24 10/21/24 15:25 15:24 15:51 Wound Center Nurse 2 #9 Left Posterior Lower Leg -Time 15:55 -Correct Patient Yes -Correct Side, Site, Position Yes -Tunneling No -Undermining/Tunneling No -Circular Undermining No -Wound/Ulcer Outcome Not Healed -Ulcer Cleansing Rinsed/ Irrigated with Saline -Foul Odor after Cleansing No -Bioengineered Tissue No -Bleeding Controlled with NA #8 L Lower Anterior LE -Time 15:55 -Correct Patient Yes -Correct Side, Site, Position Yes -Tunneling No -Undermining/Tunneling No -Circular Undermining No -Wound/Ulcer Outcome Not Healed -Ulcer Cleansing Not Cleansed -Foul Odor after Cleansing No -Bioengineered Tissue No -Bleeding Controlled with NA #7 L Medial leg cluster -Time 15:25 15:24 15:52 -Correct Patient Yes Yes Yes -Correct Side, Site, Position Yes Yes Yes -Post Debridement (cm) - Length 15 -Post Debridement (cm) - Width 6.5 -Post Debridement (cm) - Depth 0.1 -Total Square (Post) (cm) 97.5 -Wound/Ulcer Outcome Not Healed Not Healed Not Healed -Ulcer Cleansing Not Cleansed -Foul Odor after Cleansing No -Bioengineered Tissue No -Bleeding Controlled with NA -Wound Comment(s) measures 7.0 4.2 0.1 #5 Left lower lateral leg cluster -Time 15:26 15:25 15:52 -Correct Patient Yes Yes Yes -Correct Side, Site, Position Yes Yes Yes -Post Debridement (cm) - Length 7.0 -Post Debridement (cm) - Width 5.0 -Post Debridement (cm) - Depth 0.1 -Total Square (Post) (cm) 35.00 -Wound/Ulcer Outcome Not Healed Not Healed Not Healed -Foul Odor after Cleansing No -Bioengineered Tissue No -Wound Comment(s) measures 4.0 4.0 0.1 Pain Scale: 0-10 Numeric Is Patient Pain Free? Yes Yes Yes WC - Nurse 3 - General Ulcer D/C NN Start: 10/04/24 15:27 Freq: Status: Active Protocol: Activity Type Activity Date Activity User E-sign Co-sign Detail Recorded Client Recorded Date Recorded By Document 10/04/24 15:27 BMF [id number] 10/04/24 15:32 BMF Document 10/07/24 15:40 KW [id number] 10/07/24 15:42 KW Document 10/14/24 15:34 DL [id number] 10/14/24 15:39 DL Document 10/21/24 16:05 BMF [id number] 10/21/24 16:08 BMF 10/04/24 10/07/24 10/14/24 15:27 15:40 15:34 Vital Signs Temperature (97.8 F-99.1 F) 97.2 F L Temperature Source Temporal Pulse Rate (60-100) 82 Pulse Location Monitor Respiratory Rate (12-18) 16 Respiratory rate source Observation Oxygen Delivery Method Room Air Blood Pressure (90/60-120/80) 125/47 H Blood Pressure Mean (mm Hg) 73 Source Monitor Position Sitting Blood Pressure Location Right Arm Pain Scale: 0-10 Numeric Is Patient Pain Free? Yes Yes Yes Wound Care Center Nurse 3 #9 Left Posterior Lower Leg -Other Dressing -Primary Dressing Covered/Secured with -Other Covering -Wound Comment(s) #8 L Lower Anterior LE -Other Dressing -Primary Dressing Covered/Secured with -Wound Comment(s) #7 L Medial leg cluster -Ulcer Cleansing Rinsed/ Soap and Water Irrigated with Saline -Foul Odor after Cleansing No No -Primary Dressing Applied NonAdherent Fibracol Plus Contact Layer 4x4 -Other Dressing unna boot per fibracol lotrisone/ kw medical technician assistant coletosol -Primary Dressing Covered/Secured with Dry Gauze & Roll Gauze, Secured with Tape -Fibracol Plus 4x4 1 -Wound Comment(s) unna boot #5 Left lower lateral leg cluster -Ulcer Cleansing Rinsed/ Soap and Water Irrigated with Saline -Foul Odor after Cleansing No No -Primary Dressing Applied NonAdherent Contact Layer -Other Dressing unna per kw medical technician assistant fibracol lotrisone, clobetosol, fibracol -Primary Dressing Covered/Secured with Dry Gauze & Roll Gauze, Secured with Tape -Wound Comment(s) unna boot Left -Multi-Layered Wrap Application Unna Boot - Unna Boot - Left ($) Left ($) -Tubular Bandage -Size of Tubigrip Used -Size E ($) Treatment Response Procedure Procedure Procedure Tolerated Well Tolerated Well Tolerated Well WC - Visit Discharge Discharge Condition Stable Stable Stable Ambulatory Status Wheelchair Wheelchair Wheelchair Transportation Private Auto Private Auto Private Auto Accompanied by Facility Type Home Health Home Health Orders Sent Yes 10/21/24 16:05 Vital Signs Temperature (97.8 F-99.1 F) Temperature Source Pulse Rate (60-100) Pulse Location Respiratory Rate (12-18) Respiratory rate source Oxygen Delivery Method Blood Pressure (90/60-120/80) Blood Pressure Mean (mm Hg) Source Position Blood Pressure Location Pain Scale: 0-10 Numeric Is Patient Pain Free? Yes Wound Care Center Nurse 3 #9 Left Posterior Lower Leg -Other Dressing fibracol -Primary Dressing Covered/Secured with Dry Gauze & Roll Gauze, Secured with Tape -Other Covering lotrisone/ clobetasol -Wound Comment(s) drsg per kw medical technician assistant #8 L Lower Anterior LE -Other Dressing fibracol, lotrisone/ clobetasol -Primary Dressing Covered/Secured with Dry Gauze & Roll Gauze, Secured with Tape -Wound Comment(s) drsg per kw medical technician assistant #7 L Medial leg cluster -Ulcer Cleansing -Foul Odor after Cleansing -Primary Dressing Applied -Other Dressing fibracol; clobetasol/ lotrisone -Primary Dressing Covered/Secured with -Fibracol Plus 4x4 -Wound Comment(s) drsg per kw medical technician assistant #5 Left lower lateral leg cluster -Ulcer Cleansing -Foul Odor after Cleansing -Primary Dressing Applied -Other Dressing fibracol; clobetasol/ lotrisone -Primary Dressing Covered/Secured with Dry Gauze & Roll Gauze, Secured with Tape -Wound Comment(s) drsg per kw medical technician assistant Left -Multi-Layered Wrap Application -Tubular Bandage Single Layer -Size of Tubigrip Used Size E -Size E ($) 1 Treatment Response Procedure Tolerated Well WC - Visit Discharge Discharge Condition Stable Ambulatory Status Wheelchair Transportation Private Auto Accompanied by Facility Type Home Health Orders Sent Assessment/Plan Assessment/Plan (1) 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 Continue fibracol to all open areas followed by dry dressing. Wash gently with antibacterial soap and water with dressing changes. Ideally, change daily or as often as the dressings become soaked/soiled; change as often as able to be supported with HHC. Can augment with nurse visits here as needed as well. Emphasized the importance of elevating his legs at all resting times, preferably at or above the level of the heart. He is advised to perform ankle flexion exercises. He is s/p successful LLE saphenous vein ablation. I will send prescription for Vasculera to the mail-order pharmacy which the manufacture works directly with, will see if insurance will approve. For now can continue with [id number] Diosmin supplement. I will also send prescription for Iodosorb topical to the [facility] retail pharmacy, advised that this may need a prior Auth so may take a little while to obtain.
== END 2024-10-30 23:59 | disposition home or self-care (01) ==
LOC: WC 14:45
PROVIDERS: PCP Family Medicine; Referring Provider Dermatology; Visit Provider Physician Assistant
DX: L97.922 Non-pressure chronic ulcer of unspecified part of left lower leg with fat layer exposed (principal); M79.3 Panniculitis, unspecified; R60.0 Localized edema; Z87.891 Personal history of nicotine dependence
CPT/HCPCS: 29580; 99213; G0463

== ENCOUNTER 2024-11-25 14:45 | Outpatient (RCR) | payer MEDICARE, SELFPAY ==
[2024-10-31 00:24] VITALS: BP 128/53; PULSE 67; RESP 18; TEMP 36; BMI 28.4
[2024-11-04 15:23] VITALS: BP 125/62; PULSE 67; RESP 18; TEMP 36.8; BMI 28.4
--- NOTE | 2024-11-05 07:20 | PN.PCM_ITS ---
History of Present Illness Date of Service: 11/04/24 Chief Complaint: LLE wounds History of Wound: Mr. Paola Boyer is an 83 y/o male who presents to the wound healing center today with left lower extremity wounds. He was referred by Nuvia Brooks. He is accompanied to his appointment today by his . He relays that he has been dealing with these left lower extremity wounds recurrently over the past few years. They will become very close to healing and then subsequently open back up. His reports that all really started with a lot of swelling and redness in his lower legs which progressively worsened to weeping before developing these focal wounds. He has been treated to this point at [facility] with Unna boots and all of the surrounding skin has much improved in appearance however the wounds remain. He has not had any prior venous imaging to his knowledge and no venous interventions. No history of peripheral arterial disease or arterial interventions. He is not diabetic. He is not currently smoking, he quit in 1964. He presents today in an automated wheelchair. His insurance unfortunately has a very high co-pay for debridements which will be kept in mind throughout his treatment. Subjective Subjective He did receive the vasculera prescription and also was able to slate picker the Iodosorb. He has started taking the Vasculera, he feels like he is urinating more frequently with this but otherwise no other side effects he has noticed. Objective Data Objective Data Vital Signs: Vital Signs Temp Pulse Resp BP O2 Del Method 98.2 F 67 18 125/62 H Room Air 11/04/24 15:23 11/04/24 15:23 11/04/24 15:23 11/04/24 15:23 11/04/24 15:23 Oxygen Delivery Method Room Air Weight: 198 lb Body Mass Index (BMI) 28.4 Charges/Coding Visit Charges Office Visits / Consults: [id number] OV L3 Est 20min Physical Exam Const alert, oriented x3 and no apparent distress General Appearance: cooperative and comfortable HEENT normocephalic, hearing grossly normal bilaterally, external ears normal and external nose normal Eyes General Eye: normal appearance of both eyes Resp normal respiratory effort Effort and Inspection: able to speak in complete sentences; Negative for labor ed, stridor or audible wheezes Extremity Extremity Narrative: Bilateral lower extremities with hemosiderin deposition and lipodermatoscler osis. Trace edema on exam today. No apparent bulging varicosities. No weeping or skin breakdown except for wounds as noted below. Easily palpable pedal pulses. Skin Wounds: wounds noted Wound Narrative: L lateral calf wound cluster, L medial calf wound cluster, L anterior calf wound cluster all very superficial with maceration but pink wound bases. Neuro oriented x3, CN's II-XII intact bilaterally and moves all extremities Speech: speech normal Debridement Note Debridement Note No debridement was completed: No debridement was completed today Post-Debridement Measurements and Additional Note: Post-Debridement Measurements/Treatment - Nurse 1 - General Ulcer Assessment Start: 11/04/24 15:23 Freq: Status: Active Protocol: DUSTIN Activity Type Activity Date Activity User E-sign Co-sign Detail Recorded Client Recorded Date Recorded By Document 11/04/24 15:23 KW [id number] 11/04/24 15:34 KW 11/04/24 15:23 WC - Today's Visit Information Type of service Follow-up Visit (Physician/JEWELRY COATER ) Arrival Mode Other Arrival Mode (Other) scooter Accompanied by Patient Identification Verified (Name & Yes ) Height and Weight Body Mass Index (BMI) 28.4 BMI Classification Overweight Vital Signs Temperature (97.8 F-99.1 F) 98.2 F Temperature Source Temporal Pulse Rate (60-100) 67 Pulse Location Monitor Respiratory Rate (12-18) 18 Respiratory rate source Observation Oxygen Delivery Method Room Air Blood Pressure (90/60-120/80) 125/62 H Blood Pressure Mean (mm Hg) 83 Source Monitor Position Sitting Blood Pressure Location Left Arm History Since Last Visit- (Skip if this is Patient's initial visit) Have you changed medications since your No last visit? Any new allergies or adverse reactions No Had a fall/change in ADL's that may No increase risk of falls Signs or symptoms of abuse and/or No neglect since last visit Have you been in the hospital since your No last visit? Has dressing in place as prescribed Yes Has compression in place as prescribed Yes Has offloadiing in place as prescribed N/A Experienced any changes in pain level or No management Left Footwear Regular Shoe Right Footwear Regular Shoe Pain Scale: 0-10 Numeric Is Patient Pain Free? Yes - Nurse 1 - General Ulcer Measurement Start: 11/04/24 15:23 Freq: Status: Active Protocol: Activity Type Activity Date Activity User E-sign Co-sign Detail Recorded Client Recorded Date Recorded By Document 11/04/24 15:23 [id number] [id number] 11/04/24 15:34 KW 11/04/24 15:23 Wound Center Nurse 1 #8 L Lower Anterior LE -Combined with other wound No -Current Size (cm) - Length 0.1 -Current Size (cm) - Width 0.1 -Current Size (cm) - Depth 0.1 -Total Square Cm 0.01 -Epithelialization Large 67-100% -Tunneling No -Undermining/Tunneling No -Circular Undermining No -Exudate Amt Small -Exudate Type Serosanguineous -Texture (Darling-wound Skin Appearance) Assessed -Moisture (Darling-wound Skin Appearance) Assessed,Dry/ Scaly -Color (Darling-wound Skin Appearance) Assessed -Temperature (Darling-wound Skin No Abnormality Appearance) (Pt Warm) -Tenderness on Palpation (Darling-wound No Skin Appearance) -Ulcer Cleansing Soap and Water -Foul Odor after Cleansing No #9 Left Posterior Lower Leg -Combined with other wound No -Current Size (cm) - Length 0.1 -Current Size (cm) - Width 0.1 -Current Size (cm) - Depth 0.1 -Total Square Cm 0.01 -Epithelialization Large 67-100% -Tunneling No -Undermining/Tunneling No -Circular Undermining No -Exudate Amt Small -Exudate Type Serosanguineous -Texture (Darling-wound Skin Appearance) Assessed -Moisture (Darling-wound Skin Appearance) Assessed,Dry/ Scaly -Color (Darling-wound Skin Appearance) Assessed -Temperature (Darling-wound Skin No Abnormality Appearance) (Pt Warm) -Tenderness on Palpation (Darling-wound No Skin Appearance) -Ulcer Cleansing Soap and Water -Foul Odor after Cleansing No #7 L Medial leg cluster -Combined with other wound No -Current Size (cm) - Length 0.1 -Current Size (cm) - Width 0.1 -Current Size (cm) - Depth 0.1 -Total Square Cm 0.01 -Epithelialization Large 67-100% -Tunneling No -Undermining/Tunneling No -Circular Undermining No -Texture (Darling-wound Skin Appearance) Assessed -Moisture (Darling-wound Skin Appearance) Assessed -Color (Darling-wound Skin Appearance) Assessed -Temperature (Darling-wound Skin No Abnormality Appearance) (Pt Warm) -Tenderness on Palpation (Darling-wound No Skin Appearance) -Ulcer Cleansing Soap and Water -Foul Odor after Cleansing No #5 Left lower lateral leg cluster -Combined with other wound No -Current Size (cm) - Length 0.1 -Current Size (cm) - Width 0.1 -Current Size (cm) - Depth 0.1 -Total Square Cm 0.01 -Epithelialization Large 67-100% -Tunneling No -Undermining/Tunneling No -Circular Undermining No -Exudate Amt Small -Exudate Type Serosanguineous -Texture (Darling-wound Skin Appearance) Assessed -Moisture (Darling-wound Skin Appearance) Assessed -Color (Darling-wound Skin Appearance) Assessed -Temperature (Darling-wound Skin No Abnormality Appearance) (Pt Warm) -Tenderness on Palpation (Darling-wound No Skin Appearance) -Ulcer Cleansing Soap and Water -Foul Odor after Cleansing No Lower Limb Edema Present Yes Left Calf (cm) 43.5 Left Ankle (cm) 26.2 WC - Nurse 2 - General Ulcer CM Notes Start: 11/04/24 15:23 Freq: Status: Active Protocol: Activity Type Activity Date Activity User E-sign Co-sign Detail Recorded Client Recorded Date Recorded By Document 11/04/24 15:41 [id number] 11/04/24 16:00 GM 11/04/24 15:41 Wound Center Nurse 2 #9 Left Posterior Lower Leg -Time 15:51 -Correct Patient Yes -Correct Side, Site, Position Yes -Correct Procedure No -Procedure Performed No -Tunneling No -Undermining/Tunneling No -Circular Undermining No -Wound/Ulcer Outcome Not Healed -Foul Odor after Cleansing No -Bioengineered Tissue No -Bleeding Controlled with NA -Offloading No -Debridement - Open, 1st 20sq cm No -Debridement - Subq, 1st 20sq cm No -Debridement - Muscle / Fascia, 1st No 20sq cm -Debridement - Bone, 1st 20sq cm No #7 L Medial leg cluster -Time 15:53 -Correct Patient Yes -Correct Side, Site, Position Yes -Correct Procedure No -Procedure Performed No -Tunneling No -Undermining/Tunneling No -Circular Undermining No -Wound/Ulcer Outcome Not Healed -Ulcer Cleansing Not Cleansed -Foul Odor after Cleansing No -Bleeding Controlled with NA -Offloading No -Debridement - Open, 1st 20sq cm No -Debridement - Subq, 1st 20sq cm No -Debridement - Muscle / Fascia, 1st No 20sq cm -Debridement - Bone, 1st 20sq cm No #5 Left lower lateral leg cluster -Time 15:54 -Correct Patient Yes -Correct Side, Site, Position Yes -Correct Procedure No -Procedure Performed No -Tunneling No -Undermining/Tunneling No -Circular Undermining No -Wound/Ulcer Outcome Not Healed -Foul Odor after Cleansing No -Bioengineered Tissue No -Bleeding Controlled with NA -Offloading No -Debridement - Open, 1st 20sq cm No -Debridement - Subq, 1st 20sq cm No -Debridement - Muscle / Fascia, 1st No 20sq cm -Debridement - Bone, 1st 20sq cm No Pain Scale: 0-10 Numeric Is Patient Pain Free? Yes - Nurse 3 - General Ulcer D/C NN Start: 11/04/24 15:23 Freq: Status: Active Protocol: Activity Type Activity Date Activity User E-sign Co-sign Detail Recorded Client Recorded Date Recorded By Document 11/04/24 16:04 [id number] 11/04/24 16:12 11/04/24 16:04 Wound Care Center Nurse 3 #9 Left Posterior Lower Leg -Other Dressing iodosorb with amlacton cream -Primary Dressing Covered/Secured with Dry Gauze & Roll Gauze, Secured with Tape #7 L Medial leg cluster -Other Dressing topicals -Primary Dressing Covered/Secured with Dry Gauze #5 Left lower lateral leg cluster -Other Dressing topicals -Primary Dressing Covered/Secured with Dry Gauze Pain Scale: 0-10 Numeric Is Patient Pain Free? 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: CODE(S): L97.922 - Non-pressure chronic ulcer of unspecified part of left lower leg with fat layer exposed PLAN: Posterior/lateral L calf ulceration limited to breakdown of the skin and Medial L calf ulceration limited to breakdown of the skin and anterior L angel ulceration cluster (2) Lipodermatosclerosis of both lower extremities: CODE(S): M79.3 - Panniculitis, unspecified (3) Bilateral lower extremity edema: CODE(S): R60.0 - Localized edema PLAN: Plan Will now change wound care to the following: (1) Rinse the area of the wounds with saline (2) Apply 1/8th inch thick layer of iodosorb to dry gauze (3) apply to wounds (4) cover with ABD and conforming gauze wrap (4) Apply Tubigrip (5) Change dressing every 72 hours or sooner if it becomes soiled. He is advised to elevate his leg at all times of rest. May apply Amlactin to areas of intact, flaky skin at the proximal lower leg and foot. Continue to take Vasculera as prescribed. Return to the clinic in 1 week or sooner as needed.
--- NOTE | 2024-11-05 11:28 | WC ---
PHOTO 11/04/24 ALLAN
--- NOTE | 2024-11-05 11:32 | WC ---
PHOTO 11/04/24 ALLAN
--- NOTE | 2024-11-05 11:35 | WC ---
PHOTO 11/04/24 ALLAN
[2024-11-11 15:25] VITALS: BP 132/81; PULSE 59; RESP 18; TEMP 36.3; BMI 28.4
--- NOTE | 2024-11-11 16:27 | PCM.WC.PN ---
History of Present Illness Date of Service: 11/11/24 Chief Complaint: LLE wounds History of Wound: Mr. Paola Boyer is an 83 y/o male who presents to the wound healing center today with left lower extremity wounds. He was referred by Nuvia Brooks. He is accompanied to his appointment today by his . He relays that he has been dealing with these left lower extremity wounds recurrently over the past few years. They will become very close to healing and then subsequently open back up. His reports that all really started with a lot of swelling and redness in his lower legs which progressively worsened to weeping before developing these focal wounds. He has been treated to this point at [facility] with Unna boots and all of the surrounding skin has much improved in appearance however the wounds remain. He has not had any prior venous imaging to his knowledge and no venous interventions. No history of peripheral arterial disease or arterial interventions. He is not diabetic. He is not currently smoking, he quit in 1964. He presents today in an automated wheelchair. His insurance unfortunately has a very high co-pay for debridements which will be kept in mind throughout his treatment. Subjective Subjective Some improvement this week. No adverse effects with the iodosorb or vasculera so far. Objective Data Objective Data Vital Signs: Vital Signs Temp Pulse Resp BP O2 Del Method 97.4 F L 59 L 18 132/81 H Room Air 11/11/24 15:25 11/11/24 15:25 11/11/24 15:25 11/11/24 15:25 11/11/24 15:25 Oxygen Delivery Method Room Air Weight: 198 lb Body Mass Index (BMI) 28.4 Charges/Coding Visit Charges Office Visits / Consults: 15879 OV L3 Est 20min Physical Exam Const alert, oriented x3 and no apparent distress General Appearance: cooperative and comfortable HEENT normocephalic, hearing grossly normal bilaterally, external ears normal and external nose normal Eyes General Eye: normal appearance of both eyes Resp normal respiratory effort Effort and Inspection: able to speak in complete sentences; Negative for labored, stridor or audible wheezes Extremity Extremity Narrative: 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 Trace edema on exam today. No apparent bulging varicosities. No weeping or skin breakdown except for wounds as noted below. Easily palpable pedal pulses. Skin Wounds: wounds noted Wound Narrative: L lateral calf wound cluster, L medial calf wound cluster, very superficial with maceration, pink wound bases. L anterior calf wound cluster epithelialized today. Neuro oriented x3, CN's II-XII intact bilaterally and moves all extremities Speech: speech normal Debridement Note Debridement Note No debridement was completed: No debridement was completed today Post-Debridement Measurements and Additional Note: Post-Debridement Measurements/Treatment WC - Nurse 1 - General Ulcer Assessment Start: 11/04/24 15:23 Freq: Status: Active Protocol: DUSTIN Activity Type Activity Date Activity User E-sign Co-sign Detail Recorded Client Recorded Date Recorded By Document 11/04/24 15:23 KW [id number] 11/04/24 15:34 KW Document 11/11/24 15:25 KW [id number] 11/11/24 15:36 KW 11/04/24 11/11/24 15:23 15:25 WC - Today's Visit Information Type of service Follow-up Visit Follow-up Visit (Physician/STUDENT AFFAIRS VICE PRESIDENT (Physician/STUDENT AFFAIRS VICE PRESIDENT ) ) Arrival Mode Other Other Arrival Mode (Other) scooter scooter Accompanied by Patient Identification Verified (Name & Yes Yes ) Height and Weight Body Mass Index (BMI) 28.4 28.4 BMI Classification Overweight Overweight Vital Signs Temperature (97.8 F-99.1 F) 98.2 F 97.4 F L Temperature Source Temporal Temporal Pulse Rate (60-100) 67 59 L Pulse Location Monitor Monitor Respiratory Rate (12-18) 18 18 Respiratory rate source Observation Observation Oxygen Delivery Method Room Air Room Air Blood Pressure (90/60-120/80) 125/62 H 132/81 H Blood Pressure Mean (mm Hg) 83 98 Source Monitor Monitor Position Sitting Sitting Blood Pressure Location Left Arm Left Forearm History Since Last Visit- (Skip if this is Patient's initial visit) Have you changed medications since your No No last visit? Any new allergies or adverse reactions No No Had a fall/change in ADL's that may No No increase risk of falls Signs or symptoms of abuse and/or No No neglect since last visit Have you been in the hospital since your No No last visit? Has dressing in place as prescribed Yes Yes Has compression in place as prescribed Yes Yes Has offloadiing in place as prescribed N/A N/A Experienced any changes in pain level or No No management Left Footwear Regular Shoe Regular Shoe Right Footwear Regular Shoe Regular Shoe Pain Scale: 0-10 Numeric Is Patient Pain Free? Yes Yes WC - Nurse 1 - General Ulcer Measurement Start: 11/04/24 15:23 Freq: Status: Active Protocol: Activity Type Activity Date Activity User E-sign Co-sign Detail Recorded Client Recorded Date Recorded By Document 11/04/24 15:23 KW [id number] 11/04/24 15:34 KW Document 11/11/24 15:25 KW [id number] 11/11/24 15:36 KW 11/04/24 11/11/24 15:23 15:25 Wound Center Nurse 1 #8 L Lower Anterior LE -Combined with other wound No -Current Size (cm) - Length 0.1 -Current Size (cm) - Width 0.1 -Current Size (cm) - Depth 0.1 -Total Square Cm 0.01 -Epithelialization Large 67-100% -Tunneling No -Undermining/Tunneling No -Circular Undermining No -Exudate Amt Small -Exudate Type Serosanguineous -Texture (Darling-wound Skin Appearance) Assessed -Moisture (Darling-wound Skin Appearance) Assessed,Dry/ Scaly -Color (Darling-wound Skin Appearance) Assessed -Temperature (Darling-wound Skin No Abnormality Appearance) (Pt Warm) -Tenderness on Palpation (Darling-wound No Skin Appearance) -Ulcer Cleansing Soap and Water -Foul Odor after Cleansing No #9 Left Posterior Lower Leg -Combined with other wound No -Current Size (cm) - Length 0.1 -Current Size (cm) - Width 0.1 -Current Size (cm) - Depth 0.1 -Total Square Cm 0.01 -Epithelialization Large 67-100% -Tunneling No -Undermining/Tunneling No -Circular Undermining No -Exudate Amt Small -Exudate Type Serosanguineous -Texture (Darling-wound Skin Appearance) Assessed -Moisture (Darling-wound Skin Appearance) Assessed,Dry/ Scaly -Color (Darling-wound Skin Appearance) Assessed -Temperature (Darling-wound Skin No Abnormality Appearance) (Pt Warm) -Tenderness on Palpation (Darling-wound No Skin Appearance) -Ulcer Cleansing Soap and Water -Foul Odor after Cleansing No #7 L Medial leg cluster -Combined with other wound No -Current Size (cm) - Length 0.1 3.5 -Current Size (cm) - Width 0.1 2.5 -Current Size (cm) - Depth 0.1 0.1 -Total Square Cm 0.01 8.75 -Epithelialization Large 67-100% -Tunneling No -Undermining/Tunneling No -Circular Undermining No -Exudate Amt Medium -Exudate Type Serosanguineous -Wound Margin Distinct, Outline Attached -Granulation Amt Large (67-100%) -Granulation Quality Red -Texture (Darling-wound Skin Appearance) Assessed Assessed -Moisture (Darling-wound Skin Appearance) Assessed Assessed,Dry/ Scaly -Color (Darling-wound Skin Appearance) Assessed Assessed -Temperature (Darling-wound Skin No Abnormality No Abnormality Appearance) (Pt Warm) (Pt Warm) -Tenderness on Palpation (Darling-wound No No Skin Appearance) -Ulcer Cleansing Soap and Water Soap and Water -Foul Odor after Cleansing No No -Anesthetic Used 5% Lidocaine Gel #5 Left lower lateral leg cluster -Combined with other wound No -Current Size (cm) - Length 0.1 7.5 -Current Size (cm) - Width 0.1 4.5 -Current Size (cm) - Depth 0.1 0.1 -Total Square Cm 0.01 33.75 -Epithelialization Large 67-100% -Tunneling No -Undermining/Tunneling No -Circular Undermining No -Exudate Amt Small Small -Exudate Type Serosanguineous Serosanguineous -Wound Margin Distinct, Outline Attached -Granulation Amt Large (67-100%) -Granulation Quality Red -Texture (Darling-wound Skin Appearance) Assessed Assessed -Moisture (Darling-wound Skin Appearance) Assessed Assessed,Dry/ Scaly -Color (Darling-wound Skin Appearance) Assessed Assessed -Temperature (Darling-wound Skin No Abnormality No Abnormality Appearance) (Pt Warm) (Pt Warm) -Tenderness on Palpation (Darling-wound No No Skin Appearance) -Ulcer Cleansing Soap and Water Soap and Water -Foul Odor after Cleansing No No -Anesthetic Used 5% Lidocaine Gel Lower Limb Edema Present Yes Left Calf (cm) 43.5 45 Left Ankle (cm) 26.2 28 WC - Nurse 2 - General Ulcer CM Notes Start: 11/04/24 15:23 Freq: Status: Active Protocol: Activity Type Activity Date Activity User E-sign Co-sign Detail Recorded Client Recorded Date Recorded By Document 11/04/24 15:41 [id number] 11/04/24 16:00 Document 11/11/24 15:43 [id number] 11/11/24 15:53 11/04/24 11/11/24 15:41 15:43 Wound Center Nurse 2 #9 Left Posterior Lower Leg -Time 15:51 15:43 -Correct Patient Yes Yes -Correct Side, Site, Position Yes Yes -Correct Procedure No -Procedure Performed No -Tunneling No No -Undermining/Tunneling No No -Circular Undermining No No -Wound/Ulcer Outcome Not Healed Healed- Epithelialized -Ulcer Cleansing Not Cleansed -Foul Odor after Cleansing No No -Bioengineered Tissue No -Bleeding Controlled with NA NA -Offloading No No -Debridement - Open, 1st 20sq cm No -Debridement - Subq, 1st 20sq cm No -Debridement - Muscle / Fascia, 1st No 20sq cm -Debridement - Bone, 1st 20sq cm No #7 L Medial leg cluster -Time 15:53 15:44 -Correct Patient Yes Yes -Correct Side, Site, Position Yes Yes -Correct Procedure No No -Procedure Performed No No -Tunneling No No -Undermining/Tunneling No No -Circular Undermining No No -Wound/Ulcer Outcome Not Healed Not Healed -Ulcer Cleansing Not Cleansed -Foul Odor after Cleansing No No -Bioengineered Tissue No -Bleeding Controlled with NA NA -Offloading No No -Debridement - Open, 1st 20sq cm No -Debridement - Subq, 1st 20sq cm No -Debridement - Muscle / Fascia, 1st No 20sq cm -Debridement - Bone, 1st 20sq cm No -Wound Comment(s) 6.0x8.0x0.1 #5 Left lower lateral leg cluster -Time 15:54 15:45 -Correct Patient Yes Yes -Correct Side, Site, Position Yes Yes -Correct Procedure No No -Procedure Performed No No -Tunneling No No -Undermining/Tunneling No No -Circular Undermining No No -Wound/Ulcer Outcome Not Healed Not Healed -Ulcer Cleansing Not Cleansed -Foul Odor after Cleansing No No -Bioengineered Tissue No No -Bleeding Controlled with NA NA -Offloading No -Debridement - Open, 1st 20sq cm No -Debridement - Subq, 1st 20sq cm No -Debridement - Muscle / Fascia, 1st No 20sq cm -Debridement - Bone, 1st 20sq cm No -Wound Comment(s) 10.0x6.5x0.1 Pain Scale: 0-10 Numeric Is Patient Pain Free? Yes Yes - Nurse 3 - General Ulcer D/C NN Start: 11/04/24 15:23 Freq: Status: Active Protocol: Activity Type Activity Date Activity User E-sign Co-sign Detail Recorded Client Recorded Date Recorded By Document 11/04/24 16:04 KW [id number] 11/04/24 16:12 KW Document 11/11/24 15:58 KW [id number] 11/11/24 16:01 KW 11/04/24 11/11/24 16:04 15:58 Wound Care Center Nurse 3 #9 Left Posterior Lower Leg -Other Dressing iodosorb with iodosorb gel, amlacton cream amlactin to dry skin -Primary Dressing Covered/Secured with Dry Gauze & Dry Gauze & Roll Gauze, Roll Gauze, Secured with Secured with Tape Tape #7 L Medial leg cluster -Ulcer Cleansing Soap and Water -Other Dressing topicals iodosorb gel; amlactin to dry areas; -Primary Dressing Covered/Secured with Dry Gauze Dry Gauze & Roll Gauze, Secured with Tape #5 Left lower lateral leg cluster -Ulcer Cleansing Soap and Water -Other Dressing topicals iodosorb gel; amlactin to dry skin -Primary Dressing Covered/Secured with Dry Gauze Dry Gauze & Roll Gauze, Secured with Tape Left -Tubular Bandage Single Layer -Size of Tubigrip Used Size E -Size E ($) 1 Treatment Response Procedure Tolerated Well Pain Scale: 0-10 Numeric Is Patient Pain Free? 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: CODE(S): L97.922 - Non-pressure chronic ulcer of unspecified part of left lower leg with fat layer exposed PLAN: Posterior/lateral L calf ulceration limited to breakdown of the skin and Medial L calf ulceration limited to breakdown of the skin and anterior L angel ulceration cluster (2) Lipodermatosclerosis of both lower extremities: CODE(S): M79.3 - Panniculitis, unspecified (3) Bilateral lower extremity edema: CODE(S): R60.0 - Localized edema PLAN: Plan Will now change wound care to the following: (1) Rinse the area of the wounds with saline (2) Apply 1/8th inch thick layer of iodosorb to dry gauze (3) apply to wounds (4) cover with ABD and conforming gauze wrap (4) Apply Tubigrip (5) Change dressing every 72 hours or sooner if it becomes soiled. He is advised to elevate his leg at all times of rest. May apply Amlactin to areas of intact, flaky skin at the proximal lower leg and foot. Continue to take Vasculera as prescribed. Return to the clinic in 1 week or sooner as needed.
[2024-11-18 15:18] VITALS: BP 133/54; PULSE 55; RESP 18; TEMP 35.5; BMI 28.4
--- NOTE | 2024-11-18 17:29 | PCM.WC.PN ---
History of Present Illness Date of Service: 11/18/24 Chief Complaint: LLE wounds History of Wound: Mr. Paola Boyer is an 83 y/o male who presents to the wound healing center today with left lower extremity wounds. He was referred by Nuvia Brooks. He is accompanied to his appointment today by his . He relays that he has been dealing with these left lower extremity wounds recurrently over the past few years. They will become very close to healing and then subsequently open back up. His reports that all really started with a lot of swelling and redness in his lower legs which progressively worsened to weeping before developing these focal wounds. He has been treated to this point at [facility] with Unna boots and all of the surrounding skin has much improved in appearance however the wounds remain. He has not had any prior venous imaging to his knowledge and no venous interventions. No history of peripheral arterial disease or arterial interventions. He is not diabetic. He is not currently smoking, he quit in 1964. He presents today in an automated wheelchair. His insurance unfortunately has a very high co-pay for debridements which will be kept in mind throughout his treatment. Subjective Subjective Paola is doing well this week. He is accompanied as usual by his . She feels the wounds are improving. He continues to tolerate the Vasculera without issue. They refilled the iodosorb. is still coming for assistance with dressing changes. No F/C, N/V, or other concerns. Objective Data Objective Data Vital Signs: Vital Signs Temp Pulse Resp BP O2 Del Method 96 F L 55 L 18 133/54 H Room Air 11/18/24 15:18 11/18/24 15:18 11/18/24 15:18 11/18/24 15:18 11/11/24 15:25 Oxygen Delivery Method Room Air Weight: 198 lb Body Mass Index (BMI) 28.4 Charges/Coding Visit Charges Office Visits / Consults: 82065 OV L3 Est 20min Physical Exam Const alert, oriented x3 and no apparent distress General Appearance: cooperative and comfortable HEENT normocephalic, hearing grossly normal bilaterally, external ears normal and external nose normal Eyes General Eye: normal appearance of both eyes Resp normal respiratory effort Effort and Inspection: able to speak in complete sentences; Negative for labored, stridor or audible wheezes Extremity Extremity Narrative: 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 Trace edema on exam today. No apparent bulging varicosities. No weeping or skin breakdown except for wounds as noted below. Easily palpable pedal pulses. Skin Wounds: wounds noted Wound Narrative: L lateral calf wound cluster, L medial calf wound cluster, very superficial with slightly improved maceration, pink wound bases. L posterior calf cluster epithelialized. L anterior angel remains healed. Neuro oriented x3, CN's II-XII intact bilaterally and moves all extremities Speech: speech normal Debridement Note Debridement Note Post-Debridement Measurements and Additional Note: Post-Debridement Measurements/Treatment - Nurse 1 - General Ulcer Assessment Start: 11/04/24 15:23 Freq: Status: Active Protocol: DUSTIN Activity Type Activity Date Activity User E-sign Co-sign Detail Recorded Client Recorded Date Recorded By Document 11/04/24 15:23 KW [id number] 11/04/24 15:34 KW Document 11/11/24 15:25 KW [id number] 11/11/24 15:36 KW Document 11/18/24 15:18 DL [id number] 11/18/24 15:29 DL 11/04/24 11/11/24 11/18/24 15:23 15:25 15:18 WC - Today's Visit Information Type of service Follow-up Visit Follow-up Visit Follow-up Visit (Physician/RESIDENTIAL AIDE (Physician/RESIDENTIAL AIDE (Physician/RESIDENTIAL AIDE ) ) ) Arrival Mode Other Other Wheelchair Arrival Mode (Other) scooter scooter Transfer Assistance None Accompanied by Patient Identification Verified (Name & Yes Yes Yes ) Patient Requires Transmission-Based No Precautions Height and Weight Body Mass Index (BMI) 28.4 28.4 28.4 BMI Classification Overweight Overweight Overweight Vital Signs Temperature (97.8 F-99.1 F) 98.2 F 97.4 F L 96 F L Temperature Source Temporal Temporal Temporal Pulse Rate (60-100) 67 59 L 55 L Pulse Location Monitor Monitor Monitor Respiratory Rate (12-18) 18 18 18 Respiratory rate source Observation Observation Observation Oxygen Delivery Method Room Air Room Air Blood Pressure (90/60-120/80) 125/62 H 132/81 H 133/54 H Blood Pressure Mean (mm Hg) 83 98 80 Source Monitor Monitor Monitor Position Sitting Sitting Blood Pressure Location Left Arm Left Forearm History Since Last Visit- (Skip if this is Patient's initial visit) Have you changed medications since your No No No last visit? Any new allergies or adverse reactions No No No Had a fall/change in ADL's that may No No No increase risk of falls Signs or symptoms of abuse and/or No No No neglect since last visit Have you been in the hospital since your No No No last visit? Has dressing in place as prescribed Yes Yes Yes Has compression in place as prescribed Yes Yes Yes Has offloadiing in place as prescribed N/A N/A Yes Experienced any changes in pain level or No No No management Left Footwear Regular Shoe Regular Shoe Right Footwear Regular Shoe Regular Shoe Pain Scale: 0-10 Numeric Is Patient Pain Free? Yes Yes Yes WC - Nurse 1 - General Ulcer Measurement Start: 11/04/24 15:23 Freq: Status: Active Protocol: Activity Type Activity Date Activity User E-sign Co-sign Detail Recorded Client Recorded Date Recorded By Document 11/04/24 15:23 KW [id number] 11/04/24 15:34 KW Document 11/11/24 15:25 KW [id number] 11/11/24 15:36 KW Document 11/18/24 15:18 DL [id number] 11/18/24 15:29 DL 11/04/24 11/11/24 11/18/24 15:23 15:25 15:18 Wound Center Nurse 1 #9 Left Posterior Lower Leg -Combined with other wound No -Current Size (cm) - Length 0.1 0.1 -Current Size (cm) - Width 0.1 0.1 -Current Size (cm) - Depth 0.1 0.1 -Total Square Cm 0.01 0.01 -Epithelialization Large 67-100% -Tunneling No -Undermining/Tunneling No -Circular Undermining No -Exudate Amt Small None Present -Exudate Type Serosanguineous -Wound Margin Indistinct, Non -Visible -Granulation Amt Large (67-100%) -Granulation Quality [place] -Necrosis Amt None Present (0 %) -Structure Exposed N/A -Texture (Darling-wound Skin Appearance) Assessed Scarring -Moisture (Darling-wound Skin Appearance) Assessed,Dry/ Dry/Scaly Scaly -Color (Darling-wound Skin Appearance) Assessed Hemosiderin Staining -Temperature (Darling-wound Skin No Abnormality No Abnormality Appearance) (Pt Warm) (Pt Warm) -Tenderness on Palpation (Darling-wound No No Skin Appearance) -Ulcer Cleansing Soap and Water Soap and Water -Foul Odor after Cleansing No No -Anesthetic Used 5% Lidocaine Gel #8 L Lower Anterior LE -Combined with other wound No -Current Size (cm) - Length 0.1 -Current Size (cm) - Width 0.1 -Current Size (cm) - Depth 0.1 -Total Square Cm 0.01 -Epithelialization Large 67-100% -Tunneling No -Undermining/Tunneling No -Circular Undermining No -Exudate Amt Small -Exudate Type Serosanguineous -Texture (Darling-wound Skin Appearance) Assessed -Moisture (Darling-wound Skin Appearance) Assessed,Dry/ Scaly -Color (Darling-wound Skin Appearance) Assessed -Temperature (Darling-wound Skin No Abnormality Appearance) (Pt Warm) -Tenderness on Palpation (Darling-wound No Skin Appearance) -Ulcer Cleansing Soap and Water -Foul Odor after Cleansing No #7 L Medial leg cluster Superior -Combined with other wound No -Current Size (cm) - Length 0.1 3.5 1.5 -Current Size (cm) - Width 0.1 2.5 3.4 -Current Size (cm) - Depth 0.1 0.1 0.1 -Total Square Cm 0.01 8.75 5.10 -Epithelialization Large 67-100% -Tunneling No -Undermining/Tunneling No -Circular Undermining No -Exudate Amt Medium Medium -Exudate Type Serosanguineous Serosanguineous -Wound Margin Distinct, Distinct, Outline Outline Attached Attached -Granulation Amt Large (67-100%) Medium (34-66%) -Granulation Quality Red Red -Necrosis Amt Medium (34-66%) -Necrotic Tissue Type Adherent Slough -Structure Exposed N/A -Texture (Darling-wound Skin Appearance) Assessed Assessed Scarring -Moisture (Darling-wound Skin Appearance) Assessed Assessed,Dry/ Dry/Scaly Scaly -Color (Darling-wound Skin Appearance) Assessed Assessed Hemosiderin Staining -Temperature (Darling-wound Skin No Abnormality No Abnormality No Abnormality Appearance) (Pt Warm) (Pt Warm) (Pt Warm) -Tenderness on Palpation (Darling-wound No No No Skin Appearance) -Ulcer Cleansing Soap and Water Soap and Water Soap and Water -Foul Odor after Cleansing No No No -Anesthetic Used 5% Lidocaine 5% Lidocaine Gel Gel #5 Left lower lateral leg cluster -Combined with other wound No -Current Size (cm) - Length 0.1 7.5 4 -Current Size (cm) - Width 0.1 4.5 4 -Current Size (cm) - Depth 0.1 0.1 0.1 -Total Square Cm 0.01 33.75 16 -Epithelialization Large 67-100% -Tunneling No -Undermining/Tunneling No -Circular Undermining No -Exudate Amt Small Small Medium -Exudate Type Serosanguineous Serosanguineous Serosanguineous -Wound Margin Distinct, Distinct, Outline Outline Attached Attached -Granulation Amt Large (67-100%) Large (67-100%) -Granulation Quality Red [place],Red -Necrosis Amt Small (1-33%) -Necrotic Tissue Type Adherent Slough -Structure Exposed N/A -Texture (Darling-wound Skin Appearance) Assessed Assessed Scarring -Moisture (Darling-wound Skin Appearance) Assessed Assessed,Dry/ Dry/Scaly Scaly -Color (Darling-wound Skin Appearance) Assessed Assessed Hemosiderin Staining -Temperature (Darling-wound Skin No Abnormality No Abnormality No Abnormality Appearance) (Pt Warm) (Pt Warm) (Pt Warm) -Tenderness on Palpation (Darling-wound No No No Skin Appearance) -Ulcer Cleansing Soap and Water Soap and Water Soap and Water -Foul Odor after Cleansing No No No -Anesthetic Used 5% Lidocaine 5% Lidocaine Gel Gel Lower Limb Edema Present Yes Left Calf (cm) 43.5 45 42.5 Left Ankle (cm) 26.2 28 26.5 WC - Nurse 2 - General Ulcer CM Notes Start: 11/04/24 15:23 Freq: Status: Active Protocol: Activity Type Activity Date Activity User E-sign Co-sign Detail Recorded Client Recorded Date Recorded By Document 11/04/24 15:41 [id number] 11/04/24 16:00 Document 11/11/24 15:43 [id number] 11/11/24 15:53 Document 11/18/24 15:34 [id number] 11/18/24 15:38 11/04/24 11/11/24 11/18/24 15:41 15:43 15:34 Wound Center Nurse 2 #9 Left Posterior Lower Leg -Time 15:51 15:43 15:34 -Correct Patient Yes Yes Yes -Correct Side, Site, Position Yes Yes Yes -Correct Procedure No No -Procedure Performed No No -Tunneling No No -Undermining/Tunneling No No -Circular Undermining No No -Wound/Ulcer Outcome Not Healed Healed- Healed- Epithelialized Epithelialized -Ulcer Cleansing Not Cleansed -Foul Odor after Cleansing No No -Bioengineered Tissue No -Bleeding Controlled with NA NA -Offloading No No -Debridement - Open, 1st 20sq cm No -Debridement - Subq, 1st 20sq cm No -Debridement - Muscle / Fascia, 1st No 20sq cm -Debridement - Bone, 1st 20sq cm No #10 Left Medial inferior -Time 15:37 -Correct Patient Yes -Correct Side, Site, Position Yes -Correct Procedure No -Procedure Performed No -Post Debridement (cm) - Length 3.5 -Post Debridement (cm) - Width 5.0 -Post Debridement (cm) - Depth 0.1 -Total Square (Post) (cm) 17.50 -Wound/Ulcer Outcome Not Healed -Foul Odor after Cleansing No -Bioengineered Tissue No #7 L Medial leg cluster Superior -Time 15:53 15:44 15:34 -Correct Patient Yes Yes Yes -Correct Side, Site, Position Yes Yes Yes -Correct Procedure No No No -Procedure Performed No No No -Post Debridement (cm) - Length 8.5 -Post Debridement (cm) - Width 3.0 -Post Debridement (cm) - Depth 0.1 -Total Square (Post) (cm) 25.50 -Tunneling No No -Undermining/Tunneling No No -Circular Undermining No No -Wound/Ulcer Outcome Not Healed Not Healed Not Healed -Ulcer Cleansing Not Cleansed -Foul Odor after Cleansing No No -Bioengineered Tissue No -Bleeding Controlled with NA NA NA -Offloading No No -Debridement - Open, 1st 20sq cm No -Debridement - Subq, 1st 20sq cm No -Debridement - Muscle / Fascia, 1st No 20sq cm -Debridement - Bone, 1st 20sq cm No -Wound Comment(s) 6.0x8.0x0.1 #5 Left lower lateral leg cluster -Time 15:54 15:45 15:36 -Correct Patient Yes Yes Yes -Correct Side, Site, Position Yes Yes Yes -Correct Procedure No No No -Procedure Performed No No No -Post Debridement (cm) - Length 6.2 -Post Debridement (cm) - Width 7.0 -Post Debridement (cm) - Depth 0.1 -Total Square (Post) (cm) 43.40 -Tunneling No No -Undermining/Tunneling No No -Circular Undermining No No -Wound/Ulcer Outcome Not Healed Not Healed Not Healed -Ulcer Cleansing Not Cleansed -Foul Odor after Cleansing No No -Bioengineered Tissue No No -Bleeding Controlled with NA NA -Offloading No -Debridement - Open, 1st 20sq cm No -Debridement - Subq, 1st 20sq cm No -Debridement - Muscle / Fascia, 1st No 20sq cm -Debridement - Bone, 1st 20sq cm No -Wound Comment(s) 10.0x6.5x0.1 Pain Scale: 0-10 Numeric Is Patient Pain Free? Yes Yes Yes WC - Nurse 3 - General Ulcer D/C NN Start: 11/04/24 15:23 Freq: Status: Active Protocol: Activity Type Activity Date Activity User E-sign Co-sign Detail Recorded Client Recorded Date Recorded By Document 11/04/24 16:04 KW [id number] 11/04/24 16:12 KW Document 11/11/24 15:58 [id number] 11/11/24 16:01 KW 11/04/24 11/11/24 16:04 15:58 Wound Care Center Nurse 3 #9 Left Posterior Lower Leg -Other Dressing iodosorb with iodosorb gel, amlacton cream amlactin to dry skin -Primary Dressing Covered/Secured with Dry Gauze & Dry Gauze & Roll Gauze, Roll Gauze, Secured with Secured with Tape Tape #7 L Medial leg cluster Superior -Ulcer Cleansing Soap and Water -Other Dressing topicals iodosorb gel; amlactin to dry areas; -Primary Dressing Covered/Secured with Dry Gauze Dry Gauze & Roll Gauze, Secured with Tape #5 Left lower lateral leg cluster -Ulcer Cleansing Soap and Water -Other Dressing topicals iodosorb gel; amlactin to dry skin -Primary Dressing Covered/Secured with Dry Gauze Dry Gauze & Roll Gauze, Secured with Tape Left -Tubular Bandage Single Layer -Size of Tubigrip Used Size E -Size E ($) 1 Treatment Response Procedure Tolerated Well Pain Scale: 0-10 Numeric Is Patient Pain Free? 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 layer exposed: CODE(S): L97.922 - Non-pressure chronic ulcer of unspecified part of left lower leg with fat layer exposed PLAN: Posterior/lateral L calf ulceration limited to breakdown of the skin and Medial L calf ulceration limited to breakdown of the skin and anterior L angel ulceration cluster (2) Lipodermatosclerosis of both lower extremities: CODE(S): M79.3 - Panniculitis, unspecified (3) Bilateral lower extremity edema: CODE(S): R60.0 - Localized edema PLAN: Plan For wound care will continue: (1) Rinse the area of the wounds with saline (2) Apply 1/8th inch thick layer of iodosorb to dry gauze (3) apply to wounds (4) cover with ABD and conforming gauze wrap (4) Apply Tubigrip (5) Change dressing every 72 hours or sooner if it becomes soiled. Continue to encourage him to elevate his leg at all times of rest. May apply Amlactin to areas of intact, flaky skin at the proximal lower leg and foot; limit this to 2-3 times weekly with wound dressing changes; utilize normal fragrance-free moisturize other days. Continue to take Vasculera as prescribed. Return to the clinic in 1 week or sooner as needed.
[2024-11-25 15:03] VITALS: BP 133/66; PULSE 61; RESP 14; TEMP 35.8; BMI 28.4
--- NOTE | 2024-11-25 17:19 | PCM.WC.PN ---
History of Present Illness Date of Service: 11/25/24 Chief Complaint: LLE wounds History of Wound: Mr. Paola Boyer is an 83 y/o male who presents to the wound healing center today with left lower extremity wounds. He was referred by Nuvia Brooks. He is accompanied to his appointment today by his . He relays that he has been dealing with these left lower extremity wounds recurrently over the past few years. They will become very close to healing and then subsequently open back up. His reports that all really started with a lot of swelling and redness in his lower legs which progressively worsened to weeping before developing these focal wounds. He has been treated to this point at [facility] with Unna boots and all of the surrounding skin has much improved in appearance however the wounds remain. He has not had any prior venous imaging to his knowledge and no venous interventions. No history of peripheral arterial disease or arterial interventions. He is not diabetic. He is not currently smoking, he quit in 1964. He presents today in an automated wheelchair. His insurance unfortunately has a very high co-pay for debridements which will be kept in mind throughout his treatment. Subjective Subjective Paola is doing well this week. He is accompanied as usual by his . They had an enjoyable holiday. THey feel the wounds are improving. He continues to tolerate the Vasculera without issue. They refilled the iodosorb. is still coming for assistance with dressing changes. No F/C, N/V, or other concerns. Objective Data Objective Data Vital Signs: Vital Signs Temp Pulse Resp BP O2 Del Method 96.4 F L 61 14 133/66 H Room Air 11/25/24 15:03 11/25/24 15:03 11/25/24 15:03 11/25/24 15:03 11/11/24 15:25 Oxygen Delivery Method Room Air Weight: 198 lb Body Mass Index (BMI) 28.4 Charges/Coding Visit Charges Office Visits / Consults: 16085 OV L3 Est 20min Physical Exam Const alert, oriented x3 and no apparent distress General Appearance: cooperative and comfortable HEENT normocephalic, hearing grossly normal bilaterally, external ears normal and external nose normal Eyes General Eye: normal appearance of both eyes Resp normal respiratory effort Effort and Inspection: able to speak in complete sentences; Negative for labored, stridor or audible wheezes Extremity Extremity Narrative: 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 Trace edema on exam today. No apparent bulging varicosities. No weeping or skin breakdown except for wounds as noted below. Easily palpable pedal pulses. Skin Wounds: wounds noted Wound Narrative: L lateral calf wound cluster, L medial calf wound cluster, very superficial with slightly improved maceration, pink wound bases. L posterior calf cluster remains epithelialized. L anterior angel remains healed. Neuro oriented x3, CN's II-XII intact bilaterally and moves all extremities Speech: speech normal Debridement Note Debridement Note No debridement was completed: No debridement was completed today Post-Debridement Measurements and Additional Note: Post-Debridement Measurements/Treatment - Nurse 1 - General Ulcer Assessment Start: 11/04/24 15:23 Freq: Status: Active Protocol: DUSTIN Activity Type Activity Date Activity User E-sign Co-sign Detail Recorded Client Recorded Date Recorded By Document 11/04/24 15:23 KW [id number] 11/04/24 15:34 KW Document 11/11/24 15:25 KW [id number] 11/11/24 15:36 KW Document 11/18/24 15:18 DL [id number] 11/18/24 15:29 DL Document 11/25/24 15:03 ML [id number] 11/25/24 15:22 ML 11/04/24 11/11/24 11/18/24 15:23 15:25 15:18 - Today's Visit Information Type of service Follow-up Visit Follow-up Visit Follow-up Visit (Physician/PHYSICAL LABORATORY ASSISTANT (Physician/PHYSICAL LABORATORY ASSISTANT (Physician/PHYSICAL LABORATORY ASSISTANT ) ) ) Arrival Mode Other Other Wheelchair Arrival Mode (Other) scooter scooter Transfer Assistance None Accompanied by Patient Identification Verified (Name & Yes Yes Yes ) Patient Requires Transmission-Based No Precautions Height and Weight Body Mass Index (BMI) 28.4 28.4 28.4 BMI Classification Overweight Overweight Overweight Vital Signs Temperature (97.8 F-99.1 F) 98.2 F 97.4 F L 96 F L Temperature Source Temporal Temporal Temporal Pulse Rate (60-100) 67 59 L 55 L Pulse Location Monitor Monitor Monitor Respiratory Rate (12-18) 18 18 18 Respiratory rate source Observation Observation Observation Oxygen Delivery Method Room Air Room Air Blood Pressure (90/60-120/80) 125/62 H 132/81 H 133/54 H Blood Pressure Mean (mm Hg) 83 98 80 Source Monitor Monitor Monitor Position Sitting Sitting Blood Pressure Location Left Arm Left Forearm History Since Last Visit- (Skip if this is Patient's initial visit) Have you changed medications since your No No No last visit? Any new allergies or adverse reactions No No No Had a fall/change in ADL's that may No No No increase risk of falls Signs or symptoms of abuse and/or No No No neglect since last visit Have you been in the hospital since your No No No last visit? Has dressing in place as prescribed Yes Yes Yes Has compression in place as prescribed Yes Yes Yes Has offloadiing in place as prescribed N/A N/A Yes Experienced any changes in pain level or No No No management Left Footwear Regular Shoe Regular Shoe Right Footwear Regular Shoe Regular Shoe Pain Scale: 0-10 Numeric Is Patient Pain Free? Yes Yes Yes 11/25/24 15:03 WC - Today's Visit Information Type of service Follow-up Visit (Physician/PHYSICAL LABORATORY ASSISTANT ) Arrival Mode Wheelchair Arrival Mode (Other) Transfer Assistance None Accompanied by Patient Identification Verified (Name & Yes ) Patient Requires Transmission-Based No Precautions Height and Weight Body Mass Index (BMI) 28.4 BMI Classification Overweight Vital Signs Temperature (97.8 F-99.1 F) 96.4 F L Temperature Source Temporal Pulse Rate (60-100) 61 Pulse Location Monitor Respiratory Rate (12-18) 14 Respiratory rate source Observation Oxygen Delivery Method Blood Pressure (90/60-120/80) 133/66 H Blood Pressure Mean (mm Hg) 88 Source Monitor Position Sitting Blood Pressure Location Left Arm History Since Last Visit- (Skip if this is Patient's initial visit) Have you changed medications since your No last visit? Any new allergies or adverse reactions No Had a fall/change in ADL's that may No increase risk of falls Signs or symptoms of abuse and/or No neglect since last visit Have you been in the hospital since your last visit? Has dressing in place as prescribed Yes Has compression in place as prescribed Yes Has offloadiing in place as prescribed N/A Experienced any changes in pain level or No management Left Footwear Right Footwear Pain Scale: 0-10 Numeric Is Patient Pain Free? Yes - Nurse 1 - General Ulcer Measurement Start: 12/05/24 15:23 Freq: Status: Active Protocol: Activity Type Activity Date Activity User E-sign Co-sign Detail Recorded Client Recorded Date Recorded By Document 11/04/24 15:23 KW [id number] 11/04/24 15:34 KW Document 11/11/24 15:25 KW [id number] 11/11/24 15:36 KW Document 11/18/24 15:18 DL [id number] 11/18/24 15:29 DL Document 11/25/24 15:03 ML [id number] 11/25/24 15:22 ML 11/04/24 11/11/24 11/18/24 15:23 15:25 15:18 Wound Center Nurse 1 #9 Left Posterior Lower Leg -Combined with other wound No -Current Size (cm) - Length 0.1 0.1 -Current Size (cm) - Width 0.1 0.1 -Current Size (cm) - Depth 0.1 0.1 -Total Square Cm 0.01 0.01 -Epithelialization Large 67-100% -Tunneling No -Undermining/Tunneling No -Circular Undermining No -Exudate Amt Small None Present -Exudate Type Serosanguineous -Wound Margin Indistinct, Non -Visible -Granulation Amt Large (67-100%) -Granulation Quality Knowles -Necrosis Amt None Present (0 %) -Structure Exposed N/A -Texture (Darling-wound Skin Appearance) Assessed Scarring -Moisture (Darling-wound Skin Appearance) Assessed,Dry/ Dry/Scaly Scaly -Color (Darling-wound Skin Appearance) Assessed Hemosiderin Staining -Temperature (Darling-wound Skin No Abnormality No Abnormality Appearance) (Pt Warm) (Pt Warm) -Tenderness on Palpation (Darling-wound No No Skin Appearance) -Ulcer Cleansing Soap and Water Soap and Water -Foul Odor after Cleansing No No -Anesthetic Used 5% Lidocaine Gel #8 L Lower Anterior LE -Combined with other wound No -Current Size (cm) - Length 0.1 -Current Size (cm) - Width 0.1 -Current Size (cm) - Depth 0.1 -Total Square Cm 0.01 -Epithelialization Large 67-100% -Tunneling No -Undermining/Tunneling No -Circular Undermining No -Exudate Amt Small -Exudate Type Serosanguineous -Texture (Darling-wound Skin Appearance) Assessed -Moisture (Darling-wound Skin Appearance) Assessed,Dry/ Scaly -Color (Darling-wound Skin Appearance) Assessed -Temperature (Darling-wound Skin No Abnormality Appearance) (Pt Warm) -Tenderness on Palpation (Darling-wound No Skin Appearance) -Ulcer Cleansing Soap and Water -Foul Odor after Cleansing No #10 Left Medial inferior -Current Size (cm) - Length -Current Size (cm) - Width -Current Size (cm) - Depth -Total Square Cm -Exudate Amt -Exudate Type -Granulation Amt -Necrosis Amt -Necrotic Tissue Type -Texture (Darling-wound Skin Appearance) -Moisture (Darling-wound Skin Appearance) -Color (Darling-wound Skin Appearance) -Temperature (Darling-wound Skin Appearance) -Tenderness on Palpation (Darling-wound Skin Appearance) -Ulcer Cleansing -Foul Odor after Cleansing -Anesthetic Used #7 L Medial leg cluster Superior -Combined with other wound No -Combined with (Name of Wound-Exactly as it is documented) -Current Size (cm) - Length 0.1 3.5 1.5 -Current Size (cm) - Width 0.1 2.5 3.4 -Current Size (cm) - Depth 0.1 0.1 0.1 -Total Square Cm 0.01 8.75 5.10 -Epithelialization Large 67-100% -Tunneling No -Undermining/Tunneling No -Circular Undermining No -Exudate Amt Medium Medium -Exudate Type Serosanguineous Serosanguineous -Wound Margin Distinct, Distinct, Outline Outline Attached Attached -Granulation Amt Large (67-100%) Medium (34-66%) -Granulation Quality Red Red -Necrosis Amt Medium (34-66%) -Necrotic Tissue Type Adherent Slough -Structure Exposed N/A -Texture (Darling-wound Skin Appearance) Assessed Assessed Scarring -Moisture (Darling-wound Skin Appearance) Assessed Assessed,Dry/ Dry/Scaly Scaly -Color (Darling-wound Skin Appearance) Assessed Assessed Hemosiderin Staining -Temperature (Darling-wound Skin No Abnormality No Abnormality No Abnormality Appearance) (Pt Warm) (Pt Warm) (Pt Warm) -Tenderness on Palpation (Darling-wound No No No Skin Appearance) -Ulcer Cleansing Soap and Water Soap and Water Soap and Water -Foul Odor after Cleansing No No No -Anesthetic Used 5% Lidocaine 5% Lidocaine Gel Gel #5 Left lower lateral leg cluster -Combined with other wound No -Current Size (cm) - Length 0.1 7.5 4 -Current Size (cm) - Width 0.1 4.5 4 -Current Size (cm) - Depth 0.1 0.1 0.1 -Total Square Cm 0.01 33.75 16 -Epithelialization Large 67-100% -Tunneling No -Undermining/Tunneling No -Circular Undermining No -Exudate Amt Small Small Medium -Exudate Type Serosanguineous Serosanguineous Serosanguineous -Wound Margin Distinct, Distinct, Outline Outline Attached Attached -Granulation Amt Large (67-100%) Large (67-100%) -Granulation Quality Red Knowles,Red -Necrosis Amt Small (1-33%) -Necrotic Tissue Type Adherent Slough -Structure Exposed N/A -Texture (Darling-wound Skin Appearance) Assessed Assessed Scarring -Moisture (Darling-wound Skin Appearance) Assessed Assessed,Dry/ Dry/Scaly Scaly -Color (Darling-wound Skin Appearance) Assessed Assessed Hemosiderin Staining -Temperature (Darling-wound Skin No Abnormality No Abnormality No Abnormality Appearance) (Pt Warm) (Pt Warm) (Pt Warm) -Tenderness on Palpation (Darling-wound No No No Skin Appearance) -Ulcer Cleansing Soap and Water Soap and Water Soap and Water -Foul Odor after Cleansing No No No -Anesthetic Used 5% Lidocaine 5% Lidocaine Gel Gel Lower Limb Edema Present Yes Left Calf (cm) 43.5 45 42.5 Left Ankle (cm) 26.2 28 26.5 11/25/24 15:03 Wound Center Nurse 1 #9 Left Posterior Lower Leg -Combined with other wound -Current Size (cm) - Length -Current Size (cm) - Width -Current Size (cm) - Depth -Total Square Cm -Epithelialization -Tunneling -Undermining/Tunneling -Circular Undermining -Exudate Amt -Exudate Type -Wound Margin -Granulation Amt -Granulation Quality -Necrosis Amt -Structure Exposed -Texture (Darling-wound Skin Appearance) -Moisture (Darling-wound Skin Appearance) -Color (Darling-wound Skin Appearance) -Temperature (Darling-wound Skin Appearance) -Tenderness on Palpation (Darling-wound Skin Appearance) -Ulcer Cleansing -Foul Odor after Cleansing -Anesthetic Used #8 L Lower Anterior LE -Combined with other wound -Current Size (cm) - Length -Current Size (cm) - Width -Current Size (cm) - Depth -Total Square Cm -Epithelialization -Tunneling -Undermining/Tunneling -Circular Undermining -Exudate Amt -Exudate Type -Texture (Darling-wound Skin Appearance) -Moisture (Darling-wound Skin Appearance) -Color (Darling-wound Skin Appearance) -Temperature (Darling-wound Skin Appearance) -Tenderness on Palpation (Darling-wound Skin Appearance) -Ulcer Cleansing -Foul Odor after Cleansing #10 Left Medial inferior -Current Size (cm) - Length 7 -Current Size (cm) - Width 6 -Current Size (cm) - Depth 0.1 -Total Square Cm 42 -Exudate Amt Large -Exudate Type Serosanguineous -Granulation Amt Medium (34-66%) -Necrosis Amt Medium (34-66%) -Necrotic Tissue Type Adherent Slough -Texture (Darling-wound Skin Appearance) Assessed -Moisture (Darling-wound Skin Appearance) Dry/Scaly -Color (Darling-wound Skin Appearance) Assessed, Erythema, Hemosiderin Staining -Temperature (Darling-wound Skin No Abnormality Appearance) (Pt Warm) -Tenderness on Palpation (Darling-wound No Skin Appearance) -Ulcer Cleansing Soap and Water -Foul Odor after Cleansing No -Anesthetic Used 5% Lidocaine Gel #7 L Medial leg cluster Superior -Combined with other wound -Combined with (Name of Wound-Exactly 2 as it is documented) -Current Size (cm) - Length 0.3 -Current Size (cm) - Width 0.1 -Current Size (cm) - Depth -Total Square Cm 0.03 -Epithelialization -Tunneling -Undermining/Tunneling -Circular Undermining -Exudate Amt Medium -Exudate Type Serous -Wound Margin -Granulation Amt Medium (34-66%) -Granulation Quality -Necrosis Amt Medium (34-66%) -Necrotic Tissue Type Adherent Slough -Structure Exposed -Texture (Darling-wound Skin Appearance) Assessed -Moisture (Darling-wound Skin Appearance) Assessed -Color (Darling-wound Skin Appearance) Assessed -Temperature (Darling-wound Skin No Abnormality Appearance) (Pt Warm) -Tenderness on Palpation (Darling-wound Yes Skin Appearance) -Ulcer Cleansing Soap and Water -Foul Odor after Cleansing No -Anesthetic Used 5% Lidocaine Gel #5 Left lower lateral leg cluster -Combined with other wound -Current Size (cm) - Length 6 -Current Size (cm) - Width 7 -Current Size (cm) - Depth 0.1 -Total Square Cm 42 -Epithelialization -Tunneling -Undermining/Tunneling -Circular Undermining -Exudate Amt Medium -Exudate Type Serous -Wound Margin -Granulation Amt Medium (34-66%) -Granulation Quality -Necrosis Amt Medium (34-66%) -Necrotic Tissue Type Adherent Slough -Structure Exposed -Texture (Darling-wound Skin Appearance) Assessed -Moisture (Darling-wound Skin Appearance) Assessed -Color (Darling-wound Skin Appearance) Assessed -Temperature (Darling-wound Skin No Abnormality Appearance) (Pt Warm) -Tenderness on Palpation (Darling-wound Yes Skin Appearance) -Ulcer Cleansing Soap and Water -Foul Odor after Cleansing No -Anesthetic Used 4% Lidocaine Solution Lower Limb Edema Present Left Calf (cm) Left Ankle (cm) WC - Nurse 2 - General Ulcer CM Notes Start: 11/04/24 15:23 Freq: Status: Active Protocol: Activity Type Activity Date Activity User E-sign Co-sign Detail Recorded Client Recorded Date Recorded By Document 11/04/24 15:41 [id number] 11/04/24 16:00 Document 11/11/24 15:43 [id number] 11/11/24 15:53 Document 11/18/24 15:34 [id number] 11/18/24 15:38 Document 11/25/24 15:51 [id number] 11/25/24 15:59 11/04/24 11/11/24 11/18/24 15:41 15:43 15:34 Wound Center Nurse 2 #9 Left Posterior Lower Leg -Time 15:51 15:43 15:34 -Correct Patient Yes Yes Yes -Correct Side, Site, Position Yes Yes Yes -Correct Procedure No No -Procedure Performed No No -Tunneling No No -Undermining/Tunneling No No -Circular Undermining No No -Wound/Ulcer Outcome Not Healed Healed- Healed- Epithelialized Epithelialized -Ulcer Cleansing Not Cleansed -Foul Odor after Cleansing No No -Bioengineered Tissue No -Bleeding Controlled with NA NA -Offloading No No -Debridement - Open, 1st 20sq cm No -Debridement - Subq, 1st 20sq cm No -Debridement - Muscle / Fascia, 1st No 20sq cm -Debridement - Bone, 1st 20sq cm No #10 Left Medial inferior -Time 15:37 -Correct Patient Yes -Correct Side, Site, Position Yes -Correct Procedure No -Procedure Performed No -Post Debridement (cm) - Length 3.5 -Post Debridement (cm) - Width 5.0 -Post Debridement (cm) - Depth 0.1 -Total Square (Post) (cm) 17.50 -Tunneling -Undermining/Tunneling -Circular Undermining -Wound/Ulcer Outcome Not Healed -Foul Odor after Cleansing No -Bioengineered Tissue No -Bleeding Controlled with -Debridement - Open, 1st 20sq cm -Debridement - Subq, 1st 20sq cm -Debridement - Muscle / Fascia, 1st 20sq cm -Debridement - Bone, 1st 20sq cm #7 L Medial leg cluster Superior -Time 15:53 15:44 15:34 -Correct Patient Yes Yes Yes -Correct Side, Site, Position Yes Yes Yes -Correct Procedure No No No -Procedure Performed No No No -Post Debridement (cm) - Length 8.5 -Post Debridement (cm) - Width 3.0 -Post Debridement (cm) - Depth 0.1 -Total Square (Post) (cm) 25.50 -Tunneling No No -Undermining/Tunneling No No -Circular Undermining No No -Wound/Ulcer Outcome Not Healed Not Healed Not Healed -Ulcer Cleansing Not Cleansed -Foul Odor after Cleansing No No -Bioengineered Tissue No -Bleeding Controlled with NA NA NA -Offloading No No -Debridement - Open, 1st 20sq cm No -Debridement - Subq, 1st 20sq cm No -Debridement - Muscle / Fascia, 1st No 20sq cm -Debridement - Bone, 1st 20sq cm No -Wound Comment(s) 6.0x8.0x0.1 #5 Left lower lateral leg cluster -Time 15:54 15:45 15:36 -Correct Patient Yes Yes Yes -Correct Side, Site, Position Yes Yes Yes -Correct Procedure No No No -Procedure Performed No No No -Post Debridement (cm) - Length 6.2 -Post Debridement (cm) - Width 7.0 -Post Debridement (cm) - Depth 0.1 -Total Square (Post) (cm) 43.40 -Tunneling No No -Undermining/Tunneling No No -Circular Undermining No No -Wound/Ulcer Outcome Not Healed Not Healed Not Healed -Ulcer Cleansing Not Cleansed -Foul Odor after Cleansing No No -Bioengineered Tissue No No -Bleeding Controlled with NA NA -Offloading No -Debridement - Open, 1st 20sq cm No -Debridement - Subq, 1st 20sq cm No -Debridement - Muscle / Fascia, 1st No 20sq cm -Debridement - Bone, 1st 20sq cm No -Wound Comment(s) 10.0x6.5x0.1 Pain Scale: 0-10 Numeric Is Patient Pain Free? Yes Yes Yes 11/25/24 15:51 Wound Center Nurse 2 #9 Left Posterior Lower Leg -Time -Correct Patient -Correct Side, Site, Position -Correct Procedure -Procedure Performed -Tunneling -Undermining/Tunneling -Circular Undermining -Wound/Ulcer Outcome -Ulcer Cleansing -Foul Odor after Cleansing -Bioengineered Tissue -Bleeding Controlled with -Offloading -Debridement - Open, 1st 20sq cm -Debridement - Subq, 1st 20sq cm -Debridement - Muscle / Fascia, 1st 20sq cm -Debridement - Bone, 1st 20sq cm #10 Left Medial inferior -Time 15:51 -Correct Patient Yes -Correct Side, Site, Position Yes -Correct Procedure No -Procedure Performed No -Post Debridement (cm) - Length 4.5 -Post Debridement (cm) - Width 4.5 -Post Debridement (cm) - Depth 0.1 -Total Square (Post) (cm) 20.25 -Tunneling No -Undermining/Tunneling No -Circular Undermining No -Wound/Ulcer Outcome Not Healed -Foul Odor after Cleansing No -Bioengineered Tissue No -Bleeding Controlled with NA -Debridement - Open, 1st 20sq cm No -Debridement - Subq, 1st 20sq cm No -Debridement - Muscle / Fascia, 1st No 20sq cm -Debridement - Bone, 1st 20sq cm No #7 L Medial leg cluster Superior -Time 15:52 -Correct Patient Yes -Correct Side, Site, Position Yes -Correct Procedure No -Procedure Performed No -Post Debridement (cm) - Length -Post Debridement (cm) - Width -Post Debridement (cm) - Depth -Total Square (Post) (cm) -Tunneling No -Undermining/Tunneling No -Circular Undermining No -Wound/Ulcer Outcome Not Healed -Ulcer Cleansing Rinsed/ Irrigated with Saline -Foul Odor after Cleansing No -Bioengineered Tissue No -Bleeding Controlled with NA -Offloading No -Debridement - Open, 1st 20sq cm No -Debridement - Subq, 1st 20sq cm No -Debridement - Muscle / Fascia, 1st No 20sq cm -Debridement - Bone, 1st 20sq cm No -Wound Comment(s) #5 Left lower lateral leg cluster -Time 15:52 -Correct Patient Yes -Correct Side, Site, Position Yes -Correct Procedure No -Procedure Performed No -Post Debridement (cm) - Length 10.0 -Post Debridement (cm) - Width 4.0 -Post Debridement (cm) - Depth 0.1 -Total Square (Post) (cm) 40.00 -Tunneling No -Undermining/Tunneling No -Circular Undermining No -Wound/Ulcer Outcome Not Healed -Ulcer Cleansing Rinsed/ Irrigated with Saline -Foul Odor after Cleansing No -Bioengineered Tissue No -Bleeding Controlled with NA -Offloading -Debridement - Open, 1st 20sq cm No -Debridement - Subq, 1st 20sq cm No -Debridement - Muscle / Fascia, 1st No 20sq cm -Debridement - Bone, 1st 20sq cm No -Wound Comment(s) Pain Scale: 0-10 Numeric Is Patient Pain Free? Yes WC - Nurse 3 - General Ulcer D/C NN Start: 11/04/24 15:23 Freq: Status: Active Protocol: Activity Type Activity Date Activity User E-sign Co-sign Detail Recorded Client Recorded Date Recorded By Document 11/04/24 16:04 KW [id number] 11/04/24 16:12 KW Document 11/11/24 15:58 KW [id number] 11/11/24 16:01 KW Document 11/25/24 16:13 KW [id number] 11/25/24 16:22 KW 11/04/24 11/11/24 11/25/24 16:04 15:58 16:13 Wound Care Center Nurse 3 #9 Left Posterior Lower Leg -Other Dressing iodosorb with iodosorb gel, amlacton cream amlactin to dry skin -Primary Dressing Covered/Secured with Dry Gauze & Dry Gauze & Roll Gauze, Roll Gauze, Secured with Secured with Tape Tape #10 Left Medial inferior -Other Dressing iodosorb cream with amlactin around surrounding area -Primary Dressing Covered/Secured with Dry Gauze #7 L Medial leg cluster Superior -Ulcer Cleansing Soap and Water -Other Dressing topicals iodosorb gel; iodosorb cream amlactin to dry with amlactin areas; cream around surrounding area -Primary Dressing Covered/Secured with Dry Gauze Dry Gauze & Dry Gauze Roll Gauze, Secured with Tape #5 Left lower lateral leg cluster -Ulcer Cleansing Soap and Water -Other Dressing topicals iodosorb gel; iodosorb cream amlactin to dry with amlactin skin cream around surrounding area -Primary Dressing Covered/Secured with Dry Gauze Dry Gauze & Dry Gauze & Roll Gauze, Roll Gauze, Secured with Secured with Tape Tape Left -Tubular Bandage Single Layer -Size of Tubigrip Used Size E -Size E ($) 1 -Other pt own tubigrip size E Treatment Response Procedure Tolerated Well Pain Scale: 0-10 Numeric Is Patient Pain Free? 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: CODE(S): L97.922 - Non-pressure chronic ulcer of unspecified part of left lower leg with fat layer exposed PLAN: Posterior/lateral L calf ulceration limited to breakdown of the skin and Medial L calf ulceration limited to breakdown of the skin and anterior L angel ulceration cluster (2) Lipodermatosclerosis of both lower extremities: CODE(S): M79.3 - Panniculitis, unspecified (3) Bilateral lower extremity edema: CODE(S): R60.0 - Localized edema PLAN: Plan For wound care will continue: (1) Rinse the area of the wounds with saline (2) Apply 1/8th inch thick layer of iodosorb to dry gauze (3) apply to wounds (4) cover with ABD and conforming gauze wrap (4) Apply Tubigrip (5) Change dressing every 72 hours or sooner if it becomes soiled. Continue to encourage him to elevate his leg at all times of rest. May apply Amlactin to areas of intact, flaky skin at the proximal lower leg and foot; limit this to 2-3 times weekly with wound dressing changes; utilize normal fragrance-free moisturize other days. Continue to take Vasculera as prescribed. Return to the clinic in 1 week or sooner as needed.
== END 2024-11-30 23:59 | disposition home or self-care (01) ==
LOC: WC 14:45
PROVIDERS: PCP Family Medicine; Referring Provider Dermatology; Visit Provider Physician Assistant
DX: L97.922 Non-pressure chronic ulcer of unspecified part of left lower leg with fat layer exposed (principal); M79.3 Panniculitis, unspecified; R60.0 Localized edema; Z87.891 Personal history of nicotine dependence
CPT/HCPCS: 99213; G0463

== ENCOUNTER 2024-12-29 15:00 | Outpatient (RCR) | payer MEDICARE, SELFPAY ==
[2024-12-01 00:39] VITALS: BP 128/53; PULSE 67; RESP 18; TEMP 36; BMI 28.4
[2024-12-02 14:55] VITALS: BP 132/69; PULSE 61; RESP 16; TEMP 37.1; BMI 28.4
--- NOTE | 2024-12-02 17:05 | PN.PCM_ITS ---
History of Present Illness Date of Service: 12/02/24 Chief Complaint: LLE wounds History of Wound: Mr. Paola Boyer is an 83 y/o male who presents to the wound healing center today with left lower extremity wounds. He was referred by Nuvia Brooks. He is accompanied to his appointment today by his . He relays that he has been dealing with these left lower extremity wounds recurrently over the past few years. They will become very close to healing and then subsequently open back up. His reports that all really started with a lot of swelling and redness in his lower legs which progressively worsened to weeping before developing these focal wounds. He has been treated to this point at [facility] with Unna boots and all of the surrounding skin has much improved in appearance however the wounds remain. He has not had any prior venous imaging to his knowledge and no venous interventions. No history of peripheral arterial disease or arterial interventions. He is not diabetic. He is not currently smoking, he quit in 1964. He presents today in an automated wheelchair. His insurance unfortunately has a very high co-pay for debridements which will be kept in mind throughout his treatment. Subjective Subjective Paola is doing well this week. His notes she was cleansing his legs and tried to pull off what appeared to be a skin flake a this led to a moderate skin tear on his R medial ankle. Otherwise, no new concerns over the last week. Objective Data Objective Data Vital Signs: Vital Signs Temp Pulse Resp BP O2 Del Method 98.8 F 61 16 132/69 H Room Air 12/02/24 14:55 12/02/24 14:55 12/02/24 14:55 12/02/24 14:55 12/02/24 14:55 Oxygen Delivery Method Room Air Weight: 198 lb Body Mass Index (BMI) 28.4 Charges/Coding Visit Charges Office Visits / Consults: [id number] OV L3 Est 20min Physical Exam Const alert, oriented x3 and no apparent distress General Appearance: cooperative and comfortable HEENT normocephalic, hearing grossly normal bilaterally, external ears normal and external nose normal Eyes General Eye: normal appearance of both eyes Resp normal respiratory effort Effort and Inspection: able to speak in complete sentences; Negative for l abored, stridor or audible wheezes Extremity Extremity Narrative: Bilateral lower extremities with hemosiderin deposition and lipodermatos clerosis. Trace edema on exam today. No apparent bulging varicosities. No weeping or skin breakdown except for wounds as noted below. Easily palpable pedal pulses. Skin Wounds: wounds noted Wound Narrative: L lateral calf wound cluster and L medial calf wound cluster + now adjacent skin tear all very superficial with pink base. Surrounding maceration present but mild today. Neuro oriented x3, CN's II-XII intact bilaterally and moves all extremities Speech: speech normal Debridement Note Debridement Note No debridement was completed: No debridement was completed today Post-Debridement Measurements and Additional Note: Post-Debridement Measurements/Treatment - Nurse 1 - General Ulcer Assessment Start: 12/02/24 14:54 Freq: Status: Active Protocol: DUSTIN Activity Type Activity Date Activity User E-sign Co-sign Detail Recorded Client Recorded Date Recorded By Document 12/02/24 14:55 KW [id number] 12/02/24 14:59 KW 12/02/24 14:55 WC - Today's Visit Information Type of service Follow-up Visit (Physician/IMAGING SYSTEM ADMINISTRATOR ) Arrival Mode Wheelchair Transfer Assistance None Accompanied by Patient Identification Verified (Name & Yes ) Height and Weight Body Mass Index (BMI) 28.4 BMI Classification Overweight Vital Signs Temperature (97.8 F-99.1 F) 98.8 F Temperature Source Temporal Pulse Rate (60-100) 61 Pulse Location Monitor Respiratory Rate (12-18) 16 Respiratory rate source Observation Oxygen Delivery Method Room Air Blood Pressure (90/60-120/80) 132/69 H Blood Pressure Mean (mm Hg) 90 Source Monitor Position Sitting Blood Pressure Location Right Forearm History Since Last Visit- (Skip if this is Patient's initial visit) Have you changed medications since your No last visit? Any new allergies or adverse reactions No Had a fall/change in ADL's that may No increase risk of falls Signs or symptoms of abuse and/or No neglect since last visit Have you been in the hospital since your No last visit? Has dressing in place as prescribed Yes Has compression in place as prescribed Yes Has offloadiing in place as prescribed N/A Experienced any changes in pain level or No management Left Footwear Regular Shoe Right Footwear Regular Shoe Pain Scale: 0-10 Numeric Is Patient Pain Free? Yes [facility] Nurse 1 - General Ulcer Measurement Start: 12/02/24 14:54 Freq: Status: Active Protocol: Activity Type Activity Date Activity User E-sign Co-sign Detail Recorded Client Recorded Date Recorded By Document 12/02/24 14:55 KW [id number] 12/02/24 14:59 KW 12/02/24 14:55 Wound Center Nurse 1 #10 Left Medial inferior -Combined with other wound No -Current Size (cm) - Length 2.6 -Current Size (cm) - Width 3 -Current Size (cm) - Depth 0.1 -Total Square Cm 7.8 -Epithelialization Small 1-33% -Tunneling No -Undermining/Tunneling No -Circular Undermining No -Exudate Amt Medium -Exudate Type Serosanguineous -Wound Margin Distinct, Outline Attached -Granulation Amt Medium (34-66%) -Granulation Quality Red -Slough/Fibrin Yes -Necrosis Amt Medium (34-66%) -Necrotic Tissue Type Adherent Slough -Texture (Darling-wound Skin Appearance) Assessed, Excoriation, Scarring,Rash -Moisture (Darling-wound Skin Appearance) Assessed -Color (Darling-wound Skin Appearance) Assessed, Erythema -Temperature (Darling-wound Skin No Abnormality Appearance) (Pt Warm) -Tenderness on Palpation (Darling-wound No Skin Appearance) -Ulcer Cleansing Soap and Water -Foul Odor after Cleansing No -Anesthetic Used 5% Lidocaine Gel #7 L Medial leg cluster Superior -Combined with other wound No -Current Size (cm) - Length 0.1 -Current Size (cm) - Width 0.1 -Current Size (cm) - Depth 0.1 -Total Square Cm 0.01 -Epithelialization Large 67-100% #5 Left lower lateral leg cluster -Combined with other wound No -Current Size (cm) - Length 2 -Current Size (cm) - Width 1.5 -Current Size (cm) - Depth 0.1 -Total Square Cm 3.0 -Epithelialization Small 1-33% -Tunneling No -Undermining/Tunneling No -Circular Undermining No -Exudate Amt Medium -Exudate Type Serosanguineous -Wound Margin Distinct, Outline Attached -Granulation Amt Medium (34-66%) -Granulation Quality Red -Slough/Fibrin Yes -Necrosis Amt Medium (34-66%) -Necrotic Tissue Type Adherent Slough -Texture (Darling-wound Skin Appearance) Assessed, Excoriation, Scarring,Rash -Moisture (Darling-wound Skin Appearance) Assessed -Color (Darling-wound Skin Appearance) Assessed, Erythema -Temperature (Darling-wound Skin No Abnormality Appearance) (Pt Warm) -Tenderness on Palpation (Darling-wound No Skin Appearance) -Ulcer Cleansing Soap and Water -Foul Odor after Cleansing No -Anesthetic Used 5% Lidocaine Gel Lower Limb Edema Present Yes Left Calf (cm) 42.3 Left Ankle (cm) 28.5 WC - Nurse 2 - General Ulcer CM Notes Start: 12/02/24 14:54 Freq: Status: Active Protocol: Activity Type Activity Date Activity User E-sign Co-sign Detail Recorded Client Recorded Date Recorded By Document 12/02/24 15:08 [id number] 12/02/24 15:15 12/02/24 15:08 Wound Center Nurse 2 #10 Left Medial inferior -Time 15:09 -Correct Patient Yes -Correct Side, Site, Position Yes -Correct Procedure No -Procedure Performed No -Tunneling No -Undermining/Tunneling No -Circular Undermining No -Wound/Ulcer Outcome Not Healed -Ulcer Cleansing Rinsed/ Irrigated with Saline -Foul Odor after Cleansing No -Bioengineered Tissue No -Bleeding Controlled with NA #7 L Medial leg cluster Superior -Time 15:09 -Correct Patient Yes -Correct Side, Site, Position Yes -Correct Procedure No -Procedure Performed No -Post Debridement (cm) - Length 12.0 -Post Debridement (cm) - Width 6.0 -Post Debridement (cm) - Depth 0.1 -Total Square (Post) (cm) 72.00 -Tunneling No -Undermining/Tunneling No -Circular Undermining No -Wound/Ulcer Outcome Not Healed -Ulcer Cleansing Rinsed/ Irrigated with Saline -Foul Odor after Cleansing No -Bioengineered Tissue No -Bleeding Controlled with NA #5 Left lower lateral leg cluster -Time 15:10 -Correct Patient Yes -Correct Side, Site, Position Yes -Correct Procedure No -Procedure Performed No -Post Debridement (cm) - Length 10.0 -Post Debridement (cm) - Width 4.0 -Post Debridement (cm) - Depth 0.1 -Total Square (Post) (cm) 40.00 Pain Scale: 0-10 Numeric Is Patient Pain Free? Yes CHRISTIE - Nurse 3 - General Ulcer D/C NN Start: 12/02/24 14:54 Freq: Status: Active Protocol: Activity Type Activity Date Activity User E-sign Co-sign Detail Recorded Client Recorded Date Recorded By Document 12/02/24 15:33 KW [id number] 12/02/24 15:35 KW 12/02/24 15:33 Wound Care Center Nurse 3 #10 Left Medial inferior -Other Dressing iodosorb gel with amloactin cream to flakey area -Primary Dressing Covered/Secured with Dry Gauze & Roll Gauze, Secured with Tape #7 L Medial leg cluster Superior -Other Dressing iodosorb gel with amlactin cream to flakey area -Primary Dressing Covered/Secured with Dry Gauze #5 Left lower lateral leg cluster -Other Dressing iodosorb gel with amlactin cream at flakey areas -Primary Dressing Covered/Secured with Dry Gauze Left -Tubular Bandage Single Layer -Size of Tubigrip Used Size E -Size E ($) 1 Pain Scale: 0-10 Numeric Is Patient Pain Free? 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: CODE(S): L97.922 - Non-pressure chronic ulcer of unspecified part of left lower leg with fat layer exposed PLAN: Posterior/lateral L calf ulceration limited to breakdown of the skin and Medial L calf ulceration limited to breakdown of the skin and anterior L angel ulceration cluster (2) Lipodermatosclerosis of both lower extremities: CODE(S): M79.3 - Panniculitis, unspecified (3) Bilateral lower extremity edema: CODE(S): R60.0 - Localized edema PLAN: Plan For wound care will continue: (1) Rinse the area of the wounds with saline (2) Apply 1/8th inch thick layer of iodosorb to dry gauze (3) apply to wounds (4) cover with ABD and conforming gauze wrap (4) Apply Tubigrip (5) Change dressing every 72 hours or sooner if it becomes soiled. Continue to encourage him to elevate his leg at all times of rest. May apply Amlactin to areas of intact, flaky skin at the proximal lower leg and foot; limit this to 2-3 times weekly with wound dressing changes; utilize normal fragrance-free moisturize other days. Continue to take Vasculera as prescribed. At this point through his course here we have treated with months of Unna boots + compression, 3M wraps, various topical products including Aquacel extra and silver, iodosrob. We have treated for bacterial infections (orally and topically) as indicated by C&S, we have treated empirically for fungal infections with clotrimazole. We have treated as well with topical steroid in case of severe venous stasis dermatitis. Will plan to order repeat venous reflux study to assess for any recurrent/new reflux or perforators which could be contributing to his persistent skin breakdown. May refer to Dr. Tripathi for second opinion here, did discuss the patient briefly with him today. May consider returning to [facility] for a time +/- the iodosorb. Will also likely refer to dermatology Bonifacio Dunn for secondary derm opinion and possible biopsy to determine if there may be a primary skin disorder at the root of this which we are not adequately treating. Return to the clinic in 1 week or sooner as needed.
[2024-12-23 15:27] VITALS: BP 132/61; PULSE 61; RESP 16; TEMP 36.8; BMI 28.4
--- NOTE | 2024-12-23 17:58 | PN.PCM_ITS ---
History of Present Illness Date of Service: 12/23/24 Chief Complaint: LLE wounds History of Wound: Mr. Paola Boyer is an 83 y/o male who presents to the wound healing center today with left lower extremity wounds. He was referred by Nuvia Brooks. He is accompanied to his appointment today by his . He relays that he has been dealing with these left lower extremity wounds recurrently over the past few years. They will become very close to healing and then subsequently open back up. His reports that all really started with a lot of swelling and redness in his lower legs which progressively worsened to weeping before developing these focal wounds. He has been treated to this point at [facility] with Unna boots and all of the surrounding skin has much improved in appearance however the wounds remain. He has not had any prior venous imaging to his knowledge and no venous interventions. No history of peripheral arterial disease or arterial interventions. He is not diabetic. He is not currently smoking, he quit in 1964. He presents today in an automated wheelchair. His insurance unfortunately has a very high co-pay for debridements which will be kept in mind throughout his treatment. Subjective Subjective He has been well over the last couple of weeks. Missed appt last week due to weather. They feel the LLE is looking a bit better, no new concerns. Objective Data Objective Data Vital Signs: Vital Signs Temp Pulse Resp BP O2 Del Method 98.2 F 61 16 132/61 H Room Air 12/23/24 15:27 12/23/24 15:27 12/23/24 15:27 12/23/24 15:27 12/23/24 15:27 Oxygen Delivery Method Room Air Weight: 198 lb Body Mass Index (BMI) 28.4 Charges/Coding Visit Charges Office Visits / Consults: 79331 OV L3 Est 20min Physical Exam Const alert, oriented x3 and no apparent distress General Appearance: cooperative and comfortable HEENT normocephalic, hearing grossly normal bilaterally, external ears normal and external nose normal Eyes General Eye: normal appearance of both eyes Resp normal respiratory effort Effort and Inspection: able to speak in complete sentences; Negative for labored, stridor or audible wheezes Extremity Extremity Narrative: 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 Trace edema on exam today. No apparent bulging varicosities. No weeping or skin breakdown except for wounds as noted below. Easily palpable pedal pulses. Skin Wounds: wounds noted Wound Narrative: L lateral calf wound cluster and L medial calf wound cluster + now adjacent skin tear all very superficial with pink base. Surrounding maceration present but mild today. Neuro oriented x3, CN's II-XII intact bilaterally and moves all extremities Speech: speech normal Debridement Note Debridement Note No debridement was completed: No debridement was completed today Post-Debridement Measurements and Additional Note: Post-Debridement Measurements/Treatment - Nurse 1 - General Ulcer Assessment Start: 12/02/24 14:54 Freq: Status: Active Protocol: [employer] Activity Type Activity Date Activity User E-sign Co-sign Detail Recorded Client Recorded Date Recorded By Document 12/02/24 14:55 [id number] 12/02/24 14:59 Document 12/23/24 15:27 [facility] [id number] 12/23/24 15:38 [facility] 12/02/24 12/23/24 14:55 15:27 - Today's Visit Information Type of service Follow-up Visit Follow-up Visit (Physician/ISSUE CLERK (Physician/ISSUE CLERK ) ) Arrival Mode Wheelchair Wheelchair Transfer Assistance None None Accompanied by Patient Identification Verified (Name & Yes Yes ) Patient Requires Transmission-Based No Precautions Height and Weight Body Mass Index (BMI) 28.4 28.4 BMI Classification Overweight Overweight Vital Signs Temperature (97.8 F-99.1 F) 98.8 F 98.2 F Temperature Source Temporal Temporal Pulse Rate (60-100) 61 61 Pulse Location Monitor Monitor Respiratory Rate (12-18) 16 16 Respiratory rate source Observation Observation Oxygen Delivery Method Room Air Room Air Blood Pressure (90/60-120/80) 132/69 H 132/61 H Blood Pressure Mean (mm Hg) 90 84 Source Monitor Monitor Position Sitting Sitting Blood Pressure Location Right Forearm Left Forearm History Since Last Visit- (Skip if this is Patient's initial visit) Have you changed medications since your No No last visit? Any new allergies or adverse reactions No No Had a fall/change in ADL's that may No No increase risk of falls Signs or symptoms of abuse and/or No No neglect since last visit Have you been in the hospital since your No No last visit? Has dressing in place as prescribed Yes Yes Has compression in place as prescribed Yes Yes Has offloadiing in place as prescribed N/A N/A Experienced any changes in pain level or No No management Left Footwear Regular Shoe Regular Shoe Right Footwear Regular Shoe Regular Shoe Pain Scale: 0-10 Numeric Is Patient Pain Free? Yes Yes WC - Nurse 1 - General Ulcer Measurement Start: 12/02/24 14:54 Freq: Status: Active Protocol: Activity Type Activity Date Activity User E-sign Co-sign Detail Recorded Client Recorded Date Recorded By Document 12/02/24 14:55 [id number] 12/02/24 14:59 Document 12/23/24 15:27 [facility] [id number] 12/23/24 15:38 BM 12/02/24 12/23/24 14:55 15:27 Wound Center Nurse 1 #10 Left Medial inferior -Combined with other wound No No -Current Size (cm) - Length 2.6 0.1 -Current Size (cm) - Width 3 0.1 -Current Size (cm) - Depth 0.1 0.1 -Total Square Cm 7.8 0.01 -Epithelialization Small 1-33% Large 67-100% -Tunneling No -Undermining/Tunneling No -Circular Undermining No -Exudate Amt Medium -Exudate Type Serosanguineous -Wound Margin Distinct, Outline Attached -Granulation Amt Medium (34-66%) -Granulation Quality Red -Slough/Fibrin Yes -Necrosis Amt Medium (34-66%) -Necrotic Tissue Type Adherent Slough -Texture (Darling-wound Skin Appearance) Assessed, Assessed Excoriation, Scarring,Rash -Moisture (Darling-wound Skin Appearance) Assessed Assessed,Dry/ Scaly -Color (Darling-wound Skin Appearance) Assessed, Assessed Erythema -Temperature (Darling-wound Skin No Abnormality Appearance) (Pt Warm) -Tenderness on Palpation (Darling-wound No Skin Appearance) -Ulcer Cleansing Soap and Water Soap and Water -Foul Odor after Cleansing No -Anesthetic Used 5% Lidocaine Gel #7 L Medial leg cluster -Combined with other wound No No -Current Size (cm) - Length 0.1 0.1 -Current Size (cm) - Width 0.1 0.1 -Current Size (cm) - Depth 0.1 0.1 -Total Square Cm 0.01 0.01 -Epithelialization Large 67-100% Large 67-100% -Texture (Darling-wound Skin Appearance) Assessed -Moisture (Darling-wound Skin Appearance) Assessed,Dry/ Scaly -Color (Darling-wound Skin Appearance) Assessed -Ulcer Cleansing Soap and Water #5 Left lower lateral leg cluster -Combined with other wound No No -Current Size (cm) - Length 2 0.1 -Current Size (cm) - Width 1.5 0.1 -Current Size (cm) - Depth 0.1 0.1 -Total Square Cm 3.0 0.01 -Epithelialization Small 1-33% Large 67-100% -Tunneling No -Undermining/Tunneling No -Circular Undermining No -Exudate Amt Medium Small -Exudate Type Serosanguineous Serosanguineous -Wound Margin Distinct, Outline Attached -Granulation Amt Medium (34-66%) -Granulation Quality Red -Slough/Fibrin Yes -Necrosis Amt Medium (34-66%) -Necrotic Tissue Type Adherent Slough -Texture (Darling-wound Skin Appearance) Assessed, Assessed, Excoriation, Scarring Scarring,Rash -Moisture (Darling-wound Skin Appearance) Assessed Assessed,Dry/ Scaly -Color (Darling-wound Skin Appearance) Assessed, Assessed Erythema -Temperature (Darling-wound Skin No Abnormality No Abnormality Appearance) (Pt Warm) (Pt Warm) -Tenderness on Palpation (Darling-wound No No Skin Appearance) -Ulcer Cleansing Soap and Water Soap and Water -Foul Odor after Cleansing No No -Anesthetic Used 5% Lidocaine 5% Lidocaine Gel Gel Lower Limb Edema Present Yes Left Calf (cm) 42.3 42.1 Left Ankle (cm) 28.5 26.2 WC - Nurse 2 - General Ulcer CM Notes Start: 12/02/24 14:54 Freq: Status: Active Protocol: Activity Type Activity Date Activity User E-sign Co-sign Detail Recorded Client Recorded Date Recorded By Document 12/02/24 15:08 [id number] 12/02/24 15:15 Document 12/23/24 16:16 [id number] 12/23/24 16:26 12/02/24 12/23/24 15:08 16:16 Wound Center Nurse 2 #10 Left Medial inferior -Time 15:09 -Correct Patient Yes -Correct Side, Site, Position Yes -Correct Procedure No -Procedure Performed No -Tunneling No -Undermining/Tunneling No -Circular Undermining No -Wound/Ulcer Outcome Not Healed -Ulcer Cleansing Rinsed/ Irrigated with Saline -Foul Odor after Cleansing No -Bioengineered Tissue No -Bleeding Controlled with NA #7 L Medial leg cluster -Time 15:09 16:25 -Correct Patient Yes Yes -Correct Side, Site, Position Yes Yes -Correct Procedure No No -Procedure Performed No No -Post Debridement (cm) - Length 12.0 12.0 -Post Debridement (cm) - Width 6.0 4.0 -Post Debridement (cm) - Depth 0.1 0.1 -Total Square (Post) (cm) 72.00 48.00 -Tunneling No -Undermining/Tunneling No -Circular Undermining No -Wound/Ulcer Outcome Not Healed Not Healed -Ulcer Cleansing Rinsed/ Irrigated with Saline -Foul Odor after Cleansing No No -Bioengineered Tissue No No -Bleeding Controlled with NA NA -Offloading No #5 Left lower lateral leg cluster -Time 15:10 16:25 -Correct Patient Yes Yes -Correct Side, Site, Position Yes Yes -Correct Procedure No No -Procedure Performed No No -Post Debridement (cm) - Length 10.0 15.0 -Post Debridement (cm) - Width 4.0 6.0 -Post Debridement (cm) - Depth 0.1 0.1 -Total Square (Post) (cm) 40.00 90.00 -Tunneling No -Wound/Ulcer Outcome Not Healed -Foul Odor after Cleansing No -Bioengineered Tissue No -Bleeding Controlled with NA Pain Scale: 0-10 Numeric Is Patient Pain Free? Yes Yes WC - Nurse 3 - General Ulcer D/C NN Start: 12/02/24 14:54 Freq: Status: Active Protocol: Activity Type Activity Date Activity User E-sign Co-sign Detail Recorded Client Recorded Date Recorded By Document 12/02/24 15:33 KW [id number] 12/02/24 15:35 KW Document 12/23/24 16:34 DL [id number] 12/23/24 16:38 DL 12/02/24 12/23/24 15:33 16:34 Wound Care Center Nurse 3 #10 Left Medial inferior -Other Dressing iodosorb gel with amloactin cream to flakey area -Primary Dressing Covered/Secured with Dry Gauze & Roll Gauze, Secured with Tape #7 L Medial leg cluster -Ulcer Cleansing Soap and Water -Foul Odor after Cleansing No -Other Dressing iodosorb gel iodosorb/ with amlactin amalactin cream to flakey area -Primary Dressing Covered/Secured with Dry Gauze Dry Gauze & Roll Gauze, Secured with Tape #5 Left lower lateral leg cluster -Ulcer Cleansing Soap and Water -Foul Odor after Cleansing No -Other Dressing iodosorb gel Iodosorb to with amlactin open areas cream at flakey areas -Primary Dressing Covered/Secured with Dry Gauze -Other Covering amalactin Right -Tubular Bandage Single Layer -Size of Tubigrip Used Size E -Size E ($) 1 Left -Tubular Bandage Single Layer -Size of Tubigrip Used Size E -Size E ($) 1 Treatment Response Procedure Tolerated Well Pain Scale: 0-10 Numeric Is Patient Pain Free? Yes Yes WC - Visit Discharge Discharge Condition Stable Stable Ambulatory Status Walker Walker Transportation Private Auto Accompanied by Medication Reconcilliation completed & No provided to patient/care provider Clinical Summary of Care Provided Yes Notes: uses txooter Facility Type Home Health Orders Sent Yes Assessment/Plan Assessment/Plan (1) Chronic ulcer of left lower extremity with fat layer exposed: CODE(S): L97.922 - Non-pressure chronic ulcer of unspecified part of left lower leg with fat layer exposed PLAN: Posterior/lateral L calf ulceration limited to breakdown of the skin and Medial L calf ulceration limited to breakdown of the skin and anterior L angel ulceration cluster (2) Lipodermatosclerosis of both lower extremities: CODE(S): M79.3 - Panniculitis, unspecified (3) Bilateral lower extremity edema: CODE(S): R60.0 - Localized edema PLAN: Plan For wound care will continue: (1) Rinse the area of the wounds with saline (2) Apply 1/8th inch thick layer of iodosorb to dry gauze (3) apply to wounds (4) cover with ABD and conforming gauze wrap (4) Apply Tubigrip (5) Change dressing every 72 hours or sooner if it becomes soiled. Continue to encourage him to elevate his leg at all times of rest. May apply Amlactin to areas of intact, flaky skin at the proximal lower leg and foot; limit this to 2-3 times weekly with wound dressing changes; utilize normal fragrance-free moisturize other days. Continue to take Vasculera as prescribed. At this point through his course here we have treated with months of Unna boots + compression, 3M wraps, various topical products including Aquacel extra and silver, iodosrob. We have treated for bacterial infections (orally and to pically) as indicated by C&S, we have treated empirically for fungal infections with clotrimazole. We have treated as well with topical steroid in case of severe venous stasis dermatitis. Ordered repeat venous duplex this week to assess for any recurrent/new reflux or perforators which could be contributing to his persistent skin breakdown. Will refer to dermatology Dr. Bonifacio Dunn for his opinion as to potential for primary skin disorder or other condition, possible biopsy or scraping. Return to the clinic in 2 weeks to see me as I am out next week, return 1 week for a nurse visit.
[2024-12-29 15:04] VITALS: BP 135/54; PULSE 60; RESP 18; TEMP 36.4; BMI 28.4
[2025-01-06 15:06] VITALS: BP 155/72; PULSE 95; RESP 16; BMI 28.4
== END 2024-12-31 23:59 | disposition home or self-care (01) ==
LOC: WC 15:00
PROVIDERS: PCP Family Medicine; Referring Provider Dermatology; Visit Provider Physician Assistant
DX: L97.922 Non-pressure chronic ulcer of unspecified part of left lower leg with fat layer exposed (principal); M79.3 Panniculitis, unspecified; R60.0 Localized edema
CPT/HCPCS: 99213; G0463

== ENCOUNTER 2025-01-27 15:15 | Outpatient (RCR) | payer MEDICARE, SELFPAY ==
[2025-01-01 00:59] VITALS: BP 135/54; PULSE 60; RESP 18; TEMP 36.4; BMI 28.4
--- NOTE | 2025-01-06 16:46 | PN.PCM_ITS ---
History of Present Illness Date of Service: 01/06/25 Chief Complaint: LLE wounds History of Wound: Mr. Paola Boyer is an 83 y/o male who presents to the wound healing center today with left lower extremity wounds. He was referred by Nuvia Brooks. He is accompanied to his appointment today by his . He relays that he has been dealing with these left lower extremity wounds recurrently over the past few years. They will become very close to healing and then subsequently open back up. His reports that all really started with a lot of swelling and redness in his lower legs which progressively worsened to weeping before developing these focal wounds. He has been treated to this point at [facility] with Unna boots and all of the surrounding skin has much improved in appearance however the wounds remain. He has not had any prior venous imaging to his knowledge and no venous interventions. No history of peripheral arterial disease or arterial interventions. He is not diabetic. He is not currently smoking, he quit in 1964. He presents today in an automated wheelchair. His insurance unfortunately has a very high co-pay for debridements which will be kept in mind throughout his treatment. Subjective Subjective He has been well over the last couple of weeks. They feel the LLE is looking a bit better. They have 1 tube of the iodosorb remaining, but the cost went up significantly recently and this will no longer be affordable. Objective Data Objective Data Vital Signs: Vital Signs Temp Pulse Resp BP 97.6 F L 60 18 135/54 H 01/01/25 00:59 01/01/25 00:59 01/01/25 00:59 01/01/25 00:59 Weight: 198 lb Body Mass Index (BMI) 28.4 Charges/Coding Visit Charges Office Visits / Consults: 36486 OV L3 Est 20min Physical Exam Const alert, oriented x3 and no apparent distress General Appearance: cooperative and comfortable HEENT normocephalic, hearing grossly normal bilaterally, external ears normal and external nose normal Eyes General Eye: normal appearance of both eyes Resp normal respiratory effort Effort and Inspection: able to speak in complete sentences; Negative for labored, stridor or audible wheezes Extremity Extremity Narrative: 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 Trace edema on exam today. No apparent bulging varicosities. No weeping or skin breakdown except for wounds as noted below. Easily palpable pedal pulses. Skin Wounds: wounds noted Wound Narrative: L lateral calf wound cluster and L medial calf wound cluster + now adjacent skin tear all very superficial with pink base. Surrounding maceration present but mild today. Neuro oriented x3, CN's II-XII intact bilaterally and moves all extremities Speech: speech normal Debridement Note Debridement Note No debridement was completed: No debridement was completed today Post-Debridement Measurements and Additional Note: Post-Debridement Measurements/Treatment WC - Nurse 2 - General Ulcer CM Notes Start: 01/06/25 15:22 Freq: Status: Active Protocol: Activity Type Activity Date Activity User E-sign Co-sign Detail Recorded Client Recorded Date Recorded By Document 01/06/25 15:22 [id number] 01/06/25 15:33 01/06/25 15:22 Wound Center Nurse 2 #7 L Medial leg cluster -Time 15:22 -Correct Patient Yes -Correct Side, Site, Position Yes -Correct Procedure No -Procedure Performed No -Post Debridement (cm) - Length 12.0 -Post Debridement (cm) - Width 8.0 -Post Debridement (cm) - Depth 0.1 -Total Square (Post) (cm) 96.00 -Tunneling No -Undermining/Tunneling No -Circular Undermining No -Wound/Ulcer Outcome Not Healed -Ulcer Cleansing Rinsed/ Irrigated with Saline -Foul Odor after Cleansing No -Bioengineered Tissue No -Bleeding Controlled with NA -Offloading No #5 Left lower lateral leg cluster -Time 15:23 -Correct Patient Yes -Correct Side, Site, Position Yes -Correct Procedure No -Procedure Performed No -Post Debridement (cm) - Length 15.0 -Post Debridement (cm) - Width 6.0 -Post Debridement (cm) - Depth 0.1 -Total Square (Post) (cm) 90.00 -Tunneling No -Undermining/Tunneling No -Circular Undermining No -Wound/Ulcer Outcome Not Healed -Foul Odor after Cleansing No -Bioengineered Tissue No -Bleeding Controlled with NA -Debridement - Open, 1st 20sq cm No -Debridement - Subq, 1st 20sq cm No -Debridement - Muscle / Fascia, 1st No 20sq cm -Debridement - Bone, 1st 20sq cm No Pain Scale: 0-10 Numeric Is Patient Pain Free? Yes CHRISTIE - Nurse 3 - General Ulcer D/C NN Start: 01/06/25 15:22 Freq: Status: Active Protocol: Activity Type Activity Date Activity User E-sign Co-sign Detail Recorded Client Recorded Date Recorded By Document 01/06/25 15:56 DL [id number] 01/06/25 15:58 DL 01/06/25 15:56 Wound Care Center Nurse 3 #7 L Medial leg cluster -Ulcer Cleansing Rinsed/ Irrigated with Saline -Foul Odor after Cleansing No -Other Dressing Iodosorb -Primary Dressing Covered/Secured with Dry Gauze & Roll Gauze, Secured with Tape -Other Covering amalactin #5 Left lower lateral leg cluster -Ulcer Cleansing Rinsed/ Irrigated with Saline -Foul Odor after Cleansing No -Other Dressing iodosorb gel -Primary Dressing Covered/Secured with Dry Gauze & Roll Gauze, Secured with Tape -Other Covering amalactin Left -Multi-Layered Wrap Application Multi-Layer Comp - Left ($) Treatment Response Procedure Tolerated Well Pain Scale: 0-10 Numeric Is Patient Pain Free? Yes WC - Visit Discharge Discharge Condition Stable Ambulatory Status Wheelchair Transportation Private Auto Facility Type Home Health Orders Sent Yes Assessment/Plan Assessment/Plan (1) Chronic ulcer of left lower extremity with fat layer exposed: CODE(S): L97.922 - Non-pressure chronic ulcer of unspecified part of left lower leg with fat layer exposed PLAN: Posterior/lateral L calf ulceration limited to breakdown of the skin and Medial L calf ulceration limited to breakdown of the skin and anterior L angel ulceration cluster (2) Lipodermatosclerosis of both lower extremities: CODE(S): M79.3 - Panniculitis, unspecified (3) Bilateral lower extremity edema: CODE(S): R60.0 - Localized edema PLAN: Plan For wound care will: (1) Rinse the area of the wounds with saline (2) Apply 1/8th inch thick layer of iodosorb to dry gauze (3) apply to wounds (4) Apply 3M wrap for compression (5) Change twice weekly Once the iodosorb runs out will consider returning to Unna boot. May look into copper dressings as well as far as cost. Continue to encourage him to elevate his leg at all times of rest. May apply Amlactin to areas of intact, flaky skin at the proximal lower leg and foot; limit this to 2-3 times weekly with wound dressing changes; utilize normal fragrance-free moisturize other days. Continue to take Vasculera as prescribed. Obtained an updated wound culture today to assess for any bacterial or yeast/fungal infection. Repeat venous duplex pending. At this point through his course here we have treated with months of Unna boots + compression, 3M wraps, various topical products including Aquacel extra and silver, iodosorb. We have treated for bacterial infections (orally and topically) as indicated by C&S, we have treated empirically for fungal infect ions with clotrimazole. We have treated as well with topical steroid in case of severe venous stasis dermatitis. Will refer to dermatology Dr. Bonifacio Dunn for his opinion as to potential for primary skin disorder or other condition, possible biopsy or scraping. Return to the clinic in 1 week.
[2025-01-13 14:52] VITALS: BP 115/61; PULSE 60; RESP 16; TEMP 36.7; BMI 28.4
--- NOTE | 2025-01-13 21:50 | PCM.WC.PN ---
History of Present Illness Date of Service: 01/13/25 Chief Complaint: LLE wounds History of Wound: Mr. Paola Boyer is an 84 y/o male who presents to the wound healing center today with left lower extremity wounds. He was referred by Nuvia Brooks. He is accompanied to his appointment today by his . He relays that he has been dealing with these left lower extremity wounds recurrently over the past few years. They will become very close to healing and then subsequently open back up. His reports that all really started with a lot of swelling and redness in his lower legs which progressively worsened to weeping before developing these focal wounds. He has been treated to this point at [facility] with Unna boots and all of the surrounding skin has much improved in appearance however the wounds remain. He has not had any prior venous imaging to his knowledge and no venous interventions. No history of peripheral arterial disease or arterial interventions. He is not diabetic. He is not currently smoking, he quit in 1964. He presents today in an automated wheelchair. His insurance unfortunately has a very high co-pay for debridements which will be kept in mind throughout his treatment. Subjective Subjective He did get an appointment with dermatology in March. He has an appointment set up for the venous reflux study here in the next few weeks. Otherwise, no new concerns or significant changes from his perspective. Objective Data Objective Data Vital Signs: Vital Signs Temp Pulse Resp BP O2 Del Method 98.1 F 60 16 115/61 Room Air 01/13/25 14:52 01/13/25 14:52 01/13/25 14:52 01/13/25 14:52 01/13/25 14:52 Oxygen Delivery Method Room Air Weight: 198 lb Body Mass Index (BMI) 28.4 Lab / Micro Data Micro: Microbiology 01/06/25 15:39 Wound - Leg, Left Gram Stain - Final 01/06/25 15:39 Wound - Leg, Left Wound Culture - Final Staphylococcus pseudintermediu 01/06/25 15:39 Wound - Leg, Left Anaerobic Culture - Final Anaerobic cocci Prevotella species Bacteroides pyogenes Charges/Coding Visit Charges Office Visits / Consults: 01400 OV L3 Est 20min Physical Exam Const alert, oriented x3 and no apparent distress General Appearance: cooperative and comfortable HEENT normocephalic, hearing grossly normal bilaterally, external ears normal and external nose normal Eyes General Eye: normal appearance of both eyes Resp normal respiratory effort Effort and Inspection: able to speak in complete sentences; Negative for labored, stridor or audible wheezes Extremity Extremity Narrative: 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 Trace edema on exam today. No apparent bulging varicosities. No weeping or skin breakdown except for wounds as noted below. Easily palpable pedal pulses. Skin Wounds: wounds noted Wound Narrative: L lateral calf wound cluster and L medial calf wound cluster all very superficial with pink base; dried drainage overlying. Neuro oriented x3, CN's II-XII intact bilaterally and moves all extremities Speech: speech normal Debridement Note Debridement Note No debridement was completed: No debridement was completed today Post-Debridement Measurements and Additional Note: Post-Debridement Measurements/Treatment - Nurse 1 - General Ulcer Assessment Start: 01/06/25 15:22 Freq: Status: Active Protocol: WC.LOWEXT Activity Type Activity Date Activity User E-sign Co-sign Detail Recorded Client Recorded Date Recorded By Document 01/13/25 14:52 [id number] 01/13/25 15:03 01/13/25 14:52 - Today's Visit Information Type of service Follow-up Visit (Physician/[facility] ) Arrival Mode Other Arrival Mode (Other) scooter Accompanied by Patient Identification Verified (Name & Yes ) Height and Weight Body Mass Index (BMI) 28.4 BMI Classification Overweight Vital Signs Temperature (97.8 F-99.1 F) 98.1 F Temperature Source Temporal Pulse Rate (60-100) 60 Pulse Location Monitor Respiratory Rate (12-18) 16 Respiratory rate source Observation Oxygen Delivery Method Room Air Blood Pressure (90/60-120/80) 115/61 Blood Pressure Mean (mm Hg) 79 Source Monitor Position Sitting Blood Pressure Location Left Arm History Since Last Visit- (Skip if this is Patient's initial visit) Have you changed medications since your No last visit? Any new allergies or adverse reactions No Had a fall/change in ADL's that may No increase risk of falls Signs or symptoms of abuse and/or No neglect since last visit Have you been in the hospital since your No last visit? Has dressing in place as prescribed Yes Has compression in place as prescribed Yes Has offloadiing in place as prescribed N/A Experienced any changes in pain level or No management Left Footwear Regular Shoe Right Footwear Regular Shoe Pain Scale: 0-10 Numeric Is Patient Pain Free? Yes WC - Nurse 1 - General Ulcer Measurement Start: 01/06/25 15:22 Freq: Status: Active Protocol: Activity Type Activity Date Activity User E-sign Co-sign Detail Recorded Client Recorded Date Recorded By Document 01/13/25 14:52 KW [id number] 01/13/25 15:03 KW 01/13/25 14:52 Wound Center Nurse 1 #7 L Medial leg cluster -Current Size (cm) - Length 0.1 -Current Size (cm) - Width 0.1 -Current Size (cm) - Depth 0 -Total Square Cm 0.01 -Exudate Amt None Present -Wound Margin Distinct, Outline Attached -Granulation Amt Large (67-100%) -Granulation Quality Red -Necrosis Amt Large (67-100%) -Necrotic Tissue Type Adherent Slough -Texture (Darling-wound Skin Appearance) Assessed -Moisture (Darling-wound Skin Appearance) Assessed -Color (Darling-wound Skin Appearance) Assessed -Temperature (Darling-wound Skin No Abnormality Appearance) (Pt Warm) -Tenderness on Palpation (Darling-wound No Skin Appearance) -Ulcer Cleansing Soap and Water -Foul Odor after Cleansing No -Anesthetic Used 5% Lidocaine Gel #5 Left lower lateral leg cluster -Current Size (cm) - Length 0.1 -Current Size (cm) - Width 0.1 -Current Size (cm) - Depth 0.1 -Total Square Cm 0.01 -Wound Margin Indistinct, Non -Visible -Granulation Amt Large (67-100%) -Granulation Quality Red -Necrosis Amt Large (67-100%) -Necrotic Tissue Type Adherent Slough -Texture (Darling-wound Skin Appearance) Assessed -Moisture (Darling-wound Skin Appearance) Assessed -Color (Darling-wound Skin Appearance) Assessed -Temperature (Darling-wound Skin No Abnormality Appearance) (Pt Warm) -Tenderness on Palpation (Darling-wound No Skin Appearance) -Ulcer Cleansing Soap and Water -Foul Odor after Cleansing No -Anesthetic Used 5% Lidocaine Gel Left Calf (cm) 40 Left Ankle (cm) 26 WC - Nurse 2 - General Ulcer CM Notes Start: 01/06/25 15:22 Freq: Status: Active Protocol: Activity Type Activity Date Activity User E-sign Co-sign Detail Recorded Client Recorded Date Recorded By Document 01/06/25 15:22 [id number] 01/06/25 15:33 Document 01/13/25 15:17 [id number] 01/13/25 15:19 01/06/25 01/13/25 15:22 15:17 Wound Center Nurse 2 #7 L Medial leg cluster -Time 15:22 15:17 -Correct Patient Yes Yes -Correct Side, Site, Position Yes Yes -Correct Procedure No No -Procedure Performed No No -Post Debridement (cm) - Length 12.0 11.0 -Post Debridement (cm) - Width 8.0 3.0 -Post Debridement (cm) - Depth 0.1 0.1 -Total Square (Post) (cm) 96.00 33.00 -Tunneling No No -Undermining/Tunneling No No -Circular Undermining No No -Wound/Ulcer Outcome Not Healed Not Healed -Ulcer Cleansing Rinsed/ Not Cleansed Irrigated with Saline -Foul Odor after Cleansing No No -Bioengineered Tissue No No -Bleeding Controlled with NA NA -Offloading No #5 Left lower lateral leg cluster -Time 15:23 15:18 -Correct Patient Yes Yes -Correct Side, Site, Position Yes Yes -Correct Procedure No No -Procedure Performed No No -Post Debridement (cm) - Length 15.0 12.0 -Post Debridement (cm) - Width 6.0 6.0 -Post Debridement (cm) - Depth 0.1 0.1 -Total Square (Post) (cm) 90.00 72.00 -Tunneling No No -Undermining/Tunneling No No -Circular Undermining No No -Wound/Ulcer Outcome Not Healed Not Healed -Foul Odor after Cleansing No No -Bioengineered Tissue No No -Bleeding Controlled with NA NA -Debridement - Open, 1st 20sq cm No -Debridement - Subq, 1st 20sq cm No -Debridement - Muscle / Fascia, 1st No 20sq cm -Debridement - Bone, 1st 20sq cm No Pain Scale: 0-10 Numeric Is Patient Pain Free? Yes Yes WC - Nurse 3 - General Ulcer D/C NN Start: 01/06/25 15:22 Freq: Status: Active Protocol: Activity Type Activity Date Activity User E-sign Co-sign Detail Recorded Client Recorded Date Recorded By Document 01/06/25 15:56 DL [id number] 01/06/25 15:58 DL Document 01/13/25 15:27 KW [id number] 01/13/25 15:29 KW Edit Result 01/13/25 15:27 KW (1) [id number] 01/13/25 15:43 BMF (1) Left - Multi-Layered Wrap Application => Multi-Layer Comp - => Left ($) - Tubular Bandage Single Layer => - Size of Tubigrip Used Size E => - Size E ($) 1 => 01/06/25 01/13/25 15:56 15:27 Wound Care Center Nurse 3 #7 L Medial leg cluster -Ulcer Cleansing Rinsed/ Irrigated with Saline -Foul Odor after Cleansing No -Other Dressing Iodosorb iodosorb and amlactin -Primary Dressing Covered/Secured with Dry Gauze & Dry Gauze & Roll Gauze, Roll Gauze, Secured with Secured with Tape Tape -Other Covering amalactin #5 Left lower lateral leg cluster -Ulcer Cleansing Rinsed/ Irrigated with Saline -Foul Odor after Cleansing No -Other Dressing iodosorb gel idoosorb with amlactin -Primary Dressing Covered/Secured with Dry Gauze & Dry Gauze Roll Gauze, Secured with Tape -Other Covering amalactin Left -Multi-Layered Wrap Application Multi-Layer Multi-Layer Comp - Left ($) Comp - Left ($) Treatment Response Procedure Tolerated Well Pain Scale: 0-10 Numeric Is Patient Pain Free? 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: CODE(S): L97.922 - Non-pressure chronic ulcer of unspecified part of left lower leg with fat layer exposed PLAN: Posterior/lateral L calf ulceration limited to breakdown of the skin and Medial L calf ulceration limited to breakdown of the skin and anterior L angel ulceration cluster (2) Lipodermatosclerosis of both lower extremities: CODE(S): M79.3 - Panniculitis, unspecified (3) Bilateral lower extremity edema: CODE(S): R60.0 - Localized edema PLAN: Plan For wound care will: (1) Rinse the area of the wounds with saline (2) Apply 1/8th inch thick layer of iodosorb to dry gauze (3) apply to wounds (4) Apply 3M wrap for compression (5) Change twice weekly Once the iodosorb runs out will consider returning to Unna boot. May look into copper dressings as well as far as cost. Continue to encourage him to elevate his leg at all times of rest. May apply Amlactin to areas of intact, flaky skin at the proximal lower leg and foot; limit this to 2-3 times weekly with wound dressing changes; utilize normal fragrance-free moisturize other days. Continue to take Vasculera as prescribed. Updated wound culture grew a few different strains of bacteria including a staph species and anaerobic species. Will treat with a course of Bactrim and Flagyl. He is instructed to take probiotics daily as well. Repeat venous duplex pending. At this point through his course here we have treated with months of Unna boots + compression, 3M wraps, various topical products including Aquacel extra and silver, iodosorb. We have treated for bacterial infections (orally and topically) as indicated by C&S, we have treated empirically for fungal infections with clotrimazole. We have treated as well with topical steroid in case of severe venous stasis dermatitis. He has scheduled his appointment with dermatology and will be very interested in their opinion and possible biopsy if they feel appropriate. Return to the clinic in 1 week.
[2025-01-20 15:09] VITALS: BP 122/57; PULSE 93; RESP 16; TEMP 36.4; BMI 28.4
--- NOTE | 2025-01-20 17:06 | PCM.WC.PN ---
History of Present Illness Date of Service: 01/20/25 Chief Complaint: LLE wounds History of Wound: Mr. Paola Boyer is an 84 y/o male who presents to the wound healing center today with left lower extremity wounds. He was referred by Nuvia Brooks. He is accompanied to his appointment today by his . He relays that he has been dealing with these left lower extremity wounds recurrently over the past few years. They will become very close to healing and then subsequently open back up. His reports that all really started with a lot of swelling and redness in his lower legs which progressively worsened to weeping before developing these focal wounds. He has been treated to this point at [facility] with Unna boots and all of the surrounding skin has much improved in appearance however the wounds remain. He has not had any prior venous imaging to his knowledge and no venous interventions. No history of peripheral arterial disease or arterial interventions. He is not diabetic. He is not currently smoking, he quit in 1964. He presents today in an automated wheelchair. His insurance unfortunately has a very high co-pay for debridements which will be kept in mind throughout his treatment. Subjective Subjective He denies any significant changes or new concerns. Objective Data Objective Data Vital Signs: Vital Signs Temp Pulse Resp BP O2 Del Method 97.6 F L 93 16 122/57 H Room Air 01/20/25 15:09 01/20/25 15:09 01/20/25 15:09 01/20/25 15:09 01/20/25 15:09 Oxygen Delivery Method Room Air Weight: 198 lb Body Mass Index (BMI) 28.4 Lab / Micro Data Micro: Microbiology 01/06/25 15:39 Wound - Leg, Left Gram Stain - Final 01/06/25 15:39 Wound - Leg, Left Wound Culture - Final Staphylococcus pseudintermediu 01/06/25 15:39 Wound - Leg, Left Anaerobic Culture - Final Anaerobic cocci Prevotella species Bacteroides pyogenes Charges/Coding Visit Charges Office Visits / Consults: [id number] OV L3 Est 20min Physical Exam Const alert, oriented x3 and no apparent distress General Appearance: cooperative and comfortable HEENT normocephalic, hearing grossly normal bilaterally, external ears normal and external nose normal Eyes General Eye: normal appearance of both eyes Resp normal respiratory effort Effort and Inspection: able to speak in complete sentences; Negative for labored, stridor or audible wheezes Extremity Extremity Narrative: 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 Trace edema on exam today. No apparent bulging varicosities. No weeping or skin breakdown except for wounds as noted below. Easily palpable pedal pulses. Skin Wounds: wounds noted Wound Narrative: L lateral calf wound cluster and L medial calf wound cluster all very superficial with pink base; dried drainage overlying. Neuro oriented x3, CN's II-XII intact bilaterally and moves all extremities Speech: speech normal Debridement Note Debridement Note No debridement was completed: No debridement was completed today Post-Debridement Measurements and Additional Note: Post-Debridement Measurements/Treatment - Nurse 1 - General Ulcer Assessment Start: 01/06/25 15:22 Freq: Status: Active Protocol: [employer] Activity Type Activity Date Activity User E-sign Co-sign Detail Recorded Client Recorded Date Recorded By Document 01/13/25 14:52 [id number] 01/13/25 15:03 KW Document 01/20/25 15:09 [facility] [id number] 01/20/25 15:11 [facility] 01/13/25 01/20/25 14:52 15:09 - Today's Visit Information Type of service Follow-up Visit Follow-up Visit (Physician/FIRE PREVENTION CAPTAIN (Physician/FIRE PREVENTION CAPTAIN ) ) Arrival Mode Other Wheelchair Arrival Mode (Other) scooter Transfer Assistance None Accompanied by Patient Identification Verified (Name & Yes Yes ) Patient Requires Transmission-Based No Precautions Height and Weight Body Mass Index (BMI) 28.4 28.4 BMI Classification Overweight Overweight Vital Signs Temperature (97.8 F-99.1 F) 98.1 F 97.6 F L Temperature Source Temporal Temporal Pulse Rate (60-100) 60 93 Pulse Location Monitor Monitor Respiratory Rate (12-18) 16 16 Respiratory rate source Observation Observation Oxygen Delivery Method Room Air Room Air Blood Pressure (90/60-120/80) 115/61 122/57 H Blood Pressure Mean (mm Hg) 79 78 Source Monitor Monitor Position Sitting Semi-Fowlers Blood Pressure Location Left Arm Right Forearm History Since Last Visit- (Skip if this is Patient's initial visit) Have you changed medications since your No No last visit? Any new allergies or adverse reactions No No Had a fall/change in ADL's that may No No increase risk of falls Signs or symptoms of abuse and/or No No neglect since last visit Have you been in the hospital since your No No last visit? Has dressing in place as prescribed Yes Yes Has compression in place as prescribed Yes Yes Has offloadiing in place as prescribed N/A N/A Experienced any changes in pain level or No No management Left Footwear Regular Shoe Regular Shoe Right Footwear Regular Shoe Regular Shoe Pain Scale: 0-10 Numeric Is Patient Pain Free? Yes Yes WC - Nurse 1 - General Ulcer Measurement Start: 01/06/25 15:22 Freq: Status: Active Protocol: Activity Type Activity Date Activity User E-sign Co-sign Detail Recorded Client Recorded Date Recorded By Document 01/13/25 14:52 [id number] 01/13/25 15:03 KW Document 01/20/25 15:09 [facility] [id number] 01/20/25 15:11 [facility] 01/13/25 01/20/25 14:52 15:09 Wound Center Nurse 1 #7 L Medial leg cluster -Combined with other wound No -Current Size (cm) - Length 0.1 0.1 -Current Size (cm) - Width 0.1 0.1 -Current Size (cm) - Depth 0 0.1 -Total Square Cm 0.01 0.01 -Epithelialization Large 67-100% -Exudate Amt None Present -Wound Margin Distinct, Outline Attached -Granulation Amt Large (67-100%) -Granulation Quality Red -Necrosis Amt Large (67-100%) -Necrotic Tissue Type Adherent Slough -Texture (Darling-wound Skin Appearance) Assessed Assessed, Scarring,Rash -Moisture (Darling-wound Skin Appearance) Assessed Assessed,Dry/ Scaly -Color (Darling-wound Skin Appearance) Assessed Assessed -Temperature (Darling-wound Skin No Abnormality No Abnormality Appearance) (Pt Warm) (Pt Warm) -Tenderness on Palpation (Darling-wound No No Skin Appearance) -Ulcer Cleansing Soap and Water Soap and Water -Foul Odor after Cleansing No No -Anesthetic Used 5% Lidocaine 5% Lidocaine Gel Gel #5 Left lower lateral leg cluster -Combined with other wound No -Current Size (cm) - Length 0.1 0.1 -Current Size (cm) - Width 0.1 0.1 -Current Size (cm) - Depth 0.1 0.1 -Total Square Cm 0.01 0.01 -Tunneling No -Undermining/Tunneling No -Circular Undermining No -Wound Margin Indistinct, Non -Visible -Granulation Amt Large (67-100%) -Granulation Quality Red -Necrosis Amt Large (67-100%) -Necrotic Tissue Type Adherent Slough -Texture (Darling-wound Skin Appearance) Assessed Assessed, Scarring,Rash -Moisture (Darling-wound Skin Appearance) Assessed Assessed,Dry/ Scaly -Color (Darling-wound Skin Appearance) Assessed Assessed -Temperature (Darling-wound Skin No Abnormality No Abnormality Appearance) (Pt Warm) (Pt Warm) -Tenderness on Palpation (Darling-wound No No Skin Appearance) -Ulcer Cleansing Soap and Water Soap and Water -Foul Odor after Cleansing No No -Anesthetic Used 5% Lidocaine 5% Lidocaine Gel Gel Lower Limb Edema Present Yes Left Calf (cm) 40 40.6 Left Ankle (cm) 26 26 WC - Nurse 2 - General Ulcer CM Notes Start: 01/06/25 15:22 Freq: Status: Active Protocol: Activity Type Activity Date Activity User E-sign Co-sign Detail Recorded Client Recorded Date Recorded By Document 01/06/25 15:22 [id number] 01/06/25 15:33 Document 01/13/25 15:17 [id number] 01/13/25 15:19 GM Document 01/20/25 15:32 [id number] 01/20/25 15:36 01/06/25 01/13/25 01/20/25 15:22 15:17 15:32 Wound Center Nurse 2 #7 L Medial leg cluster -Time 15:22 15:17 15:34 -Correct Patient Yes Yes Yes -Correct Side, Site, Position Yes Yes Yes -Correct Procedure No No No -Procedure Performed No No No -Post Debridement (cm) - Length 12.0 11.0 14.0 -Post Debridement (cm) - Width 8.0 3.0 11.0 -Post Debridement (cm) - Depth 0.1 0.1 0.1 -Total Square (Post) (cm) 96.00 33.00 154.00 -Tunneling No No No -Undermining/Tunneling No No No -Circular Undermining No No No -Wound/Ulcer Outcome Not Healed Not Healed Not Healed -Ulcer Cleansing Rinsed/ Not Cleansed Not Cleansed Irrigated with Saline -Foul Odor after Cleansing No No No -Bioengineered Tissue No No No -Bleeding Controlled with NA NA NA -Offloading No No #5 Left lower lateral leg cluster -Time 15:23 15:18 15:34 -Correct Patient Yes Yes Yes -Correct Side, Site, Position Yes Yes Yes -Correct Procedure No No No -Procedure Performed No No No -Post Debridement (cm) - Length 15.0 12.0 5.0 -Post Debridement (cm) - Width 6.0 6.0 7.0 -Post Debridement (cm) - Depth 0.1 0.1 0.1 -Total Square (Post) (cm) 90.00 72.00 35.00 -Tunneling No No No -Undermining/Tunneling No No No -Circular Undermining No No No -Wound/Ulcer Outcome Not Healed Not Healed Not Healed -Ulcer Cleansing Not Cleansed -Foul Odor after Cleansing No No No -Bioengineered Tissue No No No -Bleeding Controlled with NA NA NA -Offloading No -Debridement - Open, 1st 20sq cm No -Debridement - Subq, 1st 20sq cm No -Debridement - Muscle / Fascia, 1st No 20sq cm -Debridement - Bone, 1st 20sq cm No Pain Scale: 0-10 Numeric Is Patient Pain Free? Yes Yes Yes WC - Nurse 3 - General Ulcer D/C NN Start: 01/06/25 15:22 Freq: Status: Active Protocol: Activity Type Activity Date Activity User E-sign Co-sign Detail Recorded Client Recorded Date Recorded By Document 01/06/25 15:56 DL [id number] 01/06/25 15:58 DL Document 01/13/25 15:27 KW [id number] 01/13/25 15:29 KW Edit Result 01/13/25 15:27 KW (1) [id number] 01/13/25 15:43 BMF Document 01/20/25 15:47 BMF [id number] 01/20/25 15:48 BMF (1) Left - Multi-Layered Wrap Application => Multi-Layer Comp - => Left ($) - Tubular Bandage Single Layer => - Size of Tubigrip Used Size E => - Size E ($) 1 => 01/06/25 01/13/25 01/20/25 15:56 15:27 15:47 Wound Care Center Nurse 3 #7 L Medial leg cluster -Ulcer Cleansing Rinsed/ Irrigated with Saline -Foul Odor after Cleansing No -Other Dressing Iodosorb iodosorb and amlactin -Primary Dressing Covered/Secured with Dry Gauze & Dry Gauze & Roll Gauze, Roll Gauze, Secured with Secured with Tape Tape -Other Covering amalactin #5 Left lower lateral leg cluster -Ulcer Cleansing Rinsed/ Irrigated with Saline -Foul Odor after Cleansing No -Other Dressing iodosorb gel idoosorb with amlactin -Primary Dressing Covered/Secured with Dry Gauze & Dry Gauze Roll Gauze, Secured with Tape -Other Covering amalactin Left -Multi-Layered Wrap Application Multi-Layer Multi-Layer Comp - Left ($) Comp - Left ($) Treatment Response Procedure Tolerated Well Pain Scale: 0-10 Numeric Is Patient Pain Free? Yes Yes Yes WC - Visit Discharge Discharge Condition Stable Stable Stable Ambulatory Status Wheelchair Wheelchair Wheelchair Transportation Private Auto Private Auto Private Auto Accompanied by Medication Reconcilliation completed & No provided to patient/care provider Clinical Summary of Care Provided Yes Facility Type Home Health Home Health Orders Sent Yes #7 L Medial leg cluster -Ulcer Cleansing Rinsed/ Irrigated with Saline -Foul Odor after Cleansing No -Other Dressing unna per kw sanitary engineer #5 Left lower lateral leg cluster -Ulcer Cleansing Rinsed/ Irrigated with Saline -Foul Odor after Cleansing No -Other Dressing unna per kw sanitary engineer Left -Multi-Layered Wrap Application Unna Boot - Left ($) -Other per kw sanitary engineer Treatment Response Procedure Tolerated Well Assessment/Plan Assessment/Plan (1) 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 May look into copper dressings as well as far as cost. Continue to encourage him to elevate his leg at all times of rest. May apply Amlactin to areas of intact, flaky skin at the proximal lower leg and foot; limit this to 2-3 times weekly with wound dressing changes; utilize normal fragrance-free moisturize other days. Continue to take Vasculera as prescribed. He is tolerating Bactrim and Flagyl so far, will complete as prescribed. Repeat venous duplex pending. At this point through his course here we have treated with months of Unna boots + compression, 3M wraps, various topical products including Aquacel extra and silver, iodosorb. We have treated for bacterial infections (orally and topically) as indicated by C&S, we have treated empirically for fungal infections with clotrimazole. We have treated as well with topical steroid in case of severe venous stasis dermatitis. He has scheduled his appointment with dermatology and will be very interested in their opinion and possible biopsy if they feel appropriate. Return to the clinic in 1 week.
[2025-01-27 15:29] VITALS: RESP 18; BMI 28.4
--- NOTE | 2025-01-27 18:19 | PCM.WC.PN ---
History of Present Illness Date of Service: 01/27/25 Chief Complaint: LLE wounds History of Wound: Mr. Paola Boyer is an 84 y/o male who presents to the wound healing center today with left lower extremity wounds. He was referred by Nuvia Brooks. He is accompanied to his appointment today by his . He relays that he has been dealing with these left lower extremity wounds recurrently over the past few years. They will become very close to healing and then subsequently open back up. His reports that all really started with a lot of swelling and redness in his lower legs which progressively worsened to weeping before developing these focal wounds. He has been treated to this point at [facility] with Unna boots and all of the surrounding skin has much improved in appearance however the wounds remain. He has not had any prior venous imaging to his knowledge and no venous interventions. No history of peripheral arterial disease or arterial interventions. He is not diabetic. He is not currently smoking, he quit in 1964. He presents today in an automated wheelchair. His insurance unfortunately has a very high co-pay for debridements which will be kept in mind throughout his treatment. Subjective Subjective He denies any significant changes or new concerns. Objective Data Objective Data Vital Signs: Vital Signs Temp Pulse Resp BP O2 Del Method 97.6 F L 93 18 122/57 H Room Air 01/20/25 15:09 01/20/25 15:09 01/27/25 15:29 01/20/25 15:09 01/27/25 15:29 Oxygen Delivery Method Room Air Weight: 198 lb Body Mass Index (BMI) 28.4 Lab / Micro Data Micro: Microbiology 01/06/25 15:39 Wound - Leg, Left Gram Stain - Final 01/06/25 15:39 Wound - Leg, Left Wound Culture - Final Staphylococcus pseudintermediu 01/06/25 15:39 Wound - Leg, Left Anaerobic Culture - Final Anaerobic cocci Prevotella species Bacteroides pyogenes Charges/Coding Visit Charges Office Visits / Consults: 49945 OV L3 Est 20min Debridement Note Debridement Note No debridement was completed: No debridement was completed today Post-Debridement Measurements and Additional Note: Post-Debridement Measurements/Treatment CHRISTIE - Nurse 1 - General Ulcer Assessment Start: 01/06/25 15:22 Freq: Status: Active Protocol: DUSTIN Activity Type Activity Date Activity User E-sign Co-sign Detail Recorded Client Recorded Date Recorded By Document 01/13/25 14:52 KW [id number] 01/13/25 15:03 KW Document 01/20/25 15:09 BM [id number] 01/20/25 15:11 BM Document 01/27/25 15:29 BM [id number] 01/27/25 15:42 BMF 01/13/25 01/20/25 01/27/25 14:52 15:09 15:29 WC - Today's Visit Information Type of service Follow-up Visit Follow-up Visit Follow-up Visit (Physician/VAULT WORKER (Physician/VAULT WORKER (Physician/VAULT WORKER ) ) ) Arrival Mode Other Wheelchair Walker Arrival Mode (Other) scooter Transfer Assistance None Accompanied by suresh- Patient Identification Verified (Name & Yes Yes Yes ) Patient Requires Transmission-Based No Precautions Height and Weight Body Mass Index (BMI) 28.4 28.4 28.4 BMI Classification Overweight Overweight Overweight Vital Signs Temperature (97.8 F-99.1 F) 98.1 F 97.6 F L Temperature Source Temporal Temporal Pulse Rate (60-100) 60 93 Pulse Location Monitor Monitor Respiratory Rate (12-18) 16 16 18 Respiratory rate source Observation Observation Observation Oxygen Delivery Method Room Air Room Air Room Air Blood Pressure (90/60-120/80) 115/61 122/57 H Blood Pressure Mean (mm Hg) 79 78 Source Monitor Monitor Position Sitting Semi-Fowlers Blood Pressure Location Left Arm Right Forearm History Since Last Visit- (Skip if this is Patient's initial visit) Have you changed medications since your No No No last visit? Any new allergies or adverse reactions No No No Had a fall/change in ADL's that may No No No increase risk of falls Signs or symptoms of abuse and/or No No No neglect since last visit Have you been in the hospital since your No No No last visit? Has dressing in place as prescribed Yes Yes Yes Has compression in place as prescribed Yes Yes Yes Has offloadiing in place as prescribed N/A N/A N/A Experienced any changes in pain level or No No No management Left Footwear Regular Shoe Regular Shoe Regular Shoe Right Footwear Regular Shoe Regular Shoe Regular Shoe Pain Scale: 0-10 Numeric Is Patient Pain Free? Yes Yes Yes - Nurse 1 - General Ulcer Measurement Start: 01/06/25 15:22 Freq: Status: Active Protocol: Activity Type Activity Date Activity User E-sign Co-sign Detail Recorded Client Recorded Date Recorded By Document 01/13/25 14:52 [id number] 01/13/25 15:03 Document 01/20/25 15:09 [facility] [id number] 01/20/25 15:11 BM Document 01/27/25 15:29 [facility] [id number] 01/27/25 15:42 [facility] 01/13/25 01/20/25 01/27/25 14:52 15:09 15:29 Wound Center Nurse 1 #7 L Medial leg cluster-anterior -Combined with other wound No -Current Size (cm) - Length 0.1 0.1 0.1 -Current Size (cm) - Width 0.1 0.1 0.1 -Current Size (cm) - Depth 0 0.1 0.1 -Total Square Cm 0.01 0.01 0.01 -Epithelialization Large 67-100% -Exudate Amt None Present None Present -Wound Margin Distinct, Outline Attached -Granulation Amt Large (67-100%) Large (67-100%) -Granulation Quality Red Red -Necrosis Amt Large (67-100%) -Necrotic Tissue Type Adherent Slough -Texture (Darling-wound Skin Appearance) Assessed Assessed, Assessed Scarring,Rash -Moisture (Darling-wound Skin Appearance) Assessed Assessed,Dry/ Assessed Scaly -Color (Darling-wound Skin Appearance) Assessed Assessed Assessed, Erythema -Temperature (Darling-wound Skin No Abnormality No Abnormality No Abnormality Appearance) (Pt Warm) (Pt Warm) (Pt Warm) -Tenderness on Palpation (Darling-wound No No No Skin Appearance) -Ulcer Cleansing Soap and Water Soap and Water Soap and Water -Foul Odor after Cleansing No No No -Anesthetic Used 5% Lidocaine 5% Lidocaine 5% Lidocaine Gel Gel Gel #5 Left lower lateral leg cluster -Combined with other wound No -Current Size (cm) - Length 0.1 0.1 0.1 -Current Size (cm) - Width 0.1 0.1 0.1 -Current Size (cm) - Depth 0.1 0.1 0.1 -Total Square Cm 0.01 0.01 0.01 -Tunneling No -Undermining/Tunneling No -Circular Undermining No -Wound Margin Indistinct, Non -Visible -Granulation Amt Large (67-100%) Large (67-100%) -Granulation Quality Red Red -Necrosis Amt Large (67-100%) -Necrotic Tissue Type Adherent Slough -Texture (Darling-wound Skin Appearance) Assessed Assessed, Assessed Scarring,Rash -Moisture (Darling-wound Skin Appearance) Assessed Assessed,Dry/ Assessed,Dry/ Scaly Scaly -Color (Darling-wound Skin Appearance) Assessed Assessed Assessed, Erythema -Temperature (Darling-wound Skin No Abnormality No Abnormality No Abnormality Appearance) (Pt Warm) (Pt Warm) (Pt Warm) -Tenderness on Palpation (Darling-wound No No No Skin Appearance) -Ulcer Cleansing Soap and Water Soap and Water Soap and Water -Foul Odor after Cleansing No No No -Anesthetic Used 5% Lidocaine 5% Lidocaine 5% Lidocaine Gel Gel Gel Lower Limb Edema Present Yes Left Calf (cm) 40 40.6 41.2 Left Ankle (cm) 26 26 26.1 WC - Nurse 2 - General Ulcer CM Notes Start: 01/06/25 15:22 Freq: Status: Active Protocol: Activity Type Activity Date Activity User E-sign Co-sign Detail Recorded Client Recorded Date Recorded By Document 01/06/25 15:22 [id number] 01/06/25 15:33 Document 01/13/25 15:17 [id number] 01/13/25 15:19 Document 01/20/25 15:32 [id number] 01/20/25 15:36 Document 01/27/25 16:04 [id number] 01/27/25 16:10 01/06/25 01/13/25 01/20/25 15:22 15:17 15:32 Wound Center Nurse 2 #7 L Medial leg cluster-anterior -Time 15:22 15:17 15:34 -Correct Patient Yes Yes Yes -Correct Side, Site, Position Yes Yes Yes -Correct Procedure No No No -Procedure Performed No No No -Post Debridement (cm) - Length 12.0 11.0 14.0 -Post Debridement (cm) - Width 8.0 3.0 11.0 -Post Debridement (cm) - Depth 0.1 0.1 0.1 -Total Square (Post) (cm) 96.00 33.00 154.00 -Tunneling No No No -Undermining/Tunneling No No No -Circular Undermining No No No -Wound/Ulcer Outcome Not Healed Not Healed Not Healed -Ulcer Cleansing Rinsed/ Not Cleansed Not Cleansed Irrigated with Saline -Foul Odor after Cleansing No No No -Bioengineered Tissue No No No -Bleeding Controlled with NA NA NA -Offloading No No #5 Left lower lateral leg cluster -Time 15:23 15:18 15:34 -Correct Patient Yes Yes Yes -Correct Side, Site, Position Yes Yes Yes -Correct Procedure No No No -Procedure Performed No No No -Post Debridement (cm) - Length 15.0 12.0 5.0 -Post Debridement (cm) - Width 6.0 6.0 7.0 -Post Debridement (cm) - Depth 0.1 0.1 0.1 -Total Square (Post) (cm) 90.00 72.00 35.00 -Tunneling No No No -Undermining/Tunneling No No No -Circular Undermining No No No -Wound/Ulcer Outcome Not Healed Not Healed Not Healed -Ulcer Cleansing Not Cleansed -Foul Odor after Cleansing No No No -Bioengineered Tissue No No No -Bleeding Controlled with NA NA NA -Offloading No -Debridement - Open, 1st 20sq cm No -Debridement - Subq, 1st 20sq cm No -Debridement - Muscle / Fascia, 1st No 20sq cm -Debridement - Bone, 1st 20sq cm No Pain Scale: 0-10 Numeric Is Patient Pain Free? Yes Yes Yes 01/27/25 16:04 Wound Center Nurse 2 #7 L Medial leg cluster-anterior -Time 16:05 -Correct Patient Yes -Correct Side, Site, Position Yes -Correct Procedure No -Procedure Performed No -Post Debridement (cm) - Length 8.0 -Post Debridement (cm) - Width 11.0 -Post Debridement (cm) - Depth 0.1 -Total Square (Post) (cm) 88.00 -Tunneling No -Undermining/Tunneling No -Circular Undermining No -Wound/Ulcer Outcome Not Healed -Ulcer Cleansing -Foul Odor after Cleansing No -Bioengineered Tissue No -Bleeding Controlled with NA -Offloading #5 Left lower lateral leg cluster -Time 16:06 -Correct Patient Yes -Correct Side, Site, Position Yes -Correct Procedure No -Procedure Performed No -Post Debridement (cm) - Length 11.5 -Post Debridement (cm) - Width 10.0 -Post Debridement (cm) - Depth 0.1 -Total Square (Post) (cm) 115.00 -Tunneling No -Undermining/Tunneling No -Circular Undermining No -Wound/Ulcer Outcome Not Healed -Ulcer Cleansing Not Cleansed -Foul Odor after Cleansing No -Bioengineered Tissue No -Bleeding Controlled with NA -Offloading -Debridement - Open, 1st 20sq cm -Debridement - Subq, 1st 20sq cm -Debridement - Muscle / Fascia, 1st 20sq cm -Debridement - Bone, 1st 20sq cm Pain Scale: 0-10 Numeric Is Patient Pain Free? Yes WC - Nurse 3 - General Ulcer D/C NN Start: 01/06/25 15:22 Freq: Status: Active Protocol: Activity Type Activity Date Activity User E-sign Co-sign Detail Recorded Client Recorded Date Recorded By Document 01/06/25 15:56 DL [id number] 01/06/25 15:58 DL Document 01/13/25 15:27 KW [id number] 01/13/25 15:29 KW Edit Result 01/13/25 15:27 KW (1) [id number] 01/13/25 15:43 BMF Document 01/20/25 15:47 BMF [id number] 01/20/25 15:48 [facility] Document 01/27/25 16:16 DL [id number] 01/27/25 16:19 DL (1) Left - Multi-Layered Wrap Application => Multi-Layer Comp - => Left ($) - Tubular Bandage Single Layer => - Size of Tubigrip Used Size E => - Size E ($) 1 => 01/06/25 01/13/25 01/20/25 15:56 15:27 15:47 Wound Care Center Nurse 3 #7 L Medial leg cluster-anterior -Ulcer Cleansing Rinsed/ Irrigated with Saline -Foul Odor after Cleansing No -Other Dressing Iodosorb iodosorb and amlactin -Primary Dressing Covered/Secured with Dry Gauze & Dry Gauze & Roll Gauze, Roll Gauze, Secured with Secured with Tape Tape -Other Covering amalactin #5 Left lower lateral leg cluster -Ulcer Cleansing Rinsed/ Irrigated with Saline -Foul Odor after Cleansing No -Other Dressing iodosorb gel idoosorb with amlactin -Primary Dressing Covered/Secured with Dry Gauze & Dry Gauze Roll Gauze, Secured with Tape -Other Covering amalactin Left -Multi-Layered Wrap Application Multi-Layer Multi-Layer Comp - Left ($) Comp - Left ($) Treatment Response Procedure Tolerated Well Pain Scale: 0-10 Numeric Is Patient Pain Free? Yes Yes Yes WC - Visit Discharge Discharge Condition Stable Stable Stable Ambulatory Status Wheelchair Wheelchair Wheelchair Transportation Private Auto Private Auto Private Auto Accompanied by Medication Reconcilliation completed & No provided to patient/care provider Clinical Summary of Care Provided Yes Facility Type Home Health Home Health Orders Sent Yes #7 L Medial leg cluster-anterior -Ulcer Cleansing Rinsed/ Irrigated with Saline -Foul Odor after Cleansing No -Other Dressing unna per kw sales agent pest control service #5 Left lower lateral leg cluster -Ulcer Cleansing Rinsed/ Irrigated with Saline -Foul Odor after Cleansing No -Other Dressing unna per kw sales agent pest control service Left -Multi-Layered Wrap Application Unna Boot - Left -Other per kw sales agent pest control service Treatment Response Procedure Tolerated Well 01/27/25 16:16 Wound Care Center Nurse 3 #7 L Medial leg cluster-anterior -Ulcer Cleansing -Foul Odor after Cleansing -Other Dressing -Primary Dressing Covered/Secured with -Other Covering #5 Left lower lateral leg cluster -Ulcer Cleansing -Foul Odor after Cleansing -Other Dressing -Primary Dressing Covered/Secured with -Other Covering Left -Multi-Layered Wrap Application Treatment Response Pain Scale: 0-10 Numeric Is Patient Pain Free? Yes WC - Visit Discharge Discharge Condition Stable Ambulatory Status Wheelchair Transportation Private Auto Accompanied by Medication Reconcilliation completed & provided to patient/care provider Clinical Summary of Care Provided Facility Type Home Health Orders Sent Yes #7 L Medial leg cluster-anterior -Ulcer Cleansing Soap and Water -Foul Odor after Cleansing -Other Dressing unna #5 Left lower lateral leg cluster -Ulcer Cleansing Soap and Water -Foul Odor after Cleansing -Other Dressing unna Left -Multi-Layered Wrap Application Unna Boot - Left -Other Treatment Response Procedure Tolerated Well Assessment/Plan Assessment/Plan (1) 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 Continue to encourage him to elevate his leg at all times of rest. May apply Amlactin to areas of intact, flaky skin at the proximal lower leg and foot; limit this to 2-3 times weekly with wound dressing changes; utilize normal fragrance-free moisturize other days. Continue to take Vasculera as prescribed. He is tolerating Bactrim and Flagyl so far, will complete as prescribed. Repeat venous duplex pending. At this point through his course here we have treated with months of Unna boots + compression, 3M wraps, various topical products including Aquacel extra and silver, iodosorb. We have treated for bacterial infections (orally and topically) as indicated by C&S, we have treated empirically for fungal infections with clotrimazole. We have treated as well with topical steroid in case of severe venous stasis dermatitis. He has scheduled his appointment with dermatology and will be very interested in their opinion and possible biopsy if they feel appropriate. Return to the clinic in 1 week.
== END 2025-01-28 23:59 | disposition home or self-care (01) ==
LOC: WC 15:15
PROVIDERS: PCP Family Medicine; Referring Provider Dermatology; Visit Provider Physician Assistant
DX: L97.922 Non-pressure chronic ulcer of unspecified part of left lower leg with fat layer exposed (principal); M79.3 Panniculitis, unspecified; R60.0 Localized edema; Z87.891 Personal history of nicotine dependence
CPT/HCPCS: 29580; 29581; 87070; 87075; 87077; 87186; 87205; 99213; G0463

== ENCOUNTER → 2025-02-02 | Outpatient (CLI) | payer MEDICARE, SELFPAY ==
--- NOTE | 2025-02-02 14:01 | VDLE_ITS ---
Reason For Study Reason For Study: Left leg swelling Procedure LEFT This is a venous duplex using B-mode, color flow and CFV is compressible, spontaneous, phasic, competent, spectral Doppler. and demonstrates normal augmentation. Exam performed in department. FV is compressible, spontaneous, phasic, competent Patient was scanned in reverse Trendelenburg position and demonstrates normal augmentation. during reflux assessment. POP V is compressible, spontaneous, phasic, competent and demonstrates normal augmentation. T/P Trunk is compressible. PTV is compressible. LT PerV is compressible. SFJ is competent and measures 0.70 cm. GSV proximal thigh measures 0.17 x 0.19 cm. GSV prox thigh is competent. GSV is occluded mid thigh to distal calf s/p ablation. ASV proximal thigh is INCOMPETENT for greater than 0.5 seconds and measures 0.34 x 0.35 cm. Extends down to distal calf. SSV mid calf is INCOMPETENT for greater than 0.5 seconds and measures 0.31 x 0.32 cm. ASV mid calf from SSV is INCOMPETENT for greater than 0.5 seconds and measures 0.21 x 0.22 cm. No incompetent perforators noted. VL/Venous Duplex US, Unilateral Interpretation Summary Deep veins of the left lower extremity are patent and compressible segmentally. There is no evidence of left lower extremity deep vein thrombosis. Calf great saphenous vein prior ablation. Positive for reflux in left accessory saphenous veins in thigh and calf, small saphenous vein. Ordering Physician: Swetha Dahl Referring Physician: Fernie Hoang Performed By: Dee Alberts RVT
== END | disposition home or self-care (01) ==
LOC: CVS 14:01
PROVIDERS: PCP Family Medicine; Referring Provider Physician Assistant; Visit Provider Physician Assistant
DX: L97.922 Non-pressure chronic ulcer of unspecified part of left lower leg with fat layer exposed (principal); R60.0 Localized edema
CPT/HCPCS: 93971

== ENCOUNTER 2025-02-24 15:00 | Outpatient (RCR) | payer MEDICARE, SELFPAY ==
[2025-01-29 01:53] VITALS: BP 122/57; PULSE 93; RESP 18; TEMP 36.4; BMI 28.4
[2025-02-10 15:11] VITALS: BP 121/60; PULSE 59; RESP 18; TEMP 36.1; BMI 28.4
[2025-02-17 14:58] VITALS: BP 147/60; PULSE 59; RESP 15; TEMP 35.7; BMI 28.4
--- NOTE | 2025-02-17 16:01 | PCM.WC.PN ---
History of Present Illness Date of Service: 02/17/25 Chief Complaint: LLE wounds History of Wound: Mr. Paola Boyer is an 84 y/o male who presents to the wound healing center today with left lower extremity wounds. He was referred by Nuvia Brooks. He is accompanied to his appointment today by his . He relays that he has been dealing with these left lower extremity wounds recurrently over the past few years. They will become very close to healing and then subsequently open back up. His reports that all really started with a lot of swelling and redness in his lower legs which progressively worsened to weeping before developing these focal wounds. He has been treated to this point at [facility] with Unna boots and all of the surrounding skin has much improved in appearance however the wounds remain. He has not had any prior venous imaging to his knowledge and no venous interventions. No history of peripheral arterial disease or arterial interventions. He is not diabetic. He is not currently smoking, he quit in 1964. He presents today in an automated wheelchair. His insurance unfortunately has a very high co-pay for debridements which will be kept in mind throughout his treatment. Subjective Subjective He has been doing well the last two weeks. His wounds seem to be looking a lot better this week. No new concerns for him. Objective Data Objective Data Vital Signs: Vital Signs Temp Pulse Resp BP 96.2 F L 59 L 15 147/60 H 02/17/25 14:58 02/17/25 14:58 02/17/25 14:58 02/17/25 14:58 Weight: 198 lb Body Mass Index (BMI) 28.4 Charges/Coding Visit Charges Office Visits / Consults: 78978 OV L3 Est 20min Physical Exam Const alert, oriented x3 and no apparent distress General Appearance: cooperative and comfortable HEENT normocephalic, hearing grossly normal bilaterally, external ears normal and external nose normal Eyes General Eye: normal appearance of both eyes Resp normal respiratory effort Effort and Inspection: able to speak in complete sentences; Negative for labored, stridor or audible wheezes Extremity Extremity Narrative: 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 Trace edema on exam today. No apparent bulging varicosities. No weeping or skin breakdown except for wounds as noted below. Easily palpable pedal pulses. Skin Wounds: wounds noted Wound Narrative: L lateral calf wound cluster and L medial calf wound cluster all very superficial with pink base; dried drainage overlying; significant reduction in size for both clusters this week. Neuro oriented x3, CN's II-XII intact bilaterally and moves all extremities Speech: speech normal Debridement Note Debridement Note No debridement was completed: No debridement was completed today Post-Debridement Measurements and Additional Note: Post-Debridement Measurements/Treatment - Nurse 1 - General Ulcer Assessment Start: 02/02/25 15:44 Freq: Status: Active Protocol: DUSTIN Activity Type Activity Date Activity User E-sign Co-sign Detail Recorded Client Recorded Date Recorded By Document 02/10/25 15:11 GM [id number] 02/10/25 15:15 GM Document 02/17/25 14:58 KW [id number] 02/17/25 15:08 KW 02/10/25 02/17/25 15:11 14:58 - Today's Visit Information Type of service Nurse-only Follow-up Visit 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 ) Arrival Mode Wheelchair Other Arrival Mode (Other) scooter Transfer Assistance None Accompanied by Patient Identification Verified (Name & Yes Yes ) Patient Requires Transmission-Based No Precautions Height and Weight Body Mass Index (BMI) 28.4 28.4 BMI Classification Overweight Overweight Vital Signs Temperature (97.8 F-99.1 F) 97 F L 96.2 F L Temperature Source Temporal Temporal Pulse Rate (60-100) 59 L 59 L Pulse Location Monitor Monitor Respiratory Rate (12-18) 18 15 Respiratory rate source Observation Observation Blood Pressure (90/60-120/80) 121/60 H 147/60 H Blood Pressure Mean (mm Hg) 80 89 Source Monitor Monitor Position Sitting Blood Pressure Location Right Forearm History Since Last Visit- (Skip if this is Patient's initial visit) Have you changed medications since your No No last visit? Any new allergies or adverse reactions No No Had a fall/change in ADL's that may No No increase risk of falls Signs or symptoms of abuse and/or No No neglect since last visit Have you been in the hospital since your No No last visit? Has dressing in place as prescribed Yes Yes Has compression in place as prescribed Yes Yes Has offloadiing in place as prescribed Yes N/A Experienced any changes in pain level or No No management Pain Scale: 0-10 Numeric Is Patient Pain Free? Yes Yes - Nurse 1 - General Ulcer Measurement Start: 02/02/25 15:44 Freq: Status: Active Protocol: Activity Type Activity Date Activity User E-sign Co-sign Detail Recorded Client Recorded Date Recorded By Document 02/10/25 15:11 GM [id number] 02/10/25 15:15 GM Document 02/17/25 14:58 KW [id number] 02/17/25 15:08 KW Edit Result 02/17/25 14:58 KW (1) [id number] 02/17/25 15:08 KW (1) Left Calf (cm) => 40 Left Ankle (cm) => 27.5 02/10/25 02/17/25 15:11 14:58 Wound Center Nurse 1 #7 L Medial leg cluster-anterior -Current Size (cm) - Length 0.1 -Current Size (cm) - Width 0.1 -Current Size (cm) - Depth 0.1 -Total Square Cm 0.01 -Exudate Amt Small -Exudate Type Serous -Wound Margin Distinct, Outline Attached -Granulation Amt Medium (34-66%) -Slough/Fibrin Yes -Necrosis Amt None Present (0 %) -Necrotic Tissue Type Eschar -Texture (Darling-wound Skin Appearance) Assessed -Moisture (Darling-wound Skin Appearance) Assessed -Color (Darling-wound Skin Appearance) Assessed -Temperature (Darling-wound Skin No Abnormality No Abnormality Appearance) (Pt Warm) (Pt Warm) -Tenderness on Palpation (Darling-wound No No Skin Appearance) -Ulcer Cleansing Soap and Water Soap and Water -Foul Odor after Cleansing No No -Anesthetic Used 5% Lidocaine Gel -Wound Comment(s) DRESSING APPLIED PER Francia GOMEZ TODAY. #5 Left lower lateral leg cluster -Current Size (cm) - Length 0.1 -Current Size (cm) - Width 0.1 -Current Size (cm) - Depth 0.1 -Total Square Cm 0.01 -Exudate Amt Small -Wound Margin Distinct, Outline Attached -Granulation Amt Small (1-33%) -Slough/Fibrin Yes -Necrosis Amt Small (1-33%) -Necrotic Tissue Type Adherent Slough -Texture (Darling-wound Skin Appearance) Not Assessed -Moisture (Darling-wound Skin Appearance) No Abnormality -Color (Darling-wound Skin Appearance) Not Assessed -Temperature (Darling-wound Skin No Abnormality No Abnormality Appearance) (Pt Warm) (Pt Warm) -Tenderness on Palpation (Darling-wound No No Skin Appearance) -Ulcer Cleansing Soap and Water Soap and Water -Foul Odor after Cleansing No No -Anesthetic Used 5% Lidocaine Gel Left Calf (cm) 40 Left Ankle (cm) 27.5 WC - Nurse 2 - General Ulcer CM Notes Start: 02/02/25 15:44 Freq: Status: Active Protocol: Activity Type Activity Date Activity User E-sign Co-sign Detail Recorded Client Recorded Date Recorded By Document 02/17/25 15:12 GM [id number] 02/17/25 15:44 GM 02/17/25 15:12 Wound Center Nurse 2 #7 L Medial leg cluster-anterior -Time 15:13 -Correct Patient Yes -Correct Side, Site, Position Yes -Correct Procedure No -Procedure Performed No -Tunneling No -Undermining/Tunneling No -Circular Undermining No -Wound/Ulcer Outcome Not Healed -Ulcer Cleansing Not Cleansed -Foul Odor after Cleansing No -Bioengineered Tissue No Pain Scale: 0-10 Numeric Is Patient Pain Free? Yes - Nurse 3 - General Ulcer D/C NN Start: 02/02/25 15:44 Freq: Status: Active Protocol: Activity Type Activity Date Activity User E-sign Co-sign Detail Recorded Client Recorded Date Recorded By Document 02/02/25 15:44 KW [id number] 02/02/25 15:44 KW Document 02/10/25 15:11 GM [id number] 02/10/25 15:15 GM Document 02/17/25 15:38 ML [id number] 02/17/25 15:38 ML 02/02/25 02/10/25 02/17/25 15:44 15:11 15:38 Wound Care Center Nurse 3 #7 L Medial leg cluster-anterior -Ulcer Cleansing Soap and Water Soap and Water -Foul Odor after Cleansing No -Other Dressing UNNA #5 Left lower lateral leg cluster -Ulcer Cleansing Soap and Water Soap and Water -Foul Odor after Cleansing No -Other Dressing UNNA LLE -Multi-Layered Wrap Application Unna Boot - Unna Boot - Unna Boot - Left Left Left -Unna- Left (Qty applied) 1 1 1 Treatment Response Procedure Tolerated Well Pain Scale: 0-10 Numeric Is Patient Pain Free? 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 For wound care and compression will apply an Unna boot again this week which will be changed [facility] through the week by [facility]. Continue to encourage him to elevate his leg at all times of rest. May apply Amlactin to areas of intact, flaky skin at the proximal lower leg and foot; limit this to 2-3 times weekly with wound dressing changes; utilize normal fragrance-free moisturize other days. Continue to take Vasculera as prescribed. 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 He will consider. And we will await dermatology 2nd opinion, he is scheduled 03/15. At this point through his course here we have treated with months of Unna boots + compression, 3M wraps, various topical products including Aquacel extra and silver, iodosorb. We have treated for bacterial infections (orally and topically) as indicated by C&S, we have treated empirically for fungal infections with clotrimazole. We have treated as well with topical steroid in case of severe venous stasis dermatitis. He has scheduled his appointment with dermatology and will be very interested in their opinion and possible biopsy if they feel appropriate. Return to the clinic in 1 week.
[2025-02-24 15:12] VITALS: BP 148/68; PULSE 56; RESP 16; TEMP 36.2; BMI 28.4
== END 2025-02-28 23:59 | disposition home or self-care (01) ==
LOC: WC 15:00
PROVIDERS: PCP Family Medicine; Referring Provider Dermatology; Visit Provider Physician Assistant
DX: L97.922 Non-pressure chronic ulcer of unspecified part of left lower leg with fat layer exposed (principal); Z87.891 Personal history of nicotine dependence; M79.3 Panniculitis, unspecified; R60.0 Localized edema
CPT/HCPCS: 29580; 99213; G0463

== ENCOUNTER 2025-03-24 15:15 | Outpatient (RCR) | payer MEDICARE, SELFPAY ==
[2025-03-01 00:24] VITALS: BP 148/68; PULSE 56; RESP 16; TEMP 36.2; BMI 28.4
[2025-03-03 15:27] VITALS: BP 120/68; PULSE 89; RESP 16; BMI 28.4
--- NOTE | 2025-03-03 16:11 | PCM.WC.PN ---
History of Present Illness Date of Service: 03/03/25 Chief Complaint: LLE wounds History of Wound: Mr. Paola Boyer is an 84 y/o male who presents to the wound healing center today with left lower extremity wounds. He was referred by Nuvia Brooks. He is accompanied to his appointment today by his . He relays that he has been dealing with these left lower extremity wounds recurrently over the past few years. They will become very close to healing and then subsequently open back up. His reports that all really started with a lot of swelling and redness in his lower legs which progressively worsened to weeping before developing these focal wounds. He has been treated to this point at [facility] with Unna boots and all of the surrounding skin has much improved in appearance however the wounds remain. He has not had any prior venous imaging to his knowledge and no venous interventions. No history of peripheral arterial disease or arterial interventions. He is not diabetic. He is not currently smoking, he quit in 1964. He presents today in an automated wheelchair. His insurance unfortunately has a very high co-pay for debridements which will be kept in mind throughout his treatment. Subjective Subjective He has been doing well the last two weeks. His wounds seem to be looking a lot better this week. No new concerns for him. Objective Data Objective Data Vital Signs: Vital Signs Temp Pulse Resp BP O2 Del Method 97.2 F L 89 16 120/68 Room Air 03/01/25 00:24 03/03/25 15:27 03/03/25 15:27 03/03/25 15:27 03/03/25 15:27 Oxygen Delivery Method Room Air Weight: 198 lb Body Mass Index (BMI) 28.4 Charges/Coding Visit Charges Office Visits / Consults: 50402 OV L3 Est 20min Physical Exam Const alert, oriented x3 and no apparent distress General Appearance: cooperative and comfortable HEENT normocephalic, hearing grossly normal bilaterally, external ears normal and external nose normal Eyes General Eye: normal appearance of both eyes Resp normal respiratory effort Effort and Inspection: able to speak in complete sentences; Negative for labored, stridor or audible wheezes Extremity Extremity Narrative: 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 Trace edema on exam today. No apparent bulging varicosities. No weeping or skin breakdown except for wounds as noted below. Easily palpable pedal pulses. Skin Wounds: wounds noted Wound Narrative: L lateral calf wound cluster and L medial calf wound cluster all very superficial with pink base; dried drainage overlying; significant reduction in size for both clusters this week. Neuro oriented x3, CN's II-XII intact bilaterally and moves all extremities Speech: speech normal Debridement Note Debridement Note No debridement was completed: No debridement was completed today Post-Debridement Measurements and Additional Note: Post-Debridement Measurements/Treatment - Nurse 1 - General Ulcer Assessment Start: 03/03/25 15:27 Freq: Status: Active Protocol: DUSTIN Activity Type Activity Date Activity User E-sign Co-sign Detail Recorded Client Recorded Date Recorded By Document 03/03/25 15:27 [facility] [id number] 03/03/25 15:44 [facility] 03/03/25 15:27 WC - Today's Visit Information Type of service 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 ) Arrival Mode Wheelchair Transfer Assistance None Accompanied by Patient Identification Verified (Name & Yes ) Patient Requires Transmission-Based No Precautions Height and Weight Body Mass Index (BMI) 28.4 BMI Classification Overweight Vital Signs Pulse Rate (60-100) 89 Pulse Location Monitor Respiratory Rate (12-18) 16 Respiratory rate source Observation Oxygen Delivery Method Room Air Blood Pressure (90/60-120/80) 120/68 Blood Pressure Mean (mm Hg) 85 Source Monitor Position Sitting Blood Pressure Location Left Arm History Since Last Visit- (Skip if this is Patient's initial visit) Have you changed medications since your No last visit? Any new allergies or adverse reactions No Had a fall/change in ADL's that may No increase risk of falls Signs or symptoms of abuse and/or No neglect since last visit Have you been in the hospital since your No last visit? Has dressing in place as prescribed Yes Has compression in place as prescribed Yes Has offloadiing in place as prescribed N/A Experienced any changes in pain level or No management Left Footwear Regular Shoe Right Footwear Regular Shoe Pain Scale: 0-10 Numeric Is Patient Pain Free? Yes - Nurse 1 - General Ulcer Measurement Start: 03/03/25 15:27 Freq: Status: Active Protocol: Activity Type Activity Date Activity User E-sign Co-sign Detail Recorded Client Recorded Date Recorded By Document 03/03/25 15:27 [facility] [id number] 03/03/25 15:44 BMF 03/03/25 15:27 Wound Center Nurse 1 #7 L Medial leg cluster-anterior -Combined with other wound No -Current Size (cm) - Length 0.1 -Current Size (cm) - Width 0.1 -Current Size (cm) - Depth 0.1 -Total Square Cm 0.01 -Date of Last Picture (Recall this 03/03/25 field) -Photo Taken Yes -Epithelialization Large 67-100% -Tunneling No -Undermining/Tunneling No -Circular Undermining No -Exudate Amt Small -Exudate Type Serosanguineous -Wound Margin Flat & Intact -Granulation Amt Large (67-100%) -Granulation Quality Hoehne -Texture (Darling-wound Skin Appearance) Assessed -Moisture (Darling-wound Skin Appearance) Assessed,Dry/ Scaly -Color (Darling-wound Skin Appearance) Assessed -Temperature (Darling-wound Skin No Abnormality Appearance) (Pt Warm) -Tenderness on Palpation (Darling-wound No Skin Appearance) -Ulcer Cleansing Soap and Water -Foul Odor after Cleansing No -Anesthetic Used 5% Lidocaine Gel #5 Left lower lateral leg cluster -Combined with other wound No -Current Size (cm) - Length 0.1 -Current Size (cm) - Width 0.1 -Current Size (cm) - Depth 0.1 -Total Square Cm 0.01 -Date of Last Picture (Recall this 03/03/25 field) -Photo Taken Yes -Epithelialization Large 67-100% -Tunneling No -Undermining/Tunneling No -Circular Undermining No -Exudate Amt Small -Exudate Type Serosanguineous -Wound Margin Flat & Intact -Granulation Amt Large (67-100%) -Granulation Quality Hoehne -Texture (Darling-wound Skin Appearance) Assessed -Moisture (Darling-wound Skin Appearance) Assessed,Dry/ Scaly -Color (Darling-wound Skin Appearance) Assessed -Temperature (Darling-wound Skin No Abnormality Appearance) (Pt Warm) -Tenderness on Palpation (Darling-wound No Skin Appearance) -Ulcer Cleansing Soap and Water -Foul Odor after Cleansing No -Anesthetic Used 5% Lidocaine Gel Lower Limb Edema Present Yes Left Calf (cm) 41.9 Left Ankle (cm) 25.8 WC - Nurse 2 - General Ulcer CM Notes Start: 03/03/25 15:27 Freq: Status: Active Protocol: Activity Type Activity Date Activity User E-sign Co-sign Detail Recorded Client Recorded Date Recorded By Document 03/03/25 15:59 [id number] 03/03/25 16:01 GM 03/03/25 15:59 Wound Center Nurse 2 #7 L Medial leg cluster-anterior -Time 15:59 -Correct Patient Yes -Correct Side, Site, Position Yes -Correct Procedure No -Procedure Performed No -Post Debridement (cm) - Length 6.0 -Post Debridement (cm) - Width 3.0 -Post Debridement (cm) - Depth 0.1 -Total Square (Post) (cm) 18.00 -Tunneling No -Undermining/Tunneling No -Circular Undermining No -Wound/Ulcer Outcome Not Healed #5 Left lower lateral leg cluster -Time 15:59 -Correct Patient Yes -Correct Side, Site, Position Yes -Correct Procedure No -Procedure Performed No -Post Debridement (cm) - Length 2.5 -Post Debridement (cm) - Width 3.0 -Post Debridement (cm) - Depth 0.1 -Total Square (Post) (cm) 7.50 -Tunneling No -Undermining/Tunneling No -Circular Undermining No -Wound/Ulcer Outcome Not Healed -Foul Odor after Cleansing No -Bioengineered Tissue No -Bleeding Controlled with NA -Offloading No Pain Scale: 0-10 Numeric Is Patient Pain Free? Yes Assessment/Plan Assessment/Plan (1) Chronic ulcer of left lower extremity with fat layer exposed: CODE(S): L97.922 - Non-pressure chronic ulcer of unspecified part of left lower leg with fat layer exposed PLAN: Posterior/lateral L calf ulceration limited to breakdown of the skin and Medial L calf ulceration limited to breakdown of the skin and anterior L angel ulceration cluster (2) Lipodermatosclerosis of both lower extremities: CODE(S): M79.3 - Panniculitis, unspecified (3) Bilateral lower extremity edema: CODE(S): R60.0 - Localized edema PLAN: Plan Wounds are overall stable. For wound care and compression will apply an Unna boot again this week which will be changed nursing home through the week by [facility]. Continue to encourage him to elevate his leg at all times of rest. May apply Amlactin to areas of intact, flaky skin at the proximal lower leg and foot; limit this to 2-3 times weekly with wound dressing changes; utilize normal fragrance-free moisturize other days. Continue to take Vasculera as prescribed. 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 He will consider. And we will await dermatology 2nd opinion, he is scheduled 03/15. At this point through his course here we have treated with months of Unna boots + compression, 3M wraps, various topical products including Aquacel extra and silver, iodosorb. We have treated for bacterial infections (orally and topically) as indicated by C&S, we have treated empirically for fungal infections with clotrimazole. We have treated as well with topical steroid in case of severe venous stasis dermatitis. He has scheduled his appointment with dermatology and will be very interested in their opinion and possible biopsy if they feel appropriate. Return to the clinic in 1 week.
--- NOTE | 2025-03-04 10:59 | WC ---
PHOTO 03/03/25
--- NOTE | 2025-03-04 10:59 | WC ---
PHOTO 03/03/25 ALLAN SWANSON
--- NOTE | 2025-03-04 11:00 | WC ---
PHOTO 03/03/25 ALLAN LAT CLUSTER
[2025-03-10 15:19] VITALS: BP 124/59; PULSE 67; RESP 14; BMI 28.4
--- NOTE | 2025-03-10 18:15 | PCM.WC.PN ---
History of Present Illness Date of Service: 03/10/25 Chief Complaint: LLE wounds History of Wound: Mr. Paola Boyer is an 84 y/o male who presents to the wound healing center today with left lower extremity wounds. He was referred by Nuvia Brooks. He is accompanied to his appointment today by his . He relays that he has been dealing with these left lower extremity wounds recurrently over the past few years. They will become very close to healing and then subsequently open back up. His reports that all really started with a lot of swelling and redness in his lower legs which progressively worsened to weeping before developing these focal wounds. He has been treated to this point at [facility] with Unna boots and all of the surrounding skin has much improved in appearance however the wounds remain. He has not had any prior venous imaging to his knowledge and no venous interventions. No history of peripheral arterial disease or arterial interventions. He is not diabetic. He is not currently smoking, he quit in 1964. He presents today in an automated wheelchair. His insurance unfortunately has a very high co-pay for debridements which will be kept in mind throughout his treatment. Subjective Subjective Leg has been looking better; still with a lot of yellow scab/dried drainage overlying but no frankly open areas; no significant drainage, no increased redness/foul odor. No specific complaints this week. He has dermatology appointment next Friday. He will have to miss appt next week as his has an appointment in [place]. Still has [facility] coming out once a week. Objective Data Objective Data Vital Signs: Vital Signs Temp Pulse Resp BP O2 Del Method 97.2 F L 67 14 124/59 H Room Air 03/01/25 00:24 03/10/25 15:19 03/10/25 15:19 03/10/25 15:19 03/03/25 15:27 Oxygen Delivery Method Room Air Weight: 198 lb Body Mass Index (BMI) 28.4 Charges/Coding Visit Charges Office Visits / Consults: 09351 OV L3 Est 20min Physical Exam Const alert, oriented x3 and no apparent distress General Appearance: cooperative and comfortable HEENT normocephalic, hearing grossly normal bilaterally, external ears normal and external nose normal Eyes General Eye: normal appearance of both eyes Resp normal respiratory effort Effort and Inspection: able to speak in complete sentences; Negative for labored, stridor or audible wheezes Extremity Extremity Narrative: 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 Trace edema on exam today. No apparent bulging varicosities. No weeping or skin breakdown except for wounds as noted below. Easily palpable pedal pulses. Skin Wounds: wounds noted Wound Narrative: No frankly open areas this week; though large areas remain covered with yellow scab/dried drainage which if debrided more aggressively may reveal superficial wounds Neuro oriented x3, CN's II-XII intact bilaterally and moves all extremities Speech: speech normal Debridement Note Debridement Note No debridement was completed: No debridement was completed today Post-Debridement Measurements and Additional Note: Post-Debridement Measurements/Treatment - Nurse 1 - General Ulcer Assessment Start: 03/03/25 15:27 Freq: Status: Active Protocol: DUSTIN Activity Type Activity Date Activity User E-sign Co-sign Detail Recorded Client Recorded Date Recorded By Document 03/03/25 15:27 BM [id number] 03/03/25 15:44 BM Document 03/10/25 15:19 ML [id number] 03/10/25 15:32 ML 03/03/25 03/10/25 15:27 15:19 - Today's Visit Information Type of service Follow-up Visit Follow-up Visit (Physician/MOUTHPIECE MAKER (Physician/MOUTHPIECE MAKER ) ) Arrival Mode Wheelchair Wheelchair Transfer Assistance None None Accompanied by Patient Identification Verified (Name & Yes Yes ) Patient Requires Transmission-Based No No Precautions Height and Weight Body Mass Index (BMI) 28.4 28.4 BMI Classification Overweight Overweight Vital Signs Pulse Rate (60-100) 89 67 Pulse Location Monitor Monitor Respiratory Rate (12-18) 16 14 Respiratory rate source Observation Observation Oxygen Delivery Method Room Air Blood Pressure (90/60-120/80) 120/68 124/59 H Blood Pressure Mean (mm Hg) 85 80 Source Monitor Monitor Position Sitting Sitting Blood Pressure Location Left Arm Left Arm History Since Last Visit- (Skip if this is Patient's initial visit) Have you changed medications since your No No last visit? Any new allergies or adverse reactions No No Had a fall/change in ADL's that may No No increase risk of falls Signs or symptoms of abuse and/or No No neglect since last visit Have you been in the hospital since your No No last visit? Has dressing in place as prescribed Yes Yes Has compression in place as prescribed Yes N/A Has offloadiing in place as prescribed N/A N/A Experienced any changes in pain level or No No management Left Footwear Regular Shoe Right Footwear Regular Shoe Pain Scale: 0-10 Numeric Is Patient Pain Free? Yes Yes WC - Nurse 1 - General Ulcer Measurement Start: 03/03/25 15:27 Freq: Status: Active Protocol: Activity Type Activity Date Activity User E-sign Co-sign Detail Recorded Client Recorded Date Recorded By Document 03/03/25 15:27 BMF [id number] 03/03/25 15:44 BMF Document 03/10/25 15:19 ML [id number] 03/10/25 15:32 ML 03/03/25 03/10/25 15:27 15:19 Wound Center Nurse 1 #7 L Medial leg cluster-anterior -Combined with other wound No -Current Size (cm) - Length 0.1 0.1 -Current Size (cm) - Width 0.1 0.1 -Current Size (cm) - Depth 0.1 0.1 -Total Square Cm 0.01 0.01 -Date of Last Picture (Recall this 03/03/25 field) -Photo Taken Yes -Epithelialization Large 67-100% -Tunneling No -Undermining/Tunneling No -Circular Undermining No -Exudate Amt Small None Present -Exudate Type Serosanguineous -Wound Margin Flat & Intact -Granulation Amt Large (67-100%) None Present (0 %) -Granulation [place] -Slough/Fibrin Yes -Necrosis Amt None Present (0 %) -Texture (Darling-wound Skin Appearance) Assessed Assessed -Moisture (Darling-wound Skin Appearance) Assessed,Dry/ Assessed Scaly -Color (Darling-wound Skin Appearance) Assessed Assessed -Temperature (Darling-wound Skin No Abnormality No Abnormality Appearance) (Pt Warm) (Pt Warm) -Tenderness on Palpation (Darling-wound No No Skin Appearance) -Ulcer Cleansing Soap and Water Soap and Water -Foul Odor after Cleansing No No -Anesthetic Used 5% Lidocaine Gel #5 Left lower lateral leg cluster -Combined with other wound No -Current Size (cm) - Length 0.1 0.1 -Current Size (cm) - Width 0.1 0.1 -Current Size (cm) - Depth 0.1 0.1 -Total Square Cm 0.01 0.01 -Date of Last Picture (Recall this 03/03/25 field) -Photo Taken Yes -Epithelialization Large 67-100% -Tunneling No -Undermining/Tunneling No -Circular Undermining No -Exudate Amt Small None Present -Exudate Type Serosanguineous -Wound Margin Flat & Intact -Granulation Amt Large (67-100%) None Present (0 %) -Granulation [place] -Slough/Fibrin No -Necrosis Amt None Present (0 %) -Texture (Darling-wound Skin Appearance) Assessed Assessed -Moisture (Darling-wound Skin Appearance) Assessed,Dry/ Assessed Scaly -Color (Darling-wound Skin Appearance) Assessed Assessed -Temperature (Darling-wound Skin No Abnormality No Abnormality Appearance) (Pt Warm) (Pt Warm) -Tenderness on Palpation (Darling-wound No No Skin Appearance) -Ulcer Cleansing Soap and Water Soap and Water -Foul Odor after Cleansing No No -Anesthetic Used 5% Lidocaine Gel Lower Limb Edema Present Yes Right Calf (cm) 37 Right Ankle (cm) 27 Left Calf (cm) 41.9 Left Ankle (cm) 25.8 WC - Nurse 2 - General Ulcer CM Notes Start: 03/03/25 15:27 Freq: Status: Active Protocol: Activity Type Activity Date Activity User E-sign Co-sign Detail Recorded Client Recorded Date Recorded By Document 03/03/25 15:59 [id number] 03/03/25 16:01 Document 03/10/25 15:44 [id number] 03/10/25 15:48 03/03/25 03/10/25 15:59 15:44 Wound Center Nurse 2 #7 L Medial leg cluster-anterior -Time 15:59 15:47 -Correct Patient Yes Yes -Correct Side, Site, Position Yes Yes -Correct Procedure No No -Procedure Performed No No -Post Debridement (cm) - Length 6.0 -Post Debridement (cm) - Width 3.0 -Post Debridement (cm) - Depth 0.1 -Total Square (Post) (cm) 18.00 -Tunneling No No -Undermining/Tunneling No No -Circular Undermining No No -Wound/Ulcer Outcome Not Healed Healed- Epithelialized -Foul Odor after Cleansing No -Bioengineered Tissue No #5 Left lower lateral leg cluster -Time 15:59 15:47 -Correct Patient Yes Yes -Correct Side, Site, Position Yes Yes -Correct Procedure No No -Procedure Performed No No -Post Debridement (cm) - Length 2.5 -Post Debridement (cm) - Width 3.0 -Post Debridement (cm) - Depth 0.1 -Total Square (Post) (cm) 7.50 -Tunneling No No -Undermining/Tunneling No No -Circular Undermining No No -Wound/Ulcer Outcome Not Healed Healed- Epithelialized -Foul Odor after Cleansing No No -Bioengineered Tissue No No -Bleeding Controlled with NA NA -Offloading No No Pain Scale: 0-10 Numeric Is Patient Pain Free? Yes Yes - Nurse 3 - General Ulcer D/C NN Start: 03/03/25 15:27 Freq: Status: Active Protocol: Activity Type Activity Date Activity User E-sign Co-sign Detail Recorded Client Recorded Date Recorded By Document 03/03/25 16:13 KW [id number] 03/03/25 16:14 KW Document 03/10/25 16:03 [employer] [id number] 03/10/25 16:05 KW 03/03/25 03/10/25 16:13 16:03 Wound Care Center Nurse 3 LLE -Multi-Layered Wrap Application Unna Boot - Unna Boot - Left Left -Unna- Left (Qty applied) 1 1 Pain Scale: 0-10 Numeric Is Patient Pain Free? Yes Yes - Visit Discharge Discharge Condition Stable Stable Ambulatory Status Wheelchair Wheelchair Transportation Private Auto Private Auto Medication Reconcilliation completed & No No provided to patient/care provider Clinical Summary of Care Provided Yes Yes Notes: rides in scooter Assessment/Plan Assessment/Plan (1) Chronic ulcer of left lower extremity with fat layer exposed: CODE(S): L97.922 - Non-pressure chronic ulcer of unspecified part of left lower leg with fat layer exposed PLAN: Posterior/lateral L calf ulceration limited to breakdown of the skin and Medial L calf ulceration limited to breakdown of the skin and anterior L angel ulceration cluster (2) Lipodermatosclerosis of both lower extremities: CODE(S): M79.3 - Panniculitis, unspecified (3) Bilateral lower extremity edema: CODE(S): R60.0 - Localized edema PLAN: Plan Will apply an Unna boot again this week which will be changed halfway through the week by [facility]. Continue to encourage him to elevate his leg at all times of rest. May apply Amlactin to areas of intact, flaky skin at the proximal lower leg and foot; limit this to 2-3 times weekly with wound dressing changes; utilize normal fragrance-free moisturize other days. Continue to take Vasculera as prescribed. 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 He will consider. And we will await dermatology 2nd opinion, he is scheduled 03/15. At this point through his course here we have treated with months of Unna boots + compression, 3M wraps, various topical products including Aquacel extra and silver, iodosorb. We have treated for bacterial infections (orally and topically) as indicated by C&S, we have treated empirically for fungal infections with clotrimazole. We have treated as well with topical steroid in case of severe venous stasis dermatitis. He has scheduled his appointment with dermatology and will be very interested in their opinion and possible biopsy if they feel appropriate. Return to the clinic in 1 week.
[2025-03-24 15:11] VITALS: BP 113/48; PULSE 70; RESP 16; TEMP 36.2; BMI 28.4
--- NOTE | 2025-03-24 16:14 | PN.PCM_ITS ---
History of Present Illness Date of Service: 03/24/25 Chief Complaint: LLE wounds History of Wound: Mr. Paola Boyer is an 84 y/o male who presents to the wound healing center today with left lower extremity wounds. He was referred by Nuvia Brooks. He is accompanied to his appointment today by his . He relays that he has been dealing with these left lower extremity wounds recurrently over the past few years. They will become very close to healing and then subsequently open back up. His reports that all really started with a lot of swelling and redness in his lower legs which progressively worsened to weeping before developing these focal wounds. He has been treated to this point at [facility] with Unna boots and all of the surrounding skin has much improved in appearance however the wounds remain. He has not had any prior venous imaging to his knowledge and no venous interventions. No history of peripheral arterial disease or arterial interventions. He is not diabetic. He is not currently smoking, he quit in 1964. He presents today in an automated wheelchair. His insurance unfortunately has a very high co-pay for debridements which will be kept in mind throughout his treatment. Subjective Subjective He had his dermatology appointment; he received a steroid injection and reports plan is to assess his response and then determine further plan from there. Some difficulties with how has been applying Unna boot. No other changes. Objective Data Objective Data Vital Signs: Vital Signs Temp Pulse Resp BP O2 Del Method 97.2 F L 70 16 113/48 L Room Air 03/24/25 15:11 03/24/25 15:11 03/24/25 15:11 03/24/25 15:11 03/24/25 15:11 Oxygen Delivery Method Room Air Weight: 198 lb Body Mass Index (BMI) 28.4 Charges/Coding Visit Charges Office Visits / Consults: 26210 OV L3 Est 20min Physical Exam Const alert, oriented x3 and no apparent distress General Appearance: cooperative and comfortable HEENT normocephalic, hearing grossly normal bilaterally, external ears normal and external nose normal Eyes General Eye: normal appearance of both eyes Resp normal respiratory effort Effort and Inspection: able to speak in complete sentences; Negative for la bored, stridor or audible wheezes Extremity Extremity Narrative: Bilateral lower extremities with hemosiderin deposition and lipodermatosc lerosis. Trace edema on exam today. No apparent bulging varicosities. No weeping or skin breakdown except for wounds as noted below. Easily palpable pedal pulses. Skin Wounds: wounds noted Wound Narrative: Removed all adherent dried serous drainage. Fewer superficial open areas underneath; the medial aspect looks noticeably better; lateral and posterior still with a lot of superficial skin breakdown. Neuro oriented x3, CN's II-XII intact bilaterally and moves all extremities Speech: speech normal Debridement Note Debridement Note No debridement was completed: No debridement was completed today Post-Debridement Measurements and Additional Note: Post-Debridement Measurements/Treatment - Nurse 1 - General Ulcer Assessment Start: 03/03/25 15:27 Freq: Status: Active Protocol: [email or web address] Activity Type Activity Date Activity User E-sign Co-sign Detail Recorded Client Recorded Date Recorded By Document 03/03/25 15:27 BMF [id number] 03/03/25 15:44 BM Document 03/10/25 15:19 ML [id number] 03/10/25 15:32 ML Document 03/24/25 15:11 [facility] [id number] 03/24/25 15:34 BM 03/03/25 03/10/25 03/24/25 15:27 15:19 15:11 - Today's Visit Information Type of service Follow-up Visit Follow-up Visit Follow-up Visit (Physician/HYDRAULIC DREDGE OPERATOR (Physician/HYDRAULIC DREDGE OPERATOR (Physician/HYDRAULIC DREDGE OPERATOR ) ) ) Arrival Mode Wheelchair Wheelchair Wheelchair Transfer Assistance None None None Accompanied by Patient Identification Verified (Name & Yes Yes Yes ) Patient Requires Transmission-Based No No No Precautions Height and Weight Body Mass Index (BMI) 28.4 28.4 28.4 BMI Classification Overweight Overweight Overweight Vital Signs Temperature (97.8 F-99.1 F) 97.2 F L Temperature Source Temporal Pulse Rate (60-100) 89 67 70 Pulse Location Monitor Monitor Monitor Respiratory Rate (12-18) 16 14 16 Respiratory rate source Observation Observation Observation Oxygen Delivery Method Room Air Room Air Blood Pressure (90/60-120/80) 120/68 124/59 H 113/48 L Blood Pressure Mean (mm Hg) 85 80 69 Source Monitor Monitor Monitor Position Sitting Sitting Sitting Blood Pressure Location Left Arm Left Arm Left Arm History Since Last Visit- (Skip if this is Patient's initial visit) Have you changed medications since your No No No last visit? Any new allergies or adverse reactions No No No Had a fall/change in ADL's that may No No No increase risk of falls Signs or symptoms of abuse and/or No No No neglect since last visit Have you been in the hospital since your No No No last visit? Has dressing in place as prescribed Yes Yes Yes Has compression in place as prescribed Yes N/A Yes Has offloadiing in place as prescribed N/A N/A N/A Experienced any changes in pain level or No No No management Left Footwear Regular Shoe Regular Shoe Right Footwear Regular Shoe Regular Shoe Pain Scale: 0-10 Numeric Is Patient Pain Free? Yes Yes Yes WC - Nurse 1 - General Ulcer Measurement Start: 03/03/25 15:27 Freq: Status: Active Protocol: Activity Type Activity Date Activity User E-sign Co-sign Detail Recorded Client Recorded Date Recorded By Document 03/03/25 15:27 BMF [id number] 03/03/25 15:44 BMF Document 03/10/25 15:19 ML [id number] 03/10/25 15:32 ML Document 03/24/25 15:11 BMF [id number] 03/24/25 15:34 BMF 03/03/25 03/10/25 03/24/25 15:27 15:19 15:11 Wound Center Nurse 1 #7 L Medial leg cluster-anterior -Combined with other wound No No -Current Size (cm) - Length 0.1 0.1 0.1 -Current Size (cm) - Width 0.1 0.1 0.1 -Current Size (cm) - Depth 0.1 0.1 0.1 -Total Square Cm 0.01 0.01 0.01 -Date of Last Picture (Recall this 03/03/25 field) -Photo Taken Yes -Epithelialization Large 67-100% Large 67-100% -Tunneling No -Undermining/Tunneling No -Circular Undermining No -Exudate Amt Small None Present -Exudate Type Serosanguineous -Wound Margin Flat & Intact -Granulation Amt Large (67-100%) None Present (0 %) -Granulation Quality [place] -Slough/Fibrin Yes -Necrosis Amt None Present (0 %) -Texture (Darling-wound Skin Appearance) Assessed Assessed -Moisture (Darling-wound Skin Appearance) Assessed,Dry/ Assessed Dry/Scaly Scaly -Color (Darling-wound Skin Appearance) Assessed Assessed Hemosiderin Staining -Temperature (Darling-wound Skin No Abnormality No Abnormality Appearance) (Pt Warm) (Pt Warm) -Tenderness on Palpation (Darling-wound No No Skin Appearance) -Ulcer Cleansing Soap and Water Soap and Water -Foul Odor after Cleansing No No -Anesthetic Used 5% Lidocaine Gel #5 Left lower lateral leg cluster -Combined with other wound No No -Current Size (cm) - Length 0.1 0.1 0.1 -Current Size (cm) - Width 0.1 0.1 0.1 -Current Size (cm) - Depth 0.1 0.1 0.1 -Total Square Cm 0.01 0.01 0.01 -Date of Last Picture (Recall this 03/03/25 field) -Photo Taken Yes -Epithelialization Large 67-100% Large 67-100% -Tunneling No -Undermining/Tunneling No -Circular Undermining No -Exudate Amt Small None Present -Exudate Type Serosanguineous -Wound Margin Flat & Intact -Granulation Amt Large (67-100%) None Present (0 %) -Granulation Quality [place] -Slough/Fibrin No -Necrosis Amt None Present (0 %) -Texture (Darling-wound Skin Appearance) Assessed Assessed Assessed -Moisture (Darling-wound Skin Appearance) Assessed,Dry/ Assessed Assessed,Dry/ Scaly Scaly -Color (Darling-wound Skin Appearance) Assessed Assessed Assessed -Temperature (Darling-wound Skin No Abnormality No Abnormality Appearance) (Pt Warm) (Pt Warm) -Tenderness on Palpation (Darling-wound No No Skin Appearance) -Ulcer Cleansing Soap and Water Soap and Water -Foul Odor after Cleansing No No -Anesthetic Used 5% Lidocaine Gel Lower Limb Edema Present Yes Yes Right Calf (cm) 37 Right Ankle (cm) 27 Left Calf (cm) 41.9 41.7 Left Ankle (cm) 25.8 26 WC - Nurse 2 - General Ulcer CM Notes Start: 03/03/25 15:27 Freq: Status: Active Protocol: Activity Type Activity Date Activity User E-sign Co-sign Detail Recorded Client Recorded Date Recorded By Document 03/03/25 15:59 [id number] 03/03/25 16:01 Document 03/10/25 15:44 [id number] 03/10/25 15:48 GM Document 03/24/25 15:40 [id number] 03/24/25 15:52 03/03/25 03/10/25 03/24/25 15:59 15:44 15:40 Wound Center Nurse 2 #7 L Medial leg cluster-anterior -Time 15:59 15:47 15:50 -Correct Patient Yes Yes Yes -Correct Side, Site, Position Yes Yes Yes -Correct Procedure No No No -Procedure Performed No No No -Post Debridement (cm) - Length 6.0 -Post Debridement (cm) - Width 3.0 -Post Debridement (cm) - Depth 0.1 -Total Square (Post) (cm) 18.00 -Tunneling No No No -Undermining/Tunneling No No No -Circular Undermining No No No -Wound/Ulcer Outcome Not Healed Healed- Epithelialized -Foul Odor after Cleansing No No -Bioengineered Tissue No No -Bleeding Controlled with NA #5 Left lower lateral leg cluster -Time 15: 15:47 15:51 -Correct Patient Yes Yes Yes -Correct Side, Site, Position Yes Yes Yes -Correct Procedure No No No -Procedure Performed No No No -Post Debridement (cm) - Length 2.5 -Post Debridement (cm) - Width 3.0 -Post Debridement (cm) - Depth 0.1 -Total Square (Post) (cm) 7.50 -Tunneling No No No -Undermining/Tunneling No No No -Circular Undermining No No No -Wound/Ulcer Outcome Not Healed Healed- Epithelialized -Foul Odor after Cleansing No No -Bioengineered Tissue No No -Bleeding Controlled with NA NA -Offloading No No No Pain Scale: 0-10 Numeric Is Patient Pain Free? Yes Yes Yes - Nurse 3 - General Ulcer D/C NN Start: 03/03/25 15:27 Freq: Status: Active Protocol: Activity Type Activity Date Activity User E-sign Co-sign Detail Recorded Client Recorded Date Recorded By Document 03/03/25 16:13 KW [id number] 03/03/25 16:14 KW Document 03/10/25 16:03 KW [id number] 03/10/25 16:05 KW Document 03/24/25 16:02 [id number] 03/24/25 16:02 03/03/25 03/10/25 03/24/25 16:13 16:03 16:02 Wound Care Center Nurse 3 LLE -Lotion applied to leg before No compression wrap -Multi-Layered Wrap Application Unna Boot - Unna Boot - Unna Boot - Left Left Left -Unna- Left (Qty applied) 1 1 1 Pain Scale: 0-10 Numeric Is Patient Pain Free? Yes Yes Yes WC - Visit Discharge Discharge Condition Stable Stable Stable Ambulatory Status Wheelchair Wheelchair Wheelchair Transportation Private Auto Private Auto Private Auto Medication Reconcilliation completed & No No provided to patient/care provider Clinical Summary of Care Provided Yes Yes Yes Notes: rides in scooter Assessment/Plan Assessment/Plan (1) Chronic ulcer of left lower extremity with fat layer exposed: CODE(S): L97.922 - Non-pressure chronic ulcer of unspecified part of left lower leg with fat layer exposed PLAN: Posterior/lateral L calf ulceration limited to breakdown of the skin and Medial L calf ulceration limited to breakdown of the skin and anterior L angel ulceration cluster (2) Lipodermatosclerosis of both lower extremities: CODE(S): M79.3 - Panniculitis, unspecified (3) Bilateral lower extremity edema: CODE(S): R60.0 - Localized edema PLAN: Plan Will apply an Unna boot again this week which will be changed assisted through the week by [facility]. Continue to encourage him to elevate his leg at all times of rest. May apply Amlactin to areas of intact, flaky skin at the proximal lower leg and foot; limit this to 2-3 times weekly with wound dressing changes; utilize normal fragrance-free moisturize other days. Continue to take Vasculera as prescribed. 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 He will continue to consider pending results with steroid therapy as per dermatology. Return to the clinic in 1 week.
== END 2025-03-30 23:59 | disposition home or self-care (01) ==
LOC: WC 15:15
PROVIDERS: PCP Family Medicine; Referring Provider Dermatology; Visit Provider Physician Assistant
DX: L97.822 Non-pressure chronic ulcer of other part of left lower leg with fat layer exposed (principal); R60.0 Localized edema; M79.3 Panniculitis, unspecified; Z87.891 Personal history of nicotine dependence; M79.89 Other specified soft tissue disorders
CPT/HCPCS: 29580; 99213; G0463

== ENCOUNTER 2025-04-21 15:00 | Outpatient (RCR) | payer MEDICARE, SELFPAY ==
[2025-03-31 00:11] VITALS: BP 113/48; PULSE 70; RESP 16; TEMP 36.2; BMI 28.4
[2025-03-31 14:59] VITALS: BP 128/75; PULSE 69; RESP 18; TEMP 35.6; BMI 28.4
--- NOTE | 2025-03-31 15:33 | PCM.WC.PN ---
History of Present Illness Date of Service: 03/31/25 Chief Complaint: LLE wounds History of Wound: Mr. Paola Boyer is an 84 y/o male who presents to the wound healing center today with left lower extremity wounds. He was referred by Nuvia Brooks. He is accompanied to his appointment today by his . He relays that he has been dealing with these left lower extremity wounds recurrently over the past few years. They will become very close to healing and then subsequently open back up. His reports that all really started with a lot of swelling and redness in his lower legs which progressively worsened to weeping before developing these focal wounds. He has been treated to this point at [facility] with Unna boots and all of the surrounding skin has much improved in appearance however the wounds remain. He has not had any prior venous imaging to his knowledge and no venous interventions. No history of peripheral arterial disease or arterial interventions. He is not diabetic. He is not currently smoking, he quit in 1964. He presents today in an automated wheelchair. His insurance unfortunately has a very high co-pay for debridements which will be kept in mind throughout his treatment. Subjective Subjective He has seen significant improvement in his L lower leg this week following kenalog injection by Dr. Dunn 2 weeks ago and continued Unna boot applications. Objective Data Objective Data Vital Signs: Vital Signs Temp Pulse Resp BP O2 Del Method 96.0 F L 69 18 128/75 H Room Air 03/31/25 14:59 03/31/25 14:59 03/31/25 14:59 03/31/25 14:59 03/31/25 14:59 Oxygen Delivery Method Room Air Weight: 198 lb Body Mass Index (BMI) 28.4 Charges/Coding Visit Charges Office Visits / Consults: 05711 OV L3 Est 20min Physical Exam Const alert, oriented x3 and no apparent distress General Appearance: cooperative and comfortable HEENT normocephalic, hearing grossly normal bilaterally, external ears normal and external nose normal Eyes General Eye: normal appearance of both eyes Resp normal respiratory effort Effort and Inspection: able to speak in complete sentences; Negative for labored, stridor or audible wheezes Extremity Extremity Narrative: 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 Trace edema on exam today. No apparent bulging varicosities. No weeping or skin breakdown except for wounds as noted below. Easily palpable pedal pulses. Skin Wounds: wounds noted Wound Narrative: There is no open area on his LLE this week and there is very little of the yellow slough/dried drainage that he typically has covering the L lower leg. He also has very minimal swelling. Neuro oriented x3, CN's II-XII intact bilaterally and moves all extremities Speech: speech normal Debridement Note Debridement Note No debridement was completed: No debridement was completed today Post-Debridement Measurements and Additional Note: Post-Debridement Measurements/Treatment - Nurse 1 - General Ulcer Assessment Start: 03/31/25 14:59 Freq: Status: Active Protocol: DUSTIN Activity Type Activity Date Activity User E-sign Co-sign Detail Recorded Client Recorded Date Recorded By Document 03/31/25 14:59 KW [id number] 03/31/25 15:04 KW 03/31/25 14:59 Height and Weight Body Mass Index (BMI) 28.4 BMI Classification Overweight Vital Signs Temperature (97.8 F-99.1 F) 96.0 F L Temperature Source Temporal Pulse Rate (60-100) 69 Pulse Location Monitor Respiratory Rate (12-18) 18 Respiratory rate source Observation Oxygen Delivery Method Room Air Blood Pressure (90/60-120/80) 128/75 H Blood Pressure Mean (mm Hg) 92 Source Monitor Position Semi-Fowlers Blood Pressure Location Right Forearm History Since Last Visit- (Skip if this is Patient's initial visit) Have you changed medications since your No last visit? Any new allergies or adverse reactions No Had a fall/change in ADL's that may No increase risk of falls Signs or symptoms of abuse and/or No neglect since last visit Have you been in the hospital since your No last visit? Has dressing in place as prescribed Yes Has compression in place as prescribed Yes Has offloadiing in place as prescribed N/A Experienced any changes in pain level or No management Left Footwear Regular Shoe Right Footwear Regular Shoe Pain Scale: 0-10 Numeric Is Patient Pain Free? Yes - Nurse 1 - General Ulcer Measurement Start: 03/31/25 14:59 Freq: Status: Active Protocol: Activity Type Activity Date Activity User E-sign Co-sign Detail Recorded Client Recorded Date Recorded By Document 03/31/25 14:59 KW [id number] 03/31/25 15:04 KW 03/31/25 14:59 Wound Center Nurse 1 #7 L Medial leg cluster-anterior -Current Size (cm) - Length 0.1 -Current Size (cm) - Width 0.1 -Current Size (cm) - Depth 0 -Total Square Cm 0.01 -Date of Last Picture (Recall this 03/31/25 field) -Exudate Amt None Present -Texture (Darling-wound Skin Appearance) Assessed -Moisture (Darling-wound Skin Appearance) Assessed -Color (Darling-wound Skin Appearance) Assessed -Temperature (Darling-wound Skin No Abnormality Appearance) (Pt Warm) -Tenderness on Palpation (Darling-wound No Skin Appearance) -Ulcer Cleansing Soap and Water -Foul Odor after Cleansing No #5 Left lower lateral leg cluster -Current Size (cm) - Length 0.1 -Current Size (cm) - Width 0.1 -Current Size (cm) - Depth 0 -Total Square Cm 0.01 -Texture (Darling-wound Skin Appearance) Assessed -Moisture (Darling-wound Skin Appearance) Assessed -Color (Darling-wound Skin Appearance) Assessed -Temperature (Darling-wound Skin No Abnormality Appearance) (Pt Warm) -Tenderness on Palpation (Darling-wound No Skin Appearance) -Ulcer Cleansing Soap and Water -Foul Odor after Cleansing No -Anesthetic Used 5% Lidocaine Gel Left Calf (cm) 34.6 Left Ankle (cm) 24.6 WC - Nurse 2 - General Ulcer CM Notes Start: 03/31/25 14:59 Freq: Status: Active Protocol: Activity Type Activity Date Activity User E-sign Co-sign Detail Recorded Client Recorded Date Recorded By Document 03/31/25 15:12 [id number] 03/31/25 15:15 03/31/25 15:12 Wound Center Nurse 2 #7 L Medial leg cluster-anterior -Time 15:12 -Correct Patient Yes -Correct Side, Site, Position Yes -Correct Procedure No -Procedure Performed No -Tunneling No -Undermining/Tunneling No -Circular Undermining No -Wound/Ulcer Outcome Healed- Epithelialized -Ulcer Cleansing Not Cleansed -Foul Odor after Cleansing No -Bioengineered Tissue No -Bleeding Controlled with NA #5 Left lower lateral leg cluster -Time 15:13 -Correct Patient Yes -Correct Side, Site, Position Yes -Correct Procedure No -Procedure Performed No -Tunneling No -Undermining/Tunneling No -Circular Undermining No -Wound/Ulcer Outcome Healed- Epithelialized -Ulcer Cleansing Not Cleansed -Foul Odor after Cleansing No -Bioengineered Tissue No -Bleeding Controlled with NA Pain Scale: 0-10 Numeric Is Patient Pain Free? Yes - Nurse 3 - General Ulcer D/C NN Start: 03/31/25 14:59 Freq: Status: Active Protocol: Activity Type Activity Date Activity User E-sign Co-sign Detail Recorded Client Recorded Date Recorded By Document 03/31/25 15:27 KW [id number] 03/31/25 15:28 KW 03/31/25 15:27 Wound Care Center Nurse 3 #7 L Medial leg cluster-anterior -Primary Dressing Covered/Secured with Dry Gauze & Roll Gauze, Secured with Tape #5 Left lower lateral leg cluster -Primary Dressing Covered/Secured with Dry Gauze & Roll Gauze, Secured with Tape LLE -Tubular Bandage Single Layer -Size of Tubigrip Used Size D -Size D ($) 1 Pain Scale: 0-10 Numeric Is Patient Pain Free? 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 It seems that the kenalog injections have helped significantly. He has another follow-up with Dr. Dunn next week. There is no superficial skin breakdown on his LLE today. I advise he hold the Unna boots and simply wrap with conforming gauze and then wear high-strength [employer] for compression. Call the wound center if drainage/superficial skin breakdown develops and he can return for nurse visit to re-apply Unna boot. Continue to take Vasculera as prescribed. 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 Will continue to keep this in mind pending continued progress/results with steroids and evaluation with dermatology. Return to the clinic in 1 week.
--- NOTE | 2025-04-01 12:11 | WC ---
PHOTO 03/31/25
[2025-04-07 15:07] VITALS: BP 137/68; PULSE 68; RESP 18; TEMP 36.6; BMI 28.4
--- NOTE | 2025-04-07 16:13 | PCM.WC.PN ---
History of Present Illness Date of Service: 04/07/25 Chief Complaint: LLE wounds History of Wound: Mr. Paola Boyer is an 84 y/o male who presents to the wound healing center today with left lower extremity wounds. He was referred by Nuvia Brooks. He is accompanied to his appointment today by his . He relays that he has been dealing with these left lower extremity wounds recurrently over the past few years. They will become very close to healing and then subsequently open back up. His reports that all really started with a lot of swelling and redness in his lower legs which progressively worsened to weeping before developing these focal wounds. He has been treated to this point at [facility] with Unna boots and all of the surrounding skin has much improved in appearance however the wounds remain. He has not had any prior venous imaging to his knowledge and no venous interventions. No history of peripheral arterial disease or arterial interventions. He is not diabetic. He is not currently smoking, he quit in 1964. He presents today in an automated wheelchair. His insurance unfortunately has a very high co-pay for debridements which will be kept in mind throughout his treatment. Subjective Darian Guevara continues to have sustained improvement in his LLE. There are currently no open areas, no drainage/weeping. He saw Dr. Dunn again last week who has prescribed a topical steroid for any areas that still appear inflamed or may begin to break down and recommended a moisturizing lotion to the rest of the leg. Dr. Dunn agrees with the recommendation to proceed with further venous ablation, he thinks that he had severe stasis dermatitis. Objective Data Objective Data Vital Signs: Vital Signs Temp Pulse Resp BP O2 Del Method 97.9 F 68 18 137/68 H Room Air 04/07/25 15:07 04/07/25 15:07 04/07/25 15:07 04/07/25 15:07 04/07/25 15:07 Oxygen Delivery Method Room Air Weight: 198 lb Body Mass Index (BMI) 28.4 Charges/Coding Visit Charges Office Visits / Consults: 63218 OV L3 Est 20min Physical Exam Const alert, oriented x3 and no apparent distress General Appearance: cooperative and comfortable HEENT normocephalic, hearing grossly normal bilaterally, external ears normal and external nose normal Eyes General Eye: normal appearance of both eyes Resp normal respiratory effort Effort and Inspection: able to speak in complete sentences; Negative for labored, stridor or audible wheezes Extremity Extremity Narrative: 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 Trace edema on exam today. No apparent bulging varicosities. No weeping or skin breakdown except for wounds as noted below. Easily palpable pedal pulses. Skin Wound Narrative: There is no open area on his LLE this week and no yellow slough/dried drainage that he has had in the past. He also has very minimal swelling, this has been well controlled with compression. Neuro oriented x3, CN's II-XII intact bilaterally and moves all extremities Speech: speech normal Debridement Note Debridement Note No debridement was completed: No debridement was completed today Post-Debridement Measurements and Additional Note: Post-Debridement Measurements/Treatment - Nurse 1 - General Ulcer Assessment Start: 03/31/25 14:59 Freq: Status: Active Protocol: WC.LOWCHARLENET Activity Type Activity Date Activity User E-sign Co-sign Detail Recorded Client Recorded Date Recorded By Document 03/31/25 14:59 KW [id number] 03/31/25 15:04 KW Document 04/07/25 15:07 KW [id number] 04/07/25 15:11 KW 03/31/25 04/07/25 14:59 15:07 - Today's Visit Information Type of service Follow-up Visit (Physician/[facility] ) Arrival Mode Ambulatory Patient Identification Verified (Name & Yes ) Height and Weight Body Mass Index (BMI) 28.4 28.4 BMI Classification Overweight Overweight Vital Signs Temperature (97.8 F-99.1 F) 96.0 F L 97.9 F Temperature Source Temporal Temporal Pulse Rate (60-100) 69 68 Pulse Location Monitor Monitor Respiratory Rate (12-18) 18 18 Respiratory rate source Observation Observation Oxygen Delivery Method Room Air Room Air Blood Pressure (90/60-120/80) 128/75 H 137/68 H Blood Pressure Mean (mm Hg) 92 91 Source Monitor Monitor Position Semi-Fowlers Semi-Fowlers Blood Pressure Location Right Forearm Left Arm History Since Last Visit- (Skip if this is Patient's initial visit) Have you changed medications since your No No last visit? Any new allergies or adverse reactions No No Had a fall/change in ADL's that may No No increase risk of falls Signs or symptoms of abuse and/or No No neglect since last visit Have you been in the hospital since your No No last visit? Has dressing in place as prescribed Yes Yes Has compression in place as prescribed Yes Yes Has offloadiing in place as prescribed N/A N/A Experienced any changes in pain level or No No management Left Footwear Regular Shoe Regular Shoe Right Footwear Regular Shoe Regular Shoe Pain Scale: 0-10 Numeric Is Patient Pain Free? Yes No WC - Nurse 1 - General Ulcer Measurement Start: 03/31/25 14:59 Freq: Status: Active Protocol: Activity Type Activity Date Activity User E-sign Co-sign Detail Recorded Client Recorded Date Recorded By Document 03/31/25 14:59 KW [id number] 03/31/25 15:04 KW Document 04/07/25 15:07 KW [id number] 04/07/25 15:11 KW 03/31/25 04/07/25 14:59 15:07 Wound Center Nurse 1 #7 L Medial leg cluster-anterior -Current Size (cm) - Length 0.1 -Current Size (cm) - Width 0.1 -Current Size (cm) - Depth 0 -Total Square Cm 0.01 -Date of Last Picture (Recall this 03/31/25 field) -Exudate Amt None Present -Texture (Darling-wound Skin Appearance) Assessed -Moisture (Darling-wound Skin Appearance) Assessed -Color (Darling-wound Skin Appearance) Assessed -Temperature (Darling-wound Skin No Abnormality Appearance) (Pt Warm) -Tenderness on Palpation (Darling-wound No Skin Appearance) -Ulcer Cleansing Soap and Water -Foul Odor after Cleansing No #5 Left lower lateral leg cluster -Current Size (cm) - Length 0.1 -Current Size (cm) - Width 0.1 -Current Size (cm) - Depth 0 -Total Square Cm 0.01 -Texture (Darling-wound Skin Appearance) Assessed -Moisture (Darling-wound Skin Appearance) Assessed -Color (Darling-wound Skin Appearance) Assessed -Temperature (Darling-wound Skin No Abnormality Appearance) (Pt Warm) -Tenderness on Palpation (Darling-wound No Skin Appearance) -Ulcer Cleansing Soap and Water -Foul Odor after Cleansing No -Anesthetic Used 5% Lidocaine Gel Left Calf (cm) 34.6 40.3 Left Ankle (cm) 24.6 25.2 WC - Nurse 2 - General Ulcer CM Notes Start: 03/31/25 14:59 Freq: Status: Active Protocol: Activity Type Activity Date Activity User E-sign Co-sign Detail Recorded Client Recorded Date Recorded By Document 03/31/25 15:12 [id number] 03/31/25 15:15 Document 04/07/25 15:30 [id number] 04/07/25 15:37 03/31/25 04/07/25 15:12 15:30 Wound Center Nurse 2 #7 L Medial leg cluster-anterior -Time 15:12 -Correct Patient Yes -Correct Side, Site, Position Yes -Correct Procedure No -Procedure Performed No -Tunneling No -Undermining/Tunneling No -Circular Undermining No -Wound/Ulcer Outcome Healed- Epithelialized -Ulcer Cleansing Not Cleansed -Foul Odor after Cleansing No -Bioengineered Tissue No -Bleeding Controlled with NA #5 Left lower lateral leg cluster -Time 15:13 -Correct Patient Yes -Correct Side, Site, Position Yes -Correct Procedure No -Procedure Performed No -Tunneling No -Undermining/Tunneling No -Circular Undermining No -Wound/Ulcer Outcome Healed- Epithelialized -Ulcer Cleansing Not Cleansed -Foul Odor after Cleansing No -Bioengineered Tissue No -Bleeding Controlled with NA Pain Scale: 0-10 Numeric Is Patient Pain Free? Yes Yes WC - Nurse 3 - General Ulcer D/C NN Start: 03/31/25 14:59 Freq: Status: Active Protocol: Activity Type Activity Date Activity User E-sign Co-sign Detail Recorded Client Recorded Date Recorded By Document 03/31/25 15:27 [id number] 03/31/25 15:28 Document 04/07/25 15:48 [facility] [id number] 04/07/25 15:49 [facility] 03/31/25 04/07/25 15:27 15:48 Wound Care Center Nurse 3 #7 L Medial leg cluster-anterior -Primary Dressing Covered/Secured with Dry Gauze & Roll Gauze, Secured with Tape #5 Left lower lateral leg cluster -Primary Dressing Covered/Secured with Dry Gauze & Roll Gauze, Secured with Tape BLE -Tubular Bandage Single Layer -Size of Tubigrip Used Size D -Size D ($) 2 -Other sent xtra per pt request. LLE -Tubular Bandage Single Layer -Size of Tubigrip Used Size D -Size D ($) 1 Pain Scale: 0-10 Numeric Is Patient Pain Free? Yes Yes WC - Visit Discharge Discharge Condition Stable Stable Ambulatory Status Ambulatory Wheelchair Transportation Private Auto Private Auto Accompanied by Medication Reconcilliation completed & No provided to patient/care provider Clinical Summary of Care Provided Yes Facility Type Home Health Assessment/Plan Assessment/Plan (1) Lipodermatosclerosis of both lower extremities: CODE(S): M79.3 - Panniculitis, unspecified (2) Bilateral lower extremity edema: CODE(S): R60.0 - Localized edema PLAN: Plan His LLE has had sustained improvement over the last week. No skin breakdown. Edema is well controlled with compression. We will continue with high-strength tubigrips for compression. He will apply topical steroid to the areas directed by dermatology Dr. Dunn. He will apply lotion to the rest of the leg. We will continue home health as he and his are not able to apply the high-strength tubigrip stockings himself. Continue to take Vasculera as prescribed. We will plan to proceed with further treatment of his ASV and SSV reflux to reduce venous congestion as much as possible, patient is agreeable to proceed. Will coordinate scheduling through the vascular office. Return to the clinic in 1 week.
[2025-04-14 14:58] VITALS: BP 141/88; PULSE 98; RESP 16; BMI 28.4
--- NOTE | 2025-04-14 15:24 | PCM.WC.PN ---
History of Present Illness Date of Service: 04/14/25 Chief Complaint: LLE wounds History of Wound: Mr. Paola Boyer is an 84 y/o male who presents to the wound healing center today with left lower extremity wounds. He was referred by [facility]. He is accompanied to his appointment today by his . He relays that he has been dealing with these left lower extremity wounds recurrently over the past few years. They will become very close to healing and then subsequently open back up. His reports that all really started with a lot of swelling and redness in his lower legs which progressively worsened to weeping before developing these focal wounds. He has been treated to this point at [facility] with Unna boots and all of the surrounding skin has much improved in appearance however the wounds remain. He has not had any prior venous imaging to his knowledge and no venous interventions. No history of peripheral arterial disease or arterial interventions. He is not diabetic. He is not currently smoking, he quit in 1964. He presents today in an automated wheelchair. His insurance unfortunately has a very high co-pay for debridements which will be kept in mind throughout his treatment. Darian Guevara continues to do well. No new areas of skin breakdown. He continues to use the topical steroid as directed by Dr. Dunn. Has continued with high-strength tubigrips, his is able to get these on for him easier than standard compression stockings. They did find his circaids at home and brought those in today to learn how to use them. Objective Data Objective Data Vital Signs: Vital Signs Temp Pulse Resp BP O2 Del Method 97.9 F 98 16 141/88 H Room Air 04/07/25 15:07 04/14/25 14:58 04/14/25 14:58 04/14/25 14:58 04/14/25 14:58 Oxygen Delivery Method Room Air Weight: 198 lb Body Mass Index (BMI) 28.4 Charges/Coding Visit Charges Office Visits / Consults: 78602 OV L3 Est 20min Physical Exam Const alert, oriented x3 and no apparent distress General Appearance: cooperative and comfortable HEENT normocephalic, hearing grossly normal bilaterally, external ears normal and external nose normal Eyes General Eye: normal appearance of both eyes Resp normal respiratory effort Effort and Inspection: able to speak in complete sentences; Negative for labored, stridor or audible wheezes Extremity Extremity Narrative: 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 Trace edema on exam today. No apparent bulging varicosities. No weeping or skin breakdown except for wounds as noted below. Easily palpable pedal pulses. Skin Wound Narrative: There is no open area on his LLE this week and very minimal yellow slough/dried drainage that he has had in the past. He also has very minimal swelling, this has been well controlled with compression. Neuro oriented x3, CN's II-XII intact bilaterally and moves all extremities Speech: speech normal Debridement Note Debridement Note No debridement was completed: No debridement was completed today Post-Debridement Measurements and Additional Note: Post-Debridement Measurements/Treatment - Nurse 1 - General Ulcer Assessment Start: 03/31/25 14:59 Freq: Status: Active Protocol: DUSTIN Activity Type Activity Date Activity User E-sign Co-sign Detail Recorded Client Recorded Date Recorded By Document 03/31/25 14:59 KW [id number] 03/31/25 15:04 KW Document 04/07/25 15:07 KW [id number] 04/07/25 15:11 KW Document 04/14/25 14:58 KW [id number] 04/14/25 15:09 KW 03/31/25 04/07/25 04/14/25 14:59 15:07 14:58 - Today's Visit Information Type of service Follow-up Visit Follow-up Visit (Physician/FLEET COORDINATOR (Physician/FLEET COORDINATOR ) ) Arrival Mode Ambulatory Ambulatory Patient Identification Verified (Name & Yes Yes ) Height and Weight Body Mass Index (BMI) 28.4 28.4 28.4 BMI Classification Overweight Overweight Overweight Vital Signs Temperature (97.8 F-99.1 F) 96.0 F L 97.9 F Temperature Source Temporal Temporal Pulse Rate (60-100) 69 68 98 Pulse Location Monitor Monitor Monitor Respiratory Rate (12-18) 18 18 16 Respiratory rate source Observation Observation Observation Oxygen Delivery Method Room Air Room Air Room Air Blood Pressure (90/60-120/80) 128/75 H 137/68 H 141/88 H Blood Pressure Mean (mm Hg) 92 91 105 Source Monitor Monitor Monitor Position Semi-Fowlers Semi-Fowlers Semi-Fowlers Blood Pressure Location Right Forearm Left Arm Left Arm History Since Last Visit- (Skip if this is Patient's initial visit) Have you changed medications since your No No No last visit? Any new allergies or adverse reactions No No No Had a fall/change in ADL's that may No No No increase risk of falls Signs or symptoms of abuse and/or No No No neglect since last visit Have you been in the hospital since your No No No last visit? Has dressing in place as prescribed Yes Yes Yes Has compression in place as prescribed Yes Yes Yes Has offloadiing in place as prescribed N/A N/A N/A Experienced any changes in pain level or No No No management Left Footwear Regular Shoe Regular Shoe Regular Shoe Right Footwear Regular Shoe Regular Shoe Regular Shoe Pain Scale: 0-10 Numeric Is Patient Pain Free? Yes No Yes WC - Nurse 1 - General Ulcer Measurement Start: 03/31/25 14:59 Freq: Status: Active Protocol: Activity Type Activity Date Activity User E-sign Co-sign Detail Recorded Client Recorded Date Recorded By Document 03/31/25 14:59 KW [id number] 03/31/25 15:04 KW Document 04/07/25 15:07 KW [id number] 04/07/25 15:11 KW Document 04/14/25 14:58 KW [id number] 04/14/25 15:09 KW 03/31/25 04/07/25 04/14/25 14:59 15:07 14:58 Wound Center Nurse 1 #7 L Medial leg cluster-anterior -Current Size (cm) - Length 0.1 -Current Size (cm) - Width 0.1 -Current Size (cm) - Depth 0 -Total Square Cm 0.01 -Date of Last Picture (Recall this 03/31/25 field) -Exudate Amt None Present -Texture (Darling-wound Skin Appearance) Assessed -Moisture (Darling-wound Skin Appearance) Assessed -Color (Darling-wound Skin Appearance) Assessed -Temperature (Darling-wound Skin No Abnormality Appearance) (Pt Warm) -Tenderness on Palpation (Darling-wound No Skin Appearance) -Ulcer Cleansing Soap and Water -Foul Odor after Cleansing No #5 Left lower lateral leg cluster -Current Size (cm) - Length 0.1 -Current Size (cm) - Width 0.1 -Current Size (cm) - Depth 0 -Total Square Cm 0.01 -Texture (Darling-wound Skin Appearance) Assessed -Moisture (Darling-wound Skin Appearance) Assessed -Color (Darling-wound Skin Appearance) Assessed -Temperature (Darling-wound Skin No Abnormality Appearance) (Pt Warm) -Tenderness on Palpation (Darling-wound No Skin Appearance) -Ulcer Cleansing Soap and Water -Foul Odor after Cleansing No -Anesthetic Used 5% Lidocaine Gel Left Calf (cm) 34.6 40.3 39.5 Left Ankle (cm) 24.6 25.2 25 WC - Nurse 2 - General Ulcer CM Notes Start: 03/31/25 14:59 Freq: Status: Active Protocol: Activity Type Activity Date Activity User E-sign Co-sign Detail Recorded Client Recorded Date Recorded By Document 03/31/25 15:12 GM [id number] 03/31/25 15:15 Document 04/07/25 15:30 [id number] 04/07/25 15:37 Document 04/14/25 15:16 [id number] 04/14/25 15:17 03/31/25 04/07/25 04/14/25 15:12 15:30 15:16 Wound Center Nurse 2 #7 L Medial leg cluster-anterior -Time 15:12 -Correct Patient Yes -Correct Side, Site, Position Yes -Correct Procedure No -Procedure Performed No -Tunneling No -Undermining/Tunneling No -Circular Undermining No -Wound/Ulcer Outcome Healed- Epithelialized -Ulcer Cleansing Not Cleansed -Foul Odor after Cleansing No -Bioengineered Tissue No -Bleeding Controlled with NA #5 Left lower lateral leg cluster -Time 15:13 -Correct Patient Yes -Correct Side, Site, Position Yes -Correct Procedure No -Procedure Performed No -Tunneling No -Undermining/Tunneling No -Circular Undermining No -Wound/Ulcer Outcome Healed- Epithelialized -Ulcer Cleansing Not Cleansed -Foul Odor after Cleansing No -Bioengineered Tissue No -Bleeding Controlled with NA Pain Scale: 0-10 Numeric Is Patient Pain Free? Yes Yes Yes WC - Nurse 3 - General Ulcer D/C NN Start: 03/31/25 14:59 Freq: Status: Active Protocol: Activity Type Activity Date Activity User E-sign Co-sign Detail Recorded Client Recorded Date Recorded By Document 03/31/25 15:27 KW [id number] 03/31/25 15:28 KW Document 04/07/25 15:48 BM [id number] 04/07/25 15:49 [facility] 03/31/25 04/07/25 15:27 15:48 Wound Care Center Nurse 3 #7 L Medial leg cluster-anterior -Primary Dressing Covered/Secured with Dry Gauze & Roll Gauze, Secured with Tape #5 Left lower lateral leg cluster -Primary Dressing Covered/Secured with Dry Gauze & Roll Gauze, Secured with Tape BLE -Tubular Bandage Single Layer -Size of Tubigrip Used Size D -Size D ($) 2 -Other sent xtra per pt request. LLE -Tubular Bandage Single Layer -Size of Tubigrip Used Size D -Size D ($) 1 Pain Scale: 0-10 Numeric Is Patient Pain Free? Yes Yes WC - Visit Discharge Discharge Condition Stable Stable Ambulatory Status Ambulatory Wheelchair Transportation Private Auto Private Auto Accompanied by Medication Reconcilliation completed & No provided to patient/care provider Clinical Summary of Care Provided Yes Facility Type Home Health Assessment/Plan Assessment/Plan (1) Lipodermatosclerosis of both lower extremities: CODE(S): M79.3 - Panniculitis, unspecified (2) Bilateral lower extremity edema: CODE(S): R60.0 - Localized edema PLAN: Plan His LLE has had sustained improvement over the last 2 weeks. No skin breakdown. Edema is well controlled with compression. This week, placed light Tubigrip and applied Circaids over top, they were instructed how to apply the Circaids. They will try to continue this through the week. If they cannot apply the Circaids then return to high-strength tubigrips. Continue to take Vasculera as prescribed. He is scheduled for further venous ablations in late May. Return to the clinic in 1 week.
--- NOTE | 2025-04-15 09:42 | WC ---
PHOTO 04/14/25 ALLAN
--- NOTE | 2025-04-18 15:40 | WC ---
[facility] Home Health called to report they removed pt circaids compression and applied tubigrips d/t pain, tightness/swelling and redness. Pt to f/u [facility] .
[2025-04-21 15:19] VITALS: BP 149/88; PULSE 86; RESP 16; BMI 28.4
--- NOTE | 2025-04-21 16:43 | PCM.WC.PN ---
History of Present Illness Date of Service: 04/21/25 Chief Complaint: LLE wounds History of Wound: Mr. Paola Boyer is an 84 y/o male who presents to the wound healing center today with left lower extremity wounds. He was referred by [facility]. He is accompanied to his appointment today by his . He relays that he has been dealing with these left lower extremity wounds recurrently over the past few years. They will become very close to healing and then subsequently open back up. His reports that all really started with a lot of swelling and redness in his lower legs which progressively worsened to weeping before developing these focal wounds. He has been [facility] to this point at [facility] with Unna boots and all of the surrounding skin has much improved in appearance however the wounds remain. He has not had any prior venous imaging to his knowledge and no venous interventions. No history of peripheral arterial disease or arterial interventions. He is not diabetic. He is not currently smoking, he quit in 1964. He presents today in an automated wheelchair. His insurance unfortunately has a very high co-pay for debridements which will be kept in mind throughout his treatment. Subjective Subjective Paola continues to do well. No new/recurrent areas of skin breakdown. THey tried the circaids last week without success, they do much better with the Tubigrips. Objective Data Objective Data Vital Signs: Vital Signs Temp Pulse Resp BP O2 Del Method 97.9 F 86 16 149/88 H Room Air 04/07/25 15:07 04/21/25 15:19 04/21/25 15:19 04/21/25 15:19 04/21/25 15:19 Oxygen Delivery Method Room Air Weight: 198 lb Body Mass Index (BMI) 28.4 Charges/Coding Visit Charges Office Visits / Consults: 85128 OV L3 Est 20min Physical Exam Const alert, oriented x3 and no apparent distress General Appearance: cooperative and comfortable HEENT normocephalic, hearing grossly normal bilaterally, external ears normal and external nose normal Eyes General Eye: normal appearance of both eyes Resp normal respiratory effort Effort and Inspection: able to speak in complete sentences; Negative for labored, stridor or audible wheezes Extremity Extremity Narrative: 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 Trace edema on exam today. No apparent bulging varicosities. No weeping or skin breakdown except for wounds as noted below. Easily palpable pedal pulses. Skin Wound Narrative: There is no open area on his LLE this week and very minimal yellow slough/dried drainage that he has had in the past. He also has very minimal swelling, this has been well controlled with compression. Neuro oriented x3, CN's II-XII intact bilaterally and moves all extremities Speech: speech normal Debridement Note Debridement Note No debridement was completed: No debridement was completed today Post-Debridement Measurements and Additional Note: Post-Debridement Measurements/Treatment WC - Nurse 1 - General Ulcer Assessment Start: 03/31/25 14:59 Freq: Status: Active Protocol: [email or web address] Activity Type Activity Date Activity User E-sign Co-sign Detail Recorded Client Recorded Date Recorded By Document 03/31/25 14:59 KW [id number] 03/31/25 15:04 KW Document 04/07/25 15:07 KW [id number] 04/07/25 15:11 KW Document 04/14/25 14:58 KW [id number] 04/14/25 15:09 KW Document 04/21/25 15:19 BM [id number] 04/21/25 15:31 BMF 03/31/25 04/07/25 04/14/25 14:59 15:07 14:58 - Today's Visit Information Type of service Follow-up Visit Follow-up Visit (Physician/C++ QUANT DEVELOPER (Physician/C++ QUANT DEVELOPER ) ) Arrival Mode Ambulatory Ambulatory Transfer Assistance Patient Identification Verified (Name & Yes Yes ) Patient Requires Transmission-Based Precautions Height and Weight Body Mass Index (BMI) 28.4 28.4 28.4 BMI Classification Overweight Overweight Overweight Vital Signs Temperature (97.8 F-99.1 F) 96.0 F L 97.9 F Temperature Source Temporal Temporal Pulse Rate (60-100) 69 68 98 Pulse Location Monitor Monitor Monitor Respiratory Rate (12-18) 18 18 16 Respiratory rate source Observation Observation Observation Oxygen Delivery Method Room Air Room Air Room Air Blood Pressure (90/60-120/80) 128/75 H 137/68 H 141/88 H Blood Pressure Mean (mm Hg) 92 91 105 Source Monitor Monitor Monitor Position Semi-Fowlers Semi-Fowlers Semi-Fowlers Blood Pressure Location Right Forearm Left Arm Left Arm History Since Last Visit- (Skip if this is Patient's initial visit) Have you changed medications since your No No No last visit? Any new allergies or adverse reactions No No No Had a fall/change in ADL's that may No No No increase risk of falls Signs or symptoms of abuse and/or No No No neglect since last visit Have you been in the hospital since your No No No last visit? Has dressing in place as prescribed Yes Yes Yes Has compression in place as prescribed Yes Yes Yes Has offloadiing in place as prescribed N/A N/A N/A Experienced any changes in pain level or No No No management Left Footwear Regular Shoe Regular Shoe Regular Shoe Right Footwear Regular Shoe Regular Shoe Regular Shoe Pain Scale: 0-10 Numeric Is Patient Pain Free? Yes No Yes 04/21/25 15:19 WC - Today's Visit Information Type of service Follow-up Visit (Physician/C++ QUANT DEVELOPER ) Arrival Mode Wheelchair Transfer Assistance None Patient Identification Verified (Name & Yes ) Patient Requires Transmission-Based No Precautions Height and Weight Body Mass Index (BMI) 28.4 BMI Classification Overweight Vital Signs Temperature (97.8 F-99.1 F) Temperature Source Pulse Rate (60-100) 86 Pulse Location Monitor Respiratory Rate (12-18) 16 Respiratory rate source Observation Oxygen Delivery Method Room Air Blood Pressure (90/60-120/80) 149/88 H Blood Pressure Mean (mm Hg) 108 Source Monitor Position Sitting Blood Pressure Location Left Forearm History Since Last Visit- (Skip if this is Patient's initial visit) Have you changed medications since your No last visit? Any new allergies or adverse reactions No Had a fall/change in ADL's that may No increase risk of falls Signs or symptoms of abuse and/or No neglect since last visit Have you been in the hospital since your No last visit? Has dressing in place as prescribed Has compression in place as prescribed Yes Has offloadiing in place as prescribed N/A Experienced any changes in pain level or No management Left Footwear Regular Shoe Right Footwear Regular Shoe Pain Scale: 0-10 Numeric Is Patient Pain Free? Yes - Nurse 1 - General Ulcer Measurement Start: 03/31/25 14:59 Freq: Status: Active Protocol: Activity Type Activity Date Activity User E-sign Co-sign Detail Recorded Client Recorded Date Recorded By Document 03/31/25 14:59 KW [id number] 03/31/25 15:04 KW Document 04/07/25 15:07 KW [id number] 04/07/25 15:11 KW Document 04/14/25 14:58 KW [id number] 04/14/25 15:09 KW Document 04/21/25 15:19 [facility] [id number] 04/21/25 15:31 BMF 03/31/25 04/07/25 04/14/25 14:59 15:07 14:58 Wound Center Nurse 1 #7 L Medial leg cluster-anterior -Current Size (cm) - Length 0.1 -Current Size (cm) - Width 0.1 -Current Size (cm) - Depth 0 -Total Square Cm 0.01 -Date of Last Picture (Recall this 03/31/25 field) -Exudate Amt None Present -Texture (Darling-wound Skin Appearance) Assessed -Moisture (Darling-wound Skin Appearance) Assessed -Color (Darling-wound Skin Appearance) Assessed -Temperature (Darling-wound Skin No Abnormality Appearance) (Pt Warm) -Tenderness on Palpation (Darling-wound No Skin Appearance) -Ulcer Cleansing Soap and Water -Foul Odor after Cleansing No #5 Left lower lateral leg cluster -Current Size (cm) - Length 0.1 -Current Size (cm) - Width 0.1 -Current Size (cm) - Depth 0 -Total Square Cm 0.01 -Texture (Darling-wound Skin Appearance) Assessed -Moisture (Darling-wound Skin Appearance) Assessed -Color (Darling-wound Skin Appearance) Assessed -Temperature (Darling-wound Skin No Abnormality Appearance) (Pt Warm) -Tenderness on Palpation (Darling-wound No Skin Appearance) -Ulcer Cleansing Soap and Water -Foul Odor after Cleansing No -Anesthetic Used 5% Lidocaine Gel Lower Limb Edema Present Left Calf (cm) 34.6 40.3 39.5 Left Ankle (cm) 24.6 25.2 25 04/21/25 15:19 Wound Center Nurse 1 #7 L Medial leg cluster-anterior -Current Size (cm) - Length -Current Size (cm) - Width -Current Size (cm) - Depth -Total Square Cm -Date of Last Picture (Recall this field) -Exudate Amt -Texture (Darling-wound Skin Appearance) -Moisture (Darling-wound Skin Appearance) -Color (Darling-wound Skin Appearance) -Temperature (Darling-wound Skin Appearance) -Tenderness on Palpation (Darling-wound Skin Appearance) -Ulcer Cleansing -Foul Odor after Cleansing #5 Left lower lateral leg cluster -Current Size (cm) - Length -Current Size (cm) - Width -Current Size (cm) - Depth -Total Square Cm -Texture (Darling-wound Skin Appearance) -Moisture (Darling-wound Skin Appearance) -Color (Darling-wound Skin Appearance) -Temperature (Darling-wound Skin Appearance) -Tenderness on Palpation (Darling-wound Skin Appearance) -Ulcer Cleansing -Foul Odor after Cleansing -Anesthetic Used Lower Limb Edema Present Yes Left Calf (cm) 38.7 Left Ankle (cm) 24.5 WC - Nurse 2 - General Ulcer CM Notes Start: 03/31/25 14:59 Freq: Status: Active Protocol: Activity Type Activity Date Activity User E-sign Co-sign Detail Recorded Client Recorded Date Recorded By Document 03/31/25 15:12 [id number] 03/31/25 15:15 GM Document 04/07/25 15:30 [id number] 04/07/25 15:37 GM Document 04/14/25 15:16 [id number] 04/14/25 15:17 GM Document 04/21/25 15:44 [id number] 04/21/25 15:44 GM 03/31/25 04/07/25 04/14/25 15:12 15:30 15:16 Wound Center Nurse 2 #7 L Medial leg cluster-anterior -Time 15:12 -Correct Patient Yes -Correct Side, Site, Position Yes -Correct Procedure No -Procedure Performed No -Tunneling No -Undermining/Tunneling No -Circular Undermining No -Wound/Ulcer Outcome Healed- Epithelialized -Ulcer Cleansing Not Cleansed -Foul Odor after Cleansing No -Bioengineered Tissue No -Bleeding Controlled with NA #5 Left lower lateral leg cluster -Time 15:13 -Correct Patient Yes -Correct Side, Site, Position Yes -Correct Procedure No -Procedure Performed No -Tunneling No -Undermining/Tunneling No -Circular Undermining No -Wound/Ulcer Outcome Healed- Epithelialized -Ulcer Cleansing Not Cleansed -Foul Odor after Cleansing No -Bioengineered Tissue No -Bleeding Controlled with NA Pain Scale: 0-10 Numeric Is Patient Pain Free? Yes Yes Yes 04/21/25 15:44 Wound Center Nurse 2 #7 L Medial leg cluster-anterior -Time -Correct Patient -Correct Side, Site, Position -Correct Procedure -Procedure Performed -Tunneling -Undermining/Tunneling -Circular Undermining -Wound/Ulcer Outcome -Ulcer Cleansing -Foul Odor after Cleansing -Bioengineered Tissue -Bleeding Controlled with #5 Left lower lateral leg cluster -Time -Correct Patient -Correct Side, Site, Position -Correct Procedure -Procedure Performed -Tunneling -Undermining/Tunneling -Circular Undermining -Wound/Ulcer Outcome -Ulcer Cleansing -Foul Odor after Cleansing -Bioengineered Tissue -Bleeding Controlled with Pain Scale: 0-10 Numeric Is Patient Pain Free? Yes - Nurse 3 - General Ulcer D/C NN Start: 03/31/25 14:59 Freq: Status: Active Protocol: Activity Type Activity Date Activity User E-sign Co-sign Detail Recorded Client Recorded Date Recorded By Document 03/31/25 15:27 KW [id number] 03/31/25 15:28 KW Document 04/07/25 15:48 [facility] [id number] 04/07/25 15:49 [facility] Document 04/14/25 15:35 KW [id number] 04/14/25 15:49 KW Document 04/21/25 15:52 KW [id number] 04/21/25 15:52 KW 03/31/25 04/07/25 04/14/25 15:27 15:48 15:35 Wound Care Center Nurse 3 #7 L Medial leg cluster-anterior -Primary Dressing Covered/Secured with Dry Gauze & Roll Gauze, Secured with Tape #5 Left lower lateral leg cluster -Primary Dressing Covered/Secured with Dry Gauze & Roll Gauze, Secured with Tape BLE -Tubular Bandage Single Layer -Size of Tubigrip Used Size D -Size D ($) 2 -Other sent xtra per pt own pt request. circaides LLE -Tubular Bandage Single Layer -Size of Tubigrip Used Size D -Size D ($) 1 Pain Scale: 0-10 Numeric Is Patient Pain Free? Yes Yes Yes WC - Visit Discharge Discharge Condition Stable Stable Stable Ambulatory Status Ambulatory Wheelchair Transportation Private Auto Private Auto Private Auto Accompanied by Medication Reconcilliation completed & No No provided to patient/care provider Clinical Summary of Care Provided Yes Yes Facility Type Home Health 04/21/25 15:52 Wound Care Center Nurse 3 #7 L Medial leg cluster-anterior -Primary Dressing Covered/Secured with #5 Left lower lateral leg cluster -Primary Dressing Covered/Secured with BLE -Tubular Bandage -Size of Tubigrip Used -Size D ($) -Other LLE -Tubular Bandage Single Layer -Size of Tubigrip Used Size D -Size D ($) 1 Pain Scale: 0-10 Numeric Is Patient Pain Free? Yes WC - Visit Discharge Discharge Condition Stable Ambulatory Status Wheelchair Transportation Private Auto Accompanied by Medication Reconcilliation completed & No provided to patient/care provider Clinical Summary of Care Provided Yes Facility Type Assessment/Plan Assessment/Plan (1) Lipodermatosclerosis of both lower extremities: CODE(S): M79.3 - Panniculitis, unspecified (2) Bilateral lower extremity edema: CODE(S): R60.0 - Localized edema PLAN: Plan His LLE has remained healed over the last 3 weeks without recurrent skin breakdown. Edema is well controlled with compression with high-strength Tubgrips. At this time, he is discharged from the wound center. He is to continue to wear daily compression with high-strength Tubigrips which can be purchased online, at [employer], or at [facility]. He is to continue to take Vasculera as prescribed. He is to continue follow-up with dermatology Dr. Dunn and proceed with further venous ablations by Dr. Charlton as scheduled. He will return to the wound center on an as-needed basis.
== END 2025-04-28 14:40 | disposition home or self-care (01) ==
LOC: WC 15:00
PROVIDERS: PCP Family Medicine; Referring Provider Dermatology; Visit Provider Physician Assistant
DX: L97.922 Non-pressure chronic ulcer of unspecified part of left lower leg with fat layer exposed (principal); M79.3 Panniculitis, unspecified; R60.0 Localized edema
CPT/HCPCS: 99213; G0463

== ENCOUNTER 2025-04-24 18:29 | Emergency (ER) | payer MEDICARE, SELFPAY ==
[2025-04-24 18:30] VITALS: BP 186/68; PULSE 69; RESP 16; TEMP 36.8; O2SAT 99
--- NOTE | 2025-04-24 20:00 | CT_ITS ---
PROCEDURE: ABDOMEN/PELVIS WITHOUT CONT 04/24/2025 REASON FOR EXAM: L FLANK PAIN TECHNIQUE: Abdomen and pelvis CT without intravenous contrast. Noncontrast technique limits evaluation of the abdominal and pelvic viscera. Coronal and Sagittal reconstruction series were provided. One or more dose reduction techniques were used (e.g., Automated exposure control, adjustment of the mA and/or kV according to patient size, use of iterative reconstruction technique). PATIENT PREPARATION: Per protocol ORAL CONTRAST TYPE: None. COMPARISON: None. FINDINGS: Visualization is limited without the use of IV contrast. Lung bases: Mild dependent atelectasis Liver: The unopacified liver is normal in size. No biliary ductal dilation. Gallbladder: No radiopaque stones within the gallbladder. Spleen: Normal size. Pancreas: The unopacified pancreas is unremarkable. Adrenals: No adrenal mass. Kidneys: No hydronephrosis or nephrolithiasis. Bilateral renal lesions, incompletely characterized. Bladder: Mildly distended. Reproductive Organs: Dystrophic calcifications within the prostate gland. Bowel: The bowel loops are normal in caliber. Moderate distal colonic diverticulosis. No ascites or free air. Normal appendix. Lymph nodes: No obvious lymphadenopathy. Vasculature: Severe calcific plaque of the aortoiliac vessels. Bones/soft tissues: Small left inguinal hernia containing nondilated large bowel loop. Severe thoracolumbar spondylosis with chronic appearing compression fracture deformities throughout the lower thoracic and lumbar spine. Diffuse muscular atrophy. CT/Abdomen/Pelvis without Cont IMPRESSION: No acute abdominopelvic finding. Reading Location: [id number]
[2025-04-24 20:18] LABS: Red Blood Cells-Urine 0 SEEN /hpf (0-5)
[2025-04-24 20:29] VITALS: BP 156/80; PULSE 58; RESP 16; O2SAT 100
[2025-04-24 20:30] LABS: Absolute Lymphocyte Count 2.11 X10^3/uL (0.83-4.51); Absolute Neutrophil Count 6.9 X10^3/uL (2.0-7.7); Basophil# 0.03 X10^3/uL; Basophil% 0.3 % (0-1); Eosinophil# 0.09 X10^3/uL; Eosinophils% 0.9 % (0-5); Hemoglobin 12.9 g/dL (13.0-16.5); Lymphocyte # 2.11 X10^3/ul (0.83-4.51); Lymphocyte % 21.5 % (19-41); Mean Corp Hgb Conc 33.1 g/dL (32-36); Mean Corpuscular Hgb 29.1 pg (27.0-32.0); Mean Platelet Vol. 9.4 fl (6.2-12.0); Monocyte# 0.62 X10^3/uL; Monocyte% 6.3 % (0-10); NRBC Flagged by Analyzer 0 % (0-5); Neutrophil % 70.5 % (47-70); Platelet Count 295 K/mm3 (150-450); RBC Distribution Width CV 14.4 % (11.6-14.6); RBC Distribution Width SD 46.6 fl (35.1-43.9); Red Blood Count 4.43 M/mm3 (4.6-6.2); White Blood Count 9.8 K/mm3 (4.4-11.0)
[2025-04-24 20:31] LABS: Color, Urine Yellow (Yellow); Glucose, Dipstick Normal (Normal); Ketone-Dipstick Negative (Negative); Leukocyte Esterase-Dipstick 100 /ul (Negative); Nitrite-Dipstick Negative (Negative); Occult Blood-Urine Negative /ul (Negative); Protein-Dipstick 30 mg/dl (Negative); Specific Gravity, Urine 1.015 (1.002-1.030); Urine Bilirubin Dipstick Negative (Negative); Urine Clarity Clear (Clear); Urine Urobilinogen 1 mg/dl (Normal)
[2025-04-24 20:45] LABS: Anion Gap 12 (5-15); BUN 20 mg/dL (4-19); BUN/Creat Ratio 48.1 RATIO (10-20); Calcium,Total 9.5 mg/dL (7.6-11.0); Carbon Dioxide 26.1 mmol/L (21.0-32.0); Chloride 104 mmol/L (98-108); Creatinine, Serum 0.41 mg/dL (0.70-1.20); EST Glomerular Filtration Rate 108 (>60); Glucose 110 mg/dL (70-99); Potassium 4.2 mmol/L (3.3-5.1); Sodium Level 142 mmol/L (133-145)
[2025-04-24 20:48] LABS: Bacteria 3+ /hpf (None Seen); Mucous, Urine 2+ /hpf (<or=2+); Squamous Epithelial Cells - UA 0-5 SEEN /hpf (0-5); White Blood Cells 0-5 SEEN /hpf (0-5)
--- NOTE | 2025-04-24 21:25 | EX.ED.DYSGE1 ---
HPI <SAMIRA Leonard - Last Filed: 04/24/25 21:46> History of Present Illness Chief Complaint: Flank Pain Narrative Narrative: Patient presenting today with left flank pain that radiates to the left lower quadrant and left groin that started this afternoon. He reports that the pain has been waxing and waning. He took a [place] prior to arrival which did help somewhat with his pain. He denies any history of kidney stones. He denies history of abdominal surgery or diverticulitis. He denies associated fevers, chills, urinary symptoms, and stool changes. He last had a bowel movement today and it was normal. [facility] <SAMIRA Leonard - Last Filed: 04/24/25 21:46> [facility] Medical History Spinal muscular atrophy Vascular insufficiency Chronic wound Cataract (~2011) Home Medications ?Medication ?Instructions ?Recorded ?Last Taken ?Type cholecalciferol (vitamin D3) 50 50 mcg PO DAILY 02/19/24 Unknown History mcg (2,000 unit) capsule esomeprazole magnesium 20 mg 20 mg PO DAILY PRN GERD 02/19/24 Unknown History capsule,delayed release (Nexium) ezetimibe 10 mg tablet (Zetia) 10 mg PO DAILY 02/19/24 Unknown History furosemide 20 mg tablet (Lasix) 20 mg PO DAILY 02/19/24 Unknown History hydrochlorothiazide 25 mg tablet 25 mg PO TID 02/19/24 Unknown History hydrocodone-acetaminophen 5-325mg 1 tab PO DAILY PRN pain 02/19/24 Unknown History 5mg-325mg losartan 100 mg tablet (Cozaar) 100 mg PO BID 02/19/24 06/10/24 History diphenoxylate-atropine 2.5 tab PO 03/11/24 Unknown History mg-0.025 mg tablet escitalopram oxalate 10 mg tablet 10 mg PO DAILY 03/11/24 Unknown History fluticasone propionate 50 intranasal 03/11/24 Unknown History mcg/actuation nasal spray,suspension tamsulosin 0.4 mg capsule 0.4 mg PO DAILY 03/11/24 Unknown History alprazolam 0.5 mg tablet 0.5 mg PO ONCE #1 TAB 04/15/24 06/10/24 Rx diosmin complex no.1 630 mg tablet 1 tab PO BID 30 days #60 tabs 10/21/24 Unknown Rx (Vasculera) Allergy/AdvReac Type Severity Reaction Status Date / Time No Known Allergies Allergy Verified 04/24/25 18:32 Family History Other Abnormal cholesterol test Asthma CAD (coronary artery disease) Cancer Diabetes Social History Smoking Status: Former smoker ROS <SAMIRA Leonard - Last Filed: 04/24/25 21:46> ROS ED Constitutional Constitutional ED: Denies chills or fever(s) Cardiovascular Cardiovascular: Denies chest pain Respiratory/Chest Respiratory/Chest: Denies dyspnea Gastrointestinal Gastrointestinal: Reports abdominal pain; Denies constipation, diarrhea, melena, nausea or vomiting Genitourinary Genitourinary ED: Denies dysuria, hematuria or urinary frequency Musculoskeletal Musculoskeletal: Reports back pain Integumentary Denies rash Neurologic Neurologic: Denies weakness EXAM <SAMIRA Leonard - Last Filed: 04/24/25 21:46> Physical Exam Const Vital Signs: 04/24/25 18:30 04/24/25 20:29 04/24/25 22:13 Temperature 98.3 F 98.1 F Temperature Source Oral Pulse Rate 69 58 L 67 Respiratory Rate 16 16 16 Blood Pressure 186/68 H 156/80 H 166/85 H Blood Pressure Mean 107 105 112 Pulse Ox 99 100 100 Oxygen Delivery Method Room Air Room Air Positive well nourished, well developed and no apparent distress General Appearance ED: well developed HEENT Reports normocephalic and head/scalp atraumatic Mouth ED: Yes moist mucous membranes normal Eyes PERRL and EOMs intact bilaterally Neck full ROM and supple Chest Wall inspection of chest normal Resp normal respiratory effort and clear to auscultation bilaterally Cardio regular rate and regular rhythm GI soft to palpation, non-tender, non-distended and no masses Back/Spine no CVA tenderness, normal ROM and normal to inspection Extremity normal to inspection and full ROM Neuro moves all extremities, no focal motor deficits and no sensory deficits noted Sensorium / Orientation: awake and alert Psych mental status grossly normal and thought process normal Skin no rashes or lesions noted and no wounds <Dr. Javier Costa DO - Last Filed: 04/25/25 01:01> Physical Exam Const Vital Signs: 04/24/25 18:30 04/24/25 20:29 04/24/25 22:13 Temperature 98.3 F 98.1 F Temperature Source Oral Pulse Rate 69 58 L 67 Respiratory Rate 16 16 16 Blood Pressure 186/68 H 156/80 H 166/85 H Blood Pressure Mean 107 105 112 Pulse Ox 99 100 100 Oxygen Delivery Method Room Air Room Air MDM <SAMIRA Leonard - Last Filed: 04/24/25 21:46> [facility] Narrative Medical decision making narrative: Patient presenting today with left-sided flank pain that radiates into the left lower quadrant of the abdomen and left groin that started this afternoon. He reports that the pain has been waxing and waning, he is not currently in any pain but did take a [place] prior to arrival. He does not want anything additional here. He does not have CVA tenderness on exam, his abdomen is soft and nontender. CT scan of the abdomen and pelvis will be obtained to assess for kidney stone, diverticulitis, bowel obstruction, and other abnormality. CT scan is negative for any acute findings but does show a small left inguinal hernia, no evidence of bowel obstruction, he is moving his bowels without difficulty. Labs obtained, his CBC, BMP, are unremarkable. UA does show 3+ bacteria with 100 leukocytes but he does not have any urinary symptoms to indicate a UTI. I will refer him to Dr. Calle for his hernia. He does have [place] at home that he can take if needed for pain, recommended he follow-up with his PCP as well. Return instructions discussed and patient discharged home in stable condition. Lab Data Attestation: I reviewed the patient's lab results. Labs: Laboratory Results - last 24 hr 04/24/25 19:50 WBC 9.8 RBC 4.43 L Hgb 12.9 L Hct 39.0 L MCV 88.0 MCH 29.1 MCHC 33.1 RDW Std Deviation 46.6 H RDW Coeff of Monica 14.4 Plt Count 295 MPV 9.4 Immature Gran % (Auto) 0.500 Neut % (Auto) 70.5 H Lymph % (Auto) 21.5 [place] % (Auto) 6.3 Eos % (Auto) 0.9 Baso % (Auto) 0.3 Absolute Neuts (auto) 6.9 Absolute Lymphs (auto) 2.11 Nucleated RBC % 0 Sodium 142 Potassium 4.2 Chloride 104 Carbon Dioxide 26.1 Anion Gap 12 BUN 20 H Creatinine 0.41 L Est GFR (MDRD) Non-Af 108 BUN/Creatinine Ratio 48.1 H Glucose 110 H Calcium 9.5 Urine Color Yellow Urine Clarity Clear Urine pH 6.0 Ur Specific [place] 1.015 Urine Protein 30 H Urine Glucose (UA) Normal Urine Ketones Negative Urine Occult Blood Negative Urine Nitrite Negative Urine Bilirubin Negative Urine Urobilinogen 1 H Ur Leukocyte Esterase 100 H Urine RBC 0 SEEN Urine WBC 0-5 SEEN Ur Squamous Epith Cells 0-5 SEEN Urine Bacteria 3+ Urine Mucus 2+ Radiography Diagnostic Testing: Clinical Impression(s) from Imaging Studies Abdomen/Pelvis CT 04/24/25 20:00 IMPRESSION: No acute abdominopelvic finding. Reading Location: [id number] <Dr. Javier Costa, DO - Last Filed: 04/25/25 01:01> [facility] Narrative Medical decision making narrative: Patient presenting today with left-sided flank pain that radiates into the left lower quadrant of the abdomen and left groin that started this afternoon. He reports that the pain has been waxing and waning, he is not currently in any pain but did take a [place] prior to arrival. He does not want anything additional here. He does not have CVA tenderness on exam, his abdomen is soft and nontender. CT scan of the abdomen and pelvis will be obtained to assess for kidney stone, diverticulitis, bowel obstruction, and other abnormality. CT scan is negative for any acute findings but does show a small left inguinal hernia, no evidence of bowel obstruction, he is moving his bowels without difficulty. Labs obtained, his CBC, BMP, are unremarkable. UA does show 3+ bacteria with 100 leukocytes but he does not have any urinary symptoms to indicate a UTI. I will refer him to Dr. Calle for his hernia. He does have [place] at home that he can take if needed for pain, recommended he follow-up with his PCP as well. Return instructions discussed and patient discharged home in stable condition. Attending note: I have personally performed a face to face assessment of the patient and have reviewed the [facility] note. I personally made/approved the management plan and take responsibility for the patient management. I performed a substantive portion of the visit including all aspects of the following. My haney findings include: Transient pain started left groin radiating to his testicles this afternoon. States also pain to his back. No fevers no chills. No urinary symptoms. No history of kidney stones. Currently pain was resolved on arrival to the ED. Patient currently nonambulatory uses slide board into the scooter. On workup cannot reproduce his pain in his groin. Nontoxic. Workup labs stable urine with 3+ bacteria 100 leukocytes. No dysuria no frequency. He is on tamsulosin for BPH. Urine culture sent. Would not treat last positive. CT scan negative for kidney stones however noted inguinal hernia left side with bowel loop no obstruction noted. Discussed with patient findings referral to surgery discussed strict return precautions. Lab Data Labs: Laboratory Results - last 24 hr 04/24/25 19:50 WBC 9.8 RBC 4.43 L Hgb 12.9 L Hct 39.0 L MCV 88.0 MCH 29.1 MCHC 33.1 RDW Std Deviation 46.6 H RDW Coeff of Monica 14.4 Plt Count 295 MPV 9.4 Immature Gran % (Auto) 0.500 Neut % (Auto) 70.5 H Lymph % (Auto) 21.5 [place] % (Auto) 6.3 Eos % (Auto) 0.9 Baso % (Auto) 0.3 Absolute Neuts (auto) 6.9 Absolute Lymphs (auto) 2.11 Nucleated RBC % 0 Sodium 142 Potassium 4.2 Chloride 104 Carbon Dioxide 26.1 Anion Gap 12 BUN 20 H Creatinine 0.41 L Est GFR (MDRD) Non-Af 108 BUN/Creatinine Ratio 48.1 H Glucose 110 H Calcium 9.5 Urine Color Yellow Urine Clarity Clear Urine pH 6.0 Ur Specific [place] 1.015 Urine Protein 30 H Urine Glucose (UA) Normal Urine Ketones Negative Urine Occult Blood Negative Urine Nitrite Negative Urine Bilirubin Negative Urine Urobilinogen 1 H Ur Leukocyte Esterase 100 H Urine RBC 0 SEEN Urine WBC 0-5 SEEN Ur Squamous Epith Cells 0-5 SEEN Urine Bacteria 3+ Urine Mucus 2+ Radiography Diagnostic Testing: Clinical Impression(s) from Imaging Studies Abdomen/Pelvis CT 04/24/25 20:00 IMPRESSION: No acute abdominopelvic finding. Reading Location: [facility] Discharge Plan Triage Chief Complaint: Flank Pain ED Midlevel Provider: Janina Waller ED Provider: Javier Cosat Dx/Rx/DC Orders Clinical Impression: Inguinal hernia, Left groin pain Instructions: ED Hernia (Adult) Prescriptions: No Action hydrochlorothiazide 25 mg tablet 25 mg PO TID losartan [Cozaar] 100 mg tablet 100 mg PO BID furosemide [Lasix] 20 mg tablet 20 mg PO DAILY ezetimibe [Zetia] 10 mg tablet 10 mg PO DAILY cholecalciferol (vitamin D3) 50 mcg (2,000 unit) capsule 50 mcg PO DAILY esomeprazole magnesium [Nexium] 20 mg capsule,delayed release(DR/EC) 20 mg PO DAILY PRN (Reason: GERD) hydrocodone-acetaminophen 5-325 mg tablet 1 tab PO DAILY PRN (Reason: pain) diphenoxylate-atropine 2.5-0.025 mg tablet PO tamsulosin 0.4 mg capsule 0.4 mg PO DAILY fluticasone propionate 50 mcg/actuation spray,suspension INTRANASAL Patient Comments: [NO ORIGINAL SIG] escitalopram oxalate 10 mg tablet 10 mg PO DAILY alprazolam 0.5 mg tablet 0.5 mg PO ONCE Qty: 1 0RF Rx Instructions: Take 1 tablet 60-90 minutes prior to your scheduled procedure Vasculera 630 mg tablet 1 tab PO BID 30 Days Qty: 60 5RF Primary Care Provider: Fernie Hoang Referrals: Jarek Calle MD [Med Staff - Active Staff] - 5-7 Days Fernie Hoang MD [Primary Care Provider] - Activity Restrictions/Additional Instructions: Follow-up with Dr. Calle if you continue to have discomfort. Return for any worsening of your symptoms. Print Language: Estonian Disposition Disposition: Home, Self Care Discharge Date/Time: 04/24/25 22:27
[2025-04-24 22:13] VITALS: BP 166/85; PULSE 67; RESP 16; TEMP 36.7; O2SAT 100
== END 2025-04-24 22:27 | disposition home or self-care (01) ==
PROVIDERS: Physician Assistant; Emergency Provider Emergency Medicine; PCP Family Medicine; Visit Provider Emergency Medicine
DX: K40.90 Unilateral inguinal hernia, without obstruction or gangrene, not specified as recurrent (principal); R10.32 Left lower quadrant pain; N40.0 Benign prostatic hyperplasia without lower urinary tract symptoms; Z79.899 Other long term (current) drug therapy; Z87.891 Personal history of nicotine dependence
CPT/HCPCS: 74176; 80048; 81001; 85025; 87086; 87088; 99283; A4216

== ENCOUNTER 2025-05-25 12:03 | Day surgery (SDC) | payer MEDICARE, SELFPAY ==
[2025-05-24 08:50] VITALS: BMI 25.8
--- NOTE | 2025-05-25 14:18 | PCM.HP.STD ---
HPI - General HPI Narrative RAMAKRISHNA MARSHALL, is a 84 M who presents with recurrent left lower extremity venous wounds refractory to compression. Prior below knee GSV helped medial medial wounds, lateral wounds intermittently persist. Has reflux in small saphenous and branches. Presents for foam scclero. [facility] Medical History Spinal muscular atrophy Vascular insufficiency Chronic wound Cataract (~2011) Home Medications ?Medication ?Instructions ?Recorded ?Last Taken ?Type cholecalciferol (vitamin D3) 50 50 mcg PO DAILY 02/19/24 Unknown History mcg (2,000 unit) capsule esomeprazole magnesium 20 mg 20 mg PO DAILY PRN GERD 02/19/24 Unknown History capsule,delayed release (Nexium) ezetimibe 10 mg tablet (Zetia) 10 mg PO DAILY 02/19/24 Unknown History furosemide 20 mg tablet (Lasix) 20 mg PO DAILY 02/19/24 Unknown History hydrochlorothiazide 25 mg tablet 25 mg PO TID 02/19/24 Unknown History hydrocodone-acetaminophen 5-325mg 1 tab PO DAILY PRN pain 02/19/24 Unknown History 5mg-325mg losartan 100 mg tablet (Cozaar) 100 mg PO BID 02/19/24 06/10/24 History diphenoxylate-atropine 2.5 tab PO 03/11/24 Unknown History mg-0.025 mg tablet escitalopram oxalate 10 mg tablet 10 mg PO DAILY 03/11/24 Unknown History fluticasone propionate 50 intranasal 03/11/24 Unknown History mcg/actuation nasal spray,suspension tamsulosin 0.4 mg capsule 0.4 mg PO DAILY 03/11/24 Unknown History alprazolam 0.5 mg tablet 0.5 mg PO ONCE #1 TAB 05/19/25 05/25/25 Rx diosmin complex no.1 630 mg tablet 1 tab PO BID 30 days #60 tabs 05/19/25 Unknown Rx (Vasculera) Allergy/AdvReac Type Severity Reaction Status Date / Time No Known Allergies Allergy Verified 04/24/25 18:32 Family History Other Abnormal cholesterol test Asthma CAD (coronary artery disease) Cancer Diabetes Social History Smoking Status: Former smoker ROS Constitutional Constitutional: Denies chills, fever(s), frequent falls, lethargy or weakness Eyes Eyes: Denies blind spots, change in vision or loss of vision ENT HEENT: Denies bleeding gums, hoarseness or sore throat Cardiovascular Cardiovascular: Denies abdominal pain, bluish discoloration of hand/feet, chest pain with activity, claudication, cold extremities, cyanosis, dyspnea on exertion, erythema on extremities, irregular heart rhythm, leg edema, leg ulcers, numbness in extremities or weakness in extremities Respiratory/Chest Respiratory/Chest: Denies cough, excessive phlegm production, shortness of breath at rest, shortness of breath with exertion or wheezing Gastrointestinal Gastrointestinal: Denies anorexia, change in stool character, constipation, diarrhea, melena or rectal bleeding Genitourinary Genitourinary: Denies dysuria or hematuria Musculoskeletal Musculoskeletal: Denies abnormal gait Integumentary Integumentary: Reports other Details: ; Denies erythema, non-healing lesions or wounds Neurologic Neurologic: Denies abnormal speech, focal weakness, headache(s), loss of vision, numbness, paresthesias or sensory deficit Hematologic/Lymphatic Hematologic/Lymphatic: Denies easy bleeding, easy bruising or lymphadenopathy Vital Signs Vital Signs Vital Signs: Weight Weight: 180 lb Body Mass Index (BMI) 25.8 Physical Exam Const alert, oriented x3, no apparent distress and healthy appearing General Appearance: cooperative; Negative for combative or lethargic Orientation / Consciousness: awake Exam Limitations: no limitations HEENT Head and Scalp: normocephalic and atraumatic Eyes EOMs intact bilaterally General Eye: normal appearance of both eyes Neck full ROM, no lymphadenopathy, thyroid normal and No no carotid bruits General: trachea midline; Negative for lymphadenopathy or tenderness Thyroid: thyroid normal Lymph Lymphatic: Negative for no lymphadenopathy noted Resp normal respiratory effort, no use of accessory muscles and clear to auscultation bilaterally Effort and Inspection: Negative for labored, stridor or audible wheezes Cardio regular rate, regular rhythm and no murmurs Peripheral Pulses: brachial pulses present, radial pulses present, femoral pulses present, popliteal pulses present, posterior tibial pulses present and dorsalis pedis pulses present GI non-tender and non-distended; Negative for hepatosplenomegaly Back/Spine Cervical Spine: cervical ROM normal Extremity full ROM, normal capillary refill and no clubbing, cyanosis or edema Skin no rashes or lesions noted and no wounds Neuro oriented x3, CN's II-XII intact bilaterally, no focal motor deficits and no sensory deficits noted Psych thought process normal, cooperative, affect normal, speech normal and activity/motor behavior normal Assessment & Plan Assessment/Plan (1) 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
--- NOTE | 2025-05-25 17:04 | PCM.OPRPT ---
Operative Report (Standard) Operative Information Date of Procedure: 05/25/25 Pre-Operative Diagnosis: Venous insufficiency with stasis dermatitis and recurrent wounds of the left lower lateral calf Post-Operative Diagnosis: Same Surgery/Procedure Performed: Foam sclerotherapy of the left small saphenous vein and associated accessory saphenous vein fabricator industrial furnace: No Type of Anesthesia: Local and Sedation,Conscious Procedure Start Time: 14:30 Procedure Stop Time: 14:40 Select all DRAINS/GRAFTS/IMPLANTS that apply: None Estimated Blood Loss: 1 Specimen collected: No Description of surgery: HPI: Patient is an 84-year-old male with recurrent wounds and stasis dermatitis of the left lower extremity and left venous insufficiency that has been refractory to compression therapy. He has previously had his below the knee great saphenous vein chemically ablated which improved the wounds of the medial aspect however he continues to have dermatitis changes of the lateral aspect and has been found to have incompetent small saphenous vein and associated accessory saphenous vein. He is taken now for foam sclerotherapy. Description of procedure: Upon obtaining form consent and verification correct patient procedure and site patient was taken to the Psychology Lecturer prep area where he was positioned prepped and draped in usual sterile fashion. Consultation administered Versed and fentanyl. Ultrasound was used to evaluate small saphenous vein from the just above the ankle popliteal fossa accessory vein competence is identified. There were no significant perforators visualized. Skin overlying the vessel in the distal calf was anesthetized with 1% lidocaine the vessel accessed under ultrasound guidance with a micropuncture needle wire. This then exchanged for micropuncture sheath through which 4.5 cc of Varithena sclerosant foam was injected under ultrasound visualization. Once the tunnel reached the popliteal fossa manual pressure held for 3 minutes after which the vessel was assessed and found to be filled with from the access site to the intended end of the treatment site. Puncture sheath and withdrawn and pressure held until hemostasis was obtained. Compression dressing was then applied and the patient observed on bedrest prior to discharge to home. Surgical Findings: See above Complications Complications: No
== END 2025-05-25 23:59 | disposition home or self-care (01) ==
PROVIDERS: PCP Family Medicine; Referring Provider Physician Assistant; Visit Provider Surgery Trauma Surgery
DX: I83.222 Varicose veins of left lower extremity with both ulcer of calf and inflammation (principal); L97.229 Non-pressure chronic ulcer of left calf with unspecified severity; Z87.891 Personal history of nicotine dependence
CPT/HCPCS: 36465; 99152; C1894; A4216

== ENCOUNTER → 2025-05-30 | Outpatient (CLI) | payer MEDICARE, SELFPAY ==
--- NOTE | 2025-05-30 12:58 | VDLE_ITS ---
Reason For Study Reason For Study: S/P LLE Chemical Ablation RIGHT LEFT CFV is compressible, spontaneous, phasic, competent Lt GSV ankle to mid thigh is NONCOMPRESSIBLE with and demonstrates normal augmentation. bright intraluminal echoes consistent with chemical Procedure ablation. This is a venous duplex using B-mode, color flow and Lt SSV ankle to prox calf is NONCOMPRESSIBLE. Finding spectral Doppler. consistent with recent chemical ablation. Exam performed in department. CFV is compressible, spontaneous, phasic, competent, The exam was diagnostic. and demonstrates normal augmentation. FV is compressible, spontaneous, phasic, competent and demonstrates normal augmentation. POP V is compressible, spontaneous, phasic, competent and demonstrates normal augmentation. T/P Trunk is compressible. PTV is compressible. LT PerV is compressible. VL/Venous Duplex US, Unilateral Interpretation Summary Deep veins of the left lower extremity are patent and compressible segmentally. There is no evidence of left lower extremity deep vein thrombosis. Left great saphenous vein and small saphenous vein occluded consistent with ingrid or ablation Ordering Physician: Swetha Dahl Referring Physician: Fernie Hoang Performed By: Cody Funes RVT
== END | disposition home or self-care (01) ==
LOC: CVS 12:57
PROVIDERS: PCP Family Medicine; Referring Provider Physician Assistant; Visit Provider Physician Assistant
DX: R60.0 Localized edema (principal); Z48.812 Encounter for surgical aftercare following surgery on the circulatory system
CPT/HCPCS: 93971